=== PATIENT | male | born 1955 | race Caucasian/White ===

== ENCOUNTER → 2016-09-15 | Outpatient (CLI) | payer BC ==
--- NOTE | 2016-09-25 00:58 | ECWPNPC ---
PATIENT NAME: MARKELL BUSTILLOS : 1955 GENDER: MALE VISIT DATE: 09/15/2016 DISCHARGE DATE: 09/15/16 0000 VISIT LOCKED DATE TIME: PHYSICIAN: BRENDEN FLORES RESOURCE: BRENDEN FLORES REASON FOR APPOINTMENT 1. POST CERVICAL THORACIC FACET BLOCK HISTORY OF PRESENT ILLNESS HISTORY OF PRESENT ILLNESS: HERE FOR POST PROC. F/U.HAD BILAT. CERVICAL FACET BLOCK 09-02-16.PAIN IN CERVICAL SPINE IS 0/10 TODAY AND EVER SINCE PROCEDURE.HAS APT FOR RIGHT KNEE INJECTION W US IN A FEW DAYS.HAVING PERIODIC EPISODES OF SEVERE LBP. FALL RISK SCREENING: SCREENING :NO FALLS IN THE PAST YEAR CURRENT MEDICATIONS TAKING OXYCONTIN 20 MG TABLET ER 12 HOUR ABUSE-DETERRENT 1 TABLET ORALLY EVERY 12 HRS, NOTES: 09-01-162329 TAKING BACLOFEN 10 MG TABLET 1 TABLET WITH FOOD OR MILK ORALLY THREE TIMES A DAY NEEDED FOR SPASMS AND PAIN, NOTES: 09-01-162329 TAKING ROPINIROLE HCL 1 MG TABLET ORALLY FOUR TIMES DAILY, NOTES: 09-01-162329 TAKING FUROSEMIDE 40 MG TABLET 1 TABLET ORALLY ONCE A DAY, NOTES: 08-31-16 0900 TAKING DULERA 100-5 MCG/ACT AEROSOL 2 PUFFS INHALATION TWICE A DAY NEEDED, NOTES: 08-22-16 TAKING ALBUTEROL SULFATE (2.5 MG/3ML) 0.083% NEBULIZATION SOLUTION 3 ML INHALATION ONCE DAILY NEEDED, NOTES: 08-22-16 TAKING ALEVE 220 MG CAPSULE 1 DROP ORALLY DAILY NOT-TAKING OXYCODONE HCL ER 20 MG TABLET EXTENDED RELEASE 12 HOUR 1 TABLET ORALLY EVERY 12 HRS FOR PAIN MDD2 MEDICATION LIST REVIEWED AND RECONCILED WITH THE PATIENT PAST MEDICAL HISTORY SINUSITIS ARTHRITIS COPD ALLERGIES N.K.D.A. SOCIAL HISTORY TOBACCO USE ARE YOU A:NONSMOKER LEARNING BARRIERS / SPECIAL NEEDS ORIENTED TO PLAN OF CARE: PATIENT, PAIN MANAGEMENT PATIENT, ORIENTED TO PLAN OF CARE: PATIENT, PAIN MANAGEMENT PATIENT. NEW PATIENT PAIN DIARY TODAY'S VISITNOTES FROM 0-10, WHAT LEVEL IS YOUR PAIN TODAY?0 PAIN CLINIC PFS, CLERGY, PUBLIC HEALTH REFERRALS PFS REFERRAL NEEDED?NO CLERGY REFERRAL NEEDED?NO PUBLIC HEALTH REFERRAL NEEDED?NO WAS THE PROVIDER NOTIFIED OF ANY PERTINENT INFO?NO PFS REFERRAL NEEDED?NO CLERGY REFERRAL NEEDED?NO PUBLIC HEALTH REFERRAL NEEDED?NO WAS THE PROVIDER NOTIFIED OF ANY PERTINENT INFO?NO REVIEW OF SYSTEMS CONSTITUTIONAL: ANY CHANGE IN YOUR MEDICAL CONDITION? NO . RECENT ILLNESS DENIES . CHILLS NO . FEVER NO . WEIGHT LOSS DENIES . INFECTION: DO YOU HAVE NEW INFECTIONS? NO . DO YOU HAVE HISTORY OF MRSA? NO . MUSCULOSKELETAL: ANY NEW PATTERNS OF PAIN OR NUMBNESS? NO . GASTROENTEROLOGY: ANY NEW CHANGE IN BOWEL CONTROL? NO . GENITOURINARY: ANY NEW CHANGE IN BLADDER CONTROL? NO . IS THERE A CHANCE YOU COULD BE ? NO . HEMATOLOGY/LYMPH: DO YOU TAKE ANY BLOOD THINNERS? (FOR EXAMPLE- COUMADIN, PLAVIX, AGGRENOX, PLATEL, PRADAXA, OR XARELTO) NO . WHEN WAS YOUR LAST DOSE? DATE: TIME: . NEUROLOGY: HAVE YOU FALLEN IN THE PAST 6 MONTHS? NO . ANY NEW EXTREMITY NUMBNESS OR WEAKNESS? NO . CARDIOLOGY: DO YOU HAVE A PACEMAKER OR DEFIBRILLATOR? NO . CHEST PAIN DENIES . SHORTNESS OF BREATH DENIES . RESPIRATORY: HAVE YOU BEEN SICK IN THE PAST WEEK? NO . FEVER NO . FLU LIKE SYMPTOMS? NO . COUGH NO, DENIES . SHORTNESS OF BREATH DENIES . INTEGUMENTARY: DO YOU HAVE ANY RASHES OR OPEN SORES? NO . ALLERGIC/IMMUNO: ARE YOU ALLERGIC TO SHELLFISH OR IV DYE? NO . ANY NEW ALLERGIES? NO . PSYCHIATRIC: DO YOU HAVE THOUGHTS OF HURTING YOURSELF OR SOMEONE ELSE? NO . ARE YOU ABUSED, NEGLECTED, OR IN AN UNSAFE ENVIRONMENT? NO . 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 NO . OTHER: DO YOU NEED ANY PRESCRIPTIONS? YES, OXYCONTIN . IF YES, PLEASE LIST: ____ . ANY NEW PROBLEMS WITH YOUR MEDICATIONS? NO . WHEN DID YOU LAST EAT? ____ . WHEN DID YOU LAST DRINK? ____ . WHAT DID YOU LAST DRINK? ____ . NAME OF PERSON DRIVING YOU HOME? ____ . DO YOU HAVE ANY OTHER QUESTIONS OR CONCERNS NO . REVIEWED BY: PROVIDER: BRENDEN ADAMS . VITAL SIGNS WT 225 LBS, HT 68 IN, BMI 34.21 INDEX, BP 137/87 MM HG, HR 97 /MIN, RR 18 /MIN, TEMP 97.6 F, OXYGEN SAT % 97%, NA INITIALS SC 15:17, REVIEWED BY: MLF. EXAMINATION GENERAL EXAMINATION: LUNGS:LUNG SOUNDS ARE CLEAR. HEART:HEART RATE REGULAR. MUSCULOSKELETAL:*, PALPATION: POSITIVE FOR PAIN OVER L/S SPINE. POSITIVE FOR PAIN OVER L/S PARSPINALS, MUSCLE STRENGTH TESTING 5/5 BILATERAL LOWER EXTREMITIES.POSITIVE FOR TENDERNESS OVER C-SPINE.. DIAGNOSTIC:MRI L/S IHDOD-4-31-16-REVIEWED SHOWING MULTI LEVEL DEGENERATIVE CHANGES.. ASSESSMENTS OSTEOARTHRITIS OF CERVICAL SPINE, UNSPECIFIED SPINAL OSTEOARTHRITIS COMPLICATION STATUS - M47.812 (PRIMARY) OSTEOARTHRITIS OF LUMBAR SPINE, UNSPECIFIED SPINAL OSTEOARTHRITIS COMPLICATION STATUS - M47.816 PAIN IN LEFT KNEE - M25.562 CHRONIC PRESCRIPTION OPIATE USE - Z79.891 TREATMENT OSTEOARTHRITIS OF CERVICAL SPINE, UNSPECIFIED SPINAL OSTEOARTHRITIS COMPLICATION STATUS REFILL OXYCONTIN TABLET ER 12 HOUR ABUSE-DETERRENT, 20 MG, 1 TABLET, ORALLY, EVERY 12 HRS, 30 DAY(S), 60 TABLET, REFILLS 0, NOTES: 09-01-162329 REFILL BACLOFEN TABLET, 10 MG, 1 TABLET WITH FOOD OR MILK, ORALLY, THREE TIMES A DAY NEEDED FOR SPASMS AND PAIN, 30 DAY(S), 90, REFILLS 5, NOTES: 09-01-162329 LUMBAR FACET THERAPEUTIC NOTES: ISTOP REGISTRY REVIEWED AND DEMNOSTRATES COMPLLIANCE. BRINGS IN MEDICATIONS WHICH IS APPROPRIATE FOR WHAT WAS DISPENSED. RECENT URINE TOXICOLOGY REVIEWED. NO UNAUTHORIZED MEDICATIONS. NO ILLICIT SUBSTANCES AND PRESCRIBED MEDICATIONS WERE PRESENT. , RISKS AND BENEFITS OF NARCOTIC/OPIOD MEDICATIONS WERE REVIEWED WITH PATIENT - THIS INCLUDES BUT IS NOT LIMITED TO RISK OF DEPENDANCE/DEVELOPMENT OF ADDICTION, MOOD DISTURBANCE AND DEPRESSION, OSTEOPOROSIS, HORMONAL AND LABIDAL CHANGES, RESPIRATORY DEPRESSION AND . PATIENT IS ADVISED NOT TO DRIVE WHILE ON THESE MEDICATIONS,FACET JOINT INJECTION MATERIAL WAS PRINTED,FACET JOINT INJECTION: YOUR EXPERIENCE MATERIAL WAS PRINTED. OSTEOARTHRITIS OF LUMBAR SPINE, UNSPECIFIED SPINAL OSTEOARTHRITIS COMPLICATION STATUS LUMBAR FACET THERAPEUTIC PROCEDURE CODES FA211 ESTABILISHED PATIENT [facility] FACILITY CHARGE FOLLOW UP 2WKS POST (REASON: BILAT. LUMBAR FACET BLOCK) ELECTRONICALLY SIGNED BY ANGIE DUVAL ON 09/24/2016 AT 05:16 PM EST DISCLAIMER : THIS IS A VISIT SUMMARY EXTRACTED FROM THE [employer] CHART. IT IS NOT A COPY OF THE [employer] PROGRESS NOTE. SOFIA
== END ==
LOC: M PAIN 15:20
PROVIDERS: ATTEND Nurse Practitioner Family
DX: Z09 Encounter for follow-up examination after completed treatment for conditions other than malignant neoplasm (principal); M47.812 Spondylosis without myelopathy or radiculopathy, cervical region; M47.816 Spondylosis without myelopathy or radiculopathy, lumbar region; M25.562 Pain in left knee; M19.90 Unspecified osteoarthritis, unspecified site; J44.9 Chronic obstructive pulmonary disease, unspecified; Z79.891 Long term (current) use of opiate analgesic; Z79.899 Other long term (current) drug therapy; Z79.1 Long term (current) use of non-steroidal anti-inflammatories (NSAID)

== ENCOUNTER → 2016-09-18 | Outpatient (CLI) | payer BC ==
[~2016-09-18] MED LIST: BUPIVACAINE HCL 0.25% 30 ML VIAL As Ordered ONE; ISOVUE-M 300 61% 15ML VIAL (Q9967) As Ordered ONE; LIDOCAINE 1% SDV INJ 30 ML VIAL As Ordered ONE; TRIAMCINOLONE ACETONIDE SUSP 40 MG/ML VIAL (J3301) As Ordered ONE; diazePAM 5 MG TAB As Ordered ONE; oxyCODONE 5MG TAB As Ordered ONE
--- NOTE | 2016-09-18 16:06 | REP ---
PARTIAL LEFT KNEE SERIES, THREE VIEWS: HISTORY: Left knee injection for pain. 13 seconds of fluoroscopic time is reported. FINDINGS: A sequence of three fluoroscopically obtained intraprocedural spot radiograph of the left knee document needle position and contrast injection in the suprapatellar bursa associated with injection procedure. Signed by Shane Alcala MD 09/18/2016 07:28 P
--- NOTE | 2016-09-26 02:20 | ECWPNPC ---
PATIENT NAME: MARKELL BUSTILLOS : 1955 GENDER: MALE VISIT DATE: 09/18/2016 DISCHARGE DATE: 09/18/16 1520 VISIT LOCKED DATE TIME: PHYSICIAN: MY TOVAR RESOURCE: MY TOVAR REASON FOR APPOINTMENT 1. LEFT KNEE INJECTION UNDER X RAY HISTORY OF PRESENT ILLNESS HISTORY OF PRESENT ILLNESS: PAIN THE PATIENT DESCRIBES THE PAIN... FALL RISK SCREENING: SCREENING :NO FALLS IN THE PAST YEAR CURRENT MEDICATIONS TAKING OXYCONTIN 20 MG TABLET ER 12 HOUR ABUSE-DETERRENT 1 TABLET ORALLY EVERY 12 HRS, NOTES: 09-17-16 239 TAKING BACLOFEN 10 MG TABLET 1 TABLET WITH FOOD OR MILK ORALLY THREE TIMES A DAY NEEDED FOR SPASMS AND PAIN, NOTES: 09-17-162199 TAKING ROPINIROLE HCL 1 MG TABLET ORALLY FOUR TIMES DAILY, NOTES: 09-18-162199 TAKING FUROSEMIDE 40 MG TABLET 1 TABLET ORALLY ONCE A DAY, NOTES: 09-14-2016 0600 TAKING DULERA 100-5 MCG/ACT AEROSOL 2 PUFFS INHALATION TWICE A DAY NEEDED, NOTES: [id number] TAKING ALBUTEROL SULFATE (2.5 MG/3ML) 0.083% NEBULIZATION SOLUTION 3 ML INHALATION ONCE DAILY NEEDED, NOTES: [id number] NOT-TAKING OXYCODONE HCL ER 20 MG TABLET EXTENDED RELEASE 12 HOUR 1 TABLET ORALLY EVERY 12 HRS FOR PAIN MDD2 MEDICATION LIST REVIEWED AND RECONCILED WITH THE PATIENT PAST MEDICAL HISTORY SINUSITIS ARTHRITIS COPD ALLERGIES N.K.D.A. SURGICAL HISTORY COLONOSCOPY 2014 LEFT SHOULDER - ROTATOR CUFF 2016 SPINAL TAP 2016 LEFT SHOULDER DISLOCATION/FX 1968 SINUSITIS FLUSH AND DRAIN 1971, 1973 RIGHT NIPPLE CYST REMOVED 1972 RIGHT WRIST FX 1974 RIGHT KNEE ACL REPAIRED 1997 RIGHT KNEE TOTAL REPLACEMENT 2006 LEFT SHOULDER ROTATOR CUFF 2008 LEFT FRONTAL MAXILLARY SINUSITIS SINUSOTOMY 2009 RIGHT WRIST CARPAL TUNNEL 2010 REVIEW OF SYSTEMS CONSTITUTIONAL: ANY CHANGE IN YOUR MEDICAL CONDITION? NO . CHILLS NO . FEVER NO . INFECTION: DO YOU HAVE NEW INFECTIONS? NO . DO YOU HAVE HISTORY OF MRSA? NO . MUSCULOSKELETAL: ANY NEW PATTERNS OF PAIN OR NUMBNESS? NO . GASTROENTEROLOGY: ANY NEW CHANGE IN BOWEL CONTROL? NO . GENITOURINARY: ANY NEW CHANGE IN BLADDER CONTROL? NO . IS THERE A CHANCE YOU COULD BE ? NO . HEMATOLOGY/LYMPH: DO YOU TAKE ANY BLOOD THINNERS? (FOR EXAMPLE- COUMADIN, PLAVIX, AGGRENOX, PLATEL, PRADAXA, OR XARELTO) NO . WHEN WAS YOUR LAST DOSE? DATE: TIME: . NEUROLOGY: HAVE YOU FALLEN IN THE PAST 6 MONTHS? NO . ANY NEW EXTREMITY NUMBNESS OR WEAKNESS? NO . CARDIOLOGY: DO YOU HAVE A PACEMAKER OR DEFIBRILLATOR? NO . RESPIRATORY: HAVE YOU BEEN SICK IN THE PAST WEEK? NO . FEVER NO . FLU LIKE SYMPTOMS? NO . COUGH NO . INTEGUMENTARY: DO YOU HAVE ANY RASHES OR OPEN SORES? NO . ALLERGIC/IMMUNO: ARE YOU ALLERGIC TO SHELLFISH OR IV DYE? NO . ANY NEW ALLERGIES? NO . PSYCHIATRIC: DO YOU HAVE THOUGHTS OF HURTING YOURSELF OR SOMEONE ELSE? NO . ARE YOU ABUSED, NEGLECTED, OR IN AN UNSAFE ENVIRONMENT? NO . 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 NO . OTHER: DO YOU NEED ANY PRESCRIPTIONS? NO . IF YES, PLEASE LIST: ____ . ANY NEW PROBLEMS WITH YOUR MEDICATIONS? NO . WHEN DID YOU LAST EAT? 09-17-16 . WHEN DID YOU LAST DRINK? 09-17-16 . WHAT DID YOU LAST DRINK? WATER . NAME OF PERSON DRIVING YOU HOME? ALBINO . DO YOU HAVE ANY OTHER QUESTIONS OR CONCERNS NO . REVIEWED BY: PROVIDER: . VITAL SIGNS WT 225 LBS, HT 68 IN, BMI 34.21 INDEX, BP 128/58 MM HG, HR 88 /MIN, RR 16 /MIN, TEMP 96.2 F, OXYGEN SAT % 97, NA INITIALS TL 1308, REVIEWED BY: BENITO. ASSESSMENTS OSTEOARTHRITIS OF KNEE, UNSPECIFIED - M17.9 (PRIMARY) LEFT KNEE OSTEOARTHRITIS. PROCEDURES PRE-PROCEDURE DIAGNOSIS: LEFT KNEE OSTEOARTHRITISPOST-PROCEDURE DIAGNOSIS: LEFT KNEE OSTEOARTHRITISPROCEDURE: INJECTION OF STEROIDS AT THE LEFT KNEE WITH FLUOROSCOPIC GUIDANCESURGEON: MY TOVAR MDANESTHESIA: LOCALCOMPLICATIONS: NONEPRE-PROCEDURE NOTE: THE PATIENT IS SUFFERING OF SEVERE LEFT KNEE PAIN. THE PATIENT HAS BEEN USING MULTIPLE MEDICATIONS TO CONTROL THIS PAIN. I HAVE DISCUSSED ALTERNATIVES WITH HIM. THE PATIENT INDICATES THAT HE CANNOT FUNCTION WITH THIS PAIN. AFTER DISCUSSING ALTERNATIVES HE WANTS TO MOVE FORWARD WITH A LEFT KNEE INJECTION OF STEROIDS. I WENT THROUGH THE RISKS ALTERNATIVES AND BENEFITS ASSOCIATED WITH THIS PROCEDURE AND THE PATIENT EXPRESSED THAT HE WOULD LIKE TO PROCEED. DUE TO THE PATIENT BODY HABITUS AND FOR CERTAINTY THE PROCEDURE WAS DONE UNDER FLUOROSCOPIC GUIDANCE. PROCEDURE NOTE: THE PATIENT WAS TAKEN TO THE PROCEDURE ROOM AND PLACED IN THE SUPINE POSITION. THE LEFT KNEE WERE CLEAN WITH BETHADINE SOLUTION AND DRAPED ASEPTICALLY. THE PROCEDURE WAS DONE WITH FLUOROSCOPIC GUIDANCE. ENTRY POINT WAS SELECTED AT THE SUPERIOR AND LATERAL MARGIN OF THE LEFT KNEE. UNDER FLUOROSCOPIC GUIDANCE A 22 GAUGE SPINAL NEEDLE WAS ADVANCE SMOOTHLY UNTIL THE LATERAL THIRD OF THE KNEE JOINT WAS REACHED SEEN WITH AN AP VIEW. AFTER PROPER POSITION OF THE NEEDLE WAS REACHED ISOVUE DYE 30% .25CC WAS INJECTED SLOWLY SHOWING ADEQUATE SPREAD OF THE DYE OVER THE RESPECTIVE KNEE JOINT. THEN A SOLUTION OF 4 CC OF BUPIVACAINE 0.125% AND KENALOG 20 MG WAS INJECTED IN THE LEFT KNEE. INJECTION WAS DONE SMOOTHLY AND WITHOUT RESISTANCE. THERE WAS NO EVIDENCE OF PARESTHESIA OR BLOOD. THE PATIENT WAS SEND TO THE RECOVERY ROOM FOR OBSERVATION. FLUOROSCOPY TIME WAS 13 SECONDS.POST-PROCEDURE NOTE: I DISCUSSED ALTERNATIVES WITH THE PATIENT. I WILL SEE HIM IN A F/UP IN THE NEXT FEW WEEKS. THERE WERE NO COMPLICATIONS DURING THE PROCEDURE. INSTRUCTIONS WERE GIVEN, QUESTION WERE ANSWERED AND THE PATIENT REPORTS UNDERSTANDING. DIAGNOSTIC IMAGING [facility] FLUORO GUIDANCE (PAIN)[id number] PROCEDURE CODES 6045F RADXPS IN END [id number] PXD FOLLOW UP 3 WEEKS ELECTRONICALLY SIGNED BY MY TOVAR MD ON 09/25/2016 AT 02:56 PM EST DISCLAIMER : THIS IS A VISIT SUMMARY EXTRACTED FROM THE [employer] CHART. IT IS NOT A COPY OF THE [employer] PROGRESS NOTE. MTDD
== END ==
LOC: M PAIN 13:00
PROVIDERS: ATTEND Anesthesiology
DX: M17.12 Unilateral primary osteoarthritis, left knee (principal); J44.9 Chronic obstructive pulmonary disease, unspecified; Z79.891 Long term (current) use of opiate analgesic; Z79.899 Other long term (current) drug therapy
CPT/HCPCS: 20610; 77002; J3301; Q9967

== ENCOUNTER → 2016-10-08 | Outpatient (CLI) | payer BC ==
[~2016-10-08] MED LIST changes: +ATROPINE SULF 0.4 MG/ML 1ML VIAL (J0461) As Ordered ONE; +ATROPINE SULF 1MG/10ML SYRINGE (J0461) As Ordered ONE
--- NOTE | 2016-10-08 10:41 | REP ---
Partial lumbar spine series: Two views. History: Injection procedure for pain. 45 seconds of fluoroscopy time is reported. Findings: A sequence of two fluoroscopically obtained intraprocedural spot radiographs of the lumbar spine document needle position and contrast injection associated with lumbar facet injection procedure. Signed by Shane Alcala MD 10/08/2016 02:53 P
--- NOTE | 2016-10-18 23:39 | ECWPNPC ---
PATIENT NAME: MARKELL BUSTILLOS : 1955 GENDER: MALE VISIT DATE: 10/08/2016 DISCHARGE DATE: 10/08/16 1018 VISIT LOCKED DATE TIME: PHYSICIAN: MY TOVAR RESOURCE: MY TOVAR REASON FOR APPOINTMENT 1. THERAPEUTIC LUMBAR FACET HISTORY OF PRESENT ILLNESS HISTORY OF PRESENT ILLNESS: PAIN THE PATIENT DESCRIBES THE PAIN... FALL RISK SCREENING: SCREENING :NO FALLS IN THE PAST YEAR CURRENT MEDICATIONS TAKING OXYCONTIN 20 MG TABLET ER 12 HOUR ABUSE-DETERRENT 1 TABLET ORALLY EVERY 12 HRS, NOTES: 10/07/16@2330 TAKING BACLOFEN 10 MG TABLET 1 TABLET WITH FOOD OR MILK ORALLY THREE TIMES A DAY NEEDED FOR SPASMS AND PAIN, NOTES: 10/07/16@2200 TAKING ROPINIROLE HCL 1 MG TABLET ORALLY FOUR TIMES DAILY, NOTES: TAKING FUROSEMIDE 40 MG TABLET 1 TABLET ORALLY ONCE A DAY, NOTES: 10/06/16@1700 TAKING DULERA 100-5 MCG/ACT AEROSOL 2 PUFFS INHALATION TWICE A DAY NEEDED, NOTES: HASNT USED LATELY TAKING ALBUTEROL SULFATE (2.5 MG/3ML) 0.083% NEBULIZATION SOLUTION 3 ML INHALATION ONCE DAILY NEEDED, NOTES: [id number] TAKING LIDODERM 5 % PATCH EXTERNALLY , NOTES: 10/06/16@2200 NOT-TAKING OXYCODONE HCL ER 20 MG TABLET EXTENDED RELEASE 12 HOUR 1 TABLET ORALLY EVERY 12 HRS FOR PAIN MDD2 MEDICATION LIST REVIEWED AND RECONCILED WITH THE PATIENT PAST MEDICAL HISTORY SINUSITIS ARTHRITIS COPD ALLERGIES N.K.D.A. SOCIAL HISTORY GENERAL: TOBACCO USE ARE YOU A:NONSMOKER LEARNING BARRIERS / SPECIAL NEEDS ORIENTED TO PLAN OF CARE: PATIENT, PAIN MANAGEMENT PATIENT, ORIENTED TO PLAN OF CARE: PATIENT, PAIN MANAGEMENT PATIENT. NEW PATIENT PAIN DIARY TODAY'S VISITNOTES FROM 0-10, WHAT LEVEL IS YOUR PAIN TODAY?0 PAIN CLINIC PFS, CLERGY, PUBLIC HEALTH REFERRALS PFS REFERRAL NEEDED?NO CLERGY REFERRAL NEEDED?NO PUBLIC HEALTH REFERRAL NEEDED?NO WAS THE PROVIDER NOTIFIED OF ANY PERTINENT INFO?NO PFS REFERRAL NEEDED?NO CLERGY REFERRAL NEEDED?NO PUBLIC HEALTH REFERRAL NEEDED?NO WAS THE PROVIDER NOTIFIED OF ANY PERTINENT INFO?NO REVIEW OF SYSTEMS CONSTITUTIONAL: ANY CHANGE IN YOUR MEDICAL CONDITION? NO . CHILLS NO . FEVER NO . INFECTION: DO YOU HAVE NEW INFECTIONS? NO . DO YOU HAVE HISTORY OF MRSA? NO . MUSCULOSKELETAL: ANY NEW PATTERNS OF PAIN OR NUMBNESS? NO . GASTROENTEROLOGY: ANY NEW CHANGE IN BOWEL CONTROL? NO . GENITOURINARY: ANY NEW CHANGE IN BLADDER CONTROL? NO . IS THERE A CHANCE YOU COULD BE ? NO . HEMATOLOGY/LYMPH: DO YOU TAKE ANY BLOOD THINNERS? (FOR EXAMPLE- COUMADIN, PLAVIX, AGGRENOX, PLATEL, PRADAXA, OR XARELTO) NO . WHEN WAS YOUR LAST DOSE? DATE: TIME: . NEUROLOGY: HAVE YOU FALLEN IN THE PAST 6 MONTHS? NO . ANY NEW EXTREMITY NUMBNESS OR WEAKNESS? NO . CARDIOLOGY: DO YOU HAVE A PACEMAKER OR DEFIBRILLATOR? NO . RESPIRATORY: HAVE YOU BEEN SICK IN THE PAST WEEK? NO . FEVER NO . FLU LIKE SYMPTOMS? NO . COUGH NO . INTEGUMENTARY: DO YOU HAVE ANY RASHES OR OPEN SORES? NO . ALLERGIC/IMMUNO: ARE YOU ALLERGIC TO SHELLFISH OR IV DYE? NO . ANY NEW ALLERGIES? NO . PSYCHIATRIC: DO YOU HAVE THOUGHTS OF HURTING YOURSELF OR SOMEONE ELSE? NO . ARE YOU ABUSED, NEGLECTED, OR IN AN UNSAFE ENVIRONMENT? NO . 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 NO . OTHER: DO YOU NEED ANY PRESCRIPTIONS? NO . IF YES, PLEASE LIST: ____ . ANY NEW PROBLEMS WITH YOUR MEDICATIONS? NO . WHEN DID YOU LAST EAT? ____10/07/16 . WHEN DID YOU LAST DRINK? ____10/07/16 . WHAT DID YOU LAST DRINK? ____WATER . NAME OF PERSON DRIVING YOU HOME? ____ALBINO . DO YOU HAVE ANY OTHER QUESTIONS OR CONCERNS NO . REVIEWED BY: PROVIDER: . VITAL SIGNS WT 225 LBS, HT 68 IN, BMI 34.21 INDEX, BP 156/75 MM HG, HR 99 /MIN, RR 16 /MIN, TEMP 96.0 F, OXYGEN SAT % 96, NA INITIALS TL 0852, REVIEWED BY: VD. ASSESSMENTS SPONDYLOSIS WITHOUT MYELOPATHY OR RADICULOPATHY, LUMBAR REGION - M47.816 (PRIMARY) SPONDYLOSIS WITHOUT MYELOPATHY OR RADICULOPATHY, LUMBOSACRAL REGION - M47.817 PROCEDURES PN LUMBAR FACET BLOCK THERAPEUTIC PRE PROCEDURE DIAGNOSIS LUMBAR SPONDYLOSIS, LUMBOSACRAL SPONDYLOSIS POST PROCEDURE DIAGNOSIS LUMBAR SPONDYLOSIS, LUMBOSACRAL SPONDYLOSIS PROCEDURE BILATERAL L4-L5 AND BILATERAL L5-S1 FACET THERAPEUTIC BLOCK SURGEON DR. MY TOVAR DIPLOMATIC OFFICER NONE ANESTHESIA LOCAL PRE PROCEDURE NOTE THE PATIENT HAS A HISTORY OF CHRONIC LOW BACK PAIN. I EVALUATE THE PATIENT AND REVIEWED THE CHART. I WENT OVER THE RISKS, ALTERNATIVES, AND BENEFITS ASSOCIATED WITH THIS PROCEDURE. THE PATIENT WOULD LIKE TO PROCEED AND GIVE CONSENT TO PERFORMED THE PROCEDURE. THE PATIENT DENIES UNEXPLAINABLE WEIGHT LOSS, FEVER, CHILLS, OR NEW CHANGES IN URINARY OR BOWEL CONTROL DESCRIPTION OF PROCEDURE THE PATIENT WAS BROUGHT TO THE PROCEDURE ROOM AND PLACED IN THE PRONE POSITION. THE LUMBOSACRAL AREA WAS CLEANED WITH CHLORAPREP SOLUTION AND DRAPED ASEPTICALLY. THE PROCEDURE WAS DONE UNDER STERILE CONDITIONS. I CHECKED LATERALITY AND THE LEVEL WHERE THE PROCEDURE WAS GOING TO BE PERFORMED WITH THE PATIENT AND THE SUPPORTING STAFF AT THE MOMENT OF THE TIME OUT IN THE PROCEDURE ROOM. UNDER FLUOROSCOPIC GUIDANCE, THE TARGET POINT WAS SELECTED AT THE RIGHT AND LEFT L4-L5 AND RIGHT AND LEFT L5-S1 FACET JOINT. TARGET POINT WAS SELECTED AFTER LATERAL ROTATION AND TILT OF THE MAGNIFIER OF THE C-ARM. LIDOCAINE 0.5% WAS USED TO NUMB THE SKIN AND THE SUBCUTANEOUS TISSUE BELOW IT. SPINAL NEEDLES, 22-GAUGE, WERE ADVANCED UNDER FLUOROSCOPIC GUIDANCE AND FOLLOWING PATIENT FEEDBACK UNTIL THE TARGETS WERE TOUCHED. THE POSITION OF THE NEEDLES WAS VERIFIED WITH AP AND LATERAL VIEWS. AFTER PROPER POSITION OF THE NEEDLES WAS ACHIEVED, ISOVUE-M DYE 30% 0.1 ML WAS INJECTED SHOWING ADEQUATE SPREAD OF THE DYE. THEN A SOLUTION OF 1.9 ML OF BUPIVACAINE 0.125% OF KENALOG 10 MG WAS INJECTED AT EACH SITE. THERE WAS NO EVIDENCE OF BLOOD, PARESTHESIA OR CEREBROSPINAL FLUID DURING THE PROCEDURE. THE PATIENT WAS SENT TO THE RECOVERY ROOM. THE PATIENT WAS MOVING THE EXTREMITIES AND DOING WELL. THERE WAS NO COMPLICATION DURING THE PROCEDURE. FLUOROSCOPY TIME WAS 45 SECONDS POST PROCEDURE NOTE THE PATIENT WILL BE SEEN IN A FOLLOW UP IN THE NEXT FEW WEEKS. INSTRUCTIONS WERE GIVEN, QUESTIONS WERE ANSWERED, AND THE PATIENT EXPRESSED UNDERSTANDING AND AGREES WITH THE PLAN. INSTRUCTIONS WERE GIVEN, QUESTIONS WERE ANSWERED, PATIENT REPORTS UNDERSTANDING AND AGREES WITH THE PLAN. I, ANTONIO ESCOBAR, DOCUMENTED THE ABOVE INFORMATION ACTING A SCRIBE FOR DR. TOVAR. I HAVE REVIEWED THE ABOVE DOCUMENT, WRITTEN BY ANTONIO HIGBY SCRIBE AND I VERIFY THAT IT IS ACCURATE. DIAGNOSTIC IMAGING [facility] FACET BLOCK (PAIN)[id number] PROCEDURE CODES 54158 INJ PARAVERT F JNT L/S 1 LEV 81672 INJ PARAVERT F JNT L/S 2 LEV 6045F RADXPS IN END [id number] PXD FOLLOW UP 3 WEEKS ELECTRONICALLY SIGNED BY MY TOVAR MD ON 10/18/2016 AT 07:46 PM EST DISCLAIMER : THIS IS A VISIT SUMMARY EXTRACTED FROM THE [employer] CHART. IT IS NOT A COPY OF THE [employer] PROGRESS NOTE. MTDD
== END ==
LOC: M PAIN 09:10
PROVIDERS: ATTEND Anesthesiology
DX: G89.29 Other chronic pain (principal); M47.816 Spondylosis without myelopathy or radiculopathy, lumbar region; M47.817 Spondylosis without myelopathy or radiculopathy, lumbosacral region; M19.90 Unspecified osteoarthritis, unspecified site; J44.9 Chronic obstructive pulmonary disease, unspecified; Z79.891 Long term (current) use of opiate analgesic; Z79.899 Other long term (current) drug therapy
CPT/HCPCS: 64493; 64494; J3301; Q9967

== ENCOUNTER → 2016-10-29 | Outpatient (CLI) | payer BC ==
--- NOTE | 2016-11-06 00:24 | ECWPNPC ---
PATIENT NAME: MARKELL BUSTILLOS : 1955 GENDER: MALE VISIT DATE: 10/29/2016 DISCHARGE DATE: 10/29/16 1516 VISIT LOCKED DATE TIME: PHYSICIAN: BRENDEN FLORES RESOURCE: BRENDEN FLORES REASON FOR APPOINTMENT 1. POST SIJ HISTORY OF PRESENT ILLNESS HISTORY OF PRESENT ILLNESS: HERE FOR POST PROCEDURE F/U.HAD L4/5-L5/S1 BILAT. LUMBAR FACET BLOCK ON 10-08-16.REPORTING >50% IMPROVEMENT IN PAIN POST PROCEDURE. RECENT DIAGNOSIS OF MS 4 MOS. AGO.CONTINUES TO BENEFIT FROM LUMBAR FACET BLOCKS.CHIEF AREA OF PAIN IS LEFT KNEE.RATING LEFT KNEE PAIN 8/10.LOW BACK PAIN IS 4/10 VAS.DESCRIBES LEFT KNEE PAIN THROBBING.CURRENTLY USING OXYCONTIN 20MG BID.ALSO USING BACLOFEN 10MG QID. FALL RISK SCREENING: SCREENING :NO FALLS IN THE PAST YEAR CURRENT MEDICATIONS TAKING OXYCONTIN 20 MG TABLET ER 12 HOUR ABUSE-DETERRENT 1 TABLET ORALLY EVERY 12 HRS TAKING BACLOFEN 10 MG TABLET 1 TABLET WITH FOOD OR MILK ORALLY FOUR TIMES DAILY TAKING ROPINIROLE HCL 1 MG TABLET ORALLY FOUR TIMES DAILY TAKING FUROSEMIDE 40 MG TABLET 1 TABLET ORALLY ONCE Q 3 DAYS PRN TAKING DULERA 100-5 MCG/ACT AEROSOL 2 PUFFS INHALATION TWICE A DAY NEEDED TAKING ALBUTEROL SULFATE (2.5 MG/3ML) 0.083% NEBULIZATION SOLUTION 3 ML INHALATION ONCE DAILY NEEDED TAKING LIDODERM 5 % PATCH EXTERNALLY PRN TAKING ALEVE 220 MG TABLET 1 TABLET ORALLY DAILY PRN NOT-TAKING OXYCODONE HCL ER 20 MG TABLET EXTENDED RELEASE 12 HOUR 1 TABLET ORALLY EVERY 12 HRS FOR PAIN MDD2 MEDICATION LIST REVIEWED AND RECONCILED WITH THE PATIENT PAST MEDICAL HISTORY SINUSITIS ARTHRITIS COPD DEMYELINATING DISEASE SURGICAL HISTORY COLONOSCOPY 2015 LEFT SHOULDER - ROTATOR CUFF 2016 SPINAL TAP 2016 LEFT SHOULDER DISLOCATION/FX 1968 SINUSITIS FLUSH AND DRAIN 1971, 1973 RIGHT NIPPLE CYST REMOVED 1972 RIGHT WRIST FX 1974 RIGHT KNEE ACL REPAIRED 1997 RIGHT KNEE TOTAL REPLACEMENT 2006 LEFT SHOULDER ROTATOR CUFF 2008 LEFT FRONTAL MAXILLARY SINUSITIS SINUSOTOMY 2009 RIGHT WRIST CARPAL TUNNEL 2010 SOCIAL HISTORY GENERAL: TOBACCO USE ARE YOU A:NONSMOKER LEARNING BARRIERS / SPECIAL NEEDS ORIENTED TO PLAN OF CARE: PATIENT, PAIN MANAGEMENT PATIENT, ORIENTED TO PLAN OF CARE: PATIENT, PAIN MANAGEMENT PATIENT. NEW PATIENT PAIN DIARY TODAY'S VISITNOTES FROM 0-10, WHAT LEVEL IS YOUR PAIN TODAY?0 PAIN CLINIC PFS, CLERGY, PUBLIC HEALTH REFERRALS PFS REFERRAL NEEDED?NO CLERGY REFERRAL NEEDED?NO PUBLIC HEALTH REFERRAL NEEDED?NO WAS THE PROVIDER NOTIFIED OF ANY PERTINENT INFO?NO PFS REFERRAL NEEDED?NO CLERGY REFERRAL NEEDED?NO PUBLIC HEALTH REFERRAL NEEDED?NO WAS THE PROVIDER NOTIFIED OF ANY PERTINENT INFO?NO REVIEW OF SYSTEMS CONSTITUTIONAL: ANY CHANGE IN YOUR MEDICAL CONDITION? YES, DIAGNOSED WITH DEMYELINATING DISEASE BY DR. JARVIS . CHILLS NO . FEVER NO . INFECTION: DO YOU HAVE NEW INFECTIONS? NO . DO YOU HAVE HISTORY OF MRSA? NO . MUSCULOSKELETAL: ANY NEW PATTERNS OF PAIN OR NUMBNESS? NO . GASTROENTEROLOGY: ANY NEW CHANGE IN BOWEL CONTROL? NO . GENITOURINARY: ANY NEW CHANGE IN BLADDER CONTROL? NO . IS THERE A CHANCE YOU COULD BE ? NO . HEMATOLOGY/LYMPH: DO YOU TAKE ANY BLOOD THINNERS? (FOR EXAMPLE- COUMADIN, PLAVIX, AGGRENOX, PLATEL, PRADAXA, OR XARELTO) NO . WHEN WAS YOUR LAST DOSE? DATE: TIME: . NEUROLOGY: HAVE YOU FALLEN IN THE PAST 6 MONTHS? NO . ANY NEW EXTREMITY NUMBNESS OR WEAKNESS? NO . CARDIOLOGY: DO YOU HAVE A PACEMAKER OR DEFIBRILLATOR? NO . RESPIRATORY: HAVE YOU BEEN SICK IN THE PAST WEEK? NO . FEVER NO . FLU LIKE SYMPTOMS? NO . COUGH NO . INTEGUMENTARY: DO YOU HAVE ANY RASHES OR OPEN SORES? NO . ALLERGIC/IMMUNO: ARE YOU ALLERGIC TO SHELLFISH OR IV DYE? NO . ANY NEW ALLERGIES? NO . PSYCHIATRIC: DO YOU HAVE THOUGHTS OF HURTING YOURSELF OR SOMEONE ELSE? NO . ARE YOU ABUSED, NEGLECTED, OR IN AN UNSAFE ENVIRONMENT? NO . 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 NO . OTHER: DO YOU NEED ANY PRESCRIPTIONS? YES, OXYCONTIN . IF YES, PLEASE LIST: ____ . ANY NEW PROBLEMS WITH YOUR MEDICATIONS? NO . WHEN DID YOU LAST EAT? ____ . WHEN DID YOU LAST DRINK? ____ . WHAT DID YOU LAST DRINK? ____ . NAME OF PERSON DRIVING YOU HOME? ____ . DO YOU HAVE ANY OTHER QUESTIONS OR CONCERNS YES, LITTLE RELIEF FOR LEFT KNEE INJECTION DONE 09/18/16 AND SOME RELIEF FROM BILATERAL LUMBAR FACET THERAPEUTIC BLOCK DONE 10/08/16 . REVIEWED BY: PROVIDER: BRENDEN ADAMS . VITAL SIGNS WT 215 LBS, HT 68 IN, BMI 32.69 INDEX, BP 128/72 MM HG, HR 113 /MIN, RR 16 /MIN, TEMP 98.7 F, OXYGEN SAT % 95, REVIEWED BY: DELIA. EXAMINATION GENERAL EXAMINATION: LUNGS:LUNG SOUNDS ARE CLEAR. HEART:HEART RATE REGULAR. MUSCULOSKELETAL:*, PALPATION: POSITIVE FOR PAIN OVER L/S SPINE. POSITIVE FOR PAIN OVER L/S PARSPINALS, MUSCLE STRENGTH TESTING 5/5 BILATERAL LOWER EXTREMITIES.POSITIVE FOR TENDERNESS OVER C-SPINE.. DIAGNOSTIC:MRI L/S [id number]-REVIEWED SHOWING MULTI LEVEL DEGENERATIVE CHANGES.. ASSESSMENTS OSTEOARTHRITIS OF CERVICAL SPINE, UNSPECIFIED SPINAL OSTEOARTHRITIS COMPLICATION STATUS - M47.812 (PRIMARY) OSTEOARTHRITIS OF LUMBAR SPINE, UNSPECIFIED SPINAL OSTEOARTHRITIS COMPLICATION STATUS - M47.816 PAIN IN LEFT KNEE - M25.562 CHRONIC PRESCRIPTION OPIATE USE - Z79.891 TREATMENT OSTEOARTHRITIS OF CERVICAL SPINE, UNSPECIFIED SPINAL OSTEOARTHRITIS COMPLICATION STATUS REFILL OXYCONTIN TABLET ER 12 HOUR ABUSE-DETERRENT, 20 MG, 1 TABLET, ORALLY, EVERY 12 HRS, 30 DAY(S), 60 TABLET, REFILLS 0 START VOLTAREN GEL, 1 %, DIRECTED TO LEFT KNEE, TRANSDERMAL, Q8H PRN, 30 DAY(S), 1, REFILLS 2 ARTHROCENTESIS INJECTION LARGE JOINT ([id number]) NOTES: ISTOP REGISTRY REVIEWED AND DEMNOSTRATES COMPLLIANCE. BRINGS IN MEDICATIONS WHICH IS APPROPRIATE FOR WHAT WAS DISPENSED. RECENT URINE TOXICOLOGY REVIEWED. NO UNAUTHORIZED MEDICATIONS. NO ILLICIT SUBSTANCES AND PRESCRIBED MEDICATIONS WERE PRESENT. , RISKS AND BENEFITS OF NARCOTIC/OPIOD MEDICATIONS WERE REVIEWED WITH PATIENT - THIS INCLUDES BUT IS NOT LIMITED TO RISK OF DEPENDANCE/DEVELOPMENT OF ADDICTION, MOOD DISTURBANCE AND DEPRESSION, OSTEOPOROSIS, HORMONAL AND LABIDAL CHANGES, RESPIRATORY DEPRESSION AND . PATIENT IS ADVISED NOT TO DRIVE WHILE ON THESE MEDICATIONS. PAIN IN LEFT KNEE ARTHROCENTESIS INJECTION LARGE JOINT ([id number]) PROCEDURE CODES FA211 ESTABILISHED PATIENT [facility] FACILITY CHARGE DISPOSITION & COMMUNICATION FOLLOW UP 2WK POST PROC (REASON: LEFT KNEE INJECTION) ELECTRONICALLY SIGNED BY ANGIE DUVAL ON 11/05/2016 AT 05:16 PM EST DISCLAIMER : THIS IS A VISIT SUMMARY EXTRACTED FROM THE [employer] CHART. IT IS NOT A COPY OF THE [employer] PROGRESS NOTE. MTDD
== END ==
LOC: M PAIN 14:00
PROVIDERS: ATTEND Nurse Practitioner Family
DX: Z09 Encounter for follow-up examination after completed treatment for conditions other than malignant neoplasm (principal); G89.29 Other chronic pain; M47.812 Spondylosis without myelopathy or radiculopathy, cervical region; M47.816 Spondylosis without myelopathy or radiculopathy, lumbar region; M47.813 Spondylosis without myelopathy or radiculopathy, cervicothoracic region; M17.12 Unilateral primary osteoarthritis, left knee; G37.9 Demyelinating disease of central nervous system, unspecified; Z79.891 Long term (current) use of opiate analgesic; Z79.899 Other long term (current) drug therapy; Z79.1 Long term (current) use of non-steroidal anti-inflammatories (NSAID)

== ENCOUNTER → 2016-11-10 | Outpatient (CLI) | payer BC ==
[~2016-11-10] MED LIST changes: -ATROPINE SULF 0.4 MG/ML 1ML VIAL (J0461) As Ordered ONE; -ATROPINE SULF 1MG/10ML SYRINGE (J0461) As Ordered ONE
--- NOTE | 2016-11-10 17:04 | REP ---
Left knee: Limited study three views: History: Injection procedure for pain. 13 seconds of fluoroscopy time is reported. Findings: A sequence of three fluoroscopically obtained last image hold spot radiographs of the left knee document needle position and contrast injection associated with knee injection procedure. Signed by Shane Alcala MD 11/11/2016 08:01 A
--- NOTE | 2016-11-24 02:24 | ECWPNPC ---
PATIENT NAME: MARKELL BUSTILLOS : 1955 GENDER: MALE VISIT DATE: 11/10/2016 DISCHARGE DATE: 11/10/16 1554 VISIT LOCKED DATE TIME: PHYSICIAN: MY TOVAR RESOURCE: MY TOVAR REASON FOR APPOINTMENT 1. KNEE INJECTION HISTORY OF PRESENT ILLNESS HISTORY OF PRESENT ILLNESS: PAIN THE PATIENT DESCRIBES THE PAIN... FALL RISK SCREENING: SCREENING :NO FALLS IN THE PAST YEAR CURRENT MEDICATIONS TAKING BACLOFEN 10 MG TABLET 1 TABLET WITH FOOD OR MILK ORALLY FOUR TIMES DAILY, NOTES: 11-09-162099 TAKING ROPINIROLE HCL 1 MG TABLET ORALLY FOUR TIMES DAILY, NOTES: 11-09-162099 TAKING FUROSEMIDE 40 MG TABLET 1 TABLET ORALLY ONCE Q 3 DAYS PRN, NOTES: 11-08-16 TAKING DULERA 100-5 MCG/ACT AEROSOL 2 PUFFS INHALATION TWICE A DAY NEEDED, NOTES: NONE TAKING ALBUTEROL SULFATE (2.5 MG/3ML) 0.083% NEBULIZATION SOLUTION 3 ML INHALATION ONCE DAILY NEEDED, NOTES: 3 DAYS AGO TAKING LIDODERM 5 % PATCH EXTERNALLY PRN, NOTES: 11-08-16 TAKING ALEVE 220 MG TABLET 1 TABLET ORALLY DAILY PRN, NOTES: 11-09-16 TAKING OXYCONTIN 20 MG TABLET ER 12 HOUR ABUSE-DETERRENT 1 TABLET ORALLY EVERY 12 HRS, NOTES: 11-09-162349 TAKING VOLTAREN 1 % GEL DIRECTED TO LEFT KNEE TRANSDERMAL Q8H PRN, NOTES: 2 DAYS AGO NOT-TAKING OXYCODONE HCL ER 20 MG TABLET EXTENDED RELEASE 12 HOUR 1 TABLET ORALLY EVERY 12 HRS FOR PAIN MDD2 MEDICATION LIST REVIEWED AND RECONCILED WITH THE PATIENT PAST MEDICAL HISTORY SINUSITIS ARTHRITIS COPD DEMYELINATING DISEASE ALLERGIES N.K.D.A. SOCIAL HISTORY GENERAL: TOBACCO USE ARE YOU A:NONSMOKER LEARNING BARRIERS / SPECIAL NEEDS ORIENTED TO PLAN OF CARE: PATIENT, PAIN MANAGEMENT PATIENT, ORIENTED TO PLAN OF CARE: PATIENT, PAIN MANAGEMENT PATIENT. NEW PATIENT PAIN DIARY TODAY'S VISITNOTES FROM 0-10, WHAT LEVEL IS YOUR PAIN TODAY?0 PAIN CLINIC PFS, CLERGY, PUBLIC HEALTH REFERRALS PFS REFERRAL NEEDED?NO CLERGY REFERRAL NEEDED?NO PUBLIC HEALTH REFERRAL NEEDED?NO WAS THE PROVIDER NOTIFIED OF ANY PERTINENT INFO?NO PFS REFERRAL NEEDED?NO CLERGY REFERRAL NEEDED?NO PUBLIC HEALTH REFERRAL NEEDED?NO WAS THE PROVIDER NOTIFIED OF ANY PERTINENT INFO?NO REVIEW OF SYSTEMS CONSTITUTIONAL: ANY CHANGE IN YOUR MEDICAL CONDITION? NO . CHILLS NO . FEVER NO . INFECTION: DO YOU HAVE NEW INFECTIONS? NO . DO YOU HAVE HISTORY OF MRSA? NO . MUSCULOSKELETAL: ANY NEW PATTERNS OF PAIN OR NUMBNESS? NO . GASTROENTEROLOGY: ANY NEW CHANGE IN BOWEL CONTROL? NO . GENITOURINARY: ANY NEW CHANGE IN BLADDER CONTROL? NO . IS THERE A CHANCE YOU COULD BE ? NO . HEMATOLOGY/LYMPH: DO YOU TAKE ANY BLOOD THINNERS? (FOR EXAMPLE- COUMADIN, PLAVIX, AGGRENOX, PLATEL, PRADAXA, OR XARELTO) NO . WHEN WAS YOUR LAST DOSE? DATE: TIME: . NEUROLOGY: HAVE YOU FALLEN IN THE PAST 6 MONTHS? NO . ANY NEW EXTREMITY NUMBNESS OR WEAKNESS? NO . CARDIOLOGY: DO YOU HAVE A PACEMAKER OR DEFIBRILLATOR? NO . RESPIRATORY: HAVE YOU BEEN SICK IN THE PAST WEEK? NO . FEVER NO . FLU LIKE SYMPTOMS? NO . COUGH NO . INTEGUMENTARY: DO YOU HAVE ANY RASHES OR OPEN SORES? NO . ALLERGIC/IMMUNO: ARE YOU ALLERGIC TO SHELLFISH OR IV DYE? NO . ANY NEW ALLERGIES? NO . PSYCHIATRIC: DO YOU HAVE THOUGHTS OF HURTING YOURSELF OR SOMEONE ELSE? NO . ARE YOU ABUSED, NEGLECTED, OR IN AN UNSAFE ENVIRONMENT? NO . 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 NO . OTHER: DO YOU NEED ANY PRESCRIPTIONS? YES OXYCONTIN 20MG/BACLOFEN . IF YES, PLEASE LIST: ____ . ANY NEW PROBLEMS WITH YOUR MEDICATIONS? NO . WHEN DID YOU LAST EAT? YES, 11-09-26 PM . WHEN DID YOU LAST DRINK? 11-10-16 0800 . WHAT DID YOU LAST DRINK? WATER . NAME OF PERSON DRIVING YOU HOME? ALBINO . DO YOU HAVE ANY OTHER QUESTIONS OR CONCERNS NO . REVIEWED BY: PROVIDER: . VITAL SIGNS WT 225 LBS, HT 68 IN, BMI 34.21 INDEX, BP 126/64 MM HG, HR 97 /MIN, RR 16 /MIN, TEMP 96.4 F, OXYGEN SAT % 96, NA INITIALS TL 1331, REVIEWED BY: CM. ASSESSMENTS OSTEOARTHRITIS OF KNEE, UNSPECIFIED - M17.9 (PRIMARY) LEFT KNEE OSTEOARTHRITIS. PROCEDURES PRE-PROCEDURE DIAGNOSIS: LEFT KNEE OSTEOARTHRITISPOST-PROCEDURE DIAGNOSIS: LEFT KNEE OSTEOARTHRITISPROCEDURE: INJECTION OF STEROIDS AT THE LEFT KNEE WITH FLUOROSCOPIC GUIDANCESURGEON: MY TOVAR MDANESTHESIA: LOCALCOMPLICATIONS: NONEPRE-PROCEDURE NOTE: THE PATIENT IS SUFFERING OF SEVERE LEFT KNEE PAIN. THE PATIENT HAS BEEN USING MULTIPLE MEDICATIONS TO CONTROL THIS PAIN. I HAVE DISCUSSED ALTERNATIVES WITH HIM. THE PATIENT INDICATES THAT HE CANNOT FUNCTION WITH THIS PAIN. AFTER DISCUSSING ALTERNATIVES HE WANTS TO MOVE FORWARD WITH A LEFT KNEE INJECTION OF STEROIDS. I WENT THROUGH THE RISKS ALTERNATIVES AND BENEFITS ASSOCIATED WITH THIS PROCEDURE AND THE PATIENT EXPRESSED THAT HE WOULD LIKE TO PROCEED. DUE TO THE PATIENT BODY HABITUS AND FOR CERTAINTY THE PROCEDURE WAS DONE UNDER FLUOROSCOPIC GUIDANCE. PROCEDURE NOTE: THE PATIENT WAS TAKEN TO THE PROCEDURE ROOM AND PLACED IN THE SUPINE POSITION. THE LEFT KNEE WERE CLEAN WITH BETHADINE SOLUTION AND DRAPED ASEPTICALLY. THE PROCEDURE WAS DONE WITH FLUOROSCOPIC GUIDANCE. ENTRY POINT WAS SELECTED AT THE SUPERIOR AND LATERAL MARGIN OF THE LEFT KNEE. UNDER FLUOROSCOPIC GUIDANCE A 22 GAUGE SPINAL NEEDLE WAS ADVANCE SMOOTHLY UNTIL THE LATERAL THIRD OF THE KNEE JOINT WAS REACHED SEEN WITH AN AP VIEW. AFTER PROPER POSITION OF THE NEEDLE WAS REACHED ISOVUE DYE 30% .25CC WAS INJECTED SLOWLY SHOWING ADEQUATE SPREAD OF THE DYE OVER THE RESPECTIVE KNEE JOINT. THEN A SOLUTION OF 4 CC OF BUPIVACAINE 0.125% AND KENALOG 20 MG WAS INJECTED IN THE LEFT KNEE. INJECTION WAS DONE SMOOTHLY AND WITHOUT RESISTANCE. THERE WAS NO EVIDENCE OF PARESTHESIA OR BLOOD. THE PATIENT WAS SEND TO THE RECOVERY ROOM FOR OBSERVATION. FLUOROSCOPY TIME WAS 7 SECONDS.POST-PROCEDURE NOTE: I DISCUSSED ALTERNATIVES WITH THE PATIENT. I WILL SEE HIM IN A F/UP IN THE NEXT FEW WEEKS. THERE WERE NO COMPLICATIONS DURING THE PROCEDURE. INSTRUCTIONS WERE GIVEN, QUESTION WERE ANSWERED AND THE PATIENT REPORTS UNDERSTANDING. INSTRUCTIONS WERE GIVEN, QUESTIONS WERE ANSWERED, PATIENT REPORTS UNDERSTANDING AND AGREES WITH THE PLAN. I, ANTONIO ESCOBAR, DOCUMENTED THE ABOVE INFORMATION ACTING A SCRIBE FOR DR. TOVAR. I HAVE REVIEWED THE ABOVE DOCUMENT, WRITTEN BY ANTONIO ESCOBAR SCRIBYolanda AND I VERIFY THAT IT IS ACCURATE. DIAGNOSTIC IMAGING [facility] FLUORO GUIDANCE (PAIN)[id number] PROCEDURE CODES 6045F RADXPS IN END [id number] PXD 90680 DRAIN/INJ JOINT/BURSA W/[place] [address] NEEDLE LOCALIZATION BY XRAY DISPOSITION & COMMUNICATION FOLLOW UP 3 WEEKS ELECTRONICALLY SIGNED BY MY TOVAR MD ON 11/22/2016 AT 10:18 AM EDT DISCLAIMER : THIS IS A VISIT SUMMARY EXTRACTED FROM THE [employer] CHART. IT IS NOT A COPY OF THE [employer] PROGRESS NOTE. SOFIA
== END ==
LOC: M PAIN 13:20
PROVIDERS: ATTEND Anesthesiology
DX: G89.29 Other chronic pain (principal); M17.9 Osteoarthritis of knee, unspecified; J44.9 Chronic obstructive pulmonary disease, unspecified; G37.9 Demyelinating disease of central nervous system, unspecified; Z79.1 Long term (current) use of non-steroidal anti-inflammatories (NSAID); Z79.891 Long term (current) use of opiate analgesic; Z79.899 Other long term (current) drug therapy
CPT/HCPCS: 20610; 77002; J3301; Q9967

== ENCOUNTER → 2016-11-19 | Outpatient (CLI) | payer BC ==
--- NOTE | 2016-11-19 23:56 | ECWPNPC ---
PATIENT NAME: MARKELL BUSTILLOS : 1955 GENDER: MALE VISIT DATE: 11/19/2016 DISCHARGE DATE: 11/19/16 1514 VISIT LOCKED DATE TIME: PHYSICIAN: BRENDEN FLORES RESOURCE: BRENDEN FLORES REASON FOR APPOINTMENT 1. POST PROCEDURE, KNEE INJECTION HISTORY OF PRESENT ILLNESS HISTORY OF PRESENT ILLNESS: HERE FOR POST PROCEDURE F/U.HAD LEFT KNEE INJECTION 11-10-16.THIS WAS HIS SECOND INJECTION.ONLY REDUCED PAIN FOR 3-4 DAYS .CONTINUES TO BENEFIT FROM LUMBAR FACET BLOCKS.CHIEF AREA OF PAIN IS LEFT KNEE.RATING LEFT KNEE PAIN 8/10.LOW BACK PAIN IS 4/10 VAS.DESCRIBES LEFT KNEE PAIN THROBBING.CURRENTLY USING OXYCONTIN 20MG BID.ALSO USING BACLOFEN 10MG QID. PAIN THE PATIENT DESCRIBES THE PAIN... THE PATIENT DESCRIBES THE PAIN... FALL RISK SCREENING: SCREENING :NO FALLS IN THE PAST YEAR CURRENT MEDICATIONS TAKING BACLOFEN 10 MG TABLET 1 TABLET WITH FOOD OR MILK ORALLY FOUR TIMES DAILY, NOTES: 11-09-162099 TAKING ROPINIROLE HCL 1 MG TABLET ORALLY FOUR TIMES DAILY, NOTES: 11-09-162099 TAKING FUROSEMIDE 40 MG TABLET 1 TABLET ORALLY ONCE Q 3 DAYS PRN, NOTES: 11-08-16 TAKING DULERA 100-5 MCG/ACT AEROSOL 2 PUFFS INHALATION TWICE A DAY NEEDED, NOTES: NONE TAKING ALBUTEROL SULFATE (2.5 MG/3ML) 0.083% NEBULIZATION SOLUTION 3 ML INHALATION ONCE DAILY NEEDED, NOTES: 3 DAYS AGO TAKING LIDODERM 5 % PATCH EXTERNALLY PRN, NOTES: 11-08-16 TAKING ALEVE 220 MG TABLET 1 TABLET ORALLY DAILY PRN, NOTES: 11-09-16 TAKING OXYCONTIN 20 MG TABLET ER 12 HOUR ABUSE-DETERRENT 1 TABLET ORALLY EVERY 12 HRS, NOTES: 11-09-162349 TAKING VOLTAREN 1 % GEL DIRECTED TO LEFT KNEE TRANSDERMAL Q8H PRN, NOTES: 2 DAYS AGO NOT-TAKING OXYCODONE HCL ER 20 MG TABLET EXTENDED RELEASE 12 HOUR 1 TABLET ORALLY EVERY 12 HRS FOR PAIN MDD2 PAST MEDICAL HISTORY SINUSITIS ARTHRITIS COPD DEMYELINATING DISEASE ALLERGIES N.K.D.A. SOCIAL HISTORY GENERAL: TOBACCO USE ARE YOU A:NONSMOKER LEARNING BARRIERS / SPECIAL NEEDS ORIENTED TO PLAN OF CARE: PATIENT, PAIN MANAGEMENT PATIENT, ORIENTED TO PLAN OF CARE: PATIENT, PAIN MANAGEMENT PATIENT. NEW PATIENT PAIN DIARY TODAY'S VISITNOTES FROM 0-10, WHAT LEVEL IS YOUR PAIN TODAY?0 PAIN CLINIC PFS, CLERGY, PUBLIC HEALTH REFERRALS PFS REFERRAL NEEDED?NO CLERGY REFERRAL NEEDED?NO PUBLIC HEALTH REFERRAL NEEDED?NO WAS THE PROVIDER NOTIFIED OF ANY PERTINENT INFO?NO PFS REFERRAL NEEDED?NO CLERGY REFERRAL NEEDED?NO PUBLIC HEALTH REFERRAL NEEDED?NO WAS THE PROVIDER NOTIFIED OF ANY PERTINENT INFO?NO REVIEW OF SYSTEMS CONSTITUTIONAL: ANY CHANGE IN YOUR MEDICAL CONDITION? NO . CHILLS NO . FEVER NO . INFECTION: DO YOU HAVE NEW INFECTIONS? NO . DO YOU HAVE HISTORY OF MRSA? NO . MUSCULOSKELETAL: ANY NEW PATTERNS OF PAIN OR NUMBNESS? NO . GASTROENTEROLOGY: ANY NEW CHANGE IN BOWEL CONTROL? NO . GENITOURINARY: ANY NEW CHANGE IN BLADDER CONTROL? NO . IS THERE A CHANCE YOU COULD BE ? NO . HEMATOLOGY/LYMPH: DO YOU TAKE ANY BLOOD THINNERS? (FOR EXAMPLE- COUMADIN, PLAVIX, AGGRENOX, PLATEL, PRADAXA, OR XARELTO) NO . WHEN WAS YOUR LAST DOSE? DATE: TIME: . NEUROLOGY: HAVE YOU FALLEN IN THE PAST 6 MONTHS? NO . ANY NEW EXTREMITY NUMBNESS OR WEAKNESS? NO . CARDIOLOGY: DO YOU HAVE A PACEMAKER OR DEFIBRILLATOR? NO . RESPIRATORY: HAVE YOU BEEN SICK IN THE PAST WEEK? NO . FEVER NO . FLU LIKE SYMPTOMS? NO . COUGH NO . INTEGUMENTARY: DO YOU HAVE ANY RASHES OR OPEN SORES? NO . ALLERGIC/IMMUNO: ARE YOU ALLERGIC TO SHELLFISH OR IV DYE? NO . ANY NEW ALLERGIES? NO . PSYCHIATRIC: DO YOU HAVE THOUGHTS OF HURTING YOURSELF OR SOMEONE ELSE? NO . ARE YOU ABUSED, NEGLECTED, OR IN AN UNSAFE ENVIRONMENT? NO . 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 NO . OTHER: DO YOU NEED ANY PRESCRIPTIONS? YES OXYCONTIN/BACLOFEN . IF YES, PLEASE LIST: ____ . ANY NEW PROBLEMS WITH YOUR MEDICATIONS? NO . WHEN DID YOU LAST EAT? ____ . WHEN DID YOU LAST DRINK? ____ . WHAT DID YOU LAST DRINK? ____ . NAME OF PERSON DRIVING YOU HOME? ____ . DO YOU HAVE ANY OTHER QUESTIONS OR CONCERNS NO . REVIEWED BY: PROVIDER: BRENDEN ADAMS . VITAL SIGNS WT 225 LBS, HT 68 IN, BMI 34.21 INDEX, BP 168/77 MM HG, HR 97 /MIN, RR 16 /MIN, TEMP 96.5 F, OXYGEN SAT % 96, NA INITIALS TL 1404, REVIEWED BY: MLF. EXAMINATION GENERAL EXAMINATION: LUNGS:LUNG SOUNDS ARE CLEAR. HEART:HEART RATE REGULAR. MUSCULOSKELETAL:*, PALPATION: POSITIVE FOR PAIN OVER L/S SPINE. POSITIVE FOR PAIN OVER L/S PARSPINALS, MUSCLE STRENGTH TESTING 5/5 BILATERAL LOWER EXTREMITIES.POSITIVE FOR TENDERNESS OVER C-SPINE.. DIAGNOSTIC:MRI L/S [id number]-REVIEWED SHOWING MULTI LEVEL DEGENERATIVE CHANGES.. 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 TREATMENT OSTEOARTHRITIS OF KNEE, UNSPECIFIED REFILL OXYCONTIN TABLET ER 12 HOUR ABUSE-DETERRENT, 20 MG, 1 TABLET, ORALLY, EVERY 12 HRS, 30 DAY(S), 60 TABLET, REFILLS 0, NOTES: 11-09-16 2350 LUMBAR FACET BRENDEN CADE 11/19/2016 2:34:03 PM > BILAT L3/4-L4/5 THERAPEUTIC FACET OSTEOARTHRITIS OF LUMBAR SPINE, UNSPECIFIED SPINAL OSTEOARTHRITIS COMPLICATION STATUS LUMBAR FACET BRENDEN CADE 11/19/2016 2:34:03 PM > BILAT L3/4-L4/5 THERAPEUTIC FACET CHRONIC PRESCRIPTION OPIATE USE LUMBAR FACET THERAPEUTICBRENDEN FLORES 11/19/2016 2:34:03 PM > BILAT L3/4-L4/5 THERAPEUTIC FACET PROCEDURE CODES FA211 ESTABILISHED PATIENT [facility] FACILITY CHARGE 25455 INJ PARAVERT F JNT L/S 3 LEV 55610 INJ PARAVERT F JNT L/S 2 LEV 07418 INJ PARAVERT F JNT L/S 1 LEV DISPOSITION & COMMUNICATION FOLLOW UP 2WK POST (REASON: BILAT L3/4-L4/5 THERAPEUTIC FACET BLOCK) ELECTRONICALLY SIGNED BY ANGIE DUVAL ON 11/19/2016 AT 02:59 PM EST DISCLAIMER : THIS IS A VISIT SUMMARY EXTRACTED FROM THE [employer] CHART. IT IS NOT A COPY OF THE [employer] PROGRESS NOTE. SOFIA
== END ==
LOC: M PAIN 14:00
PROVIDERS: ATTEND Nurse Practitioner Family
DX: Z09 Encounter for follow-up examination after completed treatment for conditions other than malignant neoplasm (principal); G89.29 Other chronic pain; M17.12 Unilateral primary osteoarthritis, left knee; M47.816 Spondylosis without myelopathy or radiculopathy, lumbar region; J44.9 Chronic obstructive pulmonary disease, unspecified; G37.9 Demyelinating disease of central nervous system, unspecified; Z79.1 Long term (current) use of non-steroidal anti-inflammatories (NSAID); Z79.891 Long term (current) use of opiate analgesic; Z79.899 Other long term (current) drug therapy

== ENCOUNTER → 2016-12-04 | Outpatient (CLI) | payer BC ==
--- NOTE | 2016-12-04 15:06 | REP ---
Partial lumbar spine series: Two views. History: Facet block for pain. 50 seconds of fluoroscopy time is reported. Findings: A sequence of two fluoroscopically obtained intraprocedural spot radiographs of the lumbar spine document needle position and contrast injection associated with facet injection procedure. Signed by Shane Alcala MD 12/04/2016 03:51 P
--- NOTE | 2016-12-08 01:11 | ECWPNPC ---
PATIENT NAME: MARKELL BUSTILLOS : 1955 GENDER: MALE VISIT DATE: 12/04/2016 DISCHARGE DATE: 12/04/16 1255 VISIT LOCKED DATE TIME: PHYSICIAN: MY TOVAR RESOURCE: MY TOVAR REASON FOR APPOINTMENT 1. THERAPEUTIC FACET HISTORY OF PRESENT ILLNESS HISTORY OF PRESENT ILLNESS: PAIN THE PATIENT DESCRIBES THE PAIN... FALL RISK SCREENING: SCREENING :NO FALLS IN THE PAST YEAR :NO FALLS IN THE PAST YEAR SCREENING :NO FALLS IN THE PAST YEAR :NO FALLS IN THE PAST YEAR NEW PATIENT CONSULT: WHEN DID YOUR PAIN FIRST START? . BRIEFLY DESCRIBE HOW YOUR PAIN STARTED? . HOW DOES YOUR PAIN CHANGE WITH TIME? . DOES YOUR PAIN AWAKEN YOU FROM SLEEP? . HOW MANY HOURS OF SLEEP DO YOU NORMALLY GET? . ANY DIAGNOSTIC TESTING? . FACILITY WHERE TESTS WERE DONE? ____. PAIN TREATMENT TREATMENT YES CANCER HAVE YOU EVER HAD ANY TYPE OF CANCER?NO NO. PAIN SCREENING: PATIENT HAS A COMPLAINT OF ACUTE OR CHRONIC PAIN YES BRAMBILA INVENTORY: QUESTIONNAIRE ASSESSEDTBD SCORE VALUE CALCULATED TBD CURRENT MEDICATIONS TAKING BACLOFEN 10 MG TABLET 1 TABLET WITH FOOD OR MILK ORALLY FOUR TIMES DAILY, NOTES: 12-03-162399 TAKING ROPINIROLE HCL 1 MG TABLET ORALLY FOUR TIMES DAILY, NOTES: 12-03-162299 TAKING FUROSEMIDE 40 MG TABLET 1 TABLET ORALLY ONCE Q 3 DAYS PRN, NOTES: 12-02-16 TAKING DULERA 100-5 MCG/ACT AEROSOL 2 PUFFS INHALATION TWICE A DAY NEEDED, NOTES: 12/01/16 TAKING ALBUTEROL SULFATE (2.5 MG/3ML) 0.083% NEBULIZATION SOLUTION 3 ML INHALATION ONCE DAILY NEEDED, NOTES: 12/01/16 TAKING LIDODERM 5 % PATCH EXTERNALLY PRN ON 12 HOURS OFF 12 HOURS, NOTES: 12/02/16 TAKING ALEVE 220 MG TABLET 1 TABLET ORALLY DAILY PRN, NOTES: 12/03/16 170 TAKING VOLTAREN 1 % GEL DIRECTED TO LEFT KNEE TRANSDERMAL Q8H PRN, NOTES: 12/03/16 230 TAKING OXYCONTIN 20 MG TABLET ER 12 HOUR ABUSE-DETERRENT 1 TABLET ORALLY EVERY 12 HRS, NOTES: 12/03/16 2400 NOT-TAKING OXYCODONE HCL ER 20 MG TABLET EXTENDED RELEASE 12 HOUR 1 TABLET ORALLY EVERY 12 HRS FOR PAIN MDD2 MEDICATION LIST REVIEWED AND RECONCILED WITH THE PATIENT PAST MEDICAL HISTORY SINUSITIS ARTHRITIS COPD DEMYELINATING DISEASE ALLERGIES N.K.D.A. SOCIAL HISTORY GENERAL: PAIN CLINIC PFS, CLERGY, PUBLIC HEALTH REFERRALS CLERGY REFERRAL NEEDED?NO WAS THE PROVIDER NOTIFIED OF ANY PERTINENT INFO?NO PFS REFERRAL NEEDED?NO PUBLIC HEALTH REFERRAL NEEDED?NO PATIENT: ____. REVIEW OF SYSTEMS CONSTITUTIONAL: ANY CHANGE IN YOUR MEDICAL CONDITION? NO, NO . CHILLS NO, NO . FEVER NO, NO . INFECTION: DO YOU HAVE NEW INFECTIONS? NO, NO . DO YOU HAVE HISTORY OF MRSA? NO, NO . MUSCULOSKELETAL: ANY NEW PATTERNS OF PAIN OR NUMBNESS? NO, NO . SYTEMIC LUPUS NO . GASTROENTEROLOGY: ANY NEW CHANGE IN BOWEL CONTROL? NO, NO . BARRETTS ESOPHAGUS NO . CIRRHOSIS NO . HEPATITIS NO . LIVER FAILURE NO . ACID REFLUX NO . UNEXPLAINED WEIGHT LOSS NO . GENITOURINARY: ANY NEW CHANGE IN BLADDER CONTROL? NO, NO . IS THERE A CHANCE YOU COULD BE ? NO, NO . HEMATOLOGY/LYMPH: DO YOU TAKE ANY BLOOD THINNERS? (FOR EXAMPLE- COUMADIN, PLAVIX, AGGRENOX, PLATEL, PRADAXA, OR XARELTO) NO, NO . WHEN WAS YOUR LAST DOSE? DATE: TIME: , DATE: TIME: . LOW PLATELET COUNT NO . SICKLE CELL DISEASE NO . VON WILLIEBRANDS NO . FACTOR V LEIDEN NO . THALLASEMIA NO . ANEMIA NO . EASY BRUISING NO . NEUROLOGY: HAVE YOU FALLEN IN THE PAST 6 MONTHS? NO, NO . ANY NEW EXTREMITY NUMBNESS OR WEAKNESS? NO, NO . HEAD INJURY NO . DEMENTIA NO . CEREBRAL PALSY NO . MULTIPLE SCLEROSIS NO . DIZZINESS NO . HEADACHE NO . STROKES NO . VERTIGO NO . CARDIOLOGY: DO YOU HAVE A PACEMAKER OR DEFIBRILLATOR? NO, NO . ANGINA NO . HEART ATTACK NO . HEART SURGERY NO . CONGESTIVE HEART FAILURE/FLUID OVERLOAD NO . CHEST PAIN NO . HIGH BLOOD PRESSURE NO . IRREGULAR HEART BEAT NO . RESPIRATORY: HAVE YOU BEEN SICK IN THE PAST WEEK? NO, NO . FEVER NO, NO . FLU LIKE SYMPTOMS? NO, NO . CPAP NO . BYPAP NO . ASTHMA NO . EMPHYSEMA NO . CHRONIC LUNG DISEASES NO . SHORTNESS OF BREATH ON EXERTION NO . DO YOU USE ANY TYPE OF TOBACCO (SMOKE, SMOKELESS, CHEW)? NO . COUGH NO, NO . SNORING NO . INTEGUMENTARY: DO YOU HAVE ANY RASHES OR OPEN SORES? NO, NO . ALLERGIC/IMMUNO: ARE YOU ALLERGIC TO SHELLFISH OR IV DYE? NO, NO . ANY NEW ALLERGIES? NO, NO . PSYCHIATRIC: DO YOU HAVE THOUGHTS OF HURTING YOURSELF OR SOMEONE ELSE? NO, NO . ARE YOU ABUSED, NEGLECTED, OR IN AN UNSAFE ENVIRONMENT? NO, NO . 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 NO, NO . THYROID DISORDER NO . OTHER: DO YOU NEED ANY PRESCRIPTIONS? NO, NO . IF YES, PLEASE LIST: ____, ____ . ANY NEW PROBLEMS WITH YOUR MEDICATIONS? NO, NO . WHEN DID YOU LAST EAT? 12/03/16, ____ . WHEN DID YOU LAST DRINK? 06, ____ . WHAT DID YOU LAST DRINK? WATER, ____ . NAME OF PERSON DRIVING YOU HOME? ALBINO, ____ . DO YOU HAVE ANY OTHER QUESTIONS OR CONCERNS NO, NO . REVIEWED BY: PROVIDER: , . VITAL SIGNS WT 220 LBS, HT 68 IN, BMI 33.45 INDEX, BP 133/61 MM HG, HR 87 /MIN, RR 16 /MIN, TEMP 97.3 F, OXYGEN SAT % 90%, NA INITIALS SC 10:50, REVIEWED BY: LS. ASSESSMENTS SPONDYLOSIS WITHOUT MYELOPATHY OR RADICULOPATHY, LUMBAR REGION - M47.816 (PRIMARY) SPONDYLOSIS WITHOUT MYELOPATHY OR RADICULOPATHY, LUMBOSACRAL REGION - M47.817 PROCEDURES PN LUMBAR FACET BLOCK THERAPEUTIC PRE PROCEDURE DIAGNOSIS LUMBAR SPONDYLOSIS, LUMBOSACRAL SPONDYLOSIS POST PROCEDURE DIAGNOSIS LUMBAR SPONDYLOSIS, LUMBOSACRAL SPONDYLOSIS PROCEDURE BILATERAL L4 - L5 AND BILATERAL L5-S1 LUMBAR FACET THERAPEUTIC BLOCK SURGEON DR. MY TOVAR MACHINE DEICER ELEMENT WINDER NONE ANESTHESIA LOCAL PRE PROCEDURE NOTE THE PATIENT HAS A HISTORY OF CHRONIC LOW BACK PAIN. I EVALUATE THE PATIENT AND REVIEWED THE CHART. I WENT OVER THE RISKS, ALTERNATIVES, AND BENEFITS ASSOCIATED WITH THIS PROCEDURE. THE PATIENT WOULD LIKE TO PROCEED AND GIVE CONSENT TO PERFORMED THE PROCEDURE. THE PATIENT DENIES UNEXPLAINABLE WEIGHT LOSS, FEVER, CHILLS, OR NEW CHANGES IN URINARY OR BOWEL CONTROL DESCRIPTION OF PROCEDURE THE PATIENT WAS BROUGHT TO THE PROCEDURE ROOM AND PLACED IN THE PRONE POSITION. THE LUMBOSACRAL AREA WAS CLEANED WITH CHLORAPREP SOLUTION AND DRAPED ASEPTICALLY. THE PROCEDURE WAS DONE UNDER STERILE CONDITIONS. I CHECKED LATERALITY AND THE LEVEL WHERE THE PROCEDURE WAS GOING TO BE PERFORMED WITH THE PATIENT AND THE SUPPORTING STAFF AT THE MOMENT OF THE TIME OUT IN THE PROCEDURE ROOM. UNDER FLUOROSCOPIC GUIDANCE, THE TARGET POINT WAS SELECTED AT THE RIGHT AND LEFT L4-L5 AND RIGHT AND LEFT L5-S1 FACET JOINT. TARGET POINT WAS SELECTED AFTER LATERAL ROTATION AND TILT OF THE MAGNIFIER OF THE C-ARM. LIDOCAINE 0.5% WAS USED TO NUMB THE SKIN AND THE SUBCUTANEOUS TISSUE BELOW IT. SPINAL NEEDLES, 22-GAUGE, WERE ADVANCED UNDER FLUOROSCOPIC GUIDANCE AND FOLLOWING PATIENT FEEDBACK UNTIL THE TARGETS WERE TOUCHED. THE POSITION OF THE NEEDLES WAS VERIFIED WITH AP AND LATERAL VIEWS. AFTER PROPER POSITION OF THE NEEDLES WAS ACHIEVED, ISOVUE-M DYE 30% 0.1 ML WAS INJECTED SHOWING ADEQUATE SPREAD OF THE DYE. THEN A SOLUTION OF 1.9 ML OF BUPIVACAINE 0.125% OF KENALOG 10 MG WAS INJECTED AT EACH SITE. THERE WAS NO EVIDENCE OF BLOOD, PARESTHESIA OR CEREBROSPINAL FLUID DURING THE PROCEDURE. THE PATIENT WAS SENT TO THE RECOVERY ROOM. THE PATIENT WAS MOVING THE EXTREMITIES AND DOING WELL. THERE WAS NO COMPLICATION DURING THE PROCEDURE. FLUOROSCOPY TIME WAS 50 SECONDS POST PROCEDURE NOTE THE PATIENT WILL BE SEEN IN A FOLLOW UP IN THE NEXT FEW WEEKS. INSTRUCTIONS WERE GIVEN, QUESTIONS WERE ANSWERED, AND THE PATIENT EXPRESSED UNDERSTANDING AND AGREES WITH THE PLAN. I, GERRI MCFARLAND, DOCUMENTED THE ABOVE INFORMATION ACTING A SCRIBE FOR DR. TOVAR. I HAVE REVIEWED THE ABOVE DOCUMENT, WRITTEN BY GERRI ABREU AND I VERIFY THAT IT IS [facility] FACET BLOCK (PAIN)[id number] PROCEDURE CODES 88749 INJ PARAVERT F JNT L/S 1 LEV 31069 INJ PARAVERT F JNT L/S 2 LEV 6045F RADXPS IN END [id number] PXD DISPOSITION & COMMUNICATION FOLLOW UP 3 WEEKS ELECTRONICALLY SIGNED BY MY TOVAR MD ON 12/07/2016 AT 06:27 PM EDT DISCLAIMER : THIS IS A VISIT SUMMARY EXTRACTED FROM THE [employer] CHART. IT IS NOT A COPY OF THE [employer] PROGRESS NOTE. MTDD
== END ==
LOC: M PAIN 11:00
PROVIDERS: ATTEND Anesthesiology
DX: G89.29 Other chronic pain (principal); M47.816 Spondylosis without myelopathy or radiculopathy, lumbar region; M47.817 Spondylosis without myelopathy or radiculopathy, lumbosacral region; M19.90 Unspecified osteoarthritis, unspecified site; J44.9 Chronic obstructive pulmonary disease, unspecified; G37.9 Demyelinating disease of central nervous system, unspecified; Z79.1 Long term (current) use of non-steroidal anti-inflammatories (NSAID); Z79.891 Long term (current) use of opiate analgesic; Z79.899 Other long term (current) drug therapy
CPT/HCPCS: 64493; 64494; J3301; Q9967

== ENCOUNTER → 2016-12-28 | Outpatient (CLI) | payer BC ==
--- NOTE | 2017-01-09 00:32 | ECWPNPC ---
PATIENT NAME: MARKELL BUSTILLOS : 1955 GENDER: MALE VISIT DATE: 12/28/2016 DISCHARGE DATE: 12/28/16 1448 VISIT LOCKED DATE TIME: PHYSICIAN: BRENDEN FLORES RESOURCE: BRENDEN FLORES REASON FOR APPOINTMENT 1. POST PROCED HISTORY OF PRESENT ILLNESS HISTORY OF PRESENT ILLNESS: HERE FOR POST PROCEDURE F/U.HAD BILAT.L4/5-L5/S1 THERAPEUTIC FACET BLOCK .REPORTS >50% REDUCTION IN PAIN.CONTINUES TO BENEFIT FROM LUMBAR FACET BLOCKS.CHIEF AREA OF PAIN IS LEFT KNEE.RATING LEFT KNEE PAIN 8/10.LOW BACK PAIN IS 4/10 VAS.DESCRIBES LEFT KNEE PAIN THROBBING.CURRENTLY USING OXYCONTIN 20MG BID.ALSO USING BACLOFEN 10MG QID. PAIN THE PATIENT DESCRIBES THE PAIN... THE PATIENT DESCRIBES THE PAIN... THE PATIENT DESCRIBES THE PAIN... FALL RISK SCREENING: SCREENING :NO FALLS IN THE PAST YEAR CURRENT MEDICATIONS TAKING BACLOFEN 10 MG TABLET 1 TABLET WITH FOOD OR MILK ORALLY FOUR TIMES DAILY TAKING ROPINIROLE HCL 1 MG TABLET ORALLY FOUR TIMES DAILY TAKING FUROSEMIDE 40 MG TABLET 1 TABLET ORALLY ONCE Q 3 DAYS PRN TAKING DULERA 100-5 MCG/ACT AEROSOL 2 PUFFS INHALATION TWICE A DAY NEEDED TAKING ALBUTEROL SULFATE (2.5 MG/3ML) 0.083% NEBULIZATION SOLUTION 3 ML INHALATION ONCE DAILY NEEDED TAKING LIDODERM 5 % PATCH EXTERNALLY PRN ON 12 HOURS OFF 12 HOURS TAKING ALEVE 220 MG TABLET 1 TABLET ORALLY DAILY PRN TAKING VOLTAREN 1 % GEL DIRECTED TO LEFT KNEE TRANSDERMAL Q8H PRN TAKING OXYCONTIN 20 MG TABLET ER 12 HOUR ABUSE-DETERRENT 1 TABLET ORALLY EVERY 12 HRS NOT-TAKING OXYCODONE HCL ER 20 MG TABLET EXTENDED RELEASE 12 HOUR 1 TABLET ORALLY EVERY 12 HRS FOR PAIN MDD2 MEDICATION LIST REVIEWED AND RECONCILED WITH THE PATIENT PAST MEDICAL HISTORY SINUSITIS ARTHRITIS COPD DEMYELINATING DISEASE SOCIAL HISTORY GENERAL: PAIN CLINIC PFS, CLERGY, PUBLIC HEALTH REFERRALS CLERGY REFERRAL NEEDED?NO WAS THE PROVIDER NOTIFIED OF ANY PERTINENT INFO?NO PFS REFERRAL NEEDED?NO PUBLIC HEALTH REFERRAL NEEDED?NO PATIENT: ____. REVIEW OF SYSTEMS CONSTITUTIONAL: ANY CHANGE IN YOUR MEDICAL CONDITION? NO . CHILLS NO . FEVER NO . INFECTION: DO YOU HAVE NEW INFECTIONS? NO . DO YOU HAVE HISTORY OF MRSA? NO . MUSCULOSKELETAL: ANY NEW PATTERNS OF PAIN OR NUMBNESS? NO . GASTROENTEROLOGY: ANY NEW CHANGE IN BOWEL CONTROL? NO . GENITOURINARY: ANY NEW CHANGE IN BLADDER CONTROL? NO . IS THERE A CHANCE YOU COULD BE ? NO . HEMATOLOGY/LYMPH: DO YOU TAKE ANY BLOOD THINNERS? (FOR EXAMPLE- COUMADIN, PLAVIX, AGGRENOX, PLATEL, PRADAXA, OR XARELTO) NO . WHEN WAS YOUR LAST DOSE? DATE: TIME: . NEUROLOGY: HAVE YOU FALLEN IN THE PAST 6 MONTHS? NO . ANY NEW EXTREMITY NUMBNESS OR WEAKNESS? NO . CARDIOLOGY: DO YOU HAVE A PACEMAKER OR DEFIBRILLATOR? NO . RESPIRATORY: HAVE YOU BEEN SICK IN THE PAST WEEK? NO . FEVER NO . FLU LIKE SYMPTOMS? NO . COUGH NO . INTEGUMENTARY: DO YOU HAVE ANY RASHES OR OPEN SORES? NO . ALLERGIC/IMMUNO: ARE YOU ALLERGIC TO SHELLFISH OR IV DYE? NO . ANY NEW ALLERGIES? NO . PSYCHIATRIC: DO YOU HAVE THOUGHTS OF HURTING YOURSELF OR SOMEONE ELSE? NO . ARE YOU ABUSED, NEGLECTED, OR IN AN UNSAFE ENVIRONMENT? NO . 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 NO . OTHER: DO YOU NEED ANY PRESCRIPTIONS? NO . IF YES, PLEASE LIST: ____ . ANY NEW PROBLEMS WITH YOUR MEDICATIONS? NO . WHEN DID YOU LAST EAT? ____ . WHEN DID YOU LAST DRINK? ____ . WHAT DID YOU LAST DRINK? ____ . NAME OF PERSON DRIVING YOU HOME? ____ . DO YOU HAVE ANY OTHER QUESTIONS OR CONCERNS NO . REVIEWED BY: PROVIDER: BRENDEN ADAMS . VITAL SIGNS WT 220 LBS, HT 68 IN, BMI 33.45 INDEX, BP 135/82 MM HG, HR 91 /MIN, RR 16 /MIN, TEMP 98.1 F, OXYGEN SAT % 94%, NA INITIALS AW 1344. EXAMINATION GENERAL EXAMINATION: LUNGS:LUNG SOUNDS ARE CLEAR. HEART:HEART RATE REGULAR. MUSCULOSKELETAL:*, PALPATION: POSITIVE FOR PAIN OVER L/S SPINE. POSITIVE FOR PAIN OVER L/S PARSPINALS, MUSCLE STRENGTH TESTING 5/5 BILATERAL LOWER EXTREMITIES.POSITIVE FOR TENDERNESS OVER C-SPINE.. DIAGNOSTIC:MRI L/S [id number]-REVIEWED SHOWING MULTI LEVEL DEGENERATIVE CHANGES.. 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 TREATMENT OSTEOARTHRITIS OF KNEE, UNSPECIFIED REFILL OXYCONTIN TABLET ER 12 HOUR ABUSE-DETERRENT, 20 MG, 1 TABLET, ORALLY, EVERY 12 HRS, 30 DAY(S), 60 TABLET, REFILLS 0 CONTINUE BACLOFEN TABLET, 10 MG, 1 TABLET WITH FOOD OR MILK, ORALLY, FOUR TIMES DAILY NOTES: ISTOP REGISTRY REVIEWED AND DEMNOSTRATES COMPLLIANCE. BRINGS IN MEDICATIONS WHICH IS APPROPRIATE FOR WHAT WAS DISPENSED. RECENT URINE TOXICOLOGY REVIEWED. NO UNAUTHORIZED MEDICATIONS. NO ILLICIT SUBSTANCES AND PRESCRIBED MEDICATIONS WERE PRESENT. , RISKS AND BENEFITS OF NARCOTIC/OPIOD MEDICATIONS WERE REVIEWED WITH PATIENT - THIS INCLUDES BUT IS NOT LIMITED TO RISK OF DEPENDANCE/DEVELOPMENT OF ADDICTION, MOOD DISTURBANCE AND DEPRESSION, OSTEOPOROSIS, HORMONAL AND LABIDAL CHANGES, RESPIRATORY DEPRESSION AND . PATIENT IS ADVISED NOT TO DRIVE WHILE ON THESE MEDICATIONS. PROCEDURE CODES FA211 ESTABILISHED PATIENT [facility] CHARGE DISPOSITION & COMMUNICATION FOLLOW UP 2 MONTHS ELECTRONICALLY SIGNED BY ANGIE DUVAL ON 01/08/2017 AT 01:25 PM EDT DISCLAIMER : THIS IS A VISIT SUMMARY EXTRACTED FROM THE [employer] CHART. IT IS NOT A COPY OF THE [employer] PROGRESS NOTE. SOFIA
== END ==
LOC: M PAIN 14:00
PROVIDERS: ATTEND Nurse Practitioner Family
DX: G89.29 Other chronic pain (principal); M47.816 Spondylosis without myelopathy or radiculopathy, lumbar region; M47.812 Spondylosis without myelopathy or radiculopathy, cervical region; M47.813 Spondylosis without myelopathy or radiculopathy, cervicothoracic region; M47.817 Spondylosis without myelopathy or radiculopathy, lumbosacral region; M17.12 Unilateral primary osteoarthritis, left knee; J44.9 Chronic obstructive pulmonary disease, unspecified; G37.9 Demyelinating disease of central nervous system, unspecified; Z79.1 Long term (current) use of non-steroidal anti-inflammatories (NSAID); Z79.891 Long term (current) use of opiate analgesic; Z79.899 Other long term (current) drug therapy

== ENCOUNTER → 2017-02-26 | Outpatient (CLI) | payer BC ==
--- NOTE | 2017-03-12 02:10 | ECWPNPC ---
PATIENT NAME: MARKELL BUSTILLOS : 1955 GENDER: MALE VISIT DATE: 02/26/2017 DISCHARGE DATE: 02/26/17 1458 VISIT LOCKED DATE TIME: PHYSICIAN: BRENDEN FLORES RESOURCE: BRENDEN FLORES REASON FOR APPOINTMENT 1. LOW BACK HISTORY OF PRESENT ILLNESS HISTORY OF PRESENT ILLNESS: HERE FOR POST PROCEDURE F/U.HAD BILAT.L4/5-L5/S1 THERAPEUTIC FACET BLOCK .REPORTS >50% REDUCTION IN PAIN.CONTINUES TO BENEFIT FROM LUMBAR FACET BLOCKS.CHIEF AREA OF PAIN IS LEFT KNEE.RATING LEFT KNEE PAIN 9/10.LOW BACK PAIN IS 4/10 VAS.DESCRIBES LEFT KNEE PAIN THROBBING.CURRENTLY USING OXYCONTIN 20MG BID.ALSO USING BACLOFEN 10MG QID.STATING THAT OXYCONTIN 20MG BID HAS NOT BEEN HELPFUL LATELY.DISCUSSED MEDICATION OPTIONS. PAIN THE PATIENT DESCRIBES THE PAIN... THE PATIENT DESCRIBES THE PAIN... THE PATIENT DESCRIBES THE PAIN... THE PATIENT DESCRIBES THE PAIN... FALL RISK SCREENING: SCREENING :NO FALLS IN THE PAST YEAR CURRENT MEDICATIONS TAKING ROPINIROLE HCL 1 MG TABLET ORALLY FOUR TIMES DAILY TAKING FUROSEMIDE 40 MG TABLET 1 TABLET ORALLY ONCE Q 3 DAYS PRN TAKING DULERA 100-5 MCG/ACT AEROSOL 2 PUFFS INHALATION TWICE A DAY NEEDED TAKING ALBUTEROL SULFATE (2.5 MG/3ML) 0.083% NEBULIZATION SOLUTION 3 ML INHALATION ONCE DAILY NEEDED TAKING LIDODERM 5 % PATCH EXTERNALLY PRN ON 12 HOURS OFF 12 HOURS TAKING VOLTAREN 1 % GEL DIRECTED TO LEFT KNEE TRANSDERMAL Q8H PRN TAKING BACLOFEN 10 MG TABLET 1 TABLET WITH FOOD OR MILK ORALLY FOUR TIMES DAILY TAKING OXYCODONE HCL ER 20 MG TABLET EXTENDED RELEASE 12 HOUR 1 TABLET ORALLY EVERY 12 HRS FOR PAIN MDD2 TAKING 8 HOUR PAIN RELIEVER 650 MG TABLET EXTENDED RELEASE 2 TABLETS NEEDED ORALLY EVERY 8 HRS NOT-TAKING ALEVE 220 MG TABLET 1 TABLET ORALLY DAILY PRN NOT-TAKING OXYCONTIN 20 MG TABLET ER 12 HOUR ABUSE-DETERRENT 1 TABLET ORALLY EVERY 12 HRS NOT-TAKING OXYCONTIN 20 MG TABLET ER 12 HOUR ABUSE-DETERRENT 1 TABLET ORALLY EVERY 12 HRS MEDICATION LIST REVIEWED AND RECONCILED WITH THE PATIENT PAST MEDICAL HISTORY SINUSITIS ARTHRITIS COPD DEMYELINATING DISEASE ALLERGIES N.K.D.A. SOCIAL HISTORY GENERAL: PAIN CLINIC PFS, CLERGY, PUBLIC HEALTH REFERRALS PFS REFERRAL NEEDED?NO CLERGY REFERRAL NEEDED?NO PUBLIC HEALTH REFERRAL NEEDED?NO WAS THE PROVIDER NOTIFIED OF ANY PERTINENT INFO?NO HAS THE PATIENT BEEN EDUCATED REGARDING HIS/HER PLAN OF CARE?YES HAS THE PATIENT BEEN EDUCATED REGARDING PAIN, THE RISK FOR PAIN, THE IMPORTANCE OF EFFECTIVE PAIN MANAGEMENT, AND THE PAIN ASSESSMENT PROCESS?YES PATIENT: ____. REVIEW OF SYSTEMS REVIEWED BY: PROVIDER: BRENDEN ADAMS . CONSTITUTIONAL: ANY CHANGE IN YOUR MEDICAL CONDITION? NO . CHILLS NO . FEVER NO . INFECTION: DO YOU HAVE NEW INFECTIONS? NO . DO YOU HAVE HISTORY OF MRSA? NO . MUSCULOSKELETAL: ANY NEW PATTERNS OF PAIN OR NUMBNESS? NO . GASTROENTEROLOGY: ANY NEW CHANGE IN BOWEL CONTROL? NO . GENITOURINARY: ANY NEW CHANGE IN BLADDER CONTROL? NO . IS THERE A CHANCE YOU COULD BE ? NO . HEMATOLOGY/LYMPH: DO YOU TAKE ANY BLOOD THINNERS? (FOR EXAMPLE- COUMADIN, PLAVIX, AGGRENOX, PLATEL, PRADAXA, OR XARELTO) NO . WHEN WAS YOUR LAST DOSE? DATE: TIME: . NEUROLOGY: HAVE YOU FALLEN IN THE PAST 6 MONTHS? NO . ANY NEW EXTREMITY NUMBNESS OR WEAKNESS? NO . CARDIOLOGY: DO YOU HAVE A PACEMAKER OR DEFIBRILLATOR? NO . RESPIRATORY: HAVE YOU BEEN SICK IN THE PAST WEEK? NO . FEVER NO . FLU LIKE SYMPTOMS? NO . COUGH NO . INTEGUMENTARY: DO YOU HAVE ANY RASHES OR OPEN SORES? NO . ALLERGIC/IMMUNO: ARE YOU ALLERGIC TO SHELLFISH OR IV DYE? NO . ANY NEW ALLERGIES? NO . PSYCHIATRIC: DO YOU HAVE THOUGHTS OF HURTING YOURSELF OR SOMEONE ELSE? NO . ARE YOU ABUSED, NEGLECTED, OR IN AN UNSAFE ENVIRONMENT? NO . 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 NO . OTHER: DO YOU NEED ANY PRESCRIPTIONS? YES . IF YES, PLEASE LIST: OXYCODONE ER 20 MG . ANY NEW PROBLEMS WITH YOUR MEDICATIONS? NO . WHEN DID YOU LAST EAT? ____ . WHEN DID YOU LAST DRINK? ____ . WHAT DID YOU LAST DRINK? ____ . NAME OF PERSON DRIVING YOU HOME? ____ . DO YOU HAVE ANY OTHER QUESTIONS OR CONCERNS NO . VITAL SIGNS WT 220.0 LBS, HT 68 IN, BMI 33.45 INDEX, BP 147/69 MM HG, HR 96 /MIN, RR 18 /MIN, TEMP 97.6 F, OXYGEN SAT % 94%, NA INITIALS TL 1401, REVIEWED BY: CS. EXAMINATION GENERAL EXAMINATION: GENERAL APPEARANCE:COOPERATIVE . PSYCHAFFECT NORMAL. LUNGS:LUNG LUEVANO ARE CLEAR TO AUSCULTATION BILATERALLY. GOOD MOVEMENT OF AIR. HEART:S1, S2 IN A REGULAR RATE AND RHYTHM. NO SIGNIFICANT MURMURS, RUBS OR GALLOPS NOTED. BACK:NO TENDERNESS, MILD PERILUMBAR TENDERNESS. KNEE / RATLIFF: INSPECTION:NO SWELLING OR REDNESS. PALPATION:NO WARMTH,TENDER WITH PALPATION. 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 TREATMENT OSTEOARTHRITIS OF KNEE, UNSPECIFIED REFILL OXYCODONE HCL ER TABLET EXTENDED RELEASE 12 HOUR, 20 MG, 1 TABLET, ORALLY, EVERY 12 HRS FOR PAIN MDD2, 30 DAY(S), 60, REFILLS 0 CONTINUE BACLOFEN TABLET, 10 MG, 1 TABLET WITH FOOD OR MILK, ORALLY, FOUR TIMES DAILY START NORCO TABLET, 5-325 MG, 1 TABLET NEEDED, ORALLY, EVERY 6 HRS PRN MDD4, 30 DAY(S), 120, REFILLS 0 NOTES: ISTOP REGISTRY REVIEWED AND DEMNOSTRATES COMPLLIANCE. BRINGS IN MEDICATIONS WHICH IS APPROPRIATE FOR WHAT WAS DISPENSED. RECENT URINE TOXICOLOGY REVIEWED. NO UNAUTHORIZED MEDICATIONS. NO ILLICIT SUBSTANCES AND PRESCRIBED MEDICATIONS WERE PRESENT. , RISKS AND BENEFITS OF NARCOTIC/OPIOD MEDICATIONS WERE REVIEWED WITH PATIENT - THIS INCLUDES BUT IS NOT LIMITED TO RISK OF DEPENDANCE/DEVELOPMENT OF ADDICTION, MOOD DISTURBANCE AND DEPRESSION, OSTEOPOROSIS, HORMONAL AND LABIDAL CHANGES, RESPIRATORY DEPRESSION AND . PATIENT IS ADVISED NOT TO DRIVE WHILE ON THESE MEDICATIONS.URINE TOX TODAY. PREVENTIVE MEDICINE PAIN CLINIC TEACHING: MEDICATIONS INFORMATION AND TEACHING SHEETS GIVEN TO PATIENT FOR NORCO.. PROCEDURE CODES FA211 ESTABILISHED PATIENT [facility] CHARGE DISPOSITION & COMMUNICATION FOLLOW UP 4 WEEKS ELECTRONICALLY SIGNED BY ANGIE DUVAL ON 03/11/2017 AT 01:09 PM EDT DISCLAIMER : THIS IS A VISIT SUMMARY EXTRACTED FROM THE [employer] CHART. IT IS NOT A COPY OF THE [employer] PROGRESS NOTE. SOFIA
== END ==
LOC: M PAIN 14:00
PROVIDERS: ATTEND Nurse Practitioner Family
DX: M17.9 Osteoarthritis of knee, unspecified (principal); M47.816 Spondylosis without myelopathy or radiculopathy, lumbar region; M54.5 Low back pain; Z79.891 Long term (current) use of opiate analgesic; Z79.899 Other long term (current) drug therapy

== ENCOUNTER → 2017-03-26 | Outpatient (CLI) | payer BC ==
--- NOTE | 2017-04-15 01:18 | ECWPNPC ---
PATIENT NAME: MARKELL BUSTILLOS : 1955 GENDER: MALE VISIT DATE: 03/26/2017 DISCHARGE DATE: 03/26/17 1512 VISIT LOCKED DATE TIME: PHYSICIAN: BRENDEN FLORES RESOURCE: BRENDEN FLORES REASON FOR APPOINTMENT 1. LOW BACK HISTORY OF PRESENT ILLNESS HISTORY OF PRESENT ILLNESS: HERE FOR F/U OF LOW BACK PAIN AND LEFT KNEE PAIN.STARTED ON HYDROCODONE AT LAST VISIT THAT HAS BEEN EXTREMELY HELPFUL.RATING PAIN VAS 4/10.DENIES SIDE EFFECTS. PAIN THE PATIENT DESCRIBES THE PAIN... FALL RISK SCREENING: SCREENING :NO FALLS IN THE PAST YEAR CURRENT MEDICATIONS TAKING ROPINIROLE HCL 1 MG TABLET ORALLY FOUR TIMES DAILY TAKING FUROSEMIDE 40 MG TABLET 1 TABLET ORALLY ONCE Q 3 DAYS PRN TAKING DULERA 100-5 MCG/ACT AEROSOL 2 PUFFS INHALATION TWICE A DAY NEEDED TAKING ALBUTEROL SULFATE (2.5 MG/3ML) 0.083% NEBULIZATION SOLUTION 3 ML INHALATION ONCE DAILY NEEDED TAKING LIDODERM 5 % PATCH EXTERNALLY PRN ON 12 HOURS OFF 12 HOURS TAKING VOLTAREN 1 % GEL DIRECTED TO LEFT KNEE TRANSDERMAL Q8H PRN TAKING 8 HOUR PAIN RELIEVER 650 MG TABLET EXTENDED RELEASE 2 TABLETS NEEDED ORALLY EVERY 8 HRS TAKING OXYCODONE HCL ER 20 MG TABLET EXTENDED RELEASE 12 HOUR 1 TABLET ORALLY EVERY 12 HRS FOR PAIN MDD2 TAKING BACLOFEN 10 MG TABLET 1 TABLET WITH FOOD OR MILK ORALLY FOUR TIMES DAILY TAKING NORCO 5-325 MG TABLET 1 TABLET NEEDED ORALLY EVERY 6 HRS PRN MDD4 TAKING OXYCONTIN 20 MG TABLET ER 12 HOUR ABUSE-DETERRENT 1 TABLET ORALLY EVERY 12 HRS MDD2 NOT-TAKING ALEVE 220 MG TABLET 1 TABLET ORALLY DAILY PRN NOT-TAKING OXYCONTIN 20 MG TABLET ER 12 HOUR ABUSE-DETERRENT 1 TABLET ORALLY EVERY 12 HRS NOT-TAKING OXYCONTIN 20 MG TABLET ER 12 HOUR ABUSE-DETERRENT 1 TABLET ORALLY EVERY 12 HRS MEDICATION LIST REVIEWED AND RECONCILED WITH THE PATIENT PAST MEDICAL HISTORY SINUSITIS ARTHRITIS COPD DEMYELINATING DISEASE ALLERGIES N.K.D.A. REVIEW OF SYSTEMS REVIEWED BY: PROVIDER: BRENDEN ADAMS . CONSTITUTIONAL: ANY CHANGE IN YOUR MEDICAL CONDITION? NO . CHILLS NO . FEVER NO . INFECTION: DO YOU HAVE NEW INFECTIONS? NO . DO YOU HAVE HISTORY OF MRSA? NO . MUSCULOSKELETAL: ANY NEW PATTERNS OF PAIN OR NUMBNESS? NO . GASTROENTEROLOGY: ANY NEW CHANGE IN BOWEL CONTROL? NO . GENITOURINARY: ANY NEW CHANGE IN BLADDER CONTROL? NO . IS THERE A CHANCE YOU COULD BE ? NO . HEMATOLOGY/LYMPH: DO YOU TAKE ANY BLOOD THINNERS? (FOR EXAMPLE- COUMADIN, PLAVIX, AGGRENOX, PLATEL, PRADAXA, OR XARELTO) NO . WHEN WAS YOUR LAST DOSE? DATE: TIME: . NEUROLOGY: HAVE YOU FALLEN IN THE PAST 6 MONTHS? NO . ANY NEW EXTREMITY NUMBNESS OR WEAKNESS? NO . CARDIOLOGY: DO YOU HAVE A PACEMAKER OR DEFIBRILLATOR? NO . RESPIRATORY: HAVE YOU BEEN SICK IN THE PAST WEEK? NO . FEVER NO . FLU LIKE SYMPTOMS? NO . COUGH NO . INTEGUMENTARY: DO YOU HAVE ANY RASHES OR OPEN SORES? NO . ALLERGIC/IMMUNO: ARE YOU ALLERGIC TO SHELLFISH OR IV DYE? NO . ANY NEW ALLERGIES? NO . PSYCHIATRIC: DO YOU HAVE THOUGHTS OF HURTING YOURSELF OR SOMEONE ELSE? NO . ARE YOU ABUSED, NEGLECTED, OR IN AN UNSAFE ENVIRONMENT? NO . 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 NO . OTHER: DO YOU NEED ANY PRESCRIPTIONS? YES, BACLOFEN, OXY, HYDROCODONE . IF YES, PLEASE LIST: ____ . ANY NEW PROBLEMS WITH YOUR MEDICATIONS? NO . WHEN DID YOU LAST EAT? ____ . WHEN DID YOU LAST DRINK? ____ . WHAT DID YOU LAST DRINK? ____ . NAME OF PERSON DRIVING YOU HOME? ____ . DO YOU HAVE ANY OTHER QUESTIONS OR CONCERNS NO . VITAL SIGNS WT 222.6 LBS, HT 68 IN, BMI 33.84 INDEX, BP 133/76 MM HG, HR 105 /MIN, RR 16 /MIN, TEMP 96.8 F, OXYGEN SAT % 96%, SAFE IN ENV? (Y/N) Y, NA INITIALS TL 1442, REVIEWED BY: EM. EXAMINATION GENERAL EXAMINATION: GENERAL APPEARANCE:COOPERATIVE . PSYCHAFFECT NORMAL. LUNGS:LUNG LUEVANO ARE CLEAR TO AUSCULTATION BILATERALLY. GOOD MOVEMENT OF AIR. HEART:S1, S2 IN A REGULAR RATE AND RHYTHM. NO SIGNIFICANT MURMURS, RUBS OR GALLOPS NOTED. BACK:NO TENDERNESS, MILD PERILUMBAR TENDERNESS. KNEE / RATLIFF: KNEE:LEFT. PALPATION:NO TENDERNESS ON JOINTLINES OR COLLATERAL LIGAMENTS. 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 TREATMENT OSTEOARTHRITIS OF KNEE, UNSPECIFIED REFILL OXYCODONE HCL ER TABLET EXTENDED RELEASE 12 HOUR, 20 MG, 1 TABLET, ORALLY, EVERY 12 HRS FOR PAIN MDD2, 30 DAY(S), 60, REFILLS 0 REFILL BACLOFEN TABLET, 10 MG, 1 TABLET WITH FOOD OR MILK, ORALLY, FOUR TIMES DAILY, 30 DAY(S), 120, REFILLS 2 REFILL NORCO TABLET, 5-325 MG, 1 TABLET NEEDED, ORALLY, EVERY 6 HRS PRN MDD4, 30 DAY(S), 120, REFILLS 0 REFILL OXYCONTIN TABLET ER 12 HOUR ABUSE-DETERRENT, 20 MG, 1 TABLET, ORALLY, EVERY 12 HRS, 30 DAY(S), 60 TABLET, REFILLS 0 PROCEDURE CODES FA211 ESTABILISHED PATIENT [facility] CHARGE DISPOSITION & COMMUNICATION FOLLOW UP 2 MONTHS ELECTRONICALLY SIGNED BY ANGIE DUVAL ON 04/14/2017 AT 01:22 PM EDT DISCLAIMER : THIS IS A VISIT SUMMARY EXTRACTED FROM THE [employer] CHART. IT IS NOT A COPY OF THE [employer] PROGRESS NOTE. SOFIA
== END ==
LOC: M PAIN 14:40
PROVIDERS: ATTEND Nurse Practitioner Family
DX: G89.29 Other chronic pain (principal); M17.12 Unilateral primary osteoarthritis, left knee; M47.816 Spondylosis without myelopathy or radiculopathy, lumbar region; J44.9 Chronic obstructive pulmonary disease, unspecified; G37.9 Demyelinating disease of central nervous system, unspecified; Z79.891 Long term (current) use of opiate analgesic; Z79.899 Other long term (current) drug therapy

== ENCOUNTER → 2017-05-27 | Outpatient (CLI) | payer BC ==
--- NOTE | 2017-06-09 02:18 | ECWPNPC ---
PATIENT NAME: MARKELL BUSTILLOS : 1955 GENDER: MALE VISIT DATE: 05/27/2017 DISCHARGE DATE: 05/27/17 1456 VISIT LOCKED DATE TIME: PHYSICIAN: BRENDEN FLORES RESOURCE: BRENDEN FLORES REASON FOR APPOINTMENT 1. LOW BACK HISTORY OF PRESENT ILLNESS HISTORY OF PRESENT ILLNESS: HERE FOR F/U OF CHRONIC NECK AND LOW BACK PAIN.CHIEF COMPLAINT IS NECK PAIN WITH RADIATION INTO SHOULDERS BILATERALLY.HAS RESPONDED TO CERVICAL THERPEUTIC FACET BLOCKS IN PAST.LAST CERVICAL BLOCK WAS AUGUST 2016.WAS DOING FINE UNTIL A FEW MONTHS AGO AND PAIN HAS RETURNED.DESCRIBES PAIN SHARP.PAIN IS AGGREVATED WITH MOVEMENT OF NECK .RATING 5/10 VAS. PAIN THE PATIENT DESCRIBES THE PAIN... FALL RISK SCREENING: SCREENING :NO FALLS IN THE PAST YEAR CURRENT MEDICATIONS TAKING ROPINIROLE HCL 1 MG TABLET ORALLY FOUR TIMES DAILY TAKING FUROSEMIDE 40 MG TABLET 1 TABLET ORALLY ONCE Q 3 DAYS PRN TAKING DULERA 100-5 MCG/ACT AEROSOL 2 PUFFS INHALATION TWICE A DAY NEEDED TAKING ALBUTEROL SULFATE (2.5 MG/3ML) 0.083% NEBULIZATION SOLUTION 3 ML INHALATION ONCE DAILY NEEDED TAKING LIDODERM 5 % PATCH EXTERNALLY PRN ON 12 HOURS OFF 12 HOURS TAKING VOLTAREN 1 % GEL DIRECTED TO LEFT KNEE TRANSDERMAL Q8H PRN TAKING 8 HOUR PAIN RELIEVER 650 MG TABLET EXTENDED RELEASE 2 TABLETS NEEDED ORALLY EVERY 8 HRS TAKING OXYCONTIN 20 MG TABLET ER 12 HOUR ABUSE-DETERRENT 1 TABLET ORALLY EVERY 12 HRS MDD2 TAKING OXYCODONE HCL ER 20 MG TABLET EXTENDED RELEASE 12 HOUR 1 TABLET ORALLY EVERY 12 HRS FOR PAIN MDD2 TAKING BACLOFEN 10 MG TABLET 1 TABLET WITH FOOD OR MILK ORALLY FOUR TIMES DAILY TAKING OXYCONTIN 20 MG TABLET ER 12 HOUR ABUSE-DETERRENT 1 TABLET ORALLY EVERY 12 HRS TAKING NORCO 5-325 MG TABLET 1 TABLET NEEDED ORALLY EVERY 6 HRS PRN MDD4 TAKING OXYCODONE HCL ER 20 MG TABLET ER 12 HOUR ABUSE-DETERRENT 1 TABLET ORALLY EVERY 12 HRS MDD2 NOT-TAKING ALEVE 220 MG TABLET 1 TABLET ORALLY DAILY PRN NOT-TAKING OXYCONTIN 20 MG TABLET ER 12 HOUR ABUSE-DETERRENT 1 TABLET ORALLY EVERY 12 HRS MEDICATION LIST REVIEWED AND RECONCILED WITH THE PATIENT PAST MEDICAL HISTORY SINUSITIS ARTHRITIS COPD DEMYELINATING DISEASE ALLERGIES NO[ALLERGIES VERIFIED] REVIEW OF SYSTEMS REVIEWED BY: PROVIDER: BRENDEN ADAMS . CONSTITUTIONAL: ANY CHANGE IN YOUR MEDICAL CONDITION? NO . CHILLS NO . FEVER NO . INFECTION: DO YOU HAVE NEW INFECTIONS? NO . DO YOU HAVE HISTORY OF MRSA? NO . MUSCULOSKELETAL: ANY NEW PATTERNS OF PAIN OR NUMBNESS? NO . GASTROENTEROLOGY: ANY NEW CHANGE IN BOWEL CONTROL? NO . GENITOURINARY: ANY NEW CHANGE IN BLADDER CONTROL? NO . IS THERE A CHANCE YOU COULD BE ? NO . HEMATOLOGY/LYMPH: DO YOU TAKE ANY BLOOD THINNERS? (FOR EXAMPLE- COUMADIN, PLAVIX, AGGRENOX, PLATEL, PRADAXA, OR XARELTO) NO . WHEN WAS YOUR LAST DOSE? DATE: TIME: . NEUROLOGY: HAVE YOU FALLEN IN THE PAST 6 MONTHS? NO . ANY NEW EXTREMITY NUMBNESS OR WEAKNESS? NO . CARDIOLOGY: DO YOU HAVE A PACEMAKER OR DEFIBRILLATOR? NO . RESPIRATORY: HAVE YOU BEEN SICK IN THE PAST WEEK? NO . FEVER NO . FLU LIKE SYMPTOMS? NO . COUGH NO . INTEGUMENTARY: DO YOU HAVE ANY RASHES OR OPEN SORES? NO . ALLERGIC/IMMUNO: ARE YOU ALLERGIC TO SHELLFISH OR IV DYE? NO . ANY NEW ALLERGIES? NO . PSYCHIATRIC: DO YOU HAVE THOUGHTS OF HURTING YOURSELF OR SOMEONE ELSE? NO . ARE YOU ABUSED, NEGLECTED, OR IN AN UNSAFE ENVIRONMENT? NO . 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 NO . OTHER: DO YOU NEED ANY PRESCRIPTIONS? YES . IF YES, PLEASE LIST: OXYCODONE, HYDROCODONE . ANY NEW PROBLEMS WITH YOUR MEDICATIONS? NO . WHEN DID YOU LAST EAT? ____ . WHEN DID YOU LAST DRINK? ____ . WHAT DID YOU LAST DRINK? ____ . NAME OF PERSON DRIVING YOU HOME? ____ . DO YOU HAVE ANY OTHER QUESTIONS OR CONCERNS FEELS LIKE NECK IS READY FOR ANOTHER INJECTION . VITAL SIGNS WT 225 LBS, HT 68 IN, BMI 34.21 INDEX, BP 130/74 MM HG, HR 105 /MIN, RR 16 /MIN, TEMP 96.9 F, OXYGEN SAT % 98%, NA INITIALS SC 14:16, REVIEWED BY: NL. EXAMINATION GENERAL EXAMINATION: GENERAL APPEARANCE:COOPERATIVE . PSYCHAFFECT NORMAL. LUNGS:LUNG LUEVANO ARE CLEAR TO AUSCULTATION BILATERALLY. GOOD MOVEMENT OF AIR. HEART:S1, S2 IN A REGULAR RATE AND RHYTHM. NO SIGNIFICANT MURMURS, RUBS OR GALLOPS NOTED. CERVICAL SPINE/NECK: RANGE OF MOTION OF NECK:MILD DISCOMFORT WITH ROJM . MOTOR STRENGTH:NORMAL. VERTEBRAL SPINE TENDERNESS:SPECIFICPOINT TENDERNESS OVER C4/5,5/6,6/7 W FACET LOADING. TRAPEZIUS TENDERNESS:PRESENT BILATERALLY. 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 TREATMENT OTHERS REFILL OXYCODONE HCL ER TABLET EXTENDED RELEASE 12 HOUR, 20 MG, 1 TABLET, ORALLY, EVERY 12 HRS FOR PAIN MDD2, 30 DAY(S), 60, REFILLS 0 REFILL NORCO TABLET, 5-325 MG, 1 TABLET NEEDED, ORALLY, EVERY 6 HRS PRN MDD4, 30 DAY(S), 120, REFILLS 0 NOTES: C4/5,5/6,6/7THERAPEUTIC FACET BLOCK. PREVENTIVE MEDICINE DISCUSSED PRE PROCEDURE C ARE WITH UNDERSTANDING EXPRESSED. PROCEDURE CODES FA211 ESTABILISHED PATIENT [facility] CHARGE DISPOSITION & COMMUNICATION FOLLOW UP 2WK POST (REASON: C4/5,5/6,6/7THERAPEUTIC FACET BLOCK) ELECTRONICALLY SIGNED BY ANGIE DUVAL ON 06/08/2017 AT 09:01 AM EDT DISCLAIMER : THIS IS A VISIT SUMMARY EXTRACTED FROM THE [employer] CHART. IT IS NOT A COPY OF THE [employer] PROGRESS NOTE. SOFIA
== END ==
LOC: M PAIN 14:15
PROVIDERS: ATTEND Nurse Practitioner Family
DX: G89.29 Other chronic pain (principal); M47.816 Spondylosis without myelopathy or radiculopathy, lumbar region; M43.02 Spondylolysis, cervical region; J44.9 Chronic obstructive pulmonary disease, unspecified; G37.9 Demyelinating disease of central nervous system, unspecified; M19.90 Unspecified osteoarthritis, unspecified site; Z79.891 Long term (current) use of opiate analgesic; Z79.899 Other long term (current) drug therapy

== ENCOUNTER → 2017-06-10 | Outpatient (CLI) | payer BC ==
--- NOTE | 2017-06-14 07:41 | REP ---
CERVICAL FACET BLOCK: All imaging was reviewed with Dr. Falk prior to dictation. The portable C-arm is provided in the OR for Dr. Crane for fluoroscopic guidance. Two intraoperative fluoroscopic spot films were obtained using last image hold technology for needle placement verification for bilateral cervical facet injections. The films are on the PACS system and available for review. 13 seconds of fluoroscopy time were used for this procedure. Reviewed by SHIVANI Mendieta 06/14/2017 10:59 AEdited and Signed by Mauricio Falk MD 06/14/2017 04:10 P
--- NOTE | 2017-06-16 00:59 | ECWPNPC ---
PATIENT NAME: MARKELL BUSTILLOS : 1955 GENDER: MALE VISIT DATE: 06/10/2017 DISCHARGE DATE: 06/10/17 1202 VISIT LOCKED DATE TIME: PHYSICIAN: MY TOVAR RESOURCE: MY TOVAR REASON FOR APPOINTMENT 1. C4/5,5/6,6/7 THERA. FACET HISTORY OF PRESENT ILLNESS HISTORY OF PRESENT ILLNESS: PAIN THE PATIENT DESCRIBES THE PAIN... FALL RISK SCREENING: SCREENING :NO FALLS IN THE PAST YEAR CURRENT MEDICATIONS TAKING ROPINIROLE HCL 1 MG TABLET ORALLY FOUR TIMES DAILY, NOTES: 05/2717 TAKING FUROSEMIDE 40 MG TABLET 1 TABLET ORALLY ONCE Q 3 DAYS PRN, NOTES: 06/06/17 TAKING DULERA 100-5 MCG/ACT AEROSOL 2 PUFFS INHALATION TWICE A DAY NEEDED, NOTES: 06/07/17 TAKING ALBUTEROL SULFATE (2.5 MG/3ML) 0.083% NEBULIZATION SOLUTION 3 ML INHALATION ONCE DAILY NEEDED, NOTES: 06/07/17 TAKING LIDODERM 5 % PATCH EXTERNALLY PRN ON 12 HOURS OFF 12 HOURS, NOTES: 06/08/17 TAKING VOLTAREN 1 % GEL DIRECTED TO LEFT KNEE TRANSDERMAL Q8H PRN, NOTES: 06/09/17 1400 TAKING 8 HOUR PAIN RELIEVER 650 MG TABLET EXTENDED RELEASE 2 TABLETS NEEDED ORALLY EVERY 8 HRS TAKING BACLOFEN 10 MG TABLET 1 TABLET WITH FOOD OR MILK ORALLY FOUR TIMES DAILY, NOTES: 06/09/17 230 TAKING OXYCODONE HCL ER 20 MG TABLET ER 12 HOUR ABUSE-DETERRENT 1 TABLET ORALLY EVERY 12 HRS MDD2, NOTES: 06/09/172199 TAKING OXYCODONE HCL ER 20 MG TABLET EXTENDED RELEASE 12 HOUR 1 TABLET ORALLY EVERY 12 HRS FOR PAIN MDD2, NOTES: 06/09/172199 TAKING NORCO 5-325 MG TABLET 1 TABLET NEEDED ORALLY EVERY 6 HRS PRN MDD4, NOTES: 06/09/172399 TAKING OXYCONTIN 20 MG TABLET ER 12 HOUR ABUSE-DETERRENT 1 TABLET ORALLY EVERY 12 HRS BID MDD2, NOTES: 06/09/172399 TAKING MELOXICAM 15 MG TABLET 1 TABLET ORALLY ONCE A DAY, NOTES: 06/09/172199 NOT-TAKING ALEVE 220 MG TABLET 1 TABLET ORALLY DAILY PRN NOT-TAKING OXYCONTIN 20 MG TABLET ER 12 HOUR ABUSE-DETERRENT 1 TABLET ORALLY EVERY 12 HRS DISCONTINUED OXYCONTIN 20 MG TABLET ER 12 HOUR ABUSE-DETERRENT 1 TABLET ORALLY EVERY 12 HRS MDD2 DISCONTINUED OXYCONTIN 20 MG TABLET ER 12 HOUR ABUSE-DETERRENT 1 TABLET ORALLY EVERY 12 HRS MEDICATION LIST REVIEWED AND RECONCILED WITH THE PATIENT PAST MEDICAL HISTORY SINUSITIS ARTHRITIS COPD DEMYELINATING DISEASE ALLERGIES N.K.D.A. SOCIAL HISTORY GENERAL: TOBACCO USE ARE YOU A:FORMER SMOKER HOW LONG HAS IT BEEN SINCE YOU LAST SMOKED?> 10 YEARS PAIN CLINIC PFS, CLERGY, PUBLIC HEALTH REFERRALS PFS REFERRAL NEEDED?NO CLERGY REFERRAL NEEDED?NO PUBLIC HEALTH REFERRAL NEEDED?NO WAS THE PROVIDER NOTIFIED OF ANY PERTINENT INFO?NO HAS THE PATIENT BEEN EDUCATED REGARDING HIS/HER PLAN OF CARE?YES HAS THE PATIENT BEEN EDUCATED REGARDING PAIN, THE RISK FOR PAIN, THE IMPORTANCE OF EFFECTIVE PAIN MANAGEMENT, AND THE PAIN ASSESSMENT PROCESS?YES PATIENT: ____. REVIEW OF SYSTEMS REVIEWED BY: PROVIDER: . CONSTITUTIONAL: ANY CHANGE IN YOUR MEDICAL CONDITION? NO . CHILLS NO . FEVER NO . INFECTION: DO YOU HAVE NEW INFECTIONS? NO . DO YOU HAVE HISTORY OF MRSA? NO . MUSCULOSKELETAL: ANY NEW PATTERNS OF PAIN OR NUMBNESS? NO . GASTROENTEROLOGY: ANY NEW CHANGE IN BOWEL CONTROL? NO . GENITOURINARY: ANY NEW CHANGE IN BLADDER CONTROL? NO . IS THERE A CHANCE YOU COULD BE ? NO . HEMATOLOGY/LYMPH: DO YOU TAKE ANY BLOOD THINNERS? (FOR EXAMPLE- COUMADIN, PLAVIX, AGGRENOX, PLATEL, PRADAXA, OR XARELTO) NO . WHEN WAS YOUR LAST DOSE? DATE: TIME: . NEUROLOGY: HAVE YOU FALLEN IN THE PAST 6 MONTHS? NO . ANY NEW EXTREMITY NUMBNESS OR WEAKNESS? NO . CARDIOLOGY: DO YOU HAVE A PACEMAKER OR DEFIBRILLATOR? NO . RESPIRATORY: HAVE YOU BEEN SICK IN THE PAST WEEK? NO . FEVER NO . FLU LIKE SYMPTOMS? NO . COUGH NO . INTEGUMENTARY: DO YOU HAVE ANY RASHES OR OPEN SORES? NO . ALLERGIC/IMMUNO: ARE YOU ALLERGIC TO SHELLFISH OR IV DYE? NO . ANY NEW ALLERGIES? NO . PSYCHIATRIC: DO YOU HAVE THOUGHTS OF HURTING YOURSELF OR SOMEONE ELSE? NO . ARE YOU ABUSED, NEGLECTED, OR IN AN UNSAFE ENVIRONMENT? NO . 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 NO . OTHER: DO YOU NEED ANY PRESCRIPTIONS? YES . IF YES, PLEASE LIST: ___DICLOFENAC 1% GEL 100 GM_ . ANY NEW PROBLEMS WITH YOUR MEDICATIONS? NO . WHEN DID YOU LAST EAT? ____06/09/172399 . WHEN DID YOU LAST DRINK? ____06/09/172399 . WHAT DID YOU LAST DRINK? ____WATER . NAME OF PERSON DRIVING YOU HOME? ____JOANN . DO YOU HAVE ANY OTHER QUESTIONS OR CONCERNS NO . VITAL SIGNS WT 224.6 LBS, HT 68 IN, BMI 34.15 INDEX, BP 149/70 MM HG, HR 79 /MIN, RR 16 /MIN, TEMP 97.1 F, OXYGEN SAT % 98, SAFE IN ENV? (Y/N) YES, NA INITIALS MP 1003, REVIEWED BY: CECILIO. ASSESSMENTS SPONDYLOSIS OF CERVICAL REGION WITHOUT MYELOPATHY OR RADICULOPATHY - M47.812 (PRIMARY) PROCEDURES PN CERVICAL FACET BLOCK LOW BILATERAL CERVICAL PRE PROCEDURE DIAGNOSIS CERVICAL SPONDYLOSIS POST PROCEDURE DIAGNOSIS CERVICAL SPONDYLOSIS PROCEDURE BILATERAL C4-C5 AND BILATERAL C6-C7 CERVICAL FACET BLOCK SURGEON DR. MY TOVAR PAINT ROLLER ASSEMBLER NONE ANESTHESIA LOCAL PRE PROCEDURE NOTE THE PATIENT HAS HISTORY OF CHRONIC CERVICAL PAIN. I EVALUATE THE PATIENT AND REVIEWED THE CHART. I WENT OVER THE RISKS, ALTERNATIVES, AND BENEFITS ASSOCIATED WITH THIS PROCEDURE. THE PATIENT WOULD LIKE TO PROCEED AND GIVE CONSENT TO PERFORMED THE PROCEDURE. THE PATIENT DENIES UNEXPLAINABLE WEIGHT LOSS, FEVER, CHILLS, OR NEW CHANGES IN URINARY OR BOWEL CONTROL. DESCRIPTION OF PROCEDURE THE PATIENT WAS BROUGHT TO THE PROCEDURE ROOM AND PLACED IN THE PRONE POSITION. THE CERVICOTHORACIC AREA WAS CLEANED WITH CHLORAPREP SOLUTION AND DRAPED ASEPTICALLY. THE PROCEDURE WAS DONE UNDER STERILE CONDITIONS. I CHECKED LATERALITY AND THE LEVEL WHERE THE PROCEDURE WAS GOING TO BE PERFORMED WITH THE PATIENT AND THE SUPPORTING STAFF AT THE MOMENT OF THE TIME OUT IN THE PROCEDURE ROOM. UNDER FLUOROSCOPIC GUIDANCE, TARGET POINT WAS SELECTED AT THE RIGHT AND LEFT C4-C5 AND RIGHT AND LEFT C6-C7, CERVICAL FACET JOINT. TARGET POINTS WERE SELECTED AFTER LATERAL ROTATION AND TILT OF THE MAGNIFIER OF THE C-ARM. LIDOCAINE 0.5% WAS USED TO NUMB THE SKIN AND THE SUBCUTANEOUS TISSUE BELOW IT. SPINAL NEEDLES, 22-GAUGE, WERE ADVANCED UNDER FLUOROSCOPIC GUIDANCE AND FOLLOWING PATIENT FEEDBACK UNTIL THE TARGETS WERE TOUCHED. THE POSITION OF THE NEEDLES WAS VERIFIED WITH AP AND LATERAL VIEWS. AFTER PROPER POSITION OF THE NEEDLES WAS ACHIEVED, ISOVUE M DYE 30, 0.1 ML WAS INJECTED SHOWING SPREAD OF THE DYE. THEN A SOLUTION OF 0.9 ML OF BUPIVACAINE 0.125% AND KENALOG 10 MG WAS INJECTED AT EACH SITE. THERE WAS NO EVIDENCE OF BLOOD, PARESTHESIA OR CEREBROSPINAL FLUID DURING THE PROCEDURE. THE PATIENT WAS SENT TO THE RECOVERY ROOM. THE PATIENT WAS MOVING THE EXTREMITIES AND DOING WELL. THERE WAS NO COMPLICATION DURING THE PROCEDURE. FLUOROSCOPY TIME WAS 17 SECONDS POST PROCEDURE NOTE THE PATIENT WILL BE SEEN IN A FOLLOW UP IN THE NEXT FEW WEEKS. INSTRUCTIONS WERE GIVEN, QUESTIONS WERE ANSWERED, AND THE PATIENT EXPRESSED UNDERSTANDING AND AGREES WITH THE PLAN. I, GERRI MCFARLAND, DOCUMENTED THE ABOVE INFORMATION ACTING A SCRIBE FOR DR. TOVAR. I HAVE REVIEWED THE ABOVE DOCUMENT, WRITTEN BY GERRI ABREU AND I VERIFY THAT IT IS ACCURATE. DIAGNOSTIC IMAGING [facility] FACET BLOCK (PAIN)[id number] PROCEDURE CODES 73964 INJ PARAVERT F JNT C/T 1 LEV, MODIFIERS: 50 [id number] INJ PARAVERT F JNT C/T 2 LEV, MODIFIERS: 50 [id number] RADXPS IN END [id number] PXD DISPOSITION & COMMUNICATION FOLLOW UP 3 WEEKS ELECTRONICALLY SIGNED BY MY TOVAR MD ON 06/14/2017 AT 12:42 PM EDT DISCLAIMER : THIS IS A VISIT SUMMARY EXTRACTED FROM THE [employer] CHART. IT IS NOT A COPY OF THE [employer] PROGRESS NOTE. MTDD
== END ==
LOC: M PAIN 10:00
PROVIDERS: ATTEND Anesthesiology
DX: G89.29 Other chronic pain (principal); M47.812 Spondylosis without myelopathy or radiculopathy, cervical region; M19.90 Unspecified osteoarthritis, unspecified site; J44.9 Chronic obstructive pulmonary disease, unspecified; G37.9 Demyelinating disease of central nervous system, unspecified; Z79.891 Long term (current) use of opiate analgesic; Z79.899 Other long term (current) drug therapy; Z87.891 Personal history of nicotine dependence
CPT/HCPCS: 64490; 64491; J3301; Q9967

== ENCOUNTER → 2017-06-24 | Outpatient (CLI) | payer BC ==
--- NOTE | 2017-06-25 01:28 | ECWPNPC ---
PATIENT NAME: MARKELL BUSTILLOS : 1955 GENDER: MALE VISIT DATE: 06/24/2017 DISCHARGE DATE: 06/24/17 1328 VISIT LOCKED DATE TIME: PHYSICIAN: BRENDEN FLORES RESOURCE: BRENDEN FLORES REASON FOR APPOINTMENT 1. POST PROCEDURE HISTORY OF PRESENT ILLNESS HISTORY OF PRESENT ILLNESS: HERE FOR POST PROCEDURE F/U.HAD BILAT. CERVICAL THERAPEUTIC FACET BLOCK ON 06-10-17.REPORTS 100% IMPROVEMENT IN PAIN POST PROCEDURE.CHIEF AREA OF PAIN IS LOW BACK.RATING NECK PAIN 0/10 VAS.RATING PAIN VAS 4/10 LOW BACK .CURRENT MEDICATION FOR CHRONIC PAIN:BACLOFEN 10MG QID,OXYCONTIN 20MG BID,NORCO 5/325 Q6H PRN AND MELOXICAM 15MG DAILY.DENIES SIDE EFFECTS WITH MEDICATION.REPORTS BETTER ABILITY TO TOLERATE ADL'S WITH CURRENT CHRONIC PAIN MEDICATION REGIMEN. PAIN THE PATIENT DESCRIBES THE PAIN... FALL RISK SCREENING: SCREENING :NO FALLS IN THE PAST YEAR CURRENT MEDICATIONS TAKING ROPINIROLE HCL 1 MG TABLET ORALLY FOUR TIMES DAILY TAKING FUROSEMIDE 40 MG TABLET 1 TABLET ORALLY ONCE Q 3 DAYS PRN TAKING DULERA 100-5 MCG/ACT AEROSOL 2 PUFFS INHALATION TWICE A DAY NEEDED TAKING ALBUTEROL SULFATE (2.5 MG/3ML) 0.083% NEBULIZATION SOLUTION 3 ML INHALATION ONCE DAILY NEEDED TAKING LIDODERM 5 % PATCH EXTERNALLY PRN ON 12 HOURS OFF 12 HOURS TAKING BACLOFEN 10 MG TABLET 1 TABLET WITH FOOD OR MILK ORALLY FOUR TIMES DAILY TAKING OXYCODONE HCL ER 20 MG TABLET ER 12 HOUR ABUSE-DETERRENT 1 TABLET ORALLY EVERY 12 HRS MDD2 TAKING NORCO 5-325 MG TABLET 1 TABLET NEEDED ORALLY EVERY 6 HRS PRN MDD4 TAKING OXYCONTIN 20 MG TABLET ER 12 HOUR ABUSE-DETERRENT 1 TABLET ORALLY EVERY 12 HRS BID MDD2 TAKING MELOXICAM 15 MG TABLET 1 TABLET ORALLY ONCE A DAY TAKING VOLTAREN 1 % GEL DIRECTED TO LEFT KNEE TRANSDERMAL Q8H PRN NOT-TAKING 8 HOUR PAIN RELIEVER 650 MG TABLET EXTENDED RELEASE 2 TABLETS NEEDED ORALLY EVERY 8 HRS NOT-TAKING OXYCODONE HCL ER 20 MG TABLET EXTENDED RELEASE 12 HOUR 1 TABLET ORALLY EVERY 12 HRS FOR PAIN MDD2 UNKNOWN ALEVE 220 MG TABLET 1 TABLET ORALLY DAILY PRN UNKNOWN OXYCONTIN 20 MG TABLET ER 12 HOUR ABUSE-DETERRENT 1 TABLET ORALLY EVERY 12 HRS MEDICATION LIST REVIEWED AND RECONCILED WITH THE PATIENT PAST MEDICAL HISTORY SINUSITIS ARTHRITIS COPD DEMYELINATING DISEASE ALLERGIES N.K.D.A. SURGICAL HISTORY COLONOSCOPY 2015 LEFT SHOULDER - ROTATOR CUFF 2016 SPINAL TAP 2016 LEFT SHOULDER DISLOCATION/FX 1968 SINUSITIS FLUSH AND DRAIN 1971, 1973 RIGHT NIPPLE CYST REMOVED 1972 RIGHT WRIST FX 1974 RIGHT KNEE ACL REPAIRED 1997 RIGHT KNEE TOTAL REPLACEMENT 2007 LEFT SHOULDER ROTATOR CUFF 2008 LEFT FRONTAL MAXILLARY SINUSITIS SINUSOTOMY 2009 RIGHT WRIST CARPAL TUNNEL 2010 SOCIAL HISTORY GENERAL: TOBACCO USE ARE YOU A:FORMER SMOKER HOW LONG HAS IT BEEN SINCE YOU LAST SMOKED?> 10 YEARS PAIN CLINIC PFS, CLERGY, PUBLIC HEALTH REFERRALS PFS REFERRAL NEEDED?NO CLERGY REFERRAL NEEDED?NO PUBLIC HEALTH REFERRAL NEEDED?NO WAS THE PROVIDER NOTIFIED OF ANY PERTINENT INFO?NO HAS THE PATIENT BEEN EDUCATED REGARDING HIS/HER PLAN OF CARE?YES HAS THE PATIENT BEEN EDUCATED REGARDING PAIN, THE RISK FOR PAIN, THE IMPORTANCE OF EFFECTIVE PAIN MANAGEMENT, AND THE PAIN ASSESSMENT PROCESS?YES PATIENT: ____. HOSPITALIZATION/MAJOR DIAGNOSTIC PROCEDURE SURGERY RELATED REVIEW OF SYSTEMS REVIEWED BY: PROVIDER: BRENDEN ADAMS . CONSTITUTIONAL: ANY CHANGE IN YOUR MEDICAL CONDITION? NO . CHILLS NO . FEVER NO . INFECTION: DO YOU HAVE NEW INFECTIONS? NO . DO YOU HAVE HISTORY OF MRSA? NO . MUSCULOSKELETAL: ANY NEW PATTERNS OF PAIN OR NUMBNESS? NO . GASTROENTEROLOGY: ANY NEW CHANGE IN BOWEL CONTROL? NO . GENITOURINARY: ANY NEW CHANGE IN BLADDER CONTROL? NO . IS THERE A CHANCE YOU COULD BE ? NO . HEMATOLOGY/LYMPH: DO YOU TAKE ANY BLOOD THINNERS? (FOR EXAMPLE- COUMADIN, PLAVIX, AGGRENOX, PLATEL, PRADAXA, OR XARELTO) NO . WHEN WAS YOUR LAST DOSE? DATE: TIME: . NEUROLOGY: HAVE YOU FALLEN IN THE PAST 6 MONTHS? NO . ANY NEW EXTREMITY NUMBNESS OR WEAKNESS? NO . CARDIOLOGY: DO YOU HAVE A PACEMAKER OR DEFIBRILLATOR? NO . RESPIRATORY: HAVE YOU BEEN SICK IN THE PAST WEEK? NO . FEVER NO . FLU LIKE SYMPTOMS? NO . COUGH NO . INTEGUMENTARY: DO YOU HAVE ANY RASHES OR OPEN SORES? NO . ALLERGIC/IMMUNO: ARE YOU ALLERGIC TO SHELLFISH OR IV DYE? NO . ANY NEW ALLERGIES? NO . PSYCHIATRIC: DO YOU HAVE THOUGHTS OF HURTING YOURSELF OR SOMEONE ELSE? NO . ARE YOU ABUSED, NEGLECTED, OR IN AN UNSAFE ENVIRONMENT? NO . 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 NO . OTHER: DO YOU NEED ANY PRESCRIPTIONS? YES, OXYCODONE 20, HYDROCODONE/APAP 5/325, [id number] . IF YES, PLEASE LIST: ____ . ANY NEW PROBLEMS WITH YOUR MEDICATIONS? NO . WHEN DID YOU LAST EAT? ____ . WHEN DID YOU LAST DRINK? ____ . WHAT DID YOU LAST DRINK? ____ . NAME OF PERSON DRIVING YOU HOME? ____ . DO YOU HAVE ANY OTHER QUESTIONS OR CONCERNS NO, PT DENIES GETTING FLU VACCINE THIS YEAR. PT STATES HE USUALLY JUST GETS THE PNEUMONIA VACCINE, NOT THE FLU VACCINE . VITAL SIGNS WT 222 LBS, HT 68 IN, BMI 33.75 INDEX, BP 152/71 MM HG, HR 100 /MIN, RR 16 /MIN, TEMP 97.2 F, OXYGEN SAT % 96%, NA INITIALS AW 1307, REVIEWED BY: MARY. EXAMINATION GENERAL EXAMINATION: GENERAL APPEARANCE:COOPERATIVE . PSYCHAFFECT NORMAL. LUNGS:LUNG LUEVANO ARE CLEAR TO AUSCULTATION BILATERALLY. GOOD MOVEMENT OF AIR. HEART:S1, S2 IN A REGULAR RATE AND RHYTHM. NO SIGNIFICANT MURMURS, RUBS OR GALLOPS NOTED. CERVICAL SPINE/NECK: RANGE OF MOTION OF NECK:MILD DISCOMFORT WITH ROJM . MOTOR STRENGTH:NORMAL. VERTEBRAL SPINE TENDERNESS:NONTENDER WITH PALPATION C-SPINE. TRAPEZIUS TENDERNESS:PRESENT BILATERALLY. 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 TREATMENT OSTEOARTHRITIS OF LUMBAR SPINE, UNSPECIFIED SPINAL OSTEOARTHRITIS COMPLICATION STATUS REFILL OXYCODONE HCL ER TABLET ER 12 HOUR ABUSE-DETERRENT, 20 MG, 1 TABLET, ORALLY, EVERY 12 HRS MDD2, 30 DAY(S), 60, REFILLS 0 REFILL BACLOFEN TABLET, 10 MG, 1 TABLET WITH FOOD OR MILK, ORALLY, FOUR TIMES DAILY, 30 DAY(S), 120, REFILLS 2 REFILL NORCO TABLET, 5-325 MG, 1 TABLET NEEDED, ORALLY, EVERY 6 HRS PRN MDD4, 30 DAY(S), 120, REFILLS 0 NOTES: ISTOP REGISTRY REVIEWED [id number] RISKS AND BENEFITS OF NARCOTIC/OPIOD MEDICATIONS WERE REVIEWED WITH PATIENT - THIS INCLUDES BUT IS NOT LIMITED TO RISK OF DEPENDANCE/DEVELOPMENT OF ADDICTION, MOOD DISTURBANCE AND DEPRESSION, OSTEOPOROSIS, HORMONAL AND LABIDAL CHANGES, RESPIRATORY DEPRESSION AND . PATIENT IS ADVISED NOT TO DRIVE WHILE ON THESE MEDICATIONS, AND DEMNOSTRATES COMPLLIANCE. BRINGS IN MEDICATIONS WHICH IS APPROPRIATE FOR WHAT WAS DISPENSED. RECENT URINE TOXICOLOGY REVIEWED. NO UNAUTHORIZED MEDICATIONS. NO ILLICIT SUBSTANCES AND PRESCRIBED MEDICATIONS WERE PRESENT. PROCEDURE CODES FA211 ESTABILISHED PATIENT [facility] CHARGE DISPOSITION & COMMUNICATION FOLLOW UP 2 MONTHS ELECTRONICALLY SIGNED BY ANGIE DUVAL ON 06/24/2017 AT 01:40 PM EDT DISCLAIMER : THIS IS A VISIT SUMMARY EXTRACTED FROM THE [employer] CHART. IT IS NOT A COPY OF THE [employer] PROGRESS NOTE. SOFIA
== END ==
LOC: M PAIN 13:00
PROVIDERS: ATTEND Nurse Practitioner Family
DX: G89.29 Other chronic pain (principal); M47.816 Spondylosis without myelopathy or radiculopathy, lumbar region; M43.02 Spondylolysis, cervical region; J44.9 Chronic obstructive pulmonary disease, unspecified; Z79.891 Long term (current) use of opiate analgesic; Z79.899 Other long term (current) drug therapy

== ENCOUNTER → 2017-08-24 | Outpatient (CLI) | payer BC | LOC: M PAIN 13:00 | DX: G89.29 Other chronic pain (principal); M47.816 Spondylosis without myelopathy or radiculopathy, lumbar region; M54.2 Cervicalgia; M19.90 Unspecified osteoarthritis, unspecified site; J44.9 Chronic obstructive pulmonary disease, unspecified; G37.9 Demyelinating disease of central nervous system, unspecified; Z79.891 Long term (current) use of opiate analgesic; Z79.899 Other long term (current) drug therapy; Z87.891 Personal history of nicotine dependence | CPT/HCPCS: G0463 ==

== ENCOUNTER → 2017-10-22 | Outpatient (CLI) | payer BC | LOC: M PAIN 13:15 | DX: M47.812 Spondylosis without myelopathy or radiculopathy, cervical region (principal); M47.816 Spondylosis without myelopathy or radiculopathy, lumbar region; G89.29 Other chronic pain; J44.9 Chronic obstructive pulmonary disease, unspecified; G37.9 Demyelinating disease of central nervous system, unspecified; Z79.891 Long term (current) use of opiate analgesic; Z79.899 Other long term (current) drug therapy; Z87.891 Personal history of nicotine dependence; Z96.651 Presence of right artificial knee joint | CPT/HCPCS: G0463 ==

== ENCOUNTER → 2017-12-06 | Outpatient (CLI) | payer BC | LOC: M PAIN 13:15 | DX: M47.812 Spondylosis without myelopathy or radiculopathy, cervical region (principal); M47.816 Spondylosis without myelopathy or radiculopathy, lumbar region; G89.29 Other chronic pain; M19.90 Unspecified osteoarthritis, unspecified site; J44.9 Chronic obstructive pulmonary disease, unspecified; G37.9 Demyelinating disease of central nervous system, unspecified; Z79.899 Other long term (current) drug therapy; Z96.651 Presence of right artificial knee joint; Z87.891 Personal history of nicotine dependence | CPT/HCPCS: G0463 ==

== ENCOUNTER → 2018-01-07 | Outpatient (CLI) | payer BC | LOC: M PAIN 13:15 | DX: M47.812 Spondylosis without myelopathy or radiculopathy, cervical region (principal); M47.816 Spondylosis without myelopathy or radiculopathy, lumbar region; G89.29 Other chronic pain; E11.9 Type 2 diabetes mellitus without complications; M19.90 Unspecified osteoarthritis, unspecified site; J44.9 Chronic obstructive pulmonary disease, unspecified; G37.9 Demyelinating disease of central nervous system, unspecified; Z79.899 Other long term (current) drug therapy; Z96.651 Presence of right artificial knee joint; Z87.891 Personal history of nicotine dependence | CPT/HCPCS: G0463 ==

== ENCOUNTER → 2018-01-26 | Outpatient (CLI) | payer BC | LOC: M PAIN 13:45 | DX: M46.1 Sacroiliitis, not elsewhere classified (principal); M47.817 Spondylosis without myelopathy or radiculopathy, lumbosacral region; M19.90 Unspecified osteoarthritis, unspecified site; E11.9 Type 2 diabetes mellitus without complications; J44.9 Chronic obstructive pulmonary disease, unspecified; G37.9 Demyelinating disease of central nervous system, unspecified; Z79.1 Long term (current) use of non-steroidal anti-inflammatories (NSAID); Z79.899 Other long term (current) drug therapy; Z88.5 Allergy status to narcotic agent; Z96.651 Presence of right artificial knee joint; Z87.891 Personal history of nicotine dependence | CPT/HCPCS: G0463 ==

== ENCOUNTER → 2018-02-10 | Outpatient (CLI) | payer BC ==
[~2018-02-10] MED LIST changes: +BUPIVACAINE HCL 0.25% 30 ML VIAL As Ordered; -BUPIVACAINE HCL 0.25% 30 ML VIAL As Ordered ONE; +ISOVUE-M 300 61% 15ML VIAL (Q9967) As Ordered; -ISOVUE-M 300 61% 15ML VIAL (Q9967) As Ordered ONE; +LIDOCAINE 1% SDV INJ 30 ML VIAL As Ordered; -LIDOCAINE 1% SDV INJ 30 ML VIAL As Ordered ONE; +TRIAMCINOLONE ACETONIDE SUSP 40 MG/ML VIAL (J3301) As Ordered; -TRIAMCINOLONE ACETONIDE SUSP 40 MG/ML VIAL (J3301) As Ordered ONE; +diazePAM 5 MG TAB As Ordered; -diazePAM 5 MG TAB As Ordered ONE; +oxyCODONE 5MG TAB As Ordered; -oxyCODONE 5MG TAB As Ordered ONE
== END ==
LOC: M PAIN 10:15
DX: G89.29 Other chronic pain (principal); M46.1 Sacroiliitis, not elsewhere classified; J44.9 Chronic obstructive pulmonary disease, unspecified; G37.9 Demyelinating disease of central nervous system, unspecified; M19.90 Unspecified osteoarthritis, unspecified site; Z87.891 Personal history of nicotine dependence; Z79.899 Other long term (current) drug therapy; Z88.5 Allergy status to narcotic agent
CPT/HCPCS: J3301

== ENCOUNTER → 2018-02-28 | Outpatient (CLI) | payer BC | LOC: M PAIN 13:00 | DX: M46.1 Sacroiliitis, not elsewhere classified (principal); J44.9 Chronic obstructive pulmonary disease, unspecified; G37.9 Demyelinating disease of central nervous system, unspecified; M19.90 Unspecified osteoarthritis, unspecified site; Z88.5 Allergy status to narcotic agent; Z79.899 Other long term (current) drug therapy; Z96.651 Presence of right artificial knee joint; Z87.891 Personal history of nicotine dependence | CPT/HCPCS: G0463 ==

== ENCOUNTER → 2018-05-18 | Outpatient (CLI) | payer BC | LOC: M PAIN 13:15 | DX: M46.1 Sacroiliitis, not elsewhere classified (principal); G89.29 Other chronic pain; M19.90 Unspecified osteoarthritis, unspecified site; J44.9 Chronic obstructive pulmonary disease, unspecified; G37.9 Demyelinating disease of central nervous system, unspecified; Z79.899 Other long term (current) drug therapy; Z88.5 Allergy status to narcotic agent; Z96.651 Presence of right artificial knee joint; Z87.891 Personal history of nicotine dependence | CPT/HCPCS: G0463 ==

== ENCOUNTER → 2018-08-02 | Outpatient (CLI) | payer BC ==
[2018-08-02 15:07] LABS: HEMATOCRIT 43.7 % (42.0-52.0); HEMOGLOBIN 14.2 g/dl (13.5-17.5); MEAN CORPUSCULAR HEMOGLOBIN 28.7 pg (27.0-33.0); MEAN CORPUSCULAR HGB CONC 32.5 g/dl (32.0-36.5); MEAN CORPUSCULAR VOLUME 88.5 fl (80.0-96.0); PLATELET COUNT, AUTOMATED 287 10^3/uL (150-450); RED BLOOD COUNT 4.94 10^6/uL (4.30-6.10); RED CELL DISTRIBUTION WIDTH 12.4 % (11.5-14.5); WHITE BLOOD COUNT 8.6 10^3/uL (4.0-10.0)
[2018-08-02 15:20] LABS: INR 0.97; PROTHROMBIN TIME 12.9 SECONDS (12.1-14.4)
[2018-08-02 15:30] LABS: ALBUMIN 3.5 GM/DL (3.2-5.2); ALBUMIN/GLOBULIN RATIO 1.25 (1.00-1.93); ALKALINE PHOSPHATASE 88 U/L (45-117); ALT/SGPT 26 U/L (12-78); ANION GAP 4 MEQ/L (8-16); AST/SGOT 18 U/L (7-37); BILIRUBIN,TOTAL 0.4 MG/DL (0.2-1.0); BLOOD UREA NITROGEN 14 MG/DL (7-18); CALCIUM LEVEL 8.6 MG/DL (8.8-10.2); CARBON DIOXIDE LEVEL 30 MEQ/L (21-32); CHLORIDE LEVEL 107 MEQ/L (98-107); CREATININE FOR GFR 0.86 MG/DL (0.70-1.30); GLOMERULAR FILTRATION RATE > 60.0 (>49); GLUCOSE, FASTING 84 MG/DL (70-100); POTASSIUM SERUM 4.4 MEQ/L (3.5-5.1); SODIUM LEVEL 141 MEQ/L (136-145); TOTAL PROTEIN 6.3 GM/DL (6.4-8.2)
[2018-08-02 15:58] LABS: ERYTHROCYTE SEDIMENTATION RATE 6 mm/hr (0-20)
== END ==
LOC: M LAB 14:06
DX: M17.12 Unilateral primary osteoarthritis, left knee (principal)
CPT/HCPCS: 71046

== ENCOUNTER → 2018-08-19 | Outpatient (CLI) | payer BC | LOC: M PAIN 11:15 | DX: M47.816 Spondylosis without myelopathy or radiculopathy, lumbar region (principal); G89.29 Other chronic pain; M79.2 Neuralgia and neuritis, unspecified; M19.90 Unspecified osteoarthritis, unspecified site; J44.9 Chronic obstructive pulmonary disease, unspecified; G37.9 Demyelinating disease of central nervous system, unspecified; Z79.891 Long term (current) use of opiate analgesic; Z79.899 Other long term (current) drug therapy; Z88.5 Allergy status to narcotic agent; Z96.651 Presence of right artificial knee joint; Z87.891 Personal history of nicotine dependence | CPT/HCPCS: G0463 ==

== ENCOUNTER 2018-08-22 10:31 | Inpatient (IN) | payer MEDICARE, BC ==
[2018-08-22] MEDS ORDERED: ceFAZolin 2 GM/D5W 50 ML IV BAG (J0690 PER 500MG) As Ordered (10:50)
[2018-08-22 11:30] LABS: GLUCOSE, FASTING 114 MG/DL (70-100)
[2018-08-22] MEDS: LR 1,000 ML IV ×3 (11:34→21:01)
[2018-08-22] MEDS: MORPHINE 4 MG/ML 1ML VIAL/SYRINGE (J2270) IV (12:29)
[2018-08-22] MEDS ORDERED: fentaNYL 100 MCG/2 ML INJECTION (J3010) As Ordered ×2 (13:21→15:32)
[2018-08-22] MEDS ORDERED: MIDAZOLAM INJ 2 MG/2 ML VIAL (J2250) As Ordered ×2 (13:21→15:32)
[2018-08-22] MEDS: fentaNYL 100 MCG/2 ML INJECTION (J3010) IV (13:23)
[2018-08-22] MEDS: MIDAZOLAM INJ 2 MG/2 ML VIAL (J2250) IV (13:23)
[2018-08-22] MEDS ORDERED: ROPIvacaine 0.5% 30 ML INJECTION (J2795 PER 1MG) (14:23)
[2018-08-22] MEDS ORDERED: LIDOCAINE 1% MDV 20ML VIAL (14:23)
[2018-08-22] MEDS ORDERED: dexameTHASONE 10 MG/1 ML VIAL PRES.FREE (J1100) (14:23)
[2018-08-22] MEDS: EPINEPHrine INJ 1 MG/ML 1ML AMP As Ordered (15:17)
[2018-08-22] MEDS: BUPIVACAINE LIPOSOME/PF 1.3% 20ML VIAL (13.3MG/ML)(EXPAREL)(C9290 PER1MG) As Ordered (15:18)
[2018-08-22] MEDS: ceFAZolin 1GM INJ (J0690 PER 500MG) As Ordered (15:18)
[2018-08-22] MEDS: TRANEXAMIC ACID 100 MG/ML 10ML VIAL As Ordered (15:18)
[2018-08-22] MEDS ORDERED: dexameTHASONE 4 MG/ML 1ML VIAL (J1100) As Ordered (15:32)
[2018-08-22] MEDS ORDERED: PROPOFOL 500 MG/50 ML VIAL As Ordered (15:32)
[2018-08-22] MEDS ORDERED: LIDOCAINE 2% INJ 100 MG/5 ML SDV (FOR ANES.) As Ordered (15:32)
[2018-08-22] MEDS ORDERED: ONDANSETRON 4MG/2ML VIAL (J2405) As Ordered (15:32)
[2018-08-22] MEDS ORDERED: ROCURONIUM BROMIDE 50 MG/5 ML VIAL As Ordered (15:32)
[2018-08-22] MEDS ORDERED: HYDROmorphone HCL 2 MG/ML 1ML VIAL (J1170) As Ordered (15:32)
[2018-08-22] MEDS ORDERED: MORPHINE 1MG/ML IN 0.9% NACL 100ML IV BAG As Ordered (16:16)
[2018-08-22] MEDS ORDERED: PERCOCET 5MG/325MG TAB PO (17:00)
[2018-08-22] MEDS ORDERED: MORPHINE 1MG/ML IN 0.9% NACL 100ML IV BAG IV (17:00)
[2018-08-22] MEDS ORDERED: fentaNYL 100 MCG/2 ML INJECTION (J3010) IV (17:00)
[2018-08-22] MEDS ORDERED: ACETAMINOPHEN TAB 650MG DOSE (2X325MG) PO (17:00)
[2018-08-22] MEDS ORDERED: EPIDURAL/PCA KEYS XX (17:00)
[2018-08-22] MEDS ORDERED: HYDROMORPHONE HCL 0.5 MG/ 0.5 ML SYRINGE (J1170 PER 1) IV (17:00)
[2018-08-22] MEDS ORDERED: ONDANSETRON 4MG/2ML VIAL (J2405) IV ×3 (17:00)
[2018-08-22] MEDS ORDERED: diphenhydrAMINE INJ 50MG/ML VIAL (J1200) IV (17:00)
[2018-08-22] MEDS ORDERED: NALBUPHINE HCL 10 MG/ML AMP (J2300) IV (17:00)
[2018-08-22] MEDS ORDERED: FLEET ENEMA PR (17:00)
[2018-08-22] MEDS ORDERED: NALOXONE INJ 0.4 MG/1 ML VIAL (J2310) IV (17:00)
[2018-08-22] MEDS ORDERED: SUGAMMADEX SODIUM 500 MG/5 ML VIAL (BRIDION) As Ordered (17:09)
[2018-08-22] MEDS ORDERED: ALBUTEROL 90 MCG/ACT 8GM HFA INHALER INH (20:00)
[2018-08-22] MEDS ORDERED: hydrOXYzine 25 MG TAB PO (20:00)
[2018-08-22] MEDS: GABAPENTIN 400 MG CAP PO (20:52)
[2018-08-22] MEDS: rOPINIRole 2MG TAB PO (20:52)
[2018-08-22] MEDS: BACLOFEN 10 MG TAB PO (20:52)
[2018-08-23] MEDS: LR 1,000 ML IV (05:59)
[2018-08-23] MEDS ORDERED: PERCOCET 5MG/325MG TAB PO (06:15)
[2018-08-23] MEDS ORDERED: ONDANSETRON 4 MG TAB (S0181) PO (06:15)
[2018-08-23 06:32] LABS: HEMATOCRIT 40.7 % (42.0-52.0); HEMOGLOBIN 13.2 g/dl (13.5-17.5); MEAN CORPUSCULAR HEMOGLOBIN 28.9 pg (27.0-33.0); MEAN CORPUSCULAR HGB CONC 32.4 g/dl (32.0-36.5); MEAN CORPUSCULAR VOLUME 89.1 fl (80.0-96.0); PLATELET COUNT, AUTOMATED 270 10^3/uL (150-450); RED BLOOD COUNT 4.57 10^6/uL (4.30-6.10); RED CELL DISTRIBUTION WIDTH 12.4 % (11.5-14.5); WHITE BLOOD COUNT 12.4 10^3/uL (4.0-10.0)
[2018-08-23] MEDS: PERCOCET 5MG/325MG TAB PO ×2 (06:46→11:56)
[2018-08-23] MEDS: rOPINIRole 2MG TAB PO ×2 (08:15→12:31)
[2018-08-23] MEDS: BACLOFEN 10 MG TAB PO ×2 (08:16→12:31)
[2018-08-23] MEDS: GABAPENTIN 400 MG CAP PO (08:16)
[2018-08-23] MEDS: MIRALAX *UNIT DOSE* 17GM PACKET PO (09:00)
[2018-08-23] MEDS: MOM 30ML SUSPENSION UDC PO (09:00)
[2018-08-23] MEDS: SENOKOT S TAB PO (09:00)
[2018-08-23] MEDS ORDERED: RIVAROXABAN 10 MG TAB (XARELTO) PO (18:00)
[2018-08-24] MEDS ORDERED: RIVAROXABAN 10 MG TAB (XARELTO) PO (18:00)
== END 2018-08-23 12:40 | disposition home or self-care (01) | DRG 470 ==
LOC: M OR 10:31 → M MS5PR 17:25
PROVIDERS: Orthopaedic Surgery
PROC: 0SRD0J9 Replacement of Left Knee Joint with Synthetic Substitute, Cemented, Open Approach (ICD-10-PCS; principal; 2018-08-22 13:00)
DX: M17.12 Unilateral primary osteoarthritis, left knee (principal); G37.9 Demyelinating disease of central nervous system, unspecified; Z79.899 Other long term (current) drug therapy; J44.9 Chronic obstructive pulmonary disease, unspecified; J32.9 Chronic sinusitis, unspecified; Z96.651 Presence of right artificial knee joint; Z87.891 Personal history of nicotine dependence; G35 Multiple sclerosis

== ENCOUNTER → 2018-11-17 | Outpatient (CLI) | payer BC ==
[~2018-11-17] MED LIST changes: +ALBU17IN2 INH; +ALBU83IN INH; +BACL10TA2 PO; -BUPIVACAINE HCL 0.25% 30 ML VIAL As Ordered; +DULE100A IN; +FURO40TA2 PO; +GABA800T4 PO; +HYDR-3363 PO; -ISOVUE-M 300 61% 15ML VIAL (Q9967) As Ordered; +LIDO5DIS41 TD; -LIDOCAINE 1% SDV INJ 30 ML VIAL As Ordered; +MELO15TA28 PO; +NUCY50TA19 PO; +PERC5TAB12 PO; +ROPI2TAB24 PO; -TRIAMCINOLONE ACETONIDE SUSP 40 MG/ML VIAL (J3301) As Ordered; +VOLT1GEL15 TD; +XARE10TA PO; -diazePAM 5 MG TAB As Ordered; -oxyCODONE 5MG TAB As Ordered
--- NOTE | 2018-12-05 00:18 | ECWPNPC ---
PATIENT NAME: MARKELL BUSTILLOS : 1955 GENDER: MALE VISIT DATE: 11/17/2018 DISCHARGE DATE: 11/17/18 1450 VISIT LOCKED DATE TIME: PHYSICIAN: BRENDEN FLORES RESOURCE: BRENDEN FLORES REASON FOR APPOINTMENT 1. BACK HISTORY OF PRESENT ILLNESS HISTORY OF PRESENT ILLNESS: HERE FOR F/U OF CHRONIC LOW BACK PAIN AND LEFT KNEE PAIN.HAD TLKR IN AUGUST WITH COMPLICATIONS.CONTINUES TO HAVE SIGNIFICANT LEFT KNEE PAIN.FEELS NUCYNTA IS INEFFECTIVE.DISCUSSED MEDICATION OPTIONS.RATING PAIN VAS 7/10. PAIN THE PATIENT DESCRIBES THE PAIN... FALL RISK SCREENING: SCREENING : NO FALLS IN THE PAST YEAR. CURRENT MEDICATIONS TAKING ROPINIROLE HCL 2 MG TABLET ORALLY FOUR TIMES DAILY TAKING FUROSEMIDE 40 MG TABLET 1 TABLET ORALLY ONCE Q 3 DAYS PRN TAKING DULERA 100-5 MCG/ACT AEROSOL 2 PUFFS INHALATION TWICE A DAY NEEDED TAKING ALBUTEROL SULFATE (2.5 MG/3ML) 0.083% NEBULIZATION SOLUTION 3 ML INHALATION ONCE DAILY NEEDED TAKING LIDODERM 5 % PATCH EXTERNALLY PRN ON 12 HOURS OFF 12 HOURS TAKING VOLTAREN 1 % GEL DIRECTED TO LEFT KNEE TRANSDERMAL Q8H PRN TAKING MELOXICAM 15 MG TABLET 1 TABLET ORALLY ONCE A DAY NEEDED TAKING BACLOFEN 10 MG TABLET 1 TABLET WITH FOOD OR MILK ORALLY FOUR TIMES DAILY TAKING HYDROXYZINE HCL 25 MG TABLET 1 TABLET NEEDED ORALLY EVERY 8 HRS, NOTES: BEDTIME TAKING NUCYNTA 50 MG TABLET 1 TABLET ORALLY EVERY 6 HRS PRN MDD4 TAKING LYRICA 100 MG CAPSULE 1 CAPSULE ORALLY THREE TIMES A DAY TAKING ASPIRIN 81 81 MG TABLET CHEWABLE 1 TABLET ORALLY ONCE A DAY NOT-TAKING GABAPENTIN 800 MG TABLET 1 ORALLY THREE TIMES A DAY MEDICATION LIST REVIEWED AND RECONCILED WITH THE PATIENT PAST MEDICAL HISTORY SINUSITIS ARTHRITIS COPD DEMYELINATING DISEASE ALLERGIES TRAMADOL HCL: DIARRHEA - SIDE EFFECTS SURGICAL HISTORY COLONOSCOPY 2015 LEFT SHOULDER - ROTATOR CUFF 2016 SPINAL TAP 2016 LEFT SHOULDER DISLOCATION/FX 1968 SINUSITIS FLUSH AND DRAIN 1971, 1973 RIGHT NIPPLE CYST REMOVED 1972 RIGHT WRIST FX 1974 RIGHT KNEE ACL REPAIRED 1997 RIGHT KNEE TOTAL REPLACEMENT 2006 LEFT SHOULDER ROTATOR CUFF 2008 LEFT FRONTAL MAXILLARY SINUSITIS SINUSOTOMY 2008 RIGHT WRIST CARPAL TUNNEL 2009 LEFT TOTAL KNEE REPLACEMENT FAMILY HISTORY FATHER: , DIAGNOSED WITH HEART DISEASE MOTHER: , HEART DISEASE 2 SON(S) , 1 DAUGHTER(S) - HEALTHY. SIBLINGS - ; UNSURE OF CAUSE. SOCIAL HISTORY GENERAL: TOBACCO USE ARE YOU A:FORMER SMOKER HOW LONG HAS IT BEEN SINCE YOU LAST SMOKED?> 10 YEARS ALCOHOL SCREENING DID YOU HAVE A DRINK CONTAINING ALCOHOL IN THE PAST YEAR?NO POINTS0 INTERPRETATIONNEGATIVE RECREATIONAL DRUG USE DRUG USE?NO CAFFEINE CAFFEINE USE?YES HOW OFTEN AND HOW MUCH? DAILY COFFEE YAZIDI [id number] NONE LANGUAGE LANGUAGES SPOKEN:SAMMARINESE LEARNING BARRIERS / SPECIAL NEEDS VISION IMPAIRED?YES :CORRECTIVE LENSES COGNITIVELY IMPAIRED?NO READINESS TO LEARN?YES LEARNING PREFERENCES?YES :BOOKLETS, HANDOUTS PAIN CLINIC PFS, CLERGY, PUBLIC HEALTH REFERRALS PFS REFERRAL NEEDED?NO CLERGY REFERRAL NEEDED?NO PUBLIC HEALTH REFERRAL NEEDED?NO WAS THE PROVIDER NOTIFIED OF ANY PERTINENT INFO?NO HAS THE PATIENT BEEN EDUCATED REGARDING HIS/HER PLAN OF CARE?YES HAS THE PATIENT BEEN EDUCATED REGARDING PAIN, THE RISK FOR PAIN, THE IMPORTANCE OF EFFECTIVE PAIN MANAGEMENT, AND THE PAIN ASSESSMENT PROCESS?YES ADVANCE DIRECTIVE ADVANCE DIRECTIVE DISCUSSED WITH PATIENT:YES HCP - ALBINO BUSTILLOS () REVIEWED WITH PT 05/18/18 BVREVIEWED WITH PATIENT 08/19/18 1113 JS. HOSPITALIZATION/MAJOR DIAGNOSTIC PROCEDURE SURGERY RELATED REVIEW OF SYSTEMS REVIEWED BY: PROVIDER: BRENDEN ADAMS . CONSTITUTIONAL: ANY CHANGE IN YOUR MEDICAL CONDITION? NO . CHILLS NO . FEVER NO . INFECTION: DO YOU HAVE NEW INFECTIONS? NO . DO YOU HAVE HISTORY OF MRSA? NO . MUSCULOSKELETAL: ANY NEW PATTERNS OF PAIN OR NUMBNESS? LEFT KNEE REPLACEMENT AND LEFT WRIST . GASTROENTEROLOGY: ANY NEW CHANGE IN BOWEL CONTROL? NO . GENITOURINARY: ANY NEW CHANGE IN BLADDER CONTROL? NO . IS THERE A CHANCE YOU COULD BE ? NO . HEMATOLOGY/LYMPH: DO YOU TAKE ANY BLOOD THINNERS? (FOR EXAMPLE- COUMADIN, PLAVIX, AGGRENOX, PLATEL, PRADAXA, OR XARELTO) NO . WHEN WAS YOUR LAST DOSE? DATE: TIME: . NEUROLOGY: HAVE YOU FALLEN IN THE PAST 12 MONTHS? NO . ANY NEW EXTREMITY NUMBNESS OR WEAKNESS? NO . CARDIOLOGY: DO YOU HAVE A PACEMAKER OR DEFIBRILLATOR? NO . RESPIRATORY: HAVE YOU BEEN SICK IN THE PAST WEEK? NO . FEVER NO . FLU LIKE SYMPTOMS? NO . COUGH NO . INTEGUMENTARY: DO YOU HAVE ANY RASHES OR OPEN SORES? NO . ALLERGIC/IMMUNO: ARE YOU ALLERGIC TO IV DYE? NO . ANY NEW ALLERGIES? NO . PSYCHIATRIC: DO YOU HAVE THOUGHTS OF HURTING YOURSELF OR SOMEONE ELSE? NO . ARE YOU ABUSED, NEGLECTED, OR IN AN UNSAFE ENVIRONMENT? NO . 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 YES . OTHER: DO YOU NEED ANY PRESCRIPTIONS? OXYCONTIN . IF YES, PLEASE LIST: ____ . ANY NEW PROBLEMS WITH YOUR MEDICATIONS? NO . WHEN DID YOU LAST EAT? ____ . WHEN DID YOU LAST DRINK? ____ . WHAT DID YOU LAST DRINK? ____ . NAME OF PERSON DRIVING YOU HOME? ____ . DO YOU HAVE ANY OTHER QUESTIONS OR CONCERNS YES MANY QUESTIONS IN REGARDS TO MEDICATIONS . VITAL SIGNS WT 253.8 LBS, HT 68 IN, BMI 38.59 INDEX, BP 160/72 MM HG, HR 104 /MIN, RR 18 /MIN, TEMP 97.8 F, OXYGEN SAT % 95%, NA INITIALS SC 13:46, REVIEWED BY: KG. EXAMINATION GENERAL EXAMINATION: GENERAL APPEARANCE:COOPERATIVE . PSYCHAFFECT NORMAL . LUNGS:LUNG LUEVANO ARE CLEAR TO AUSCULTATION BILATERALLY. GOOD MOVEMENT OF AIR . HEART:S1, S2 IN A REGULAR RATE AND RHYTHM. NO SIGNIFICANT MURMURS, RUBS OR GALLOPS NOTED . LUMBAR SACRAL SPINEMUSCLE STRENGTH TESTING 5/5 BILATERAL LOWER EXTREMITIES.. ASSESSMENTS SPONDYLOSIS WITHOUT MYELOPATHY OR RADICULOPATHY, LUMBAR REGION - M47.816 (PRIMARY) OSTEOARTHRITIS OF KNEE, UNSPECIFIED - M17.9 TREATMENT SPONDYLOSIS WITHOUT MYELOPATHY OR RADICULOPATHY, LUMBAR REGION CONTINUE NUCYNTA TABLET, 50 MG, 1 TABLET, ORALLY, EVERY 6 HRS PRN MDD4, 30 DAY(S), 120, REFILLS 0 START OXYCONTIN TABLET ER 12 HOUR ABUSE-DETERRENT, 10 MG, 1 TABLET, ORALLY, EVERY 12 HRS MDD2, 30 DAY(S), 60, REFILLS 0 NOTES: ISTOP REGISTRY REVIEWED AND DEMONSTRATES COMPLLIANCE. BRINGS IN MEDICATIONS WHICH IS APPROPRIATE FOR WHAT WAS DISPENSED. RECENT URINE TOXICOLOGY REVIEWED. NO UNAUTHORIZED MEDICATIONS. NO ILLICIT SUBSTANCES AND PRESCRIBED MEDICATIONS WERE PRESENT. URINE TOX TODAY, RISKS AND BENEFITS OF NARCOTIC/OPIOD MEDICATIONS WERE REVIEWED WITH PATIENT - THIS INCLUDES BUT IS NOT LIMITED TO RISK OF DEPENDANCE/DEVELOPMENT OF ADDICTION, MOOD DISTURBANCE AND DEPRESSION, OSTEOPOROSIS, HORMONAL AND LABIDAL CHANGES, RESPIRATORY DEPRESSION AND . PATIENT IS ADVISED NOT TO DRIVE OR DRINK ALCOHOL WHILE ON THESE MEDICATIONS. PROCEDURE CODES FA211 ESTABILISHED PATIENT [facility] CHARGE DISPOSITION & COMMUNICATION FOLLOW UP 6 WEEKS ELECTRONICALLY SIGNED BY ANGIE VALLE ON 12/04/2018 AT 04:04 PM EDT DISCLAIMER : THIS IS A VISIT SUMMARY EXTRACTED FROM THE [employer] CHART. IT IS NOT A COPY OF THE [employer] PROGRESS NOTE. SOFIA
== END ==
LOC: M PAIN 13:30
PROVIDERS: ATTEND Nurse Practitioner Family
DX: M47.816 Spondylosis without myelopathy or radiculopathy, lumbar region (principal); M17.9 Osteoarthritis of knee, unspecified; G89.29 Other chronic pain; J44.9 Chronic obstructive pulmonary disease, unspecified; Z79.82 Long term (current) use of aspirin; Z79.899 Other long term (current) drug therapy; Z88.5 Allergy status to narcotic agent; Z96.653 Presence of artificial knee joint, bilateral; Z87.891 Personal history of nicotine dependence

== ENCOUNTER → 2018-12-19 | Outpatient (REF) | payer BC ==
[2018-12-19 16:47] LABS: BASO % 0.7 % (0.0-1.0); EOS # 0.1 10^3/uL (0.0-0.50); EOS % 1.8 % (0.0-3.0); HEMATOCRIT 43.7 % (42.0-52.0); HEMOGLOBIN 13.7 g/dl (13.5-17.5); LYMPH # 1.6 10^3/uL (1.5-4.5); LYMPH % 26.1 % (24.0-44.0); MEAN CORPUSCULAR HEMOGLOBIN 27.7 pg (27.0-33.0); MEAN CORPUSCULAR HGB CONC 31.4 g/dl (32.0-36.5); MEAN CORPUSCULAR VOLUME 88.3 fl (80.0-96.0); MONO # 0.6 10^3/uL (0.0-0.8); MONO % 9.8 % (0.0-5.0); NEUTROPHILS # 3.7 10^3/uL (1.8-7.7); NEUTROPHILS % 61.4 % (36.0-66.0); PLATELET COUNT, AUTOMATED 289 10^3/uL (150-450); RED BLOOD COUNT 4.95 10^6/uL (4.30-6.10); WHITE BLOOD COUNT 6.1 10^3/uL (4.0-10.0)
[2018-12-19 16:52] LABS: C REACTIVE PROTEIN QUANTITATIV 1.62 MG/DL (0.00-0.30); RHEUMATOID FACTOR QUANT < 10.0 IU/ML (<15.0)
[2018-12-19 18:47] LABS: ERYTHROCYTE SEDIMENTATION RATE 10 mm/hr (0-20)
[2018-12-22 00:07] LABS: ANTINUCLEAR ANTIBODIES DIRECT Negative (Negative); Lyme Disease IgG/IgM Antibodie <0.91 ISR (0.00-0.90); Lyme Disease IgM Ab Quantitati <0.80 index (0.00-0.79)
== END ==
LOC: M LABDRAW1 15:40
PROVIDERS: ATTEND Orthopaedic Surgery
DX: M65.242 Calcific tendinitis, left hand (principal)

== ENCOUNTER → 2019-01-04 | Outpatient (CLI) | payer BC ==
--- NOTE | 2019-01-20 00:58 | ECWPNPC ---
PATIENT NAME: MARKELL BUSTILLOS : 1955 GENDER: MALE VISIT DATE: 01/04/2019 DISCHARGE DATE: 01/04/19 1446 VISIT LOCKED DATE TIME: PHYSICIAN: BRENDEN FLORES RESOURCE: BRENDEN FLORES REASON FOR APPOINTMENT 1. BACK HISTORY OF PRESENT ILLNESS HISTORY OF PRESENT ILLNESS: HERE FOR F/U OF CHRONIC LBP.DOING WELL WITH OXYCONTIN AND NUCYNTA.STATES HE ABLE TO TOLERATE WORK AROUND HOUSE MUCH BETTER SINCE ADDITION OF OXYCONTIN AT LAST VISIT.RATING PAIN VAS 2/10. PAIN THE PATIENT DESCRIBES THE PAIN... FALL RISK SCREENING: SCREENING :NO FALLS REPORTED IN THE LAST YEAR CURRENT MEDICATIONS TAKING ROPINIROLE HCL 2 MG TABLET ORALLY FOUR TIMES DAILY TAKING FUROSEMIDE 40 MG TABLET 1 TABLET ORALLY ONCE Q 3 DAYS PRN TAKING DULERA 100-5 MCG/ACT AEROSOL 2 PUFFS INHALATION TWICE A DAY NEEDED TAKING ALBUTEROL SULFATE (2.5 MG/3ML) 0.083% NEBULIZATION SOLUTION 3 ML INHALATION ONCE DAILY NEEDED TAKING LIDODERM 5 % PATCH EXTERNALLY PRN ON 12 HOURS OFF 12 HOURS TAKING VOLTAREN 1 % GEL DIRECTED TO LEFT KNEE TRANSDERMAL Q8H PRN TAKING MELOXICAM 15 MG TABLET 1 TABLET ORALLY ONCE A DAY NEEDED TAKING BACLOFEN 10 MG TABLET 1 TABLET WITH FOOD OR MILK ORALLY FOUR TIMES DAILY TAKING HYDROXYZINE HCL 25 MG TABLET 1 TABLET NEEDED ORALLY EVERY 8 HRS, NOTES: BEDTIME TAKING LYRICA 100 MG CAPSULE 1 CAPSULE ORALLY THREE TIMES A DAY TAKING ASPIRIN 81 81 MG TABLET CHEWABLE 1 TABLET ORALLY ONCE A DAY TAKING NUCYNTA 50 MG TABLET 1 TABLET ORALLY EVERY 6 HRS PRN MDD4 TAKING OXYCONTIN 10 MG TABLET ER 12 HOUR ABUSE-DETERRENT 1 TABLET ORALLY EVERY 12 HRS MDD2 NOT-TAKING GABAPENTIN 800 MG TABLET 1 ORALLY THREE TIMES A DAY MEDICATION LIST REVIEWED AND RECONCILED WITH THE PATIENT PAST MEDICAL HISTORY SINUSITIS ARTHRITIS COPD DEMYELINATING DISEASE ALLERGIES TRAMADOL HCL: DIARRHEA - SIDE EFFECTS SURGICAL HISTORY COLONOSCOPY 2015 LEFT SHOULDER - ROTATOR CUFF 2016 SPINAL TAP 2016 LEFT SHOULDER DISLOCATION/FX 1968 SINUSITIS FLUSH AND DRAIN 1971, 1973 RIGHT NIPPLE CYST REMOVED 1972 RIGHT WRIST FX 1974 RIGHT KNEE ACL REPAIRED 1997 RIGHT KNEE TOTAL REPLACEMENT 2006 LEFT SHOULDER ROTATOR CUFF 2008 LEFT FRONTAL MAXILLARY SINUSITIS SINUSOTOMY 2008 RIGHT WRIST CARPAL TUNNEL 2010 LEFT TOTAL KNEE REPLACEMENT FAMILY HISTORY FATHER: , DIAGNOSED WITH HEART DISEASE MOTHER: , HEART DISEASE 2 SON(S) , 1 DAUGHTER(S) - HEALTHY. SIBLINGS - ; UNSURE OF CAUSE. SOCIAL HISTORY GENERAL: TOBACCO USE ARE YOU A:FORMER SMOKER HOW LONG HAS IT BEEN SINCE YOU LAST SMOKED?> 10 YEARS LATEX QUESTIONNAIRE LATEX ALLERGY : HAVE YOU EVER DEVELOPED ANY TYPE OF REACTION AFTER HANDLING LATEX PRODUCTS SUCH RUBBER GLOVES, CONDOMS, DIAPHRAGMS, BALLOONS, SOCKS, OR UNDERWEAR?NO LATEX ALLERGY : HAVE YOU EVER DEVELOPED ANY TYPE OF REACTION DURING OR AFTER DENTAL APPOINTMENT, VAGINAL/RECTAL EXAMINATION, SURGICAL PROCEDURE, OR ANY OTHER EXPOSURE?NO LATEX RISK : HAVE YOU EVER HAD ANY DIFFICULTY BREATHING OR HIVES AFTER EATING OR HANDLING ANY FRUITS, OR VEGETABLES; SUCH KIWI, BANANAS, STONE FRUITS, OR CHESTNUTSNO LATEX RISK : DO YOU HAVE A PREVIOUS PERSONAL HISTORY OF MORE THAN NINE SURGERIES, SPINA BIFIDA, OR REPEATED CATHERTIZATIONS? NO LATEX RISK : ARE YOU FREQUENTLY EXPOSED TO LATEX PRODUCTS IN YOUR OCCUPATION?NO DATE ASKED : 01/04/2019 ALCOHOL SCREENING DID YOU HAVE A DRINK CONTAINING ALCOHOL IN THE PAST YEAR?NO POINTS0 INTERPRETATIONNEGATIVE RECREATIONAL DRUG USE DRUG USE?NO CAFFEINE CAFFEINE USE?YES HOW OFTEN AND HOW MUCH? DAILY COFFEE SAMARITAN [id number] NONE LANGUAGE LANGUAGES SPOKEN:[place]ER LEARNING BARRIERS / SPECIAL NEEDS VISION IMPAIRED?YES :CORRECTIVE LENSES COGNITIVELY IMPAIRED?NO READINESS TO LEARN?YES LEARNING PREFERENCES?YES :BOOKLETS, HANDOUTS PAIN CLINIC PFS, CLERGY, PUBLIC HEALTH REFERRALS PFS REFERRAL NEEDED?NO CLERGY REFERRAL NEEDED?NO PUBLIC HEALTH REFERRAL NEEDED?NO WAS THE PROVIDER NOTIFIED OF ANY PERTINENT INFO?YES HAS THE PATIENT BEEN EDUCATED REGARDING HIS/HER PLAN OF CARE?YES HAS THE PATIENT BEEN EDUCATED REGARDING PAIN, THE RISK FOR PAIN, THE IMPORTANCE OF EFFECTIVE PAIN MANAGEMENT, AND THE PAIN ASSESSMENT PROCESS?YES ADVANCE DIRECTIVE ADVANCE DIRECTIVE DISCUSSED WITH PATIENT:YES HCP - ALBINO BUSTILLOS () REVIEWED WITH PT 05/18/18 BVREVIEWED WITH PATIENT 08/19/18 1113 JS. HOSPITALIZATION/MAJOR DIAGNOSTIC PROCEDURE SURGERY RELATED REVIEW OF SYSTEMS REVIEWED BY: PROVIDER: BRENDEN ADAMS . CONSTITUTIONAL: ANY CHANGE IN YOUR MEDICAL CONDITION? NO . CHILLS NO . FEVER NO . INFECTION: DO YOU HAVE NEW INFECTIONS? NO . DO YOU HAVE HISTORY OF MRSA? NO . MUSCULOSKELETAL: ANY NEW PATTERNS OF PAIN OR NUMBNESS? NO . GASTROENTEROLOGY: ANY NEW CHANGE IN BOWEL CONTROL? NO . GENITOURINARY: ANY NEW CHANGE IN BLADDER CONTROL? NO . IS THERE A CHANCE YOU COULD BE ? NO . HEMATOLOGY/LYMPH: DO YOU TAKE ANY BLOOD THINNERS? (FOR EXAMPLE- COUMADIN, PLAVIX, AGGRENOX, PLATEL, PRADAXA, OR XARELTO) NO . WHEN WAS YOUR LAST DOSE? DATE: TIME: . NEUROLOGY: HAVE YOU FALLEN IN THE PAST 12 MONTHS? NO . ANY NEW EXTREMITY NUMBNESS OR WEAKNESS? NO . CARDIOLOGY: DO YOU HAVE A PACEMAKER OR DEFIBRILLATOR? NO . RESPIRATORY: HAVE YOU BEEN SICK IN THE PAST WEEK? NO . FEVER NO . FLU LIKE SYMPTOMS? NO . COUGH NO . INTEGUMENTARY: DO YOU HAVE ANY RASHES OR OPEN SORES? NO . ALLERGIC/IMMUNO: ARE YOU ALLERGIC TO IV DYE? NO . ANY NEW ALLERGIES? NO . PSYCHIATRIC: DO YOU HAVE THOUGHTS OF HURTING YOURSELF OR SOMEONE ELSE? NO . ARE YOU ABUSED, NEGLECTED, OR IN AN UNSAFE ENVIRONMENT? NO . 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 YES . OTHER: DO YOU NEED ANY PRESCRIPTIONS? NO . IF YES, PLEASE LIST: ____ . ANY NEW PROBLEMS WITH YOUR MEDICATIONS? NO . WHEN DID YOU LAST EAT? ____ . WHEN DID YOU LAST DRINK? ____ . WHAT DID YOU LAST DRINK? ____ . NAME OF PERSON DRIVING YOU HOME? ____ . DO YOU HAVE ANY OTHER QUESTIONS OR CONCERNS NO . EXAMINATION GENERAL EXAMINATION: GENERAL APPEARANCE:COOPERATIVE . PSYCHAFFECT NORMAL . LUNGS:LUNG LUEVANO ARE CLEAR TO AUSCULTATION BILATERALLY. GOOD MOVEMENT OF AIR . HEART:S1, S2 IN A REGULAR RATE AND RHYTHM. NO SIGNIFICANT MURMURS, RUBS OR GALLOPS NOTED . LUMBAR SACRAL SPINEMUSCLE STRENGTH TESTING 5/5 BILATERAL LOWER EXTREMITIES.. ASSESSMENTS SPONDYLOSIS WITHOUT MYELOPATHY OR RADICULOPATHY, LUMBAR REGION - M47.816 (PRIMARY) TREATMENT SPONDYLOSIS WITHOUT MYELOPATHY OR RADICULOPATHY, LUMBAR REGION INCREASE OXYCONTIN TABLET ER 12 HOUR ABUSE-DETERRENT, 15 MG, 1 TABLET, ORALLY, EVERY 12 HRS MDD2, 30 DAY(S), 60, REFILLS 0 DECREASE NUCYNTA TABLET, 50 MG, 1 TABLET, ORALLY, Q6-8HR PRN PAIN NDD2, 30 DAY(S), 60, REFILLS 0 NOTES: ISTOP REGISTRY REVIEWED AND DEMONSTRATES COMPLLIANCE. BRINGS IN MEDICATIONS WHICH IS APPROPRIATE FOR WHAT WAS DISPENSED. RECENT URINE TOXICOLOGY REVIEWED. NO UNAUTHORIZED MEDICATIONS. NO ILLICIT SUBSTANCES AND PRESCRIBED MEDICATIONS WERE PRESENT. , RISKS AND BENEFITS OF NARCOTIC/OPIOD MEDICATIONS WERE REVIEWED WITH PATIENT - THIS INCLUDES BUT IS NOT LIMITED TO RISK OF DEPENDANCE/DEVELOPMENT OF ADDICTION, MOOD DISTURBANCE AND DEPRESSION, OSTEOPOROSIS, HORMONAL AND LABIDAL CHANGES, RESPIRATORY DEPRESSION AND . PATIENT IS ADVISED NOT TO DRIVE OR DRINK ALCOHOL WHILE ON THESE MEDICATIONS. PROCEDURE CODES FA211 ESTABILISHED PATIENT [facility] CHARGE DISPOSITION & COMMUNICATION FOLLOW UP 2 MONTHS ELECTRONICALLY SIGNED BY ANGIE VALLE ON 01/18/2019 AT 04:37 PM EDT DISCLAIMER : THIS IS A VISIT SUMMARY EXTRACTED FROM THE [employer] CHART. IT IS NOT A COPY OF THE [employer] PROGRESS NOTE. SOFIA
== END ==
LOC: M PAIN 14:15
PROVIDERS: ATTEND Nurse Practitioner Family
DX: M47.816 Spondylosis without myelopathy or radiculopathy, lumbar region (principal); G89.29 Other chronic pain; M19.90 Unspecified osteoarthritis, unspecified site; J44.9 Chronic obstructive pulmonary disease, unspecified; Z87.891 Personal history of nicotine dependence; Z88.5 Allergy status to narcotic agent; Z79.82 Long term (current) use of aspirin; Z79.891 Long term (current) use of opiate analgesic; Z79.899 Other long term (current) drug therapy

== ENCOUNTER → 2019-03-06 | Outpatient (CLI) | payer BC ==
--- NOTE | 2019-03-07 01:28 | ECWPNPC ---
PATIENT NAME: MARKELL BUSTILLOS : 1955 GENDER: MALE VISIT DATE: 03/06/2019 DISCHARGE DATE: 03/06/19 1417 VISIT LOCKED DATE TIME: PHYSICIAN: YOSSI JAMES RESOURCE: YOSSI JAMES REASON FOR APPOINTMENT 1. LOWER BACK HISTORY OF PRESENT ILLNESS HISTORY OF PRESENT ILLNESS: 64 YEAR OLD MALE IN FOR FOLLOW UP CHRONIC NECK PAIN. HE ADMITS TO A CERVICAL FACET BLOCK THAT HE RECEIVED IN 2017 THAT HE EXPERIENCED RELIEF WITH AND HE WOULD LIKE TO HAVE IT DONE AGAIN. CURRENT PAIN IS RATED AT 4-5/10 AND HE DOES ENDORSE RADICULAR SYMPTOMS BILATERALLY. MEDS WERE ADJUSTED AT LAST VISIT AND HE FEELS THIS WAS EFFECTIVE. PAIN THE PATIENT DESCRIBES THE PAIN... FALL RISK SCREENING: SCREENING :NO FALLS REPORTED IN THE LAST YEAR CURRENT MEDICATIONS TAKING ROPINIROLE HCL 2 MG TABLET ORALLY FOUR TIMES DAILY TAKING FUROSEMIDE 40 MG TABLET 1 TABLET ORALLY ONCE Q 3 DAYS PRN TAKING DULERA 100-5 MCG/ACT AEROSOL 2 PUFFS INHALATION TWICE A DAY NEEDED TAKING ALBUTEROL SULFATE (2.5 MG/3ML) 0.083% NEBULIZATION SOLUTION 3 ML INHALATION ONCE DAILY NEEDED TAKING LIDODERM 5 % PATCH EXTERNALLY PRN ON 12 HOURS OFF 12 HOURS TAKING VOLTAREN 1 % GEL DIRECTED TO LEFT KNEE TRANSDERMAL Q8H PRN TAKING MELOXICAM 15 MG TABLET 1 TABLET ORALLY ONCE A DAY NEEDED TAKING BACLOFEN 10 MG TABLET 1 TABLET WITH FOOD OR MILK ORALLY FOUR TIMES DAILY TAKING HYDROXYZINE HCL 25 MG TABLET 1 TABLET NEEDED ORALLY EVERY 8 HRS, NOTES: BEDTIME TAKING LYRICA 100 MG CAPSULE 1 CAPSULE ORALLY THREE TIMES A DAY TAKING NUCYNTA 50 MG TABLET 1 TABLET ORALLY Q6-8HR PRN PAIN NDD2 TAKING OXYCONTIN 15 MG TABLET ER 12 HOUR ABUSE-DETERRENT 1 TABLET ORALLY EVERY 12 HRS MDD2 NOT-TAKING ASPIRIN 81 81 MG TABLET CHEWABLE 1 TABLET ORALLY ONCE A DAY NOT-TAKING GABAPENTIN 800 MG TABLET 1 ORALLY THREE TIMES A DAY MEDICATION LIST REVIEWED AND RECONCILED WITH THE PATIENT PAST MEDICAL HISTORY SINUSITIS ARTHRITIS COPD DEMYELINATING DISEASE NECK PAIN ALLERGIES TRAMADOL HCL: DIARRHEA - SIDE EFFECTS SURGICAL HISTORY COLONOSCOPY 2014 LEFT SHOULDER - ROTATOR CUFF 2016 SPINAL TAP 2016 LEFT SHOULDER DISLOCATION/FX 1968 SINUSITIS FLUSH AND DRAIN 1971, 1973 RIGHT NIPPLE CYST REMOVED 1972 RIGHT WRIST FX 1974 RIGHT KNEE ACL REPAIRED 1997 RIGHT KNEE TOTAL REPLACEMENT 2007 LEFT SHOULDER ROTATOR CUFF 2008 LEFT FRONTAL MAXILLARY SINUSITIS SINUSOTOMY 2009 RIGHT WRIST CARPAL TUNNEL 2010 LEFT TOTAL KNEE REPLACEMENT FAMILY HISTORY FATHER: , DIAGNOSED WITH HEART DISEASE MOTHER: , HEART DISEASE 2 SON(S) , 1 DAUGHTER(S) - HEALTHY. SIBLINGS - ; UNSURE OF CAUSE. SOCIAL HISTORY GENERAL: TOBACCO USE ARE YOU A:FORMER SMOKER HOW LONG HAS IT BEEN SINCE YOU LAST SMOKED?> 10 YEARS PAIN CLINIC PFS, CLERGY, PUBLIC HEALTH REFERRALS PFS REFERRAL NEEDED?NO CLERGY REFERRAL NEEDED?NO PUBLIC HEALTH REFERRAL NEEDED?NO WAS THE PROVIDER NOTIFIED OF ANY PERTINENT INFO?YES HAS THE PATIENT BEEN EDUCATED REGARDING HIS/HER PLAN OF CARE?YES HAS THE PATIENT BEEN EDUCATED REGARDING PAIN, THE RISK FOR PAIN, THE IMPORTANCE OF EFFECTIVE PAIN MANAGEMENT, AND THE PAIN ASSESSMENT PROCESS?YES LATEX QUESTIONNAIRE LATEX ALLERGY : HAVE YOU EVER DEVELOPED ANY TYPE OF REACTION AFTER HANDLING LATEX PRODUCTS SUCH RUBBER GLOVES, CONDOMS, DIAPHRAGMS, BALLOONS, SOCKS, OR UNDERWEAR?NO LATEX ALLERGY : HAVE YOU EVER DEVELOPED ANY TYPE OF REACTION DURING OR AFTER DENTAL APPOINTMENT, VAGINAL/RECTAL EXAMINATION, SURGICAL PROCEDURE, OR ANY OTHER EXPOSURE?NO LATEX RISK : HAVE YOU EVER HAD ANY DIFFICULTY BREATHING OR HIVES AFTER EATING OR HANDLING ANY FRUITS, OR VEGETABLES; SUCH KIWI, BANANAS, STONE FRUITS, OR CHESTNUTSNO LATEX RISK : DO YOU HAVE A PREVIOUS PERSONAL HISTORY OF MORE THAN NINE SURGERIES, SPINA BIFIDA, OR REPEATED CATHERTIZATIONS? NO LATEX RISK : ARE YOU FREQUENTLY EXPOSED TO LATEX PRODUCTS IN YOUR OCCUPATION?NO DATE ASKED : 01/04/2019 CAFFEINE CAFFEINE USE?YES HOW OFTEN AND HOW MUCH? DAILY COFFEE ADVANCE DIRECTIVE ADVANCE DIRECTIVE DISCUSSED WITH PATIENT:YES HCP - ALBINO UBSTILLOS () [employer]RI[employer] [id number] NONE LANGUAGE LANGUAGES SPOKEN:AMHARIC ALCOHOL SCREENING DID YOU HAVE A DRINK CONTAINING ALCOHOL IN THE PAST YEAR?NO POINTS0 INTERPRETATIONNEGATIVE RECREATIONAL DRUG USE DRUG USE?NO LEARNING BARRIERS / SPECIAL NEEDS VISION IMPAIRED?YES :CORRECTIVE LENSES COGNITIVELY IMPAIRED?NO READINESS TO LEARN?YES LEARNING PREFERENCES?YES :BOOKLETS, HANDOUTS REVIEWED WITH PT 05/18/18 BVREVIEWED WITH PATIENT 08/19/18 1113 JSREVIEWED WITH PATIENT 03/06/19 1346 JS. HOSPITALIZATION/MAJOR DIAGNOSTIC PROCEDURE SURGERY RELATED REVIEW OF SYSTEMS REVIEWED BY: PROVIDER: KEO ANDRE . CONSTITUTIONAL: ANY CHANGE IN YOUR MEDICAL CONDITION? NO . CHILLS NO . FEVER NO . INFECTION: DO YOU HAVE NEW INFECTIONS? NO . DO YOU HAVE HISTORY OF MRSA? NO . MUSCULOSKELETAL: ANY NEW PATTERNS OF PAIN OR NUMBNESS? NO . GASTROENTEROLOGY: ANY NEW CHANGE IN BOWEL CONTROL? NO . GENITOURINARY: ANY NEW CHANGE IN BLADDER CONTROL? NO . IS THERE A CHANCE YOU COULD BE ? NO . HEMATOLOGY/LYMPH: DO YOU TAKE ANY BLOOD THINNERS? (FOR EXAMPLE- COUMADIN, PLAVIX, AGGRENOX, PLATEL, PRADAXA, OR XARELTO) NO . WHEN WAS YOUR LAST DOSE? DATE: TIME: . NEUROLOGY: HAVE YOU FALLEN IN THE PAST 12 MONTHS? NO . ANY NEW EXTREMITY NUMBNESS OR WEAKNESS? NO . CARDIOLOGY: DO YOU HAVE A PACEMAKER OR DEFIBRILLATOR? NO . RESPIRATORY: HAVE YOU BEEN SICK IN THE PAST WEEK? NO . FEVER NO . FLU LIKE SYMPTOMS? NO . COUGH NO . INTEGUMENTARY: DO YOU HAVE ANY RASHES OR OPEN SORES? NO . ALLERGIC/IMMUNO: ARE YOU ALLERGIC TO IV DYE? NO . ANY NEW ALLERGIES? NO . PSYCHIATRIC: DO YOU HAVE THOUGHTS OF HURTING YOURSELF OR SOMEONE ELSE? NO . ARE YOU ABUSED, NEGLECTED, OR IN AN UNSAFE ENVIRONMENT? NO . 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 NO . OTHER: DO YOU NEED ANY PRESCRIPTIONS? YES . IF YES, PLEASE LIST: ____NUCYNTA, OXYCONTIN . ANY NEW PROBLEMS WITH YOUR MEDICATIONS? NO . WHEN DID YOU LAST EAT? ____ . WHEN DID YOU LAST DRINK? ____ . WHAT DID YOU LAST DRINK? ____ . NAME OF PERSON DRIVING YOU HOME? ____ . DO YOU HAVE ANY OTHER QUESTIONS OR CONCERNS NO . VITAL SIGNS WT 242.6 LBS, HT 68 IN, BMI 36.88 INDEX, BP 157/78 MM HG, HR 102 /MIN, RR 18 /MIN, TEMP 97.0 F, OXYGEN SAT % 95%, SAFE IN ENV? (Y/N) YES, NA INITIALS TN 13:26, REVIEWED BY: MAZIN. EXAMINATION GENERAL EXAMINATION: LUNGS: LUNG SOUNDS ARE CLEAR . HEART: HEART RATE REGULAR . CERVICAL+ FOR PAIN WITH PALPATION OF CERVICAL SPINE. + FOR PAIN WITH PALPATION OF CERVICAL PARASPINALS.SPECIFIC POINT TENDERNESS NOTED OVER C4/5-/C5/6 CERVICAL FACETS.. DIAGNOSTIC TESTS REVIEWED CERVICAL MRI . ASSESSMENTS CERVICAL SPONDYLOLYSIS - M43.02 (PRIMARY) TREATMENT CERVICAL SPONDYLOLYSIS NOTES: CERVICAL FACET BLOCK C-4-C6 BILATERALLY . CLINICAL NOTES: 64 YEAR OLD MALE IN FOR CHRONIC PAIN FOLLOW UP. HE ADMITS TO INCREASED NECK PAIN WITH RADICULAR SYMPTOMS. GIVEN PRESENTING SYMPTOMS AND RESULTS OF PHYSICAL EXAMINATION RECOMMENDED BILATERAL CERVICAL FACET BLOCK AT C4-C5-C6. WILL CONTINUE WITH CURRENT MEDICATIONS AND FOLLOW UP POST PROCEDURE. PATIENT HAS EXPRESSED UNDERSTANDING OF AND WAS IN AGREEMENT WITH TREATMENT PLAN. ISTOP REGISTRY REVIEWED AND DEMONSTRATES COMPLIANCE. (REF #[id number] ) BRINGS IN MEDICATIONS WHICH IS APPROPRIATE FOR WHAT WAS DISPENSED. RECENT URINE TOXICOLOGY REVIEWED. NO UNAUTHORIZED MEDICATIONS. NO ILLICIT SUBSTANCES AND PRESCRIBED MEDICATIONS WERE PRESENT. , RISKS AND BENEFITS OF NARCOTIC/OPIOID MEDICATIONS WERE REVIEWED WITH PATIENT - THIS INCLUDES BUT IS NOT LIMITED TO RISK OF DEPENDANCE/DEVELOPMENT OF ADDICTION, MOOD DISTURBANCE AND DEPRESSION, OSTEOPOROSIS, HORMONAL AND LABIDAL CHANGES, RESPIRATORY DEPRESSION AND . PATIENT IS ADVISED NOT TO DRIVE OR DRINK ALCOHOL WHILE ON THESE MEDICATIONS, [facility] NARCOTIC AGREEMENT WAS REVIEWED, UPDATED AND SIGNED TODAY BY THE PATIENT. SEE ATTACHED DOCUMENT FOR FULL DETAILS; SPECIFIC ISSUES WERE REVIEWED: 1) KEEP PAIN MEDS IN THEIR ORIGINAL BOTTLES AND ANY WEEKLY PLANNERS ARE TO BE BROUGHT TO THE PAIN CENTER AT EVERY VISIT. 2) THE PATIENT IS NOT TO INCREASE DOSING OR TIMING OF THEIR PAIN MEDICATION WITHOUT SPECIFIC DIRECTION OF THEIR PAIN CENTERPROVIDER (NOT ER OR OTHER PROVIDERS). 3) ALL PAIN MEDS ARE TO BE KEPT SECURED, IN A LOCKED BOX. 4) NO PAIN MEDS ARE TO BE SHARED WITH ANY OTHER PERSON FOR ANY REASON. 5) NO PAIN MEDS MAY BE TAKEN FROM ANY FRIENDS OR RELATIVES FOR ANY REASON 6) NO MEDS OR SUBSTANCES WHICH ARE NOT LEGAL ARE TO BE USED- NO MARIJUANA, NO COCAINE, AMPHETAMINES, HEROIN, OR OTHERS ARE EVER TO BE USED. 7)URINE TESTING IS DONE TO ACCOUNT FOR MEDS AND SUBSTANCES BEING TAKEN AND WILL BE DONE RANDOMLY.. OTHERS CONTINUE NUCYNTA TABLET, 50 MG, 1 TABLET, ORALLY, Q6-8HR PRN PAIN NDD2 CONTINUE OXYCONTIN TABLET ER 12 HOUR ABUSE-DETERRENT, 15 MG, 1 TABLET, ORALLY, EVERY 12 HRS MDD2 PREVENTIVE MEDICINE PAIN CLINIC TEACHING: PROCEDURE TEACHING REVIEWED INFORMATION ON CERVICAL FACET BLOCK PROCEDURE WITH PATIENT. ALSO REVIEWED PRE-PROCEDURE INSTRUCTIONS. PATIENT VERBALIZED AN UNDERSTANDING. CECILIA BENTLEY 03/06/2019 2:49:23 PM > . PROCEDURE CODES FA211 ESTABILISHED PATIENT [facility] CHARGE DISPOSITION & COMMUNICATION FOLLOW UP POST PROCEDURE (REASON: BILATERAL CERVICAL FACET BLOCK ) ELECTRONICALLY SIGNED BY ANGIE YANG ON 03/06/2019 AT 04:38 PM EDT DISCLAIMER : THIS IS A VISIT SUMMARY EXTRACTED FROM THE [employer] CHART. IT IS NOT A COPY OF THE [employer] PROGRESS NOTE. SOFIA
== END ==
LOC: M PAIN 13:30
PROVIDERS: ATTEND Family Medicine
DX: M43.02 Spondylolysis, cervical region (principal); J44.9 Chronic obstructive pulmonary disease, unspecified; G37.9 Demyelinating disease of central nervous system, unspecified; Z96.652 Presence of left artificial knee joint; Z87.891 Personal history of nicotine dependence; Z79.1 Long term (current) use of non-steroidal anti-inflammatories (NSAID); Z79.899 Other long term (current) drug therapy; Z88.5 Allergy status to narcotic agent

== ENCOUNTER → 2019-04-26 | Outpatient (CLI) | payer BC ==
[~2019-04-26] MED LIST changes: +BUPIVACAINE HCL 0.25% 30 ML VIAL As Ordered ONE; +ISOVUE-M 200 41% 20ML VIAL (Q9966) As Ordered ONE; +LIDOCAINE 1% SDV INJ 30 ML VIAL As Ordered ONE; +TRIAMCINOLONE ACETONIDE SUSP 40 MG/ML VIAL (J3301) As Ordered ONE; +diazePAM 5 MG TAB As Ordered ONE; +oxyCODONE 5MG TAB As Ordered ONE
--- NOTE | 2019-04-26 15:08 | REP ---
CERVICAL SPINE: LIMITED STUDY THREE VIEWS. HISTORY: Pain. Cervical facet block bilateral. 14.5 seconds of fluoroscopy time is reported. FINDINGS: A sequence of three last image hold fluoroscopically obtained spot radiographs of the cervical spine document various needle positions and contrast injections associated with cervical facet block procedure. Electronically Signed by Shane Alcala MD 04/26/2019 09:03 P
--- NOTE | 2019-05-03 01:06 | ECWPNPC ---
PATIENT NAME: MARKELL BUSTILLOS : 1955 GENDER: MALE VISIT DATE: 04/26/2019 DISCHARGE DATE: 04/26/19 1123 VISIT LOCKED DATE TIME: PHYSICIAN: MY TOVAR MD RESOURCE: MY TOVAR MD REASON FOR APPOINTMENT 1. BILATERAL CERVICAL FACET BLOCK HISTORY OF PRESENT ILLNESS HISTORY OF PRESENT ILLNESS: PAIN THE PATIENT DESCRIBES THE PAIN... FALL RISK SCREENING: SCREENING :NO FALLS REPORTED IN THE LAST YEAR CURRENT MEDICATIONS TAKING ROPINIROLE HCL 2 MG TABLET ORALLY FOUR TIMES DAILY, NOTES: 04/25/19@2330 TAKING FUROSEMIDE 40 MG TABLET 1 TABLET ORALLY ONCE Q 3 DAYS PRN, NOTES: 3 DAYS AGO TAKING DULERA 100-5 MCG/ACT AEROSOL 2 PUFFS INHALATION TWICE A DAY NEEDED, NOTES: NONE RECENTLY TAKING ALBUTEROL SULFATE (2.5 MG/3ML) 0.083% NEBULIZATION SOLUTION 3 ML INHALATION ONCE DAILY NEEDED, NOTES: NONE RECENTLY TAKING LIDODERM 5 % PATCH EXTERNALLY PRN ON 12 HOURS OFF 12 HOURS, NOTES: 2 DAYS AGO TAKING MELOXICAM 15 MG TABLET 1 TABLET ORALLY ONCE A DAY NEEDED, NOTES: NONE RECENTLY TAKING BACLOFEN 10 MG TABLET 1 TABLET WITH FOOD OR MILK ORALLY FOUR TIMES DAILY, NOTES: 04/25/19@233 TAKING HYDROXYZINE HCL 25 MG TABLET 1 TABLET NEEDED ORALLY EVERY 8 HRS, NOTES: 0000 TAKING LYRICA 100 MG CAPSULE 1 CAPSULE ORALLY THREE TIMES A DAY, NOTES: 04/25/19@233 TAKING VOLTAREN 1 % GEL DIRECTED TO LEFT KNEE TRANSDERMAL Q8H PRN, NOTES: NONE RECENTLY TAKING NUCYNTA 50 MG TABLET 1 TABLET ORALLY Q6-8HR PRN PAIN NDD2, NOTES: 04/25/19@2330 TAKING OXYCONTIN 15 MG TABLET ER 12 HOUR ABUSE-DETERRENT 1 TABLET ORALLY EVERY 12 HRS MDD2, NOTES: 0000 DISCONTINUED ASPIRIN 81 81 MG TABLET CHEWABLE 1 TABLET ORALLY ONCE A DAY DISCONTINUED GABAPENTIN 800 MG TABLET 1 ORALLY THREE TIMES A DAY MEDICATION LIST REVIEWED AND RECONCILED WITH THE PATIENT PAST MEDICAL HISTORY SINUSITIS ARTHRITIS COPD DEMYELINATING DISEASE NECK PAIN ALLERGIES TRAMADOL HCL: DIARRHEA - SIDE EFFECTS SURGICAL HISTORY COLONOSCOPY 2014 LEFT SHOULDER - ROTATOR CUFF 2016 SPINAL TAP 2015 LEFT SHOULDER DISLOCATION/FX 1968 SINUSITIS FLUSH AND DRAIN 1971, 1973 RIGHT NIPPLE CYST REMOVED 1972 RIGHT WRIST FX 1974 RIGHT KNEE ACL REPAIRED 1997 RIGHT KNEE TOTAL REPLACEMENT 2007 LEFT SHOULDER ROTATOR CUFF 2008 LEFT FRONTAL MAXILLARY SINUSITIS SINUSOTOMY 2009 RIGHT WRIST CARPAL TUNNEL 2010 LEFT TOTAL KNEE REPLACEMENT FAMILY HISTORY FATHER: , DIAGNOSED WITH HEART DISEASE MOTHER: , HEART DISEASE 2 SON(S) , 1 DAUGHTER(S) - HEALTHY. SIBLINGS - ; UNSURE OF CAUSE. SOCIAL HISTORY GENERAL: TOBACCO USE ARE YOU A:FORMER SMOKER HOW LONG HAS IT BEEN SINCE YOU LAST SMOKED?> 10 YEARS OTHERS AT HOME: SPOUSE. DIET: REGULAR. LANGUAGE LANGUAGES SPOKEN:TELUGU RECREATIONAL DRUG USE DRUG USE?NO EXERCISE: WALKS. LEARNING BARRIERS / SPECIAL NEEDS VISION IMPAIRED?YES COGNITIVELY IMPAIRED?NO :CORRECTIVE LENSES READINESS TO LEARN?YES LEARNING PREFERENCES?YES :BOOKLETS, HANDOUTS PAIN CLINIC PFS, CLERGY, PUBLIC HEALTH REFERRALS PFS REFERRAL NEEDED?NO CLERGY REFERRAL NEEDED?NO PUBLIC HEALTH REFERRAL NEEDED?NO WAS THE PROVIDER NOTIFIED OF ANY PERTINENT INFO?YES HAS THE PATIENT BEEN EDUCATED REGARDING HIS/HER PLAN OF CARE?YES HAS THE PATIENT BEEN EDUCATED REGARDING PAIN, THE RISK FOR PAIN, THE IMPORTANCE OF EFFECTIVE PAIN MANAGEMENT, AND THE PAIN ASSESSMENT PROCESS?YES LATEX QUESTIONNAIRE LATEX ALLERGY : HAVE YOU EVER DEVELOPED ANY TYPE OF REACTION AFTER HANDLING LATEX PRODUCTS SUCH RUBBER GLOVES, CONDOMS, DIAPHRAGMS, BALLOONS, SOCKS, OR UNDERWEAR?NO LATEX ALLERGY : HAVE YOU EVER DEVELOPED ANY TYPE OF REACTION DURING OR AFTER DENTAL APPOINTMENT, VAGINAL/RECTAL EXAMINATION, SURGICAL PROCEDURE, OR ANY OTHER EXPOSURE?NO LATEX RISK : HAVE YOU EVER HAD ANY DIFFICULTY BREATHING OR HIVES AFTER EATING OR HANDLING ANY FRUITS, OR VEGETABLES; SUCH KIWI, BANANAS, STONE FRUITS, OR CHESTNUTSNO LATEX RISK : DO YOU HAVE A PREVIOUS PERSONAL HISTORY OF MORE THAN NINE SURGERIES, SPINA BIFIDA, OR REPEATED CATHERIZATIONS? NO LATEX RISK : ARE YOU FREQUENTLY EXPOSED TO LATEX PRODUCTS IN YOUR OCCUPATION?NO DATE ASKED : 01/04/2019 CAFFEINE CAFFEINE USE?YES HOW OFTEN AND HOW MUCH? DAILY COFFEE ADVANCE DIRECTIVE ADVANCE DIRECTIVE DISCUSSED WITH PATIENT:YES HCP - ALBINOIGLESIA BUSTILLOS () SCIENTOLOGIST [id number] NONE MARITAL STATUS: . ALCOHOL SCREENING DID YOU HAVE A DRINK CONTAINING ALCOHOL IN THE PAST YEAR?NO POINTS0 INTERPRETATIONNEGATIVE OCCUPATION: RETIRED. REVIEWED WITH PT 05/18/18 BVREVIEWED WITH PATIENT 08/19/18 1113 JSREVIEWED WITH PATIENT 03/06/19 1346 JS. HOSPITALIZATION/MAJOR DIAGNOSTIC PROCEDURE SURGERY RELATED REVIEW OF SYSTEMS REVIEWED BY: PROVIDER: . CONSTITUTIONAL: ANY CHANGE IN YOUR MEDICAL CONDITION? NO . CHILLS NO . FEVER NO . INFECTION: DO YOU HAVE NEW INFECTIONS? NO . DO YOU HAVE HISTORY OF MRSA? NO . MUSCULOSKELETAL: ANY NEW PATTERNS OF PAIN OR NUMBNESS? NO . GASTROENTEROLOGY: ANY NEW CHANGE IN BOWEL CONTROL? NO . GENITOURINARY: ANY NEW CHANGE IN BLADDER CONTROL? NO . IS THERE A CHANCE YOU COULD BE ? NO . HEMATOLOGY/LYMPH: DO YOU TAKE ANY BLOOD THINNERS? (FOR EXAMPLE- COUMADIN, PLAVIX, AGGRENOX, PLATEL, PRADAXA, OR XARELTO) NO . WHEN WAS YOUR LAST DOSE? DATE: TIME: . NEUROLOGY: HAVE YOU FALLEN IN THE PAST 12 MONTHS? NO . ANY NEW EXTREMITY NUMBNESS OR WEAKNESS? NO . CARDIOLOGY: DO YOU HAVE A PACEMAKER OR DEFIBRILLATOR? NO . RESPIRATORY: HAVE YOU BEEN SICK IN THE PAST WEEK? NO . FEVER NO . FLU LIKE SYMPTOMS? NO . COUGH NO . INTEGUMENTARY: DO YOU HAVE ANY RASHES OR OPEN SORES? NO . ALLERGIC/IMMUNO: ARE YOU ALLERGIC TO IV DYE? NO . ANY NEW ALLERGIES? NO . PSYCHIATRIC: DO YOU HAVE THOUGHTS OF HURTING YOURSELF OR SOMEONE ELSE? NO . ARE YOU ABUSED, NEGLECTED, OR IN AN UNSAFE ENVIRONMENT? NO . 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 YES . OTHER: DO YOU NEED ANY PRESCRIPTIONS? NO . IF YES, PLEASE LIST: ____ . ANY NEW PROBLEMS WITH YOUR MEDICATIONS? NO . WHEN DID YOU LAST EAT? ____04/25/18 . WHEN DID YOU LAST DRINK? ____04/25/19 . WHAT DID YOU LAST DRINK? ____WATER . NAME OF PERSON DRIVING YOU HOME? ____JOANNE, . DO YOU HAVE ANY OTHER QUESTIONS OR CONCERNS NO . VITAL SIGNS WT 238.8 LBS, HT 68 IN, BMI 36.31 INDEX, BP 126/95 MM HG, HR 81 /MIN, RR 18 /MIN, TEMP 97.2 F, OXYGEN SAT % 96%, SAFE IN ENV? (Y/N) YES, NA INITIALS WI 08:41, REVIEWED BY: VD. ASSESSMENTS SPONDYLOSIS OF CERVICAL REGION WITHOUT MYELOPATHY OR RADICULOPATHY - M47.812 (PRIMARY) PROCEDURES PN CERVICAL FACET BLOCK LOW BILATERAL CERVICAL PRE PROCEDURE DIAGNOSIS CERVICAL SPONDYLOSIS POST PROCEDURE DIAGNOSIS CERVICAL SPONDYLOSIS PROCEDURE RIGHT AND LEFT C3-C4, RIGHT AND LEFT C5-C6 CERVICAL FACET BLOCK SURGEON DR. MY TOVAR DIRECTOR OF ENGINEERING NONE ANESTHESIA LOCAL PRE PROCEDURE NOTE THE PATIENT HAS HISTORY OF CHRONIC CERVICAL PAIN. I EVALUATED THE PATIENT AND REVIEWED THE CHART. I WENT OVER THE RISKS, ALTERNATIVES, AND BENEFITS ASSOCIATED WITH THIS PROCEDURE. THE PATIENT WOULD LIKE TO PROCEED AND GIVE CONSENT TO PERFORMED THE PROCEDURE. THE PATIENT DENIES UNEXPLAINABLE WEIGHT LOSS, FEVER, CHILLS, OR NEW CHANGES IN URINARY OR BOWEL CONTROL. DESCRIPTION OF PROCEDURE THE PATIENT WAS BROUGHT TO THE PROCEDURE ROOM AND PLACED IN THE PRONE POSITION. THE CERVICOTHORACIC AREA WAS CLEANED WITH CHLORAPREP SOLUTION AND DRAPED ASEPTICALLY. THE PROCEDURE WAS DONE UNDER STERILE CONDITIONS. I CHECKED LATERALITY AND THE LEVEL WHERE THE PROCEDURE WAS GOING TO BE PERFORMED WITH THE PATIENT AND THE SUPPORTING STAFF AT THE MOMENT OF THE TIME OUT IN THE PROCEDURE ROOM. UNDER FLUOROSCOPIC GUIDANCE, TARGET POINT WAS SELECTED AT THE RIGHT AND LEFT C3-C4, RIGHT AND LEFT C5-C6 CERVICAL FACET JOINTS. TARGET POINTS WERE SELECTED AFTER LATERAL ROTATION AND TILT OF THE MAGNIFIER OF THE C-ARM. LIDOCAINE 0.5% WAS USED TO NUMB THE SKIN AND THE SUBCUTANEOUS TISSUE BELOW IT. SPINAL NEEDLES, 22-GAUGE, WERE ADVANCED UNDER FLUOROSCOPIC GUIDANCE AND FOLLOWING PATIENT FEEDBACK UNTIL THE TARGETS WERE TOUCHED. THE POSITION OF THE NEEDLES WAS VERIFIED WITH AP AND LATERAL VIEWS. AFTER PROPER POSITION OF THE NEEDLES WAS ACHIEVED, ISOVUE M-200 CONTRAST WAS INJECTED SHOWING SPREAD OF THE DYE. THEN A SOLUTION OF 0.9 ML OF BUPIVACAINE 0.125% AND KENALOG 10 MG WAS INJECTED AT EACH SITE. THERE WAS NO EVIDENCE OF BLOOD, PARESTHESIA OR CEREBROSPINAL FLUID DURING THE PROCEDURE. THE PATIENT WAS SENT TO THE RECOVERY ROOM. THE PATIENT WAS MOVING THE EXTREMITIES AND DOING WELL. THERE WAS NO COMPLICATION DURING THE PROCEDURE. FLUOROSCOPY TIME WAS 13 SECONDS POST PROCEDURE NOTE THE PATIENT WILL BE SEEN IN A FOLLOW UP IN THE NEXT FEW WEEKS. INSTRUCTIONS WERE GIVEN, QUESTIONS WERE ANSWERED, AND THE PATIENT EXPRESSED UNDERSTANDING AND AGREES WITH THE PLAN. I, TYE HIRSCH, DOCUMENTED THE ABOVE INFORMATION ACTING A SCRIBE FOR DR. TOVAR. I HAVE REVIEWED THE ABOVE DOCUMENT, WRITTEN BY TYE ABREU AND I VERIFY THAT IT IS ACCURATE. DIAGNOSTIC IMAGING [facility] FACET BLOCK (PAIN)[id number] PROCEDURE CODES 94560 INJ PARAVERT F JNT C/T 1 LEV, MODIFIERS: 50 [id number] INJ PARAVERT F JNT C/T 2 LEV, MODIFIERS: 50 6045F RADXPS IN END [id number] PXD DISPOSITION & COMMUNICATION FOLLOW UP 3 WEEKS ELECTRONICALLY SIGNED BY MY TOVAR MD, MD ON 05/02/2019 AT 01:56 PM EDT DISCLAIMER : THIS IS A VISIT SUMMARY EXTRACTED FROM THE [employer] CHART. IT IS NOT A COPY OF THE [employer] PROGRESS NOTE. MTDD
== END ==
LOC: M PAIN 09:00
PROVIDERS: ATTEND Anesthesiology
DX: G89.29 Other chronic pain (principal); M47.812 Spondylosis without myelopathy or radiculopathy, cervical region; M54.2 Cervicalgia; Z79.891 Long term (current) use of opiate analgesic; Z79.899 Other long term (current) drug therapy; Z87.891 Personal history of nicotine dependence; Z88.5 Allergy status to narcotic agent
CPT/HCPCS: 64490; 64491; J3301; Q9966

== ENCOUNTER → 2019-05-17 | Outpatient (CLI) | payer BC ==
[~2019-05-17] MED LIST changes: -ALBU17IN2 INH; -BUPIVACAINE HCL 0.25% 30 ML VIAL As Ordered ONE; -ISOVUE-M 200 41% 20ML VIAL (Q9966) As Ordered ONE; -LIDOCAINE 1% SDV INJ 30 ML VIAL As Ordered ONE; +PROV108A INH; -TRIAMCINOLONE ACETONIDE SUSP 40 MG/ML VIAL (J3301) As Ordered ONE; -diazePAM 5 MG TAB As Ordered ONE; -oxyCODONE 5MG TAB As Ordered ONE
--- NOTE | 2019-05-19 02:38 | ECWPNPC ---
PATIENT NAME: MARKELL BUSTILLOS : 1955 GENDER: MALE VISIT DATE: 05/17/2019 DISCHARGE DATE: 05/17/19 1336 VISIT LOCKED DATE TIME: PHYSICIAN: YOSSI JAMES RESOURCE: YOSSI JAMES REASON FOR APPOINTMENT 1. POST PROC HISTORY OF PRESENT ILLNESS HISTORY OF PRESENT ILLNESS: PAIN THE PATIENT DESCRIBES THE PAIN... 64 YEAR OLD MALE IN FOR POST FACET BLOCK FOLLOW UP. HE FEELS THE PROCEDURE WORKED WELL FOR HIS LEFT SIDE BUT IS STILL EXPERIENCING PAIN IN HIS RIGHT SIDE. HE RATES HIS PAIN AT A 5/10 CURRENTLY AND DESCRIBES IT ACHING. PRE PROCEDURE HE WOULD RATE HIS PAIN AT A 7/10 AND A 0/10 POST PROCEDURE. FALL RISK SCREENING: SCREENING :NO FALLS REPORTED IN THE LAST YEAR CURRENT MEDICATIONS TAKING ROPINIROLE HCL 2 MG TABLET ORALLY FOUR TIMES DAILY TAKING FUROSEMIDE 40 MG TABLET 1 TABLET ORALLY ONCE Q 3 DAYS PRN TAKING DULERA 100-5 MCG/ACT AEROSOL 2 PUFFS INHALATION TWICE A DAY NEEDED TAKING ALBUTEROL SULFATE (2.5 MG/3ML) 0.083% NEBULIZATION SOLUTION 3 ML INHALATION ONCE DAILY NEEDED TAKING LIDODERM 5 % PATCH EXTERNALLY PRN ON 12 HOURS OFF 12 HOURS TAKING MELOXICAM 15 MG TABLET 1 TABLET ORALLY ONCE A DAY NEEDED TAKING BACLOFEN 10 MG TABLET 1 TABLET WITH FOOD OR MILK ORALLY FOUR TIMES DAILY TAKING HYDROXYZINE HCL 25 MG TABLET 1 TABLET NEEDED ORALLY EVERY 8 HRS TAKING LYRICA 100 MG CAPSULE 1 CAPSULE ORALLY THREE TIMES A DAY TAKING VOLTAREN 1 % GEL DIRECTED TO LEFT KNEE TRANSDERMAL Q8H PRN TAKING OXYCONTIN 15 MG TABLET ER 12 HOUR ABUSE-DETERRENT 1 TABLET ORALLY EVERY 12 HRS MDD2 TAKING NUCYNTA 50 MG TABLET 1 TABLET ORALLY Q6-8HR PRN PAIN NDD2 MEDICATION LIST REVIEWED AND RECONCILED WITH THE PATIENT PAST MEDICAL HISTORY SINUSITIS ARTHRITIS COPD DEMYELINATING DISEASE NECK PAIN ALLERGIES TRAMADOL HCL: DIARRHEA - SIDE EFFECTS SURGICAL HISTORY COLONOSCOPY 2015 LEFT SHOULDER - ROTATOR CUFF 2016 SPINAL TAP 2016 LEFT SHOULDER DISLOCATION/FX 1968 SINUSITIS FLUSH AND DRAIN 1971, 1973 RIGHT NIPPLE CYST REMOVED 1972 RIGHT WRIST FX 1974 RIGHT KNEE ACL REPAIRED 1997 RIGHT KNEE TOTAL REPLACEMENT 2006 LEFT SHOULDER ROTATOR CUFF 2008 LEFT FRONTAL MAXILLARY SINUSITIS SINUSOTOMY 2008 RIGHT WRIST CARPAL TUNNEL 2009 LEFT TOTAL KNEE REPLACEMENT FAMILY HISTORY FATHER: , DIAGNOSED WITH HEART DISEASE MOTHER: , HEART DISEASE 2 SON(S) , 1 DAUGHTER(S) - HEALTHY. SIBLINGS - ; UNSURE OF CAUSE. SOCIAL HISTORY GENERAL: TOBACCO USE ARE YOU A:FORMER SMOKER HOW LONG HAS IT BEEN SINCE YOU LAST SMOKED?> 10 YEARS OTHERS AT HOME: SPOUSE. DIET: REGULAR. LANGUAGE LANGUAGES SPOKEN:KINYARWANDA RECREATIONAL DRUG USE DRUG USE?NO EXERCISE: WALKS. LEARNING BARRIERS / SPECIAL NEEDS VISION IMPAIRED?YES :CORRECTIVE LENSES COGNITIVELY IMPAIRED?NO READINESS TO LEARN?YES LEARNING PREFERENCES?YES :BOOKLETS, HANDOUTS PAIN CLINIC PFS, CLERGY, PUBLIC HEALTH REFERRALS PFS REFERRAL NEEDED?NO CLERGY REFERRAL NEEDED?NO PUBLIC HEALTH REFERRAL NEEDED?NO WAS THE PROVIDER NOTIFIED OF ANY PERTINENT INFO?YES HAS THE PATIENT BEEN EDUCATED REGARDING HIS/HER PLAN OF CARE?YES HAS THE PATIENT BEEN EDUCATED REGARDING PAIN, THE RISK FOR PAIN, THE IMPORTANCE OF EFFECTIVE PAIN MANAGEMENT, AND THE PAIN ASSESSMENT PROCESS?YES LATEX QUESTIONNAIRE LATEX ALLERGY : HAVE YOU EVER DEVELOPED ANY TYPE OF REACTION AFTER HANDLING LATEX PRODUCTS SUCH RUBBER GLOVES, CONDOMS, DIAPHRAGMS, BALLOONS, SOCKS, OR UNDERWEAR?NO LATEX ALLERGY : HAVE YOU EVER DEVELOPED ANY TYPE OF REACTION DURING OR AFTER DENTAL APPOINTMENT, VAGINAL/RECTAL EXAMINATION, SURGICAL PROCEDURE, OR ANY OTHER EXPOSURE?NO LATEX RISK : HAVE YOU EVER HAD ANY DIFFICULTY BREATHING OR HIVES AFTER EATING OR HANDLING ANY FRUITS, OR VEGETABLES; SUCH KIWI, BANANAS, STONE FRUITS, OR CHESTNUTSNO LATEX RISK : DO YOU HAVE A PREVIOUS PERSONAL HISTORY OF MORE THAN NINE SURGERIES, SPINA BIFIDA, OR REPEATED CATHERIZATIONS? NO LATEX RISK : ARE YOU FREQUENTLY EXPOSED TO LATEX PRODUCTS IN YOUR OCCUPATION?NO DATE ASKED : 01/04/2019 CAFFEINE CAFFEINE USE?YES HOW OFTEN AND HOW MUCH? DAILY COFFEE ADVANCE DIRECTIVE ADVANCE DIRECTIVE DISCUSSED WITH PATIENT:YES HCP - ALBINO BUSTILLOS () CONGREGATION [id number] NONE MARITAL STATUS: . ALCOHOL SCREENING DID YOU HAVE A DRINK CONTAINING ALCOHOL IN THE PAST YEAR?NO POINTS0 INTERPRETATIONNEGATIVE OCCUPATION: RETIRED. REVIEWED WITH PT 05/18/18 BVREVIEWED WITH PATIENT 08/19/18 1113 JSREVIEWED WITH PATIENT 03/06/19 1346 JSREVIEWED WITH PATIENT 05/17/19 1300 BV. HOSPITALIZATION/MAJOR DIAGNOSTIC PROCEDURE SURGERY RELATED REVIEW OF SYSTEMS REVIEWED BY: PROVIDER: KEO ANDRE . CONSTITUTIONAL: ANY CHANGE IN YOUR MEDICAL CONDITION? NO . CHILLS NO . FEVER NO . INFECTION: DO YOU HAVE NEW INFECTIONS? NO . DO YOU HAVE HISTORY OF MRSA? NO . MUSCULOSKELETAL: ANY NEW PATTERNS OF PAIN OR NUMBNESS? YES, PT STATES PAIN IN LEFT SIDE OF NECK HAS BEEN IMPROVED SINCE INJECTION ON 04/26/19. STATES PAIN IN RIGHT SIDE OF NECK HAS BEEN INCREASING IN INTENSITY. . GASTROENTEROLOGY: ANY NEW CHANGE IN BOWEL CONTROL? NO . GENITOURINARY: ANY NEW CHANGE IN BLADDER CONTROL? NO . IS THERE A CHANCE YOU COULD BE ? NO . HEMATOLOGY/LYMPH: DO YOU TAKE ANY BLOOD THINNERS? (FOR EXAMPLE- COUMADIN, PLAVIX, AGGRENOX, PLATEL, PRADAXA, OR XARELTO) NO . WHEN WAS YOUR LAST DOSE? DATE: TIME: . NEUROLOGY: HAVE YOU FALLEN IN THE PAST 12 MONTHS? NO . ANY NEW EXTREMITY NUMBNESS OR WEAKNESS? NO . CARDIOLOGY: DO YOU HAVE A PACEMAKER OR DEFIBRILLATOR? NO . RESPIRATORY: HAVE YOU BEEN SICK IN THE PAST WEEK? NO . FEVER NO . FLU LIKE SYMPTOMS? NO . COUGH NO . INTEGUMENTARY: DO YOU HAVE ANY RASHES OR OPEN SORES? NO . ALLERGIC/IMMUNO: ARE YOU ALLERGIC TO IV DYE? NO . ANY NEW ALLERGIES? NO . PSYCHIATRIC: DO YOU HAVE THOUGHTS OF HURTING YOURSELF OR SOMEONE ELSE? NO . ARE YOU ABUSED, NEGLECTED, OR IN AN UNSAFE ENVIRONMENT? NO . 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 YES, DIET CONTROLLED . OTHER: DO YOU NEED ANY PRESCRIPTIONS? NO . IF YES, PLEASE LIST: ____ . ANY NEW PROBLEMS WITH YOUR MEDICATIONS? NO . WHEN DID YOU LAST EAT? ____ . WHEN DID YOU LAST DRINK? ____ . WHAT DID YOU LAST DRINK? ____ . NAME OF PERSON DRIVING YOU HOME? ____ . DO YOU HAVE ANY OTHER QUESTIONS OR CONCERNS NO . VITAL SIGNS WT 233.8 LBS, HT 68 IN, BMI 35.55 INDEX, BP 150/73 MM HG, HR 86 /MIN, RR 18 /MIN, TEMP 96.8 F, OXYGEN SAT % 97%, SAFE IN ENV? (Y/N) YES, REVIEWED BY: BV. EXAMINATION GENERAL EXAMINATION: GENERALNO ACUTE DISTRESS, WELL NOURISHED AND HYDRATED. PSYCHAPPROPRIATE MOOD AND AFFECT . NECK:POINT TENDER ALONG CERVICAL SPINE, SURROUNDING SKIN SHOWS NO ERYTHEMA, ECCHYMOSIS, INCREASED WARMTH, AND/OR SKIN ERUPTIONS. HE DOES ENDORSE INCREASED PAIN WITH FACET LOADING. . LUNGS:CLEAR TO AUSCULTATION BILATERALLY, NO WHEEZES, RHONCHI, RALES. HEART:NO MURMURS, REGULAR RATE AND RHYTHM. ASSESSMENTS SPONDYLOSIS OF CERVICAL REGION WITHOUT MYELOPATHY OR RADICULOPATHY - M47.812 (PRIMARY) TREATMENT SPONDYLOSIS OF CERVICAL REGION WITHOUT MYELOPATHY OR RADICULOPATHY NOTES: CERVICAL THERAPEUTIC FACETS RIGHT SIDE C3-C4, C5-C6 . CLINICAL NOTES: 64 YEAR OLD IN FOR POST FACET BLOCK FOLLOW UP. GIVEN PRESENTING SYMPTOMS AND RESULTS OF PHYSICAL EXAMINATION RECOMMENDED RIGHT THERAPEUTIC FACET BLOCK WITH FOLLOW UP. PATIENT HAS EXPRESSED UNDERSTANDING OF AND WAS IN AGREEMENT WITH TREATMENT PLAN. GIVEN TIME TO ASK QUESTIONS AND EXPRESS CONCERNS. , ISTOP REGISTRY REVIEWED AND DEMONSTRATES COMPLLIANCE. (REF # [id number] ) BRINGS IN MEDICATIONS WHICH IS APPROPRIATE FOR WHAT WAS DISPENSED. RECENT URINE TOXICOLOGY REVIEWED. NO UNAUTHORIZED MEDICATIONS. NO ILLICIT SUBSTANCES AND PRESCRIBED MEDICATIONS WERE PRESENT. PREVENTIVE MEDICINE PAIN CLINIC TEACHING: PROCEDURE TEACHING PT GIVEN WRITTEN AND VERBAL PRE PROCEDURE INSTRUCTIONS. PT VERBALIZES UNDERSTANDING OF ALL INSTRUCTIONS, STATING HE HAS HAD THIS PROCEDURE BEFORE. BONNIE MUNSON 05/17/2019 1:40:25 PM > . PROCEDURE CODES FA211 ESTABILISHED PATIENT [facility] FACILITY CHARGE DISPOSITION & COMMUNICATION FOLLOW UP POST PROCEDURE (REASON: CERVICAL THERAPEUTIC FACET BLOCK RIGHT SIDE C3-C4, C5-C6) ELECTRONICALLY SIGNED BY ANGIE YANG ON 05/18/2019 AT 10:17 AM EDT DISCLAIMER : THIS IS A VISIT SUMMARY EXTRACTED FROM THE [employer] CHART. IT IS NOT A COPY OF THE [employer] PROGRESS NOTE. SOFIA
== END ==
LOC: M PAIN 13:00
PROVIDERS: ATTEND Family Medicine
DX: M47.812 Spondylosis without myelopathy or radiculopathy, cervical region (principal); M19.90 Unspecified osteoarthritis, unspecified site; J44.9 Chronic obstructive pulmonary disease, unspecified; E11.9 Type 2 diabetes mellitus without complications; Z96.653 Presence of artificial knee joint, bilateral; Z87.891 Personal history of nicotine dependence; Z88.5 Allergy status to narcotic agent; Z79.891 Long term (current) use of opiate analgesic; Z79.899 Other long term (current) drug therapy

== ENCOUNTER → 2019-06-20 | Outpatient (CLI) | payer BC ==
[~2019-06-20] MED LIST changes: +BUPIVACAINE HCL 0.25% 30 ML VIAL As Ordered ONE; +ISOVUE-M 300 61% 15ML VIAL (Q9967) As Ordered ONE; +LIDOCAINE 1% SDV INJ 30 ML VIAL As Ordered ONE; +ONDANSETRON 4 MG ORAL DISINTEGRATING TAB (Q0162 PER 1MG) As Ordered ONE; +TRIAMCINOLONE ACETONIDE SUSP 40 MG/ML VIAL (J3301) As Ordered ONE; +diazePAM 5 MG TAB As Ordered ONE; +oxyCODONE 5MG TAB As Ordered ONE
--- NOTE | 2019-06-20 17:06 | REP ---
Cervical spine: Limited study three views. History: Right-sided cervical facet block for pain. 11 seconds of fluoroscopy time is reported. Findings: A sequence of three last image hold fluoroscopically obtained spot radiographs of the cervical spine document various needle positions and contrast injections associated with cervical facet injection procedure. Electronically Signed by Shane Alcala MD 06/20/2019 04:58 P
== END ==
LOC: M PAIN 14:00
PROVIDERS: ATTEND Anesthesiology
DX: M47.812 Spondylosis without myelopathy or radiculopathy, cervical region (principal); J32.9 Chronic sinusitis, unspecified; J44.9 Chronic obstructive pulmonary disease, unspecified; M54.2 Cervicalgia; G37.9 Demyelinating disease of central nervous system, unspecified; M19.90 Unspecified osteoarthritis, unspecified site; Z96.653 Presence of artificial knee joint, bilateral; Z87.81 Personal history of (healed) traumatic fracture; Z79.891 Long term (current) use of opiate analgesic; Z79.899 Other long term (current) drug therapy; Z87.891 Personal history of nicotine dependence; Z88.5 Allergy status to narcotic agent
CPT/HCPCS: 64490; 64491; J3301; Q0162; Q9967

== ENCOUNTER → 2019-07-04 | Outpatient (CLI) | payer BC ==
[~2019-07-04] MED LIST changes: -BUPIVACAINE HCL 0.25% 30 ML VIAL As Ordered ONE; -ISOVUE-M 300 61% 15ML VIAL (Q9967) As Ordered ONE; -LIDOCAINE 1% SDV INJ 30 ML VIAL As Ordered ONE; -ONDANSETRON 4 MG ORAL DISINTEGRATING TAB (Q0162 PER 1MG) As Ordered ONE; -TRIAMCINOLONE ACETONIDE SUSP 40 MG/ML VIAL (J3301) As Ordered ONE; -diazePAM 5 MG TAB As Ordered ONE; -oxyCODONE 5MG TAB As Ordered ONE
--- NOTE | 2019-07-06 01:25 | ECWPNPC ---
PATIENT NAME: MARKELL BUSTILLOS : 1955 GENDER: MALE VISIT DATE: 07/04/2019 DISCHARGE DATE: 07/04/19 1326 VISIT LOCKED DATE TIME: PHYSICIAN: YOSSI JAMES RESOURCE: YOSSI JAMES REASON FOR APPOINTMENT 1. POST CERVICAL THERAPEUTIC FACET BLOCK RIGHT SIDE C3-C4, C5-C6 HISTORY OF PRESENT ILLNESS HISTORY OF PRESENT ILLNESS: PAIN THE PATIENT DESCRIBES THE PAIN... 64-YEAR-OLD MALE IN FOR POST CERVICAL FACET BLOCK FOLLOW-UP. HE FEELS THE PROCEDURE WORKED WELL OVERALL HE RATES HIS PAIN PREPROCEDURE AT A 7 OUT OF 10 AND POSTPROCEDURE 0-2 OUT OF 10. HE FURTHER STATES THE RELIEF OF PAIN CONTINUES TODAY HE RATES HIS PAIN CURRENTLY AT A 2 OUT OF 10 AND DESCRIBES IT SHARP, AND BURNING. FALL RISK SCREENING: SCREENING :NO FALLS REPORTED IN THE LAST YEAR CURRENT MEDICATIONS TAKING ROPINIROLE HCL 2 MG TABLET ORALLY FOUR TIMES DAILY TAKING FUROSEMIDE 40 MG TABLET 1 TABLET ORALLY ONCE Q 3 DAYS PRN TAKING DULERA 100-5 MCG/ACT AEROSOL 2 PUFFS INHALATION TWICE A DAY NEEDED TAKING ALBUTEROL SULFATE (2.5 MG/3ML) 0.083% NEBULIZATION SOLUTION 3 ML INHALATION ONCE DAILY NEEDED TAKING LIDODERM 5 % PATCH EXTERNALLY PRN ON 12 HOURS OFF 12 HOURS TAKING MELOXICAM 15 MG TABLET 1 TABLET ORALLY ONCE A DAY NEEDED TAKING BACLOFEN 10 MG TABLET 1 TABLET WITH FOOD OR MILK ORALLY FOUR TIMES DAILY TAKING HYDROXYZINE HCL 25 MG TABLET 1 TABLET NEEDED ORALLY EVERY 8 HRS TAKING LYRICA 100 MG CAPSULE 1 CAPSULE ORALLY THREE TIMES A DAY TAKING VOLTAREN 1 % GEL DIRECTED TO LEFT KNEE TRANSDERMAL Q8H PRN TAKING NUCYNTA 50 MG TABLET 1 TABLET ORALLY BID NEEDED TAKING OXYCONTIN 15 MG TABLET ER 12 HOUR ABUSE-DETERRENT 1 TABLET ORALLY EVERY 12 HRS MDD2 MEDICATION LIST REVIEWED AND RECONCILED WITH THE PATIENT PAST MEDICAL HISTORY SINUSITIS ARTHRITIS COPD DEMYELINATING DISEASE NECK PAIN ALLERGIES TRAMADOL HCL: DIARRHEA - SIDE EFFECTS SURGICAL HISTORY COLONOSCOPY 2015 LEFT SHOULDER - ROTATOR CUFF 2016 SPINAL TAP 2016 LEFT SHOULDER DISLOCATION/FX 1968 SINUSITIS FLUSH AND DRAIN 1971, 1973 RIGHT NIPPLE CYST REMOVED 1972 RIGHT WRIST FX 1974 RIGHT KNEE ACL REPAIRED 1997 RIGHT KNEE TOTAL REPLACEMENT 2006 LEFT SHOULDER ROTATOR CUFF 2008 LEFT FRONTAL MAXILLARY SINUSITIS SINUSOTOMY 2008 RIGHT WRIST CARPAL TUNNEL 2010 LEFT TOTAL KNEE REPLACEMENT FAMILY HISTORY FATHER: , DIAGNOSED WITH UNSPECIFIED HEART DISEASE MOTHER: , UNSPECIFIED HEART DISEASE 2 SON(S) , 1 DAUGHTER(S) - HEALTHY. SIBLINGS - ; UNSURE OF CAUSE. SOCIAL HISTORY GENERAL: TOBACCO USE ARE YOU A:FORMER SMOKER HOW LONG HAS IT BEEN SINCE YOU LAST SMOKED?> 10 YEARS OTHERS AT HOME: SPOUSE. DIET: REGULAR. LANGUAGE LANGUAGES SPOKEN:WELSH RECREATIONAL DRUG USE DRUG USE?NO EXERCISE: WALKS. LEARNING BARRIERS / SPECIAL NEEDS VISION IMPAIRED?YES COGNITIVELY IMPAIRED?NO :CORRECTIVE LENSES READINESS TO LEARN?YES LEARNING PREFERENCES?YES :BOOKLETS, HANDOUTS PAIN CLINIC PFS, CLERGY, PUBLIC HEALTH REFERRALS PFS REFERRAL NEEDED?NO CLERGY REFERRAL NEEDED?NO PUBLIC HEALTH REFERRAL NEEDED?NO WAS THE PROVIDER NOTIFIED OF ANY PERTINENT INFO?YES HAS THE PATIENT BEEN EDUCATED REGARDING HIS/HER PLAN OF CARE?YES HAS THE PATIENT BEEN EDUCATED REGARDING PAIN, THE RISK FOR PAIN, THE IMPORTANCE OF EFFECTIVE PAIN MANAGEMENT, AND THE PAIN ASSESSMENT PROCESS?YES LATEX QUESTIONNAIRE LATEX ALLERGY : HAVE YOU EVER DEVELOPED ANY TYPE OF REACTION AFTER HANDLING LATEX PRODUCTS SUCH RUBBER GLOVES, CONDOMS, DIAPHRAGMS, BALLOONS, SOCKS, OR UNDERWEAR?NO LATEX ALLERGY : HAVE YOU EVER DEVELOPED ANY TYPE OF REACTION DURING OR AFTER DENTAL APPOINTMENT, VAGINAL/RECTAL EXAMINATION, SURGICAL PROCEDURE, OR ANY OTHER EXPOSURE?NO DATE ASKED : 01/04/2019 LATEX RISK : HAVE YOU EVER HAD ANY DIFFICULTY BREATHING OR HIVES AFTER EATING OR HANDLING ANY FRUITS, OR VEGETABLES; SUCH KIWI, BANANAS, STONE FRUITS, OR CHESTNUTSNO LATEX RISK : DO YOU HAVE A PREVIOUS PERSONAL HISTORY OF MORE THAN NINE SURGERIES, SPINA BIFIDA, OR REPEATED CATHERIZATIONS? NO LATEX RISK : ARE YOU FREQUENTLY EXPOSED TO LATEX PRODUCTS IN YOUR OCCUPATION?NO CAFFEINE CAFFEINE USE?YES HOW OFTEN AND HOW MUCH? DAILY COFFEE ADVANCE DIRECTIVE ADVANCE DIRECTIVE DISCUSSED WITH PATIENT:YES HCP - ALBINO BUSTILLOS () CONGREGATIONAL [id number] NONE MARITAL STATUS: . ALCOHOL SCREENING DID YOU HAVE A DRINK CONTAINING ALCOHOL IN THE PAST YEAR?NO POINTS0 INTERPRETATIONNEGATIVE OCCUPATION: RETIRED. REVIEWED WITH PT 05/18/18 BVREVIEWED WITH PATIENT 08/19/18 1113 JSREVIEWED WITH PATIENT 03/06/19 1346 JSREVIEWED WITH PATIENT 05/17/19 1300 BVREVIEWED WITH PATIENT 07/04/19 1252 NLJ. HOSPITALIZATION/MAJOR DIAGNOSTIC PROCEDURE SURGERY RELATED REVIEW OF SYSTEMS REVIEWED BY: PROVIDER: KEO ADAMS-C . CONSTITUTIONAL: ANY CHANGE IN YOUR MEDICAL CONDITION? NO . CHILLS NO . FEVER NO . INFECTION: DO YOU HAVE NEW INFECTIONS? NO . DO YOU HAVE HISTORY OF MRSA? NO . MUSCULOSKELETAL: ANY NEW PATTERNS OF PAIN OR NUMBNESS? NO- STATES CERVICAL FACET BLOCK WORKED VERY WELL AND STATES HE STILL CONTINUES TO FEEL RELIEF . GASTROENTEROLOGY: ANY NEW CHANGE IN BOWEL CONTROL? NO . GENITOURINARY: ANY NEW CHANGE IN BLADDER CONTROL? NO . IS THERE A CHANCE YOU COULD BE ? NO . HEMATOLOGY/LYMPH: DO YOU TAKE ANY BLOOD THINNERS? (FOR EXAMPLE- COUMADIN, PLAVIX, AGGRENOX, PLATEL, PRADAXA, OR XARELTO) NO . WHEN WAS YOUR LAST DOSE? DATE: TIME: . NEUROLOGY: HAVE YOU FALLEN IN THE PAST 12 MONTHS? NO . ANY NEW EXTREMITY NUMBNESS OR WEAKNESS? NO . CARDIOLOGY: DO YOU HAVE A PACEMAKER OR DEFIBRILLATOR? NO . RESPIRATORY: HAVE YOU BEEN SICK IN THE PAST WEEK? NO . FEVER NO . FLU LIKE SYMPTOMS? NO . COUGH NO . INTEGUMENTARY: DO YOU HAVE ANY RASHES OR OPEN SORES? NO . ALLERGIC/IMMUNO: ARE YOU ALLERGIC TO IV DYE? NO . ANY NEW ALLERGIES? NO . PSYCHIATRIC: DO YOU HAVE THOUGHTS OF HURTING YOURSELF OR SOMEONE ELSE? NO . ARE YOU ABUSED, NEGLECTED, OR IN AN UNSAFE ENVIRONMENT? NO . 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 YES- DIET CONTROLLED . OTHER: DO YOU NEED ANY PRESCRIPTIONS? NO . IF YES, PLEASE LIST: ____ . ANY NEW PROBLEMS WITH YOUR MEDICATIONS? NO . WHEN DID YOU LAST EAT? ____ . WHEN DID YOU LAST DRINK? ____ . WHAT DID YOU LAST DRINK? ____ . NAME OF PERSON DRIVING YOU HOME? ____ . DO YOU HAVE ANY OTHER QUESTIONS OR CONCERNS NO . VITAL SIGNS WT 238.2 LBS, HT 68 IN, BMI 36.21 INDEX, BP 144/27 MM HG, HR 94 /MIN, RR 18 /MIN, TEMP 97.3 F, OXYGEN SAT % 95%, SAFE IN ENV? (Y/N) YES, REVIEWED BY: MIYA. EXAMINATION GENERAL EXAMINATION: GENERALNO ACUTE DISTRESS, WELL NOURISHED AND HYDRATED. PSYCHAPPROPRIATE MOOD AND AFFECT . LUNGS:CLEAR TO AUSCULTATION BILATERALLY, NO WHEEZES, RHONCHI, RALES. HEART:NO MURMURS, REGULAR RATE AND RHYTHM. ASSESSMENTS SPONDYLOSIS WITHOUT MYELOPATHY OR RADICULOPATHY, CERVICOTHORACIC REGION - M47.813 (PRIMARY) TREATMENT SPONDYLOSIS WITHOUT MYELOPATHY OR RADICULOPATHY, CERVICOTHORACIC REGION CONTINUE ROPINIROLE HCL TABLET, 2 MG, ORALLY, FOUR TIMES DAILY CONTINUE MELOXICAM TABLET, 15 MG, 1 TABLET, ORALLY, ONCE A DAY NEEDED CONTINUE BACLOFEN TABLET, 10 MG, 1 TABLET WITH FOOD OR MILK, ORALLY, FOUR TIMES DAILY CONTINUE LYRICA CAPSULE, 100 MG, 1 CAPSULE, ORALLY, THREE TIMES A DAY CONTINUE NUCYNTA TABLET, 50 MG, 1 TABLET, ORALLY, BID NEEDED CONTINUE OXYCONTIN TABLET ER 12 HOUR ABUSE-DETERRENT, 15 MG, 1 TABLET, ORALLY, EVERY 12 HRS MDD2 CLINICAL NOTES: 64-YEAR-OLD MALE IN FOR POST CERVICAL FACET BLOCK FOLLOW-UP. GIVEN PRESENTING SYMPTOMS AND RESULTS PHYSICAL EXAMINATION RECOMMENDED FOLLOW-UP IN 3 MONTHS AND CONTINUATION OF CURRENT MEDICATION REGIMEN. PATIENT HAS EXPRESSED UNDERSTANDING OF AND WAS IN AGREEMENT WITH TREATMENT PLAN. GIVEN TIME TO ASK QUESTIONS AND EXPRESS CONCERNS., ISTOP REGISTRY REVIEWED AND DEMONSTRATES COMPLLIANCE. (REF # [id number] ) BRINGS IN MEDICATIONS WHICH IS APPROPRIATE FOR WHAT WAS DISPENSED. RECENT URINE TOXICOLOGY REVIEWED. NO UNAUTHORIZED MEDICATIONS. NO ILLICIT SUBSTANCES AND PRESCRIBED MEDICATIONS WERE PRESENT. PROCEDURE CODES FA211 ESTABILISHED PATIENT [facility] FACILITY CHARGE DISPOSITION & COMMUNICATION FOLLOW UP 3 MONTHS (REASON: CHRONIC PAIN ) ELECTRONICALLY SIGNED BY ANGIE YANG ON 07/05/2019 AT 04:23 PM EDT DISCLAIMER : THIS IS A VISIT SUMMARY EXTRACTED FROM THE [employer] CHART. IT IS NOT A COPY OF THE [employer] PROGRESS NOTE. JAGRUTID
== END ==
LOC: M PAIN 13:00
PROVIDERS: ATTEND Family Medicine
DX: M47.813 Spondylosis without myelopathy or radiculopathy, cervicothoracic region (principal); J44.9 Chronic obstructive pulmonary disease, unspecified; E11.9 Type 2 diabetes mellitus without complications; Z96.653 Presence of artificial knee joint, bilateral; Z87.891 Personal history of nicotine dependence; Z88.5 Allergy status to narcotic agent; Z79.891 Long term (current) use of opiate analgesic; Z79.899 Other long term (current) drug therapy

== ENCOUNTER → 2019-10-04 | Outpatient (CLI) | payer BC ==
--- NOTE | 2019-10-06 04:50 | ECWPNPC ---
PATIENT NAME: MARKELL BUSTILLOS : 1955 GENDER: MALE VISIT DATE: 10/04/2019 DISCHARGE DATE: 10/04/19 1330 VISIT LOCKED DATE TIME: PHYSICIAN: YOSSI JAMES RESOURCE: YOSSI JAMES REASON FOR APPOINTMENT 1. NECK HISTORY OF PRESENT ILLNESS HISTORY OF PRESENT ILLNESS: PAIN THE PATIENT DESCRIBES THE PAIN... 64-YEAR-OLD MALE IN FOR CHRONIC PAIN FOLLOW-UP. HE RATES HIS PAIN CURRENTLY AT A 5 OUT OF 10 AND DESCRIBES IT SHARP, AND SHOOTING. HE DOES ADMIT TO INCREASED PAIN IN HIS LOW BACK. FALL RISK SCREENING: SCREENING :NO FALLS REPORTED IN THE LAST YEAR CURRENT MEDICATIONS TAKING FUROSEMIDE 40 MG TABLET 1 TABLET ORALLY ONCE Q 3 DAYS PRN TAKING DULERA 100-5 MCG/ACT AEROSOL 2 PUFFS INHALATION TWICE A DAY NEEDED TAKING ALBUTEROL SULFATE (2.5 MG/3ML) 0.083% NEBULIZATION SOLUTION 3 ML INHALATION ONCE DAILY NEEDED TAKING LIDODERM 5 % PATCH EXTERNALLY PRN ON 12 HOURS OFF 12 HOURS TAKING HYDROXYZINE HCL 25 MG TABLET 1 TABLET NEEDED ORALLY EVERY 8 HRS TAKING VOLTAREN 1 % GEL DIRECTED TO LEFT KNEE TRANSDERMAL Q8H PRN TAKING ROPINIROLE HCL 2 MG TABLET ORALLY FOUR TIMES DAILY TAKING MELOXICAM 15 MG TABLET 1 TABLET ORALLY ONCE A DAY NEEDED TAKING BACLOFEN 10 MG TABLET 1 TABLET WITH FOOD OR MILK ORALLY FOUR TIMES DAILY TAKING LYRICA 100 MG CAPSULE 1 CAPSULE ORALLY THREE TIMES A DAY TAKING OXYCONTIN 15 MG TABLET ER 12 HOUR ABUSE-DETERRENT 1 TABLET ORALLY EVERY 12 HRS MDD2 TAKING NUCYNTA 50 MG TABLET 1 TABLET ORALLY BID NEEDED MEDICATION LIST REVIEWED AND RECONCILED WITH THE PATIENT PAST MEDICAL HISTORY SINUSITIS ARTHRITIS COPD DEMYELINATING DISEASE NECK PAIN ALLERGIES TRAMADOL HCL: DIARRHEA - SIDE EFFECTS SURGICAL HISTORY COLONOSCOPY 2015 LEFT SHOULDER - ROTATOR CUFF 2016 SPINAL TAP 2016 LEFT SHOULDER DISLOCATION/FX 1968 SINUSITIS FLUSH AND DRAIN 1971, 1973 RIGHT NIPPLE CYST REMOVED 1972 RIGHT WRIST FX 1974 RIGHT KNEE ACL REPAIRED 1997 RIGHT KNEE TOTAL REPLACEMENT 2006 LEFT SHOULDER ROTATOR CUFF 2008 LEFT FRONTAL MAXILLARY SINUSITIS SINUSOTOMY 2009 RIGHT WRIST CARPAL TUNNEL 2010 LEFT TOTAL KNEE REPLACEMENT FAMILY HISTORY FATHER: , DIAGNOSED WITH UNSPECIFIED HEART DISEASE MOTHER: , UNSPECIFIED HEART DISEASE 2 SON(S) , 1 DAUGHTER(S) - HEALTHY. SIBLINGS - ; UNSURE OF CAUSE. SOCIAL HISTORY GENERAL: TOBACCO USE ARE YOU A:FORMER SMOKER HOW LONG HAS IT BEEN SINCE YOU LAST SMOKED?> 10 YEARS OTHERS AT HOME: SPOUSE. DIET: REGULAR. LANGUAGE LANGUAGES SPOKEN:NIGERIAN RECREATIONAL DRUG USE DRUG USE?NO EXERCISE: WALKS. LEARNING BARRIERS / SPECIAL NEEDS VISION IMPAIRED?YES COGNITIVELY IMPAIRED?NO :CORRECTIVE LENSES READINESS TO LEARN?YES LEARNING PREFERENCES?YES :BOOKLETS, HANDOUTS PAIN CLINIC PFS, CLERGY, PUBLIC HEALTH REFERRALS PFS REFERRAL NEEDED?NO CLERGY REFERRAL NEEDED?NO PUBLIC HEALTH REFERRAL NEEDED?NO WAS THE PROVIDER NOTIFIED OF ANY PERTINENT INFO?YES HAS THE PATIENT BEEN EDUCATED REGARDING HIS/HER PLAN OF CARE?YES HAS THE PATIENT BEEN EDUCATED REGARDING PAIN, THE RISK FOR PAIN, THE IMPORTANCE OF EFFECTIVE PAIN MANAGEMENT, AND THE PAIN ASSESSMENT PROCESS?YES LATEX QUESTIONNAIRE LATEX ALLERGY : HAVE YOU EVER DEVELOPED ANY TYPE OF REACTION AFTER HANDLING LATEX PRODUCTS SUCH RUBBER GLOVES, CONDOMS, DIAPHRAGMS, BALLOONS, SOCKS, OR UNDERWEAR?NO LATEX ALLERGY : HAVE YOU EVER DEVELOPED ANY TYPE OF REACTION DURING OR AFTER DENTAL APPOINTMENT, VAGINAL/RECTAL EXAMINATION, SURGICAL PROCEDURE, OR ANY OTHER EXPOSURE?NO DATE ASKED : 01/04/2019 LATEX RISK : HAVE YOU EVER HAD ANY DIFFICULTY BREATHING OR HIVES AFTER EATING OR HANDLING ANY FRUITS, OR VEGETABLES; SUCH KIWI, BANANAS, STONE FRUITS, OR CHESTNUTSNO LATEX RISK : DO YOU HAVE A PREVIOUS PERSONAL HISTORY OF MORE THAN NINE SURGERIES, SPINA BIFIDA, OR REPEATED CATHERIZATIONS? NO LATEX RISK : ARE YOU FREQUENTLY EXPOSED TO LATEX PRODUCTS IN YOUR OCCUPATION?NO CAFFEINE CAFFEINE USE?YES HOW OFTEN AND HOW MUCH? DAILY COFFEE ADVANCE DIRECTIVE ADVANCE DIRECTIVE DISCUSSED WITH PATIENT:YES HCP - ALBINO BUSTILLOS () JEWISH [id number] NONE MARITAL STATUS: . ALCOHOL SCREENING DID YOU HAVE A DRINK CONTAINING ALCOHOL IN THE PAST YEAR?NO POINTS0 INTERPRETATIONNEGATIVE OCCUPATION: RETIRED. REVIEWED WITH PT 05/18/18 BVREVIEWED WITH PATIENT 08/19/18 1113 JSREVIEWED WITH PATIENT 03/06/19 1346 JSREVIEWED WITH PATIENT 05/17/19 1300 BVREVIEWED WITH PATIENT 07/04/19 1252 NLJ. HOSPITALIZATION/MAJOR DIAGNOSTIC PROCEDURE SURGERY RELATED REVIEW OF SYSTEMS REVIEWED BY: PROVIDER: KEO ANDRE . CONSTITUTIONAL: ANY CHANGE IN YOUR MEDICAL CONDITION? NO . CHILLS NO . FEVER NO . INFECTION: DO YOU HAVE NEW INFECTIONS? NO . DO YOU HAVE HISTORY OF MRSA? NO . MUSCULOSKELETAL: ANY NEW PATTERNS OF PAIN OR NUMBNESS? NO . GASTROENTEROLOGY: ANY NEW CHANGE IN BOWEL CONTROL? NO . GENITOURINARY: ANY NEW CHANGE IN BLADDER CONTROL? NO . IS THERE A CHANCE YOU COULD BE ? NO . HEMATOLOGY/LYMPH: DO YOU TAKE ANY BLOOD THINNERS? (FOR EXAMPLE- COUMADIN, PLAVIX, AGGRENOX, PLATEL, PRADAXA, OR XARELTO) NO . WHEN WAS YOUR LAST DOSE? DATE: TIME: . NEUROLOGY: HAVE YOU FALLEN IN THE PAST 12 MONTHS? NO . ANY NEW EXTREMITY NUMBNESS OR WEAKNESS? NO . CARDIOLOGY: DO YOU HAVE A PACEMAKER OR DEFIBRILLATOR? NO . RESPIRATORY: HAVE YOU BEEN SICK IN THE PAST WEEK? NO . FEVER NO . FLU LIKE SYMPTOMS? NO . COUGH NO . INTEGUMENTARY: DO YOU HAVE ANY RASHES OR OPEN SORES? NO . ALLERGIC/IMMUNO: ARE YOU ALLERGIC TO IV DYE? NO . ANY NEW ALLERGIES? NO . PSYCHIATRIC: DO YOU HAVE THOUGHTS OF HURTING YOURSELF OR SOMEONE ELSE? NO . ARE YOU ABUSED, NEGLECTED, OR IN AN UNSAFE ENVIRONMENT? NO . 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 YES . OTHER: DO YOU NEED ANY PRESCRIPTIONS? NO . IF YES, PLEASE LIST: ____ . ANY NEW PROBLEMS WITH YOUR MEDICATIONS? NO . WHEN DID YOU LAST EAT? ____ . WHEN DID YOU LAST DRINK? ____ . WHAT DID YOU LAST DRINK? ____ . NAME OF PERSON DRIVING YOU HOME? ____ . DO YOU HAVE ANY OTHER QUESTIONS OR CONCERNS LBP AND LEFT HIP PAIN . VITAL SIGNS WT 203.8 LBS, HT 68 IN, BMI 30.98 INDEX, BP 154/74 MM HG, HR 102 /MIN, RR 18 /MIN, TEMP 97.7 F, OXYGEN SAT % 96% RA, BLOOD GLUCOSE LEVEL N/A, SAFE IN ENV? (Y/N) YES, REVIEWED BY: EMA. OLU CMA. EXAMINATION GENERAL EXAMINATION: GENERALNO ACUTE DISTRESS, WELL NOURISHED AND HYDRATED. PSYCHAPPROPRIATE MOOD AND AFFECT . LUNGS:CLEAR TO AUSCULTATION BILATERALLY, NO WHEEZES, RHONCHI, RALES. HEART:NO MURMURS, REGULAR RATE AND RHYTHM. BACK:POINT TENDER BILATERAL LOW BACK, SURROUNDING SKIN SHOWS NO ERYTHEMA, ECCHYMOSIS, INCREASED WARMTH, AND/OR SKIN ERUPTIONS NOTED. POSITIVE MODIFIED SLR ON THE RIGHT SIDE . MUSCULOSKELETAL:EQUAL STRENGTH OF THE LOWER EXTREMITIES BILATERALLY . ASSESSMENTS SPONDYLOSIS WITHOUT MYELOPATHY OR RADICULOPATHY, LUMBAR REGION - M47.816 (PRIMARY) TREATMENT SPONDYLOSIS WITHOUT MYELOPATHY OR RADICULOPATHY, LUMBAR REGION NOTES: BILATERAL THERAPEUTIC FACET BLOCK L4-L5 L5-S1. CLINICAL NOTES: 64-YEAR-OLD MALE IN FOR CHRONIC PAIN FOLLOW-UP. GIVEN PRESENTING SYMPTOMS AND RESULTS OF PHYSICAL EXAMINATION RECOMMENDED BILATERAL THERAPEUTIC FACET BLOCK L4-L5 L5-S1 WITH POSTPROCEDURAL FOLLOW-UP. PATIENT HAS EXPRESSED UNDERSTANDING OF AND WAS IN AGREEMENT WITH TREATMENT PLAN. GIVEN TIME TO ASK QUESTIONS AND EXPRESS CONCERNS. PREVENTIVE MEDICINE PAIN CLINIC TEACHING: PROCEDURE TEACHING REVIEWED INFORMATION ON THERAPEUTIC LUMBAR FACET BLOCK PROCEDURE WITH PATIENT. ALSO REVIEWED PRE-PROCEDURE INSTRUCTIONS. PATIENT VERBALIZED AN UNDERSTANDING. CECILIA BENTLEY 10/04/2019 4:48:52 PM > . PROCEDURE CODES FA211 ESTABILISHED PATIENT [facility] CHARGE DISPOSITION & COMMUNICATION FOLLOW UP POSTPROCEDURE (REASON: BILATERAL THERAPEUTIC FACET BLOCK L4-L5 L5-S1) ELECTRONICALLY SIGNED BY ANGIE YANG ON 10/05/2019 AT 08:37 AM EST DISCLAIMER : THIS IS A VISIT SUMMARY EXTRACTED FROM THE [employer] - is now [employer] CHART. IT IS NOT A COPY OF THE [employer] - is now [employer] PROGRESS NOTE. SOFIA
== END ==
LOC: M PAIN 13:15
PROVIDERS: ATTEND Family Medicine
DX: M47.816 Spondylosis without myelopathy or radiculopathy, lumbar region (principal); Z79.891 Long term (current) use of opiate analgesic; Z79.899 Other long term (current) drug therapy; Z87.891 Personal history of nicotine dependence; Z88.5 Allergy status to narcotic agent

== ENCOUNTER → 2019-11-22 | Outpatient (CLI) | payer BC ==
[~2019-11-22] MED LIST changes: +BUPIVACAINE HCL 0.25% 30 ML VIAL As Ordered ONE; +ISOVUE-M 300 61% 15ML VIAL (Q9967) As Ordered ONE; +LIDOCAINE 1% SDV INJ 30 ML VIAL As Ordered ONE; +TRIAMCINOLONE ACETONIDE SUSP 40 MG/ML VIAL (J3301) As Ordered ONE; +diazePAM 5 MG TAB As Ordered ONE; +oxyCODONE 5MG TAB As Ordered ONE
--- NOTE | 2019-11-22 16:41 | REP ---
Partial lumbar spine series: Two views . History: Injection procedure for pain. 18 seconds of fluoroscopy time is reported. Findings: A sequence of two fluoroscopically obtained last image hold procedural spot radiographs of the lumbar spine document needle position and contrast injection associated with injection procedure. Electronically Signed by Shane Alcala MD 11/22/2019 04:33 P
--- NOTE | 2019-11-25 05:42 | ECWPNPC ---
PATIENT NAME: MARKELL BUSTILLOS : 1955 GENDER: MALE VISIT DATE: 11/22/2019 DISCHARGE DATE: 11/22/19 1449 VISIT LOCKED DATE TIME: PHYSICIAN: MY TOVAR MD RESOURCE: MY TOVAR MD REASON FOR APPOINTMENT 1. GRISELDA LTFB HISTORY OF PRESENT ILLNESS HISTORY OF PRESENT ILLNESS: PAIN THE PATIENT DESCRIBES THE PAIN... FALL RISK SCREENING: SCREENING :NO FALLS REPORTED IN THE LAST YEAR CURRENT MEDICATIONS TAKING BACLOFEN 10 MG TABLET 1 TABLET WITH FOOD OR MILK ORALLY FOUR TIMES DAILY, NOTES: 11/21 529 TAKING HYDROXYZINE HCL 25 MG TABLET 1 TAB ORALLY EVERY 8 HRS NEEDED, NOTES: 11/20 2329 TAKING LIDODERM 5 % PATCH 1 PATCH REMOVE AFTER 12 HOURS EXTERNALLY PRN ON 12 HOURS OFF 12 HOURS, NOTES: 11/20 2329 TAKING VOLTAREN 1 % GEL APPLY 4 GMS TO LEFT KNEE TOPICALLY Q8H PRN PAIN, NOTES: 11/20 1399 TAKING ALBUTEROL SULFATE (2.5 MG/3ML) 0.083% NEBULIZATION SOLUTION 3 ML INHALATION ONCE DAILY NEEDED, NOTES: LAST WEEK TAKING DULERA 100-5 MCG/ACT AEROSOL 2 PUFFS INHALATION TWICE A DAY NEEDED, NOTES: NONE RECENT TAKING FUROSEMIDE 40 MG TABLET 1 TABLET ORALLY ONCE Q 3 DAYS PRN, NOTES: 11/19 TAKING ROPINIROLE HCL 2 MG TABLET ORALLY FOUR TIMES DAILY, NOTES: 11/20 2299 TAKING LYRICA 100 MG CAPSULE 1 CAPSULE ORALLY FOUR TIMES DAILY, NOTES: 11/21 529 TAKING NUCYNTA 50 MG TABLET 1 TABLET ORALLY BID NEEDED, NOTES: 11/21 529 TAKING OXYCONTIN 15 MG TABLET ER 12 HOUR ABUSE-DETERRENT 1 TABLET ORALLY EVERY 12 HRS MDD2, NOTES: 11/20 2329 MEDICATION LIST REVIEWED AND RECONCILED WITH THE PATIENT PAST MEDICAL HISTORY 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 COPD RESTLESS LEGS SINUSITIS ARTHRITIS NECK PAIN REMOTE SMOKER SMOKED 30 YRS QUIT 2005 PNEUMOVAX 23- [employer] PREVNAR 13-[employer] LOW BACK PAIN BILATERAL HIP PAIN CHRONIC PRESCRIPTION OPIATE USE ALLERGIES TRAMADOL HCL: DIARRHEA - SIDE EFFECTS SURGICAL HISTORY LEFT SHOULDER DISLOCATION/FX 1967 SINUSITIS FLUSH AND DRAIN 1971, 1973 RIGHT NIPPLE CYST REMOVED 1972 RIGHT WRIST FX 1974 RIGHT KNEE ACL REPAIRED [address] CRAWFORD 07/02/05 RIGHT KNEE TOTAL REPLACEMENT 2007 LEFT SHOULDER ROTATOR CUFF 2008 LEFT FRONTAL MAXILLARY SINUSITIS SINUSOTOMY 2009 RIGHT WRIST CARPAL TUNNEL 2010 LEFT SHOULDER - ROTATOR CUFF 2016 SPINAL TAP 2016 COLONOSCOPY-ADENOMATOUS POLYP 5-10 YR FU 07/11/15 LEFT TOTAL KNEE REPLACEMENT FAMILY HISTORY FATHER: , DIAGNOSED WITH UNSPECIFIED HEART DISEASE MOTHER: , UNSPECIFIED HEART DISEASE 2 SON(S) , 1 DAUGHTER(S) - HEALTHY. SIBLINGS - ; UNSURE OF CAUSE. SOCIAL HISTORY GENERAL: TOBACCO USE ARE YOU A:FORMER SMOKER HOW LONG HAS IT BEEN SINCE YOU LAST SMOKED?> 10 YEARS HIV / HEP-C SCREENING HIV TEST OFFERED TO PATIENT:YES DATE OFFERED:11/17/2019 TEST ACCEPTED:NO HEP-C TEST OFFERED TO PATIENT:YES DATE OFFERED:11/17/2019 REASON:PATIENT DECLINED TEST ACCEPTED:NO REASON:PATIENT DECLINED BROCHURE PROVIDED TO PATIENTNO OTHERS AT HOME: SPOUSE. HOUSING: OWNS HOME. EDUCATION LEVEL OF EDUCATION:HIGH SCHOOL DIET: REGULAR. LANGUAGE LANGUAGES SPOKEN:ROMANIAN DOMESTIC VIOLENCE DO YOU FEEL SAFE IN YOUR ENVIRONMENT?YES RECREATIONAL DRUG USE DRUG USE?NO EXERCISE: WALKS. 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 NEEDED?NO PAIN CLINIC PFS, CLERGY, PUBLIC HEALTH REFERRALS PFS REFERRAL NEEDED?NO CLERGY REFERRAL NEEDED?NO PUBLIC HEALTH REFERRAL NEEDED?NO HAS THE PATIENT BEEN EDUCATED REGARDING HIS/HER PLAN OF CARE?YES HAS THE PATIENT BEEN EDUCATED REGARDING PAIN, THE RISK FOR PAIN, THE IMPORTANCE OF EFFECTIVE PAIN MANAGEMENT, AND THE PAIN ASSESSMENT PROCESS?YES LATEX QUESTIONNAIRE LATEX ALLERGY : HAVE YOU EVER DEVELOPED ANY TYPE OF REACTION AFTER HANDLING LATEX PRODUCTS SUCH RUBBER GLOVES, CONDOMS, DIAPHRAGMS, BALLOONS, SOCKS, OR UNDERWEAR?NO LATEX ALLERGY : HAVE YOU EVER DEVELOPED ANY TYPE OF REACTION DURING OR AFTER DENTAL APPOINTMENT, VAGINAL/RECTAL EXAMINATION, SURGICAL PROCEDURE, OR ANY OTHER EXPOSURE?NO LATEX RISK : HAVE YOU EVER HAD ANY DIFFICULTY BREATHING OR HIVES AFTER EATING OR HANDLING ANY FRUITS, OR VEGETABLES; SUCH KIWI, BANANAS, STONE FRUITS, OR CHESTNUTSNO LATEX RISK : DO YOU HAVE A PREVIOUS PERSONAL HISTORY OF MORE THAN NINE SURGERIES, SPINA BIFIDA, OR REPEATED CATHERIZATIONS? YES - PLEASE INDICATE : > 9 SURGERIES LATEX RISK : ARE YOU FREQUENTLY EXPOSED TO LATEX PRODUCTS IN YOUR OCCUPATION?NO DATE ASKED : 11/22/2019 CAFFEINE CAFFEINE USE?YES HOW OFTEN AND HOW MUCH? DAILY COFFEE ADVANCE DIRECTIVE ADVANCE DIRECTIVE DISCUSSED WITH PATIENT:YES HCP - ALBINO BUSTILLOS () [phone] QUAKER [id number] NONE MARITAL STATUS: . ALCOHOL SCREENING DID YOU HAVE A DRINK CONTAINING ALCOHOL IN THE PAST YEAR?NO POINTS0 INTERPRETATIONNEGATIVE OCCUPATION: RETIRED//[employer]. REVIEWED WITH PT 05/18/18 BVREVIEWED WITH PATIENT 08/19/18 1113 JSREVIEWED WITH PATIENT 03/06/19 1346 JSREVIEWED WITH PATIENT 05/17/19 1300 BVREVIEWED WITH PATIENT 07/04/19 1252 NLJ. HOSPITALIZATION/MAJOR DIAGNOSTIC PROCEDURE PER ABOVE REVIEW OF SYSTEMS REVIEWED BY: PROVIDER: . CONSTITUTIONAL: ANY CHANGE IN YOUR MEDICAL CONDITION? NO . CHILLS NO . FEVER NO . INFECTION: DO YOU HAVE NEW INFECTIONS? NO . DO YOU HAVE HISTORY OF MRSA? NO . MUSCULOSKELETAL: ANY NEW PATTERNS OF PAIN OR NUMBNESS? NO . GASTROENTEROLOGY: ANY NEW CHANGE IN BOWEL CONTROL? NO . GENITOURINARY: ANY NEW CHANGE IN BLADDER CONTROL? NO . IS THERE A CHANCE YOU COULD BE ? NO . HEMATOLOGY/LYMPH: DO YOU TAKE ANY BLOOD THINNERS? (FOR EXAMPLE- COUMADIN, PLAVIX, AGGRENOX, PLATEL, PRADAXA, OR XARELTO) NO . WHEN WAS YOUR LAST DOSE? DATE: TIME: . NEUROLOGY: HAVE YOU FALLEN IN THE PAST 12 MONTHS? NO . ANY NEW EXTREMITY NUMBNESS OR WEAKNESS? NO . CARDIOLOGY: DO YOU HAVE A PACEMAKER OR DEFIBRILLATOR? NO . RESPIRATORY: HAVE YOU BEEN SICK IN THE PAST WEEK? NO . FEVER NO . FLU LIKE SYMPTOMS? NO . COUGH NO . INTEGUMENTARY: DO YOU HAVE ANY RASHES OR OPEN SORES? NO . ALLERGIC/IMMUNO: ARE YOU ALLERGIC TO IV DYE? NO . ANY NEW ALLERGIES? NO . PSYCHIATRIC: DO YOU HAVE THOUGHTS OF HURTING YOURSELF OR SOMEONE ELSE? NO . ARE YOU ABUSED, NEGLECTED, OR IN AN UNSAFE ENVIRONMENT? NO . 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 YES, DIET CONTROLLED, DOES NOT CHECK FINGER STICKS AT HOME . OTHER: DO YOU NEED ANY PRESCRIPTIONS? NO . IF YES, PLEASE LIST: ____ . ANY NEW PROBLEMS WITH YOUR MEDICATIONS? NO . WHEN DID YOU LAST EAT? 11/20 . WHEN DID YOU LAST DRINK? 11/21 0530 . WHAT DID YOU LAST DRINK? WATER . NAME OF PERSON DRIVING YOU HOME? ALBINO- . DO YOU HAVE ANY OTHER QUESTIONS OR CONCERNS NO PT HAS NOT HAD ANY VACCINES IN THE PAST 30 DAYS . VITAL SIGNS WT 249 LBS, HT 68 IN, BMI 37.86 INDEX, BP 159/70 MM HG, HR 98 /MIN, RR 18 /MIN, TEMP 96.0 F, OXYGEN SAT % 98%, SAFE IN ENV? (Y/N) Y, NA INITIALS AW 1253, REVIEWED BY: AD. ASSESSMENTS SPONDYLOSIS WITHOUT MYELOPATHY OR RADICULOPATHY, LUMBAR REGION - M47.816 (PRIMARY) SPONDYLOSIS WITHOUT MYELOPATHY OR RADICULOPATHY, LUMBOSACRAL REGION - M47.817 TREATMENT SPONDYLOSIS WITHOUT MYELOPATHY OR RADICULOPATHY, LUMBAR REGION SMC FACET BLOCK (PAIN)[id number] PROCEDURES PN LUMBAR FACET BLOCK THERAPEUTIC PRE PROCEDURE DIAGNOSIS LUMBAR SPONDYLOSIS, LUMBOSACRAL SPONDYLOSIS POST PROCEDURE DIAGNOSIS LUMBAR SPONDYLOSIS, LUMBOSACRAL SPONDYLOSIS PROCEDURE BILATERAL L4-L5 AND L5-S1 LUMBAR FACET THERAPEUTIC BLOCK SURGEON DR. 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 I EVALUATED THE PATIENT AND REVIEWED THE CHART. I WENT OVER THE RISKS, ALTERNATIVES, AND BENEFITS ASSOCIATED WITH THIS PROCEDURE. THE PATIENT WOULD LIKE TO PROCEED AND GIVES CONSENT TO PERFORM THE PROCEDURE. THE PATIENT DENIES UNEXPLAINABLE WEIGHT LOSS, FEVER, CHILLS, OR NEW CHANGES IN URINARY OR BOWEL CONTROL DESCRIPTION OF PROCEDURE THE PATIENT WAS BROUGHT TO THE PROCEDURE ROOM AND PLACED IN THE PRONE POSITION. THE LUMBOSACRAL AREA WAS CLEANED WITH CHLORAPREP SOLUTION AND DRAPED ASEPTICALLY. THE PROCEDURE WAS DONE UNDER STERILE CONDITIONS. I CHECKED LATERALITY AND THE LEVEL WHERE THE PROCEDURE WAS GOING TO BE PERFORMED WITH THE PATIENT AND THE SUPPORTING STAFF AT THE MOMENT OF THE TIME OUT IN THE PROCEDURE ROOM. UNDER FLUOROSCOPIC GUIDANCE, THE TARGET POINT WAS SELECTED AT THE RIGHT AND LEFT L4-L5 AND RIGHT AND LEFT L5-S1 FACET JOINTS. TARGET POINT WAS SELECTED AFTER LATERAL ROTATION AND TILT OF THE MAGNIFIER OF THE C-ARM. LIDOCAINE 0.5% WAS USED TO NUMB THE SKIN AND THE SUBCUTANEOUS TISSUE BELOW IT. SPINAL NEEDLES, 22-GAUGE, WERE ADVANCED UNDER FLUOROSCOPIC GUIDANCE AND FOLLOWING PATIENT FEEDBACK UNTIL THE TARGETS WERE TOUCHED. THE POSITION OF THE NEEDLES WAS VERIFIED WITH AP AND LATERAL VIEWS. AFTER PROPER POSITION OF THE NEEDLES WAS ACHIEVED, ISOVUE-M DYE 30% 0.1 ML WAS INJECTED SHOWING ADEQUATE SPREAD OF THE DYE. THEN A SOLUTION OF 1.9 ML OF BUPIVACAINE 0.125% OF KENALOG 10 MG WAS INJECTED AT EACH SITE. THERE WAS NO EVIDENCE OF BLOOD, PARESTHESIA OR CEREBROSPINAL FLUID DURING THE PROCEDURE. THE PATIENT WAS SENT TO THE RECOVERY ROOM. THE PATIENT WAS MOVING THE EXTREMITIES AND DOING WELL. THERE WAS NO COMPLICATION DURING THE PROCEDURE. FLUOROSCOPY TIME WAS 18 SECONDS POST PROCEDURE NOTE THE PATIENT WILL BE SEEN IN A FOLLOW UP IN THE NEXT FEW WEEKS. I AM LOOKING FOR LONG LASTING PAIN RELIEF FOR THE PATIENT WITH THIS INTERVENTION. INSTRUCTIONS WERE GIVEN, QUESTIONS WERE ANSWERED, AND THE PATIENT EXPRESSED UNDERSTANDING AND AGREES WITH THE PLAN. I, TYE HIRSCH, DOCUMENTED THE ABOVE INFORMATION ACTING A SCRIBE FOR DR. TOVAR. I HAVE REVIEWED THE ABOVE DOCUMENT, WRITTEN BY TYE HIRSCH SCRIBYolanda AND I VERIFY THAT IT IS ACCURATE. PROCEDURE CODES 98347 INJ PARAVERT F JNT L/S 1 LEV, MODIFIERS: 50 [id number] INJ PARAVERT F JNT L/S 2 LEV, MODIFIERS: 50 [id number] RADXPS IN END [id number] PXD DISPOSITION & COMMUNICATION FOLLOW UP 3 WEEKS ELECTRONICALLY SIGNED BY MY TOVAR MD, MD ON 11/24/2019 AT 09:36 AM EDT DISCLAIMER : THIS IS A VISIT SUMMARY EXTRACTED FROM THE [employer] CHART. IT IS NOT A COPY OF THE [employer] PROGRESS NOTE. MTDD
== END ==
LOC: M PAIN 13:00
PROVIDERS: ATTEND Anesthesiology
DX: M47.816 Spondylosis without myelopathy or radiculopathy, lumbar region (principal); M47.817 Spondylosis without myelopathy or radiculopathy, lumbosacral region; G25.81 Restless legs syndrome; Z79.891 Long term (current) use of opiate analgesic; Z79.899 Other long term (current) drug therapy; Z87.891 Personal history of nicotine dependence; Z88.5 Allergy status to narcotic agent
CPT/HCPCS: 64493; 64494; J3301; Q9967

== ENCOUNTER → 2019-12-06 | Outpatient (CLI) | payer BC ==
[~2019-12-06] MED LIST changes: -BUPIVACAINE HCL 0.25% 30 ML VIAL As Ordered ONE; -ISOVUE-M 300 61% 15ML VIAL (Q9967) As Ordered ONE; -LIDOCAINE 1% SDV INJ 30 ML VIAL As Ordered ONE; -TRIAMCINOLONE ACETONIDE SUSP 40 MG/ML VIAL (J3301) As Ordered ONE; -diazePAM 5 MG TAB As Ordered ONE; -oxyCODONE 5MG TAB As Ordered ONE
--- NOTE | 2019-12-08 04:29 | ECWPNPC ---
PATIENT NAME: MARKELL BUSTILLOS : 1955 GENDER: MALE VISIT DATE: 12/06/2019 DISCHARGE DATE: 12/06/19 1402 VISIT LOCKED DATE TIME: PHYSICIAN: YOSSI JAMES RESOURCE: YOSSI JAMES REASON FOR APPOINTMENT 1. 2 WEEK FOLLOW UP HISTORY OF PRESENT ILLNESS HISTORY OF PRESENT ILLNESS: PAIN THE PATIENT DESCRIBES THE PAINAFTER THE PROCEDURE SEVERITY - PAIN SCORE OF2/10 LOCATIONSLOWER BACK 64-YEAR-OLD MALE IN FOR POST THERAPEUTIC FACET BLOCK FOLLOW-UP. HE FEELS THE PROCEDURE WAS SUCCESSFUL OVERALL RATING HIS PAIN PREPROCEDURE AT A 7 OUT OF 10 AND POSTPROCEDURE 0-2 OUT OF 10. HE FEELS THE PROCEDURE CONTINUES TO HELP HIM TODAY. HE RATES HIS PAIN CURRENTLY AT A 2 OUT OF 10. PATIENT DOES ADMIT TO SOME LEFT HIP PAIN. FALL RISK SCREENING: SCREENING :NO FALLS REPORTED IN THE LAST YEAR CURRENT MEDICATIONS TAKING BACLOFEN 10 MG TABLET 1 TABLET WITH FOOD OR MILK ORALLY FOUR TIMES DAILY, NOTES: 11/21 529 TAKING HYDROXYZINE HCL 25 MG TABLET 1 TAB ORALLY EVERY 8 HRS NEEDED, NOTES: 11/20 2329 TAKING LIDODERM 5 % PATCH 1 PATCH REMOVE AFTER 12 HOURS EXTERNALLY PRN ON 12 HOURS OFF 12 HOURS, NOTES: 11/20 2329 TAKING VOLTAREN 1 % GEL APPLY 4 GMS TO LEFT KNEE TOPICALLY Q8H PRN PAIN, NOTES: 11/20 1400 TAKING ALBUTEROL SULFATE (2.5 MG/3ML) 0.083% NEBULIZATION SOLUTION 3 ML INHALATION ONCE DAILY NEEDED, NOTES: LAST WEEK TAKING DULERA 100-5 MCG/ACT AEROSOL 2 PUFFS INHALATION TWICE A DAY NEEDED, NOTES: NONE RECENT TAKING FUROSEMIDE 40 MG TABLET 1 TABLET ORALLY ONCE Q 3 DAYS PRN, NOTES: 11/19 TAKING ROPINIROLE HCL 2 MG TABLET ORALLY FOUR TIMES DAILY, NOTES: 11/20 2299 TAKING LYRICA 100 MG CAPSULE 1 CAPSULE ORALLY FOUR TIMES DAILY, NOTES: 11/21 529 TAKING OXYCONTIN 15 MG TABLET ER 12 HOUR ABUSE-DETERRENT 1 TABLET ORALLY EVERY 12 HRS MDD2, NOTES: 11/20 2329 TAKING NUCYNTA 50 MG TABLET 1 TABLET ORALLY BID NEEDED, NOTES: 11/21 529 MEDICATION LIST REVIEWED AND RECONCILED WITH THE PATIENT PAST MEDICAL HISTORY 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 CRAWFORD 07/02/05 RIGHT KNEE TOTAL REPLACEMENT 2006 LEFT SHOULDER ROTATOR CUFF 2008 LEFT FRONTAL MAXILLARY SINUSITIS SINUSOTOMY 2009 RIGHT WRIST CARPAL TUNNEL 2010 LEFT SHOULDER - ROTATOR CUFF 2016 SPINAL TAP 2015 COLONOSCOPY-ADENOMATOUS POLYP 5-10 YR FU 07/11/15 LEFT TOTAL KNEE REPLACEMENT FAMILY HISTORY FATHER: , DIAGNOSED WITH UNSPECIFIED HEART DISEASE MOTHER: , UNSPECIFIED HEART DISEASE 2 SON(S) , 1 DAUGHTER(S) - HEALTHY. SIBLINGS - ; UNSURE OF CAUSE. SOCIAL HISTORY GENERAL: TOBACCO USE ARE YOU A:FORMER SMOKER HOW LONG HAS IT BEEN SINCE YOU LAST SMOKED?> 10 YEARS HIV / HEP-C SCREENING HIV TEST OFFERED TO PATIENT:YES DATE OFFERED:11/17/2019 TEST ACCEPTED:NO HEP-C TEST OFFERED TO PATIENT:YES DATE OFFERED:11/17/2019 REASON:PATIENT DECLINED TEST ACCEPTED:NO REASON:PATIENT DECLINED BROCHURE PROVIDED TO PATIENTNO OTHERS AT HOME: SPOUSE. HOUSING: OWNS HOME. EDUCATION LEVEL OF EDUCATION:HIGH SCHOOL DIET: REGULAR. LANGUAGE LANGUAGES SPOKEN:[place] DOMESTIC VIOLENCE DO YOU FEEL SAFE IN YOUR ENVIRONMENT?YES RECREATIONAL DRUG USE DRUG USE?NO EXERCISE: WALKS. LEARNING BARRIERS / SPECIAL NEEDS BARRIERS TO LEARNING?NO HEARING IMPAIRED?NO VISION IMPAIRED?YES COGNITIVELY IMPAIRED?NO :CORRECTIVE LENSES READINESS TO LEARN?YES LEARNING PREFERENCES?YES :BOOKLETS, HANDOUTS LEARNING CAPABILITIES PRESENT?YES EMOTIONAL BARRIERS?NO SPECIAL DEVICES?YES :CANE OCCASSIONAL FABRICATION AND LAYOUT CRAFTSMAN NEEDED?NO PAIN CLINIC PFS, CLERGY, PUBLIC HEALTH REFERRALS PFS REFERRAL NEEDED?NO CLERGY REFERRAL NEEDED?NO PUBLIC HEALTH REFERRAL NEEDED?NO HAS THE PATIENT BEEN EDUCATED REGARDING HIS/HER PLAN OF CARE?YES HAS THE PATIENT BEEN EDUCATED REGARDING PAIN, THE RISK FOR PAIN, THE IMPORTANCE OF EFFECTIVE PAIN MANAGEMENT, AND THE PAIN ASSESSMENT PROCESS?YES LATEX QUESTIONNAIRE LATEX ALLERGY : HAVE YOU EVER DEVELOPED ANY TYPE OF REACTION AFTER HANDLING LATEX PRODUCTS SUCH RUBBER GLOVES, CONDOMS, DIAPHRAGMS, BALLOONS, SOCKS, OR UNDERWEAR?NO LATEX ALLERGY : HAVE YOU EVER DEVELOPED ANY TYPE OF REACTION DURING OR AFTER DENTAL APPOINTMENT, VAGINAL/RECTAL EXAMINATION, SURGICAL PROCEDURE, OR ANY OTHER EXPOSURE?NO DATE ASKED : 11/22/2019 LATEX RISK : HAVE YOU EVER HAD ANY DIFFICULTY BREATHING OR HIVES AFTER EATING OR HANDLING ANY FRUITS, OR VEGETABLES; SUCH KIWI, BANANAS, STONE FRUITS, OR CHESTNUTSNO LATEX RISK : DO YOU HAVE A PREVIOUS PERSONAL HISTORY OF MORE THAN NINE SURGERIES, SPINA BIFIDA, OR REPEATED CATHERIZATIONS? YES - PLEASE INDICATE : > 9 SURGERIES LATEX RISK : ARE YOU FREQUENTLY EXPOSED TO LATEX PRODUCTS IN YOUR OCCUPATION?NO CAFFEINE CAFFEINE USE?YES HOW OFTEN AND HOW MUCH? DAILY COFFEE ADVANCE DIRECTIVE ADVANCE DIRECTIVE DISCUSSED WITH PATIENT:YES HCP - ALBINO BUSTILLOS () [phone] VOODOO [id number] NONE MARITAL STATUS: . ALCOHOL SCREENING DID YOU HAVE A DRINK CONTAINING ALCOHOL IN THE PAST YEAR?NO POINTS0 INTERPRETATIONNEGATIVE OCCUPATION: RETIRED//[employer]. HOSPITALIZATION/MAJOR DIAGNOSTIC PROCEDURE PER ABOVE REVIEW OF SYSTEMS REVIEWED BY: PROVIDER: KEO ADAMS-C . CONSTITUTIONAL: ANY CHANGE IN YOUR MEDICAL CONDITION? NO . CHILLS NO . FEVER NO . INFECTION: DO YOU HAVE NEW INFECTIONS? NO . DO YOU HAVE HISTORY OF MRSA? NO . MUSCULOSKELETAL: ANY NEW PATTERNS OF PAIN OR NUMBNESS? NO . GASTROENTEROLOGY: ANY NEW CHANGE IN BOWEL CONTROL? NO . GENITOURINARY: ANY NEW CHANGE IN BLADDER CONTROL? NO . IS THERE A CHANCE YOU COULD BE ? NO . HEMATOLOGY/LYMPH: DO YOU TAKE ANY BLOOD THINNERS? (FOR EXAMPLE- COUMADIN, PLAVIX, AGGRENOX, PLATEL, PRADAXA, OR XARELTO) NO . WHEN WAS YOUR LAST DOSE? DATE: TIME: . NEUROLOGY: HAVE YOU FALLEN IN THE PAST 12 MONTHS? NO . ANY NEW EXTREMITY NUMBNESS OR WEAKNESS? NO . CARDIOLOGY: DO YOU HAVE A PACEMAKER OR DEFIBRILLATOR? NO . RESPIRATORY: HAVE YOU BEEN SICK IN THE PAST WEEK? NO . FEVER NO . FLU LIKE SYMPTOMS? NO . COUGH NO . INTEGUMENTARY: DO YOU HAVE ANY RASHES OR OPEN SORES? NO . ALLERGIC/IMMUNO: ARE YOU ALLERGIC TO IV DYE? NO . ANY NEW ALLERGIES? NO . PSYCHIATRIC: DO YOU HAVE THOUGHTS OF HURTING YOURSELF OR SOMEONE ELSE? NO . ARE YOU ABUSED, NEGLECTED, OR IN AN UNSAFE ENVIRONMENT? NO . 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 YES,BORDERLINE DIABETIC . OTHER: DO YOU NEED ANY PRESCRIPTIONS? NO . IF YES, PLEASE LIST: ____ . ANY NEW PROBLEMS WITH YOUR MEDICATIONS? NO . WHEN DID YOU LAST EAT? ____ . WHEN DID YOU LAST DRINK? ____ . WHAT DID YOU LAST DRINK? ____ . NAME OF PERSON DRIVING YOU HOME? ____ . DO YOU HAVE ANY OTHER QUESTIONS OR CONCERNS NO . VITAL SIGNS WT 242.0 LBS, HT 68 IN, BMI 36.79 INDEX, BP 150/74 MM HG, HR 80 /MIN, RR 18 /MIN, TEMP 98.3 F, OXYGEN SAT % 99%, SAFE IN ENV? (Y/N) YES, NA INITIALS AW 1303, REVIEWED BY: ANNMARIE CARROLL LPN. EXAMINATION GENERAL EXAMINATION: GENERALNO ACUTE DISTRESS, WELL NOURISHED AND HYDRATED. PSYCHAPPROPRIATE MOOD AND AFFECT . LUNGS:CLEAR TO AUSCULTATION BILATERALLY, NO WHEEZES, RHONCHI, RALES. HEART:NO MURMURS, REGULAR RATE AND RHYTHM. BACK:POSITIVE PASTOR'S TEST LEFT SIDE . ASSESSMENTS SACROILIITIS, NOT ELSEWHERE CLASSIFIED - M46.1 (PRIMARY) SPONDYLOSIS WITHOUT MYELOPATHY OR RADICULOPATHY, LUMBAR REGION - M47.816 TREATMENT SACROILIITIS, NOT ELSEWHERE CLASSIFIED NOTES: LEFT SIJ. CLINICAL NOTES: 64-YEAR-OLD MALE IN FOR POST FACET BLOCK FOLLOW-UP. GIVEN PRESENTING SYMPTOMS, CONSULT WITH DR. TOVAR, AND RESULTS OF PHYSICAL EXAMINATION RECOMMENDED LEFT SIJ WITH POSTPROCEDURAL FOLLOW-UP. PATIENT EXPRESSED UNDERSTANDING OF AND WAS IN AGREEMENT WITH TREATMENT PLAN. GIVEN TIME TO ASK QUESTIONS AND EXPRESS CONCERNS., ISTOP REGISTRY REVIEWED AND DEMONSTRATES COMPLLIANCE. (REF # [id number] ) BRINGS IN MEDICATIONS WHICH IS APPROPRIATE FOR WHAT WAS DISPENSED. RECENT URINE TOXICOLOGY REVIEWED. NO UNAUTHORIZED MEDICATIONS. NO ILLICIT SUBSTANCES AND PRESCRIBED MEDICATIONS WERE PRESENT. PROCEDURE CODES [id number] ESTABILISHED PATIENT [facility] CHARGE DISPOSITION & COMMUNICATION FOLLOW UP POSTPROCEDURE (REASON: LEFT SIJ) ELECTRONICALLY SIGNED BY ANGIE YANG ON 12/07/2019 AT 12:05 PM EDT DISCLAIMER : THIS IS A VISIT SUMMARY EXTRACTED FROM THE [employer] CHART. IT IS NOT A COPY OF THE [employer] PROGRESS NOTE. MTDD
== END ==
LOC: M PAIN 13:00
PROVIDERS: ATTEND Family Medicine
DX: M46.1 Sacroiliitis, not elsewhere classified (principal); M47.816 Spondylosis without myelopathy or radiculopathy, lumbar region

== ENCOUNTER → 2020-01-11 | Outpatient (CLI) | payer BC ==
[~2020-01-11] MED LIST changes: +BUPIVACAINE HCL 0.25% 10ML VIAL As Ordered ONE; +BUPIVACAINE HCL 0.25% 30ML VIAL As Ordered ONE; +diazePAM 5 MG TAB As Ordered ONE; +oxyCODONE 5MG TAB As Ordered ONE
--- NOTE | 2020-01-17 00:56 | ECWPNPC ---
PATIENT NAME: MARKELL BUSTILLOS : 1955 GENDER: MALE VISIT DATE: 01/11/2020 DISCHARGE DATE: 01/11/20 1439 VISIT LOCKED DATE TIME: PHYSICIAN: MY TOVAR MD RESOURCE: MY TOVAR MD REASON FOR APPOINTMENT 1. TRIGGER POINT INJECTION LEFT HIP - NO STEROIDS HISTORY OF PRESENT ILLNESS HISTORY OF PRESENT ILLNESS: PAIN THE PATIENT DESCRIBES THE PAIN... 64-YEAR-OLD MALE PATIENT WITH A HISTORY OF CHRONIC LOW BACK PAIN. THE PATIENT DESCRIBES THE PAIN ACHING AND SEVERE WITH A PAIN SCORE RANGING FROM 6-9/10 DEPENDING ON PHYSICAL ACTIVITY. THE PATIENT STATES THAT HIS PAIN IS MOSTLY LOCATED IN THE LEFT LOWER BACK. THE PATIENT STATES THAT THE PAIN IS AFFECTING HIS ACTIVITIES OF DAILY LIVING AND ABILITY TO MOVE. PATIENT DENIES UNEXPLAINABLE WEIGHT LOSS, FEVER, CHILLS, NEW CHANGES ON HIS URINARY OR BOWEL CONTROL. FALL RISK SCREENING: SCREENING :NO FALLS REPORTED IN THE LAST YEAR CURRENT MEDICATIONS TAKING BACLOFEN 10 MG TABLET 1 TABLET WITH FOOD OR MILK ORALLY FOUR TIMES DAILY, NOTES: 01/10/20 TAKING HYDROXYZINE HCL 25 MG TABLET 1 TAB ORALLY EVERY 8 HRS NEEDED, NOTES: 01/10/20 TAKING LIDODERM 5 % PATCH 1 PATCH REMOVE AFTER 12 HOURS EXTERNALLY PRN ON 12 HOURS OFF 12 HOURS, NOTES: 01/10/20 TAKING VOLTAREN 1 % GEL APPLY 4 GMS TO LEFT KNEE TOPICALLY Q8H PRN PAIN, NOTES: 01/09/20 TAKING ALBUTEROL SULFATE (2.5 MG/3ML) 0.083% NEBULIZATION SOLUTION 3 ML INHALATION ONCE DAILY NEEDED, NOTES: 01/09/20 TAKING DULERA 100-5 MCG/ACT AEROSOL 2 PUFFS INHALATION TWICE A DAY NEEDED, NOTES: 01/08/20 TAKING FUROSEMIDE 40 MG TABLET 1 TABLET ORALLY ONCE Q 3 DAYS PRN, NOTES: 01/09/20 TAKING ROPINIROLE HCL 2 MG TABLET ORALLY FOUR TIMES DAILY, NOTES: 01/10/20 TAKING LYRICA 100 MG CAPSULE 1 CAPSULE ORALLY FOUR TIMES DAILY, NOTES: 01/11/20 TAKING OXYCONTIN 15 MG TABLET ER 12 HOUR ABUSE-DETERRENT 1 TABLET ORALLY EVERY 12 HRS MDD2, NOTES: 01/11/20 TAKING NUCYNTA 50 MG TABLET 1 TABLET ORALLY BID NEEDED, NOTES: 4/29/20 MEDICATION LIST REVIEWED AND RECONCILED WITH THE PATIENT PAST MEDICAL HISTORY 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 COPD RESTLESS LEGS SINUSITIS ARTHRITIS NECK PAIN REMOTE SMOKER SMOKED 30 YRS QUIT 2004 PNEUMOVAX 23- MCGREGOR INDUSTRIAL MILLWRIGHT PREVNAR 13-MCGREGOR INDUSTRIAL MILLWRIGHT LOW BACK PAIN BILATERAL HIP PAIN CHRONIC PRESCRIPTION OPIATE USE ALLERGIES TRAMADOL HCL: DIARRHEA - SIDE EFFECTS SURGICAL HISTORY LEFT SHOULDER DISLOCATION/FX 1968 SINUSITIS FLUSH AND DRAIN 1971, 1973 RIGHT NIPPLE CYST REMOVED 1972 RIGHT WRIST FX 1974 RIGHT KNEE ACL REPAIRED [address] CRAWFORD 07/02/05 RIGHT KNEE TOTAL REPLACEMENT 2007 LEFT SHOULDER ROTATOR CUFF 2008 LEFT FRONTAL MAXILLARY SINUSITIS SINUSOTOMY 2009 RIGHT WRIST CARPAL TUNNEL 2010 LEFT SHOULDER - ROTATOR CUFF 2016 SPINAL TAP 2015 COLONOSCOPY-ADENOMATOUS POLYP 5-10 YR FU 07/11/15 LEFT TOTAL KNEE REPLACEMENT FAMILY HISTORY FATHER: , DIAGNOSED WITH UNSPECIFIED HEART DISEASE MOTHER: , UNSPECIFIED HEART DISEASE 2 SON(S) , 1 DAUGHTER(S) - HEALTHY. SIBLINGS - ; UNSURE OF CAUSE. SOCIAL HISTORY GENERAL: TOBACCO USE ARE YOU A:FORMER SMOKER HOW LONG HAS IT BEEN SINCE YOU LAST SMOKED?> 10 YEARS LATEX QUESTIONNAIRE LATEX ALLERGY : HAVE YOU EVER DEVELOPED ANY TYPE OF REACTION AFTER HANDLING LATEX PRODUCTS SUCH RUBBER GLOVES, CONDOMS, DIAPHRAGMS, BALLOONS, SOCKS, OR UNDERWEAR?NO LATEX ALLERGY : HAVE YOU EVER DEVELOPED ANY TYPE OF REACTION DURING OR AFTER DENTAL APPOINTMENT, VAGINAL/RECTAL EXAMINATION, SURGICAL PROCEDURE, OR ANY OTHER EXPOSURE?NO LATEX RISK : HAVE YOU EVER HAD ANY DIFFICULTY BREATHING OR HIVES AFTER EATING OR HANDLING ANY FRUITS, OR VEGETABLES; SUCH KIWI, BANANAS, STONE FRUITS, OR CHESTNUTSNO LATEX RISK : DO YOU HAVE A PREVIOUS PERSONAL HISTORY OF MORE THAN NINE SURGERIES, SPINA BIFIDA, OR REPEATED CATHERIZATIONS? YES - PLEASE INDICATE : > 9 SURGERIES LATEX RISK : ARE YOU FREQUENTLY EXPOSED TO LATEX PRODUCTS IN YOUR OCCUPATION?NO DATE ASKED : 01/10/2020 ALCOHOL SCREENING DID YOU HAVE A DRINK CONTAINING ALCOHOL IN THE PAST YEAR?NO POINTS0 INTERPRETATIONNEGATIVE RECREATIONAL DRUG USE DRUG USE?NO CAFFEINE CAFFEINE USE?YES HOW OFTEN AND HOW MUCH? DAILY COFFEE HIV / HEP-C SCREENING HIV TEST OFFERED TO PATIENT:YES DATE OFFERED:11/17/2019 TEST ACCEPTED:NO HEP-C TEST OFFERED TO PATIENT:YES DATE OFFERED:11/17/2019 REASON:PATIENT DECLINED TEST ACCEPTED:NO REASON:PATIENT DECLINED BROCHURE PROVIDED TO PATIENTNO NONDENOMINATIONAL [id number] NONE LANGUAGE LANGUAGES SPOKEN:ST [place] EDUCATION LEVEL OF EDUCATION:HIGH SCHOOL LEARNING BARRIERS / SPECIAL NEEDS BARRIERS TO LEARNING?NO HEARING IMPAIRED?NO VISION IMPAIRED?YES COGNITIVELY IMPAIRED?NO :CORRECTIVE LENSES READINESS TO LEARN?YES LEARNING PREFERENCES?YES :BOOKLETS, HANDOUTS LEARNING CAPABILITIES PRESENT?YES EMOTIONAL BARRIERS?NO SPECIAL DEVICES?YES :CANE OCCASSIONAL CHILD CARE GROUP LEADER NEEDED?NO 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 DIET: REGULAR. EXERCISE: WALKS. MARITAL STATUS: . OTHERS AT HOME: SPOUSE. NEW PATIENT PAIN DIARY TODAY'S VISIT 01/10/2020 PATIENT DESCRIBES PAIN :ACHING, SHARP, THROBBING, SORE FROM 0-10, WHAT LEVEL IS YOUR PAIN TODAY?6 PAIN CLINIC PFS, CLERGY, PUBLIC HEALTH REFERRALS PFS REFERRAL NEEDED?NO CLERGY REFERRAL NEEDED?NO PUBLIC HEALTH REFERRAL NEEDED?NO WAS THE PROVIDER NOTIFIED OF ANY PERTINENT INFO?YES HAS THE PATIENT BEEN EDUCATED REGARDING HIS/HER PLAN OF CARE?YES HAS THE PATIENT BEEN EDUCATED REGARDING PAIN, THE RISK FOR PAIN, THE IMPORTANCE OF EFFECTIVE PAIN MANAGEMENT, AND THE PAIN ASSESSMENT PROCESS?YES HOUSING: OWNS HOME. ADVANCE DIRECTIVE ADVANCE DIRECTIVE DISCUSSED WITH PATIENT:YES HCP - ALBINO BUSTILLOS () [phone] HOSPITALIZATION/MAJOR DIAGNOSTIC PROCEDURE PER ABOVE REVIEW OF SYSTEMS REVIEWED BY: PROVIDER: MY TOVAR MD . CONSTITUTIONAL: ANY CHANGE IN YOUR MEDICAL CONDITION? NO . CHILLS NO . FEVER NO . INFECTION: DO YOU HAVE NEW INFECTIONS? NO . DO YOU HAVE HISTORY OF MRSA? NO . MUSCULOSKELETAL: ANY NEW PATTERNS OF PAIN OR NUMBNESS? PAIN RADIATING INTO FRONT GROIN AREA . GASTROENTEROLOGY: ANY NEW CHANGE IN BOWEL CONTROL? NO . GENITOURINARY: ANY NEW CHANGE IN BLADDER CONTROL? NO . IS THERE A CHANCE YOU COULD BE ? NO . HEMATOLOGY/LYMPH: DO YOU TAKE ANY BLOOD THINNERS? (FOR EXAMPLE- COUMADIN, PLAVIX, AGGRENOX, PLATEL, PRADAXA, OR XARELTO) NO . WHEN WAS YOUR LAST DOSE? DATE: TIME: . NEUROLOGY: HAVE YOU FALLEN IN THE PAST 12 MONTHS? NO . ANY NEW EXTREMITY NUMBNESS OR WEAKNESS? NO . CARDIOLOGY: DO YOU HAVE A PACEMAKER OR DEFIBRILLATOR? NO . RESPIRATORY: HAVE YOU BEEN SICK IN THE PAST WEEK? NO . FEVER NO . FLU LIKE SYMPTOMS? NO . COUGH NO . INTEGUMENTARY: DO YOU HAVE ANY RASHES OR OPEN SORES? NO . ALLERGIC/IMMUNO: ARE YOU ALLERGIC TO IV DYE? NO . ANY NEW ALLERGIES? NO . PSYCHIATRIC: DO YOU HAVE THOUGHTS OF HURTING YOURSELF OR SOMEONE ELSE? NO . ARE YOU ABUSED, NEGLECTED, OR IN AN UNSAFE ENVIRONMENT? NO . 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 YES, PT MANAGES WITH DIET . OTHER: DO YOU NEED ANY PRESCRIPTIONS? NO . IF YES, PLEASE LIST: ____ . ANY NEW PROBLEMS WITH YOUR MEDICATIONS? NO . WHEN DID YOU LAST EAT? 01/10/20 . WHEN DID YOU LAST DRINK? 01/11/20 . WHAT DID YOU LAST DRINK? WATER . NAME OF PERSON DRIVING YOU HOME? MARIIA . DO YOU HAVE ANY OTHER QUESTIONS OR CONCERNS NO . VITAL SIGNS WT 249.4 LBS, HT 68 IN, BMI 37.92 INDEX, BP 154/78 MM HG, HR 97 /MIN, RR 18 /MIN, TEMP 96.8 F, OXYGEN SAT % 98%, SAFE IN ENV? (Y/N) Y, NA INITIALS SC 12:41, REVIEWED BY: EM. EXAMINATION GENERAL EXAMINATION: THE PATIENT IS ALERT, ORIENTED TIMES THREE AND COOPERATIVE. THERE WERE BANDS OF TISSUE WITH RESTRICTION OF MOVEMENT PRESENT IN THE TRIGGER POINTS IN THE LEFT LOWER BACK. ASSESSMENTS MYALGIA, OTHER SITE - M79.18 (PRIMARY) LOW BACK PAIN - M54.5 OTHER CHRONIC PAIN - G89.29 TREATMENT MYALGIA, OTHER SITE CLINICAL NOTES: WE DISCUSSED SEVERAL ALTERNATIVES WITH MR. BUSTILLOS REGARDING HIS TREATMENT OPTIONS AND CARE. WE HAVE DECIDED TO DO TRIGGER POINT INJECTIONS TODAY WITHOUT STEROIDS, DUE TO COVID-19. I, SAAD WOMACK, DOCUMENTED THE ABOVE INFORMATION ACTING A SCRIBE FOR DR. TOVAR. I HAVE REVIEWED THE ABOVE DOCUMENT, WRITTEN BY SAAD WOMACK, TITLE I INSTRUCTIONAL ASSISTANT, AND I VERIFY THAT IT IS ACCURATE. PROCEDURES PN TRIGGER POINT INJECTION NO STEROIDS DATE OF PROCEDURE : PRE PROCEDURE DIAGNOSIS 1. MYALGIA 2. PAIN AT LEFT LOWER BACK AREA POST PROCEDURE DIAGNOSIS 1. MYALGIA 2. PAIN AT LEFT LOWER BACK AREA PROCEDURE TRIGGER POINT INJECTION AT LEFT LOWER BACK AREA SURGEON DR. MY TOVAR PAPER TUBE MACHINE OPERATOR NONE ANESTHESIA LOCAL PRE PROCEDURE NOTE 64-YEAR-OLD PATIENT WITH HISTORY OF CHRONIC PAIN AT LEFT LOWER BACK AREA. I EVALUATED THE PATIENT AND REVIEWED THE CHART. THERE IS EVIDENCE OF BANDS OF TISSUE WITH RESTRICTION OF MOVEMENT AND PRESENCE OF TRIGGER POINT AT THE LEFT LOWER BACK AREA. I WENT OVER THE RISKS, ALTERNATIVES, AND BENEFITS ASSOCIATED WITH THIS PROCEDURE. THE PATIENT WOULD LIKE TO PROCEED AND GAVE CONSENT TO PERFORM THE PROCEDURE. THE PATIENT DENIES UNEXPLAINABLE WEIGHT LOSS, FEVER, CHILLS, OR NEW CHANGES IN URINARY OR BOWEL CONTROL DESCRIPTION OF PROCEDURE THE PATIENT WAS BROUGHT TO THE PROCEDURE ROOM AND PLACED IN THE PRONE POSITION. THE AREA WAS CLEANED WITH ALCOHOL. THE PROCEDURE WAS DONE USING ASEPTIC STERILE TECHNIQUES. I CHECKED LATERALITY AND THE LEVEL WHERE THE PROCEDURE WAS GOING TO BE PERFORMED WITH THE PATIENT AND THE SUPPORTING STAFF AT THE MOMENT OF THE TIME OUT IN THE PROCEDURE ROOM. USING A 25-GAUGE NEEDLE, TRIGGER POINTS WERE INJECTED INTO THE LEFT LOWER BACK AREA WITH A TOTAL OF 40 ML OF BUPIVACAINE 0.25%. AGREED WITH THE PATIENT THE PROCEDURE WAS DONE WITHOUT STEROIDS. THERE WAS NO EVIDENCE OF BLOOD, PARESTHESIA OR CEREBROSPINAL FLUID DURING THE PROCEDURE. THE PATIENT WAS SENT TO THE RECOVERY ROOM. THE PATIENT WAS MOVING THE EXTREMITIES AND DOING WELL. THERE WAS NO COMPLICATION DURING THE PROCEDURE POST PROCEDURE NOTE THE PATIENT WILL BE SEEN IN A FOLLOW UP IN THE NEXT FEW WEEKS. INSTRUCTIONS WERE GIVEN, QUESTIONS WERE ANSWERED, AND THE PATIENT EXPRESSED UNDERSTANDING AND AGREED WITH THE PLAN. I, SAAD WOMACK, DOCUMENTED THE ABOVE INFORMATION ACTING A SCRIBE FOR DR. TOVAR. I HAVE REVIEWED THE ABOVE DOCUMENT, WRITTEN BY LOIS POLANCO, AND I VERIFY THAT IT IS ACCURATE PROCEDURE CODES 37912 INJ TRIGGER POINT 09/14 [facility] DISPOSITION & COMMUNICATION FOLLOW UP F/UP RETURN CLERK (REASON: POST-PROCEDURE F/UP) ELECTRONICALLY SIGNED BY MY TOVAR MD, MD ON 01/16/2020 AT 02:24 PM EDT DISCLAIMER : THIS IS A VISIT SUMMARY EXTRACTED FROM THE [employer] CHART. IT IS NOT A COPY OF THE [employer] PROGRESS NOTE. SOFIA
== END ==
LOC: M PAIN 12:45
PROVIDERS: ATTEND Anesthesiology
DX: M79.18 Myalgia, other site (principal); M54.5 Low back pain; G89.29 Other chronic pain; E11.9 Type 2 diabetes mellitus without complications; J44.9 Chronic obstructive pulmonary disease, unspecified; G25.81 Restless legs syndrome; Z96.653 Presence of artificial knee joint, bilateral; Z87.891 Personal history of nicotine dependence; Z88.5 Allergy status to narcotic agent; Z79.891 Long term (current) use of opiate analgesic; Z79.899 Other long term (current) drug therapy

== ENCOUNTER → 2020-01-26 | Outpatient (CLI) | payer BC ==
[~2020-01-26] MED LIST changes: -BUPIVACAINE HCL 0.25% 10ML VIAL As Ordered ONE; -BUPIVACAINE HCL 0.25% 30ML VIAL As Ordered ONE; -diazePAM 5 MG TAB As Ordered ONE; -oxyCODONE 5MG TAB As Ordered ONE
--- NOTE | 2020-01-30 02:15 | ECWPNPC ---
PATIENT NAME: MARKELL BUSTILLOS : 1955 GENDER: MALE VISIT DATE: 01/26/2020 DISCHARGE DATE: 01/26/20 1215 VISIT LOCKED DATE TIME: PHYSICIAN: YOSSI JAMES RESOURCE: YOSSI JAMES REASON FOR APPOINTMENT 1. POST TPI PAT PHONE CALL COMPLETED HISTORY OF PRESENT ILLNESS HISTORY OF PRESENT ILLNESS: PAIN THE PATIENT DESCRIBES THE PAIN... PERMISSION REQUESTED AND RECEIVED FROM PATIENT TO PERFORM TELEPHONE VISIT. 64-YEAR-OLD MALE IN FOR POST TPI FOLLOW-UP HE RATES HIS PAIN PREPROCEDURE AT A 6 OUT OF 10 AND POSTPROCEDURE AT A 2-5 OUT OF 10. HE DOES FEEL THE PROCEDURE HELPED HIM LESS THIS TIME THERE WAS NO STEROIDS. HE FEELS MEDICATIONS ARE HELPFUL AND DENIES MED SIDE EFFECTS AT THIS TIME. HE RATES HIS PAIN CURRENTLY AT A 5 OUT OF 10 AND DESCRIBES IT THROBBING. FALL RISK SCREENING: SCREENING :NO FALLS REPORTED IN THE LAST YEAR CURRENT MEDICATIONS TAKING BACLOFEN 10 MG TABLET 1 TABLET WITH FOOD OR MILK ORALLY FOUR TIMES DAILY, NOTES: 01/10/20 TAKING HYDROXYZINE HCL 25 MG TABLET 1 TAB ORALLY EVERY 8 HRS NEEDED, NOTES: 01/10/20 TAKING LIDODERM 5 % PATCH 1 PATCH REMOVE AFTER 12 HOURS EXTERNALLY PRN ON 12 HOURS OFF 12 HOURS, NOTES: 01/10/20 TAKING VOLTAREN 1 % GEL APPLY 4 GMS TO LEFT KNEE TOPICALLY Q8H PRN PAIN, NOTES: 01/09/20 TAKING ALBUTEROL SULFATE (2.5 MG/3ML) 0.083% NEBULIZATION SOLUTION 3 ML INHALATION ONCE DAILY NEEDED, NOTES: 01/09/20 TAKING DULERA 100-5 MCG/ACT AEROSOL 2 PUFFS INHALATION TWICE A DAY NEEDED, NOTES: 01/08/20 TAKING FUROSEMIDE 40 MG TABLET 1 TABLET ORALLY ONCE Q 3 DAYS PRN, NOTES: 01/09/20 TAKING ROPINIROLE HCL 2 MG TABLET ORALLY FOUR TIMES DAILY, NOTES: 01/10/20 TAKING LYRICA 100 MG CAPSULE 1 CAPSULE ORALLY FOUR TIMES DAILY, NOTES: 01/11/20 TAKING OXYCONTIN 15 MG TABLET ER 12 HOUR ABUSE-DETERRENT 1 TABLET ORALLY EVERY 12 HRS MDD2, NOTES: 01/11/20 TAKING NUCYNTA 50 MG TABLET 1 TABLET ORALLY BID NEEDED, NOTES: 01/10/20 MEDICATION LIST REVIEWED AND RECONCILED WITH THE PATIENT PAST MEDICAL HISTORY 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 COPD RESTLESS LEGS SINUSITIS ARTHRITIS NECK PAIN REMOTE SMOKER SMOKED 30 YRS QUIT 2004 PNEUMOVAX 23- OLYMPIA ROOF TILER PREVNAR 13-OLYMPIA ROOF TILER LOW BACK PAIN BILATERAL HIP PAIN CHRONIC PRESCRIPTION OPIATE USE ALLERGIES TRAMADOL HCL: DIARRHEA - SIDE EFFECTS SURGICAL HISTORY LEFT SHOULDER DISLOCATION/FX 1968 SINUSITIS FLUSH AND DRAIN 1971, 1973 RIGHT NIPPLE CYST REMOVED 1972 RIGHT WRIST FX 1974 RIGHT KNEE ACL REPAIRED [address] CRAWFORD 07/02/05 RIGHT KNEE TOTAL REPLACEMENT 2007 LEFT SHOULDER ROTATOR CUFF 2008 LEFT FRONTAL MAXILLARY SINUSITIS SINUSOTOMY 2009 RIGHT WRIST CARPAL TUNNEL 2010 LEFT SHOULDER - ROTATOR CUFF 2016 SPINAL TAP 2016 COLONOSCOPY-ADENOMATOUS POLYP 5-10 YR FU 07/11/15 LEFT TOTAL KNEE REPLACEMENT FAMILY HISTORY FATHER: , DIAGNOSED WITH UNSPECIFIED HEART DISEASE MOTHER: , UNSPECIFIED HEART DISEASE 2 SON(S) , 1 DAUGHTER(S) - HEALTHY. SIBLINGS - ; UNSURE OF CAUSE. SOCIAL HISTORY GENERAL: TOBACCO USE ARE YOU A:FORMER SMOKER HOW LONG HAS IT BEEN SINCE YOU LAST SMOKED?> 10 YEARS LATEX QUESTIONNAIRE LATEX ALLERGY : HAVE YOU EVER DEVELOPED ANY TYPE OF REACTION AFTER HANDLING LATEX PRODUCTS SUCH RUBBER GLOVES, CONDOMS, DIAPHRAGMS, BALLOONS, SOCKS, OR UNDERWEAR?NO LATEX ALLERGY : HAVE YOU EVER DEVELOPED ANY TYPE OF REACTION DURING OR AFTER DENTAL APPOINTMENT, VAGINAL/RECTAL EXAMINATION, SURGICAL PROCEDURE, OR ANY OTHER EXPOSURE?NO DATE ASKED : 01/10/2020 LATEX RISK : HAVE YOU EVER HAD ANY DIFFICULTY BREATHING OR HIVES AFTER EATING OR HANDLING ANY FRUITS, OR VEGETABLES; SUCH KIWI, BANANAS, STONE FRUITS, OR CHESTNUTSNO LATEX RISK : DO YOU HAVE A PREVIOUS PERSONAL HISTORY OF MORE THAN NINE SURGERIES, SPINA BIFIDA, OR REPEATED CATHERIZATIONS? YES - PLEASE INDICATE : > 9 SURGERIES LATEX RISK : ARE YOU FREQUENTLY EXPOSED TO LATEX PRODUCTS IN YOUR OCCUPATION?NO ALCOHOL SCREENING DID YOU HAVE A DRINK CONTAINING ALCOHOL IN THE PAST YEAR?NO POINTS0 INTERPRETATIONNEGATIVE RECREATIONAL DRUG USE DRUG USE?NO CAFFEINE CAFFEINE USE?YES HOW OFTEN AND HOW MUCH? DAILY COFFEE HIV / HEP-C SCREENING HIV TEST OFFERED TO PATIENT:YES DATE OFFERED:11/17/2019 TEST ACCEPTED:NO HEP-C TEST OFFERED TO PATIENT:YES DATE OFFERED:11/17/2019 REASON:PATIENT DECLINED TEST ACCEPTED:NO REASON:PATIENT DECLINED BROCHURE PROVIDED TO PATIENTNO SCIENTOLOGIST [id number] NONE LANGUAGE LANGUAGES SPOKEN:ROMANIAN EDUCATION LEVEL OF EDUCATION:HIGH SCHOOL LEARNING BARRIERS / SPECIAL NEEDS BARRIERS TO LEARNING?NO HEARING IMPAIRED?NO VISION IMPAIRED?YES COGNITIVELY IMPAIRED?NO :CORRECTIVE LENSES READINESS TO LEARN?YES LEARNING PREFERENCES?YES :BOOKLETS, HANDOUTS LEARNING CAPABILITIES PRESENT?YES EMOTIONAL BARRIERS?NO SPECIAL DEVICES?YES :CANE OCCASSIONAL VALET MANAGER NEEDED?NO 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 DIET: REGULAR. EXERCISE: WALKS. MARITAL STATUS: . OTHERS AT HOME: SPOUSE. NEW PATIENT PAIN DIARY TODAY'S VISIT 01/25/2020 PATIENT DESCRIBES PAIN :ACHING, SHARP, THROBBING, SORE FROM 0-10, WHAT LEVEL IS YOUR PAIN TODAY?6 PRECIPITATING FACTORS WALKING, INCREASED ACTIVITY ALLEVIATING FACTORS REST PAIN CLINIC PFS, CLERGY, PUBLIC HEALTH REFERRALS PFS REFERRAL NEEDED?NO CLERGY REFERRAL NEEDED?NO PUBLIC HEALTH REFERRAL NEEDED?NO WAS THE PROVIDER NOTIFIED OF ANY PERTINENT INFO?YES HAS THE PATIENT BEEN EDUCATED REGARDING HIS/HER PLAN OF CARE?YES HAS THE PATIENT BEEN EDUCATED REGARDING PAIN, THE RISK FOR PAIN, THE IMPORTANCE OF EFFECTIVE PAIN MANAGEMENT, AND THE PAIN ASSESSMENT PROCESS?YES HOUSING: OWNS HOME. ADVANCE DIRECTIVE ADVANCE DIRECTIVE DISCUSSED WITH PATIENT:YES HCP - ALBINO BUSTILLOS () [phone] HOSPITALIZATION/MAJOR DIAGNOSTIC PROCEDURE PER ABOVE REVIEW OF SYSTEMS REVIEWED BY: PROVIDER: KEO JAMES PHYSICAL THERAPY DIRECTOR-C . CONSTITUTIONAL: ANY CHANGE IN YOUR MEDICAL CONDITION? NO . CHILLS NO . FEVER NO . INFECTION: DO YOU HAVE NEW INFECTIONS? NO . DO YOU HAVE HISTORY OF MRSA? NO . MUSCULOSKELETAL: ANY NEW PATTERNS OF PAIN OR NUMBNESS? NO . GASTROENTEROLOGY: ANY NEW CHANGE IN BOWEL CONTROL? NO . GENITOURINARY: ANY NEW CHANGE IN BLADDER CONTROL? NO . IS THERE A CHANCE YOU COULD BE ? NO . HEMATOLOGY/LYMPH: DO YOU TAKE ANY BLOOD THINNERS? (FOR EXAMPLE- COUMADIN, PLAVIX, AGGRENOX, PLATEL, PRADAXA, OR XARELTO) NO . WHEN WAS YOUR LAST DOSE? DATE: TIME: . NEUROLOGY: HAVE YOU FALLEN IN THE PAST 12 MONTHS? NO . ANY NEW EXTREMITY NUMBNESS OR WEAKNESS? NO . CARDIOLOGY: DO YOU HAVE A PACEMAKER OR DEFIBRILLATOR? NO . RESPIRATORY: HAVE YOU BEEN SICK IN THE PAST WEEK? NO . FEVER NO . FLU LIKE SYMPTOMS? NO . COUGH NO . INTEGUMENTARY: DO YOU HAVE ANY RASHES OR OPEN SORES? NO . ALLERGIC/IMMUNO: ARE YOU ALLERGIC TO IV DYE? NO . ANY NEW ALLERGIES? NO . PSYCHIATRIC: DO YOU HAVE THOUGHTS OF HURTING YOURSELF OR SOMEONE ELSE? NO . ARE YOU ABUSED, NEGLECTED, OR IN AN UNSAFE ENVIRONMENT? NO . 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 NO . OTHER: DO YOU NEED ANY PRESCRIPTIONS? NO . IF YES, PLEASE LIST: ____ . ANY NEW PROBLEMS WITH YOUR MEDICATIONS? NO . WHEN DID YOU LAST EAT? ____ . WHEN DID YOU LAST DRINK? ____ . WHAT DID YOU LAST DRINK? ____ . NAME OF PERSON DRIVING YOU HOME? ____ . DO YOU HAVE ANY OTHER QUESTIONS OR CONCERNS NO . EXAMINATION GENERAL EXAMINATION: PSYCHAPPROPRIATE MOOD AND AFFECT , ORIENTED X 3. ASSESSMENTS SACROILIITIS, NOT ELSEWHERE CLASSIFIED - M46.1 (PRIMARY) TREATMENT SACROILIITIS, NOT ELSEWHERE CLASSIFIED CLINICAL NOTES: 64-YEAR-OLD MALE IN FOR POST TPI FOLLOW-UP. GIVEN PRESENTING SYMPTOMS RECOMMEND CLINIC VISIT IN 6 WEEKS. PATIENT HAS EXPRESSED UNDERSTANDING OF AND WAS IN AGREEMENT WITH TREATMENT PLAN. GIVEN TIME TO ASK QUESTIONS AND EXPRESS CONCERNS. , ISTOP REGISTRY REVIEWED AND DEMONSTRATES COMPLLIANCE. (REF # [id number] ) BRINGS IN MEDICATIONS WHICH IS APPROPRIATE FOR WHAT WAS DISPENSED. RECENT URINE TOXICOLOGY REVIEWED. NO UNAUTHORIZED MEDICATIONS. NO ILLICIT SUBSTANCES AND PRESCRIBED MEDICATIONS WERE PRESENT. VISIT TO BE BILLED BASED ON TIME SPENT WITH PATIENT. TIME SPENT WITH PATIENT 11 MINUTES. OTHERS NOTES: NO VITAL SIGNS TAKEN, THIS IS A PHONE VISIT. DISPOSITION & COMMUNICATION FOLLOW UP 6 WEEKS (REASON: SACROILIITIS) ELECTRONICALLY SIGNED BY ANGIE YANG ON 01/29/2020 AT 08:45 AM EDT DISCLAIMER : THIS IS A VISIT SUMMARY EXTRACTED FROM THE [email or web address] CHART. IT IS NOT A COPY OF THE [email or web address] PROGRESS NOTE. SOFIA
== END ==
LOC: M PAIN 11:30
PROVIDERS: ATTEND Family Medicine
DX: M46.1 Sacroiliitis, not elsewhere classified (principal); Z79.891 Long term (current) use of opiate analgesic; Z79.899 Other long term (current) drug therapy; Z88.5 Allergy status to narcotic agent; Z87.891 Personal history of nicotine dependence

== ENCOUNTER → 2020-05-21 | Outpatient (REF) | payer BC ==
[2020-05-21 20:18] LABS: HEMATOCRIT 44.5 % (42.0-52.0); HEMOGLOBIN 14.1 g/dl (13.5-17.5); MEAN CORPUSCULAR HEMOGLOBIN 29.1 pg (27.0-33.0); MEAN CORPUSCULAR HGB CONC 31.7 g/dl (32.0-36.5); MEAN CORPUSCULAR VOLUME 91.8 fl (80.0-96.0); PLATELET COUNT, AUTOMATED 268 10^3/uL (150-450); RED BLOOD COUNT 4.85 10^6/uL (4.30-6.10); WHITE BLOOD COUNT 8.6 10^3/uL (4.0-10.0)
[2020-05-21 20:33] LABS: HEMOGLOBIN A1c 6.7 %
[2020-05-21 20:53] LABS: ALBUMIN 3.5 GM/DL (3.2-5.2); ALT/SGPT 25 U/L (12-78); BILIRUBIN,TOTAL 0.4 MG/DL (0.2-1.0); BLOOD UREA NITROGEN 15 MG/DL (7-18); CALCIUM LEVEL 8.9 MG/DL (8.8-10.2); CARBON DIOXIDE LEVEL 30 MEQ/L (21-32); CHLORIDE LEVEL 107 MEQ/L (98-107); CPK CREATINE PHOSPHOKINASE 177 U/L (39-308); CREATININE FOR GFR 0.86 MG/DL (0.70-1.30); GLOMERULAR FILTRATION RATE > 60.0 (>49); GLUCOSE, FASTING 92 MG/DL (70-100); POTASSIUM SERUM 4.4 MEQ/L (3.5-5.1); SODIUM LEVEL 141 MEQ/L (136-145); TOTAL PROTEIN 6.4 GM/DL (6.4-8.2)
== END ==
LOC: M LAB REF 19:49
PROVIDERS: ATTEND Nurse Practitioner Adult Health
DX: M79.10 Myalgia, unspecified site (principal); R60.9 Edema, unspecified; G25.81 Restless legs syndrome; G37.9 Demyelinating disease of central nervous system, unspecified; J44.9 Chronic obstructive pulmonary disease, unspecified; R73.02 Impaired glucose tolerance (oral)

== ENCOUNTER → 2020-08-13 | Outpatient (CLI) | payer BC ==
--- NOTE | 2020-08-15 00:16 | ECWPNPC ---
PATIENT NAME: MARKELL BUSTILLOS : 1955 GENDER: MALE VISIT DATE: 08/13/2020 DISCHARGE DATE: 08/13/20 1204 VISIT LOCKED DATE TIME: PHYSICIAN: YOSSI JAMES PHYSICIAN PAGER NO: ACTIVE RESOURCE: YOSSI JAMES REASON FOR APPOINTMENT 1. BACK PAIN HISTORY OF PRESENT ILLNESS GENERAL: 65-YEAR-OLD MALE IN FOR CHRONIC PAIN FOLLOW-UP. HE RATES HIS PAIN CURRENTLY AT A 6 OUT OF 10 AND DESCRIBES IT THROBBING. PATIENT STATES THAT HIS INSURANCE IS NO LONGER WILLING TO PAY FOR OXYCONTIN SUCH HE WILL NEED TO SWITCH MEDICATIONS. FALL RISK SCREENING: SCREENING :NO FALLS REPORTED IN THE LAST YEAR PAIN SCREENING: PATIENT HAS A COMPLAINT OF ACUTE OR CHRONIC PAIN :YES PAIN IS DECREASED BY:SITTING,OTHERS LAYING DOWN PAIN IS INCREASED BY:PROLONGED STANDING,ACTIVITIES DURATION:CONTINOUS,CONSTANT WHAT DOES YOUR PAIN FEEL LIKE:THROBBING INTENSITY OF PAIN (SCALE OF 1 TO 10):6 LOCATION OF PAIN:LOW BACK NURSING NOTE: -. PAIN CENTER INTAKE QUESTIONS: DO YOU HAVE A HISTORY OF MRSA? :NO DO YOU TAKE A BLOOD THINNERS? :NO DO YOU HAVE ANY BLEEDING DISORDERS? :NO ANY NEW NUMBNESS OR WEAKNESS IN YOUR LEGS OR ARMS? :NO ANY PACEMAKER,DEFIBRILLATOR, OR DORSAL COLUMN STIMULATOR? :NO DO YOU HAVE ANY RASHES OR OPEN SORES? :NO ARE YOU ALLERGIC TO IV DYE? :NO ARE YOU DIABETIC? :NO ANY NEW PROBLEMS WITH YOUR MEDICATIONS? :NO HAVE YOU RECEIVED A VACCINE IN THE PAST 30 DAYS? :NO DO YOU PLAN TO RECEIVE A VACCINE IN THE NEXT 21 DAYS? :NO DO YOU NEED ANY PRESCRIPTION? :NO DO YOU TAKE ANY IMMUNOSUPPRESSIVE MEDICATIONS? :NO IS THERE A CHANCE YOU COULD BE ? :NO ARE YOU BREAST FEEDING? :NO CURRENT MEDICATIONS TAKING BACLOFEN 10 MG TABLET 1 TABLET WITH FOOD OR MILK ORALLY FOUR TIMES DAILY TAKING HYDROXYZINE HCL 25 MG TABLET 1 TAB ORALLY EVERY 8 HRS NEEDED TAKING LIDODERM 5 % PATCH 1 PATCH REMOVE AFTER 12 HOURS EXTERNALLY PRN ON 12 HOURS OFF 12 HOURS TAKING VOLTAREN 1 % GEL APPLY 4 GMS TO LEFT KNEE TOPICALLY Q8H PRN PAIN TAKING ALBUTEROL SULFATE (2.5 MG/3ML) 0.083% NEBULIZATION SOLUTION 3 ML INHALATION ONCE DAILY NEEDED TAKING DULERA 100-5 MCG/ACT AEROSOL 2 PUFFS INHALATION TWICE A DAY NEEDED TAKING FUROSEMIDE 40 MG TABLET 1 TABLET ORALLY ONCE Q 3 DAYS PRN TAKING ROPINIROLE HCL 2 MG TABLET ORALLY FOUR TIMES DAILY TAKING OXYCONTIN 15 MG TABLET ER 12 HOUR ABUSE-DETERRENT 1 TABLET ORALLY EVERY 12 HRS MDD2 TAKING NUCYNTA 50 MG TABLET 1 TABLET ORALLY BID NEEDED TAKING CARBAMAZEPINE 200 MG TABLET 1 TABLET ORALLY TWICE A DAY NOT-TAKING LYRICA 100 MG CAPSULE 1 CAPSULE ORALLY FOUR TIMES DAILY PAST MEDICAL HISTORY 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 COPD RESTLESS LEGS SINUSITIS ARTHRITIS NECK PAIN REMOTE SMOKER SMOKED 30 YRS QUIT 2004 PNEUMOVAX 23- PORTAGE DIRECTOR ENTERPRISE SYSTEMS PREVNAR 13-PORTAGE DIRECTOR ENTERPRISE SYSTEMS LOW BACK PAIN BILATERAL HIP PAIN CHRONIC PRESCRIPTION OPIATE USE ALLERGIES TRAMADOL HCL: DIARRHEA - SIDE EFFECTS SURGICAL HISTORY LEFT SHOULDER DISLOCATION/FX 1967 SINUSITIS FLUSH AND DRAIN 1971, 1973 RIGHT NIPPLE CYST REMOVED 1972 RIGHT WRIST FX 1974 RIGHT KNEE ACL REPAIRED [address] CRAWFORD 07/02/05 RIGHT KNEE TOTAL REPLACEMENT 2006 LEFT SHOULDER ROTATOR CUFF 2007 LEFT FRONTAL MAXILLARY SINUSITIS SINUSOTOMY 2008 RIGHT WRIST CARPAL TUNNEL 2010 LEFT SHOULDER - ROTATOR CUFF 2016 SPINAL TAP 2016 COLONOSCOPY-ADENOMATOUS POLYP 5-10 YR FU 07/11/15 LEFT TOTAL KNEE REPLACEMENT FAMILY HISTORY FATHER: , DIAGNOSED WITH UNSPECIFIED HEART DISEASE MOTHER: , UNSPECIFIED HEART DISEASE 2 SON(S) , 1 DAUGHTER(S) - HEALTHY. SIBLINGS - ; UNSURE OF CAUSE. SOCIAL HISTORY GENERAL: TOBACCO USE ARE YOU A:FORMER SMOKER HOW LONG HAS IT BEEN SINCE YOU LAST SMOKED?> 10 YEARS LATEX QUESTIONNAIRE LATEX ALLERGY : HAVE YOU EVER DEVELOPED ANY TYPE OF REACTION AFTER HANDLING LATEX PRODUCTS SUCH RUBBER GLOVES, CONDOMS, DIAPHRAGMS, BALLOONS, SOCKS, OR UNDERWEAR?NO LATEX ALLERGY : HAVE YOU EVER DEVELOPED ANY TYPE OF REACTION DURING OR AFTER DENTAL APPOINTMENT, VAGINAL/RECTAL EXAMINATION, SURGICAL PROCEDURE, OR ANY OTHER EXPOSURE?NO LATEX RISK : HAVE YOU EVER HAD ANY DIFFICULTY BREATHING OR HIVES AFTER EATING OR HANDLING ANY FRUITS, OR VEGETABLES; SUCH KIWI, BANANAS, STONE FRUITS, OR CHESTNUTSNO LATEX RISK : DO YOU HAVE A PREVIOUS PERSONAL HISTORY OF MORE THAN NINE SURGERIES, SPINA BIFIDA, OR REPEATED CATHERIZATIONS? YES - PLEASE INDICATE : > 9 SURGERIES LATEX RISK : ARE YOU FREQUENTLY EXPOSED TO LATEX PRODUCTS IN YOUR OCCUPATION?NO DATE ASKED : 08/13/2020 ALCOHOL SCREENING DID YOU HAVE A DRINK CONTAINING ALCOHOL IN THE PAST YEAR?NO POINTS0 INTERPRETATIONNEGATIVE RECREATIONAL DRUG USE DRUG USE?NO CAFFEINE CAFFEINE USE?YES HOW OFTEN AND HOW MUCH? DAILY COFFEE HIV / HEP-C SCREENING HIV TEST OFFERED TO PATIENT:YES DATE OFFERED:11/17/2019 TEST ACCEPTED:NO HEP-C TEST OFFERED TO PATIENT:YES DATE OFFERED:11/17/2019 REASON:PATIENT DECLINED TEST ACCEPTED:NO REASON:PATIENT DECLINED BROCHURE PROVIDED TO PATIENTNO YAZIDI [id number] NONE LANGUAGE LANGUAGES SPOKEN:BULGARIAN EDUCATION LEVEL OF EDUCATION:HIGH SCHOOL LEARNING BARRIERS / SPECIAL NEEDS BARRIERS TO LEARNING?NO HEARING IMPAIRED?NO VISION IMPAIRED?YES COGNITIVELY IMPAIRED?NO :CORRECTIVE LENSES READINESS TO LEARN?YES LEARNING PREFERENCES?YES :BOOKLETS, HANDOUTS LEARNING CAPABILITIES PRESENT?YES EMOTIONAL BARRIERS?NO SPECIAL DEVICES?YES :CANE OCCASSIONAL WEB CONTENT MANAGER NEEDED?NO 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 DIET: REGULAR. EXERCISE: WALKS. MARITAL STATUS: . OTHERS AT HOME: SPOUSE. PAIN CLINIC PFS, CLERGY, PUBLIC HEALTH REFERRALS PFS REFERRAL NEEDED?NO CLERGY REFERRAL NEEDED?NO PUBLIC HEALTH REFERRAL NEEDED?NO WAS THE PROVIDER NOTIFIED OF ANY PERTINENT INFO?YES HAS THE PATIENT BEEN EDUCATED REGARDING HIS/HER PLAN OF CARE?YES HAS THE PATIENT BEEN EDUCATED REGARDING PAIN, THE RISK FOR PAIN, THE IMPORTANCE OF EFFECTIVE PAIN MANAGEMENT, AND THE PAIN ASSESSMENT PROCESS?YES HOUSING: OWNS HOME. ADVANCE DIRECTIVE ADVANCE DIRECTIVE DISCUSSED WITH PATIENT:YES HCP - ALBINO BUSTILLOS () [phone] HOSPITALIZATION/MAJOR DIAGNOSTIC PROCEDURE PER ABOVE REVIEW OF SYSTEMS CONSTITUTIONAL: ANY RECENT FEVER NO . CHILLS NO . WEIGHT CHANGE OF UNKNOWN REASONS NO . GASTROENTEROLOGY: NEW UNEXPLAINABLE CHANGES IN BOWEL CONTROL NO . CONSTIPATION NO . GENITOURINARY: ANY NEW CHANGE IN BLADDER CONTROL? NO . NEUROLOGY: NEW ONSET DIZZINESS OR NEUROLOGICAL CHANGES NOT MENTIONED NO . NEW NUMBNESS OR PAIN PATTERNS NOT MENTIONED AND PERTINENT TO TODAY'S VISIT NO . CARDIOLOGY: NEW CHEST PRESSURE NO . NEW CHEST PAIN NO . RESPIRATORY: UNEXPLAINABLE COUGH NO . NEW SHORTNESS OF BREATH NO . VITAL SIGNS WT 273 LBS, HT 68 IN, BMI 41.50 INDEX, BP 158/81 MM HG, HR 111 /MIN, RR 18 /MIN, TEMP 97.6 F, OXYGEN SAT % 97%, NA INITIALS SC 11:32. EXAMINATION GENERAL EXAMINATION: GENERALNO ACUTE DISTRESS, WELL NOURISHED AND HYDRATED. PSYCHAPPROPRIATE MOOD AND AFFECT . LUNGS:CLEAR TO AUSCULTATION BILATERALLY, NO WHEEZES, RHONCHI, RALES. HEART:NO MURMURS, REGULAR RATE AND RHYTHM. ASSESSMENTS SPONDYLOSIS WITHOUT MYELOPATHY OR RADICULOPATHY, LUMBAR REGION - M47.816 (PRIMARY) TREATMENT SPONDYLOSIS WITHOUT MYELOPATHY OR RADICULOPATHY, LUMBAR REGION REFILL OXYCONTIN TABLET ER 12 HOUR ABUSE-DETERRENT, 15 MG, 1 TABLET, ORALLY, DAILY IN AM, 5 DAYS, 5 START MS CONTIN TABLET EXTENDED RELEASE, 15 MG, 1 TABLET, ORALLY, AT NIGHT X 5 DAYS THEN GO TO EVERY 12 HRS PRN, 30 DAYS, 60 NOTES: 65-YEAR-OLD MALE IN FOR CHRONIC PAIN FOLLOW-UP. GIVEN PRESENTING SYMPTOMS RECOMMENDED TAPERING OFF HIS OXYCONTIN AND STARTING MORPHINE WITH FOLLOW-UP IN ONE MONTH TO DETERMINE EFFICACY TREATMENT. TAPERING DOSE WAS DISCUSSED WITH PATIENT. PATIENT HAS EXPRESSED UNDERSTANDING OF AND WAS IN AGREEMENT WITH TREATMENT PLAN. GIVEN TIME TO ASK QUESTIONS AND EXPRESS CONCERNS. , ISTOP REGISTRY REVIEWED AND DEMONSTRATES COMPLLIANCE. (REF # [id number] ) BRINGS IN MEDICATIONS WHICH IS APPROPRIATE FOR WHAT WAS DISPENSED. RECENT URINE TOXICOLOGY REVIEWED. NO UNAUTHORIZED MEDICATIONS. NO ILLICIT SUBSTANCES AND PRESCRIBED MEDICATIONS WERE PRESENT. EDUCATION GIVEN ON MORPHINE PRESCRIPTION TO PATIENT. Skinny WOOD. PROCEDURE CODES [id number] ESTABILISHED PATIENT [facility] FACILITY CHARGE DISPOSITION & COMMUNICATION FOLLOW UP 4 WEEKS (REASON: BACK PAIN, NEW MED ) ELECTRONICALLY SIGNED BY ANGIE YANG ON 08/14/2020 AT 08:58 AM EST DISCLAIMER : THIS IS A VISIT SUMMARY EXTRACTED FROM THE [employer] CHART. IT IS NOT A COPY OF THE [employer] PROGRESS NOTE. JAGRUTID
== END ==
LOC: M PAIN 11:30
PROVIDERS: ATTEND Family Medicine
DX: M47.816 Spondylosis without myelopathy or radiculopathy, lumbar region (principal); G89.29 Other chronic pain; J44.9 Chronic obstructive pulmonary disease, unspecified; G25.81 Restless legs syndrome; Z96.653 Presence of artificial knee joint, bilateral; Z87.891 Personal history of nicotine dependence; Z88.5 Allergy status to narcotic agent; E66.01 Morbid (severe) obesity due to excess calories; Z68.41 Body mass index [BMI] 40.0-44.9, adult; Z79.891 Long term (current) use of opiate analgesic; Z79.899 Other long term (current) drug therapy

== ENCOUNTER → 2020-09-10 | Outpatient (CLI) | payer BC ==
--- NOTE | 2020-09-12 02:47 | ECWPNPC ---
PATIENT NAME: MARKELL BUSTILLOS : 1955 GENDER: MALE VISIT DATE: 09/10/2020 DISCHARGE DATE: 09/10/20 1507 VISIT LOCKED DATE TIME: PHYSICIAN: YOSSI JAMES PHYSICIAN PAGER NO: ACTIVE RESOURCE: YOSSI JAMES REASON FOR APPOINTMENT 1. 4 WEEK FOLLOW UP BACK PAIN, NEW MED HISTORY OF PRESENT ILLNESS DEPRESSION SCREENING: PHQ-2 (2015 EDITION) LITTLE INTEREST OR PLEASURE IN DOING THINGS?NOT AT ALL FEELING DOWN, DEPRESSED, OR HOPELESS?NOT AT ALL TOTAL SCORE0 65-YEAR-OLD MALE IN FOR CHRONIC PAIN FOLLOW-UP. AT LAST CLINIC VISIT PATIENT WAS TRANSITIONED FROM OXYCONTIN TO MORPHINE ER 15 MG TWICE A DAY. HE ADMITS TODAY THAT THE MORPHINE HAS BEEN HELPFUL HOWEVER HE DOES HAVE PERIODS OF BREAKTHROUGH PAIN AND. PAIN CENTER INTAKE QUESTIONS: DO YOU HAVE A HISTORY OF MRSA? :NO DO YOU TAKE A BLOOD THINNERS? :NO DO YOU HAVE ANY BLEEDING DISORDERS? :NO ANY NEW NUMBNESS OR WEAKNESS IN YOUR LEGS OR ARMS? :NO ANY PACEMAKER,DEFIBRILLATOR, OR DORSAL COLUMN STIMULATOR? :NO DO YOU HAVE ANY RASHES OR OPEN SORES? :NO ARE YOU ALLERGIC TO IV DYE? :NO ARE YOU DIABETIC? :NO ANY NEW PROBLEMS WITH YOUR MEDICATIONS? :NO HAVE YOU RECEIVED A VACCINE IN THE PAST 30 DAYS? :NO DO YOU PLAN TO RECEIVE A VACCINE IN THE NEXT 21 DAYS? :NO DO YOU NEED ANY PRESCRIPTION? :NO DO YOU TAKE ANY IMMUNOSUPPRESSIVE MEDICATIONS? :NO IS THERE A CHANCE YOU COULD BE ? :NO ARE YOU BREAST FEEDING? :NO GENERAL: -. FALL RISK SCREENING: SCREENING :NO FALLS REPORTED IN THE LAST YEAR PAIN SCREENING: PATIENT HAS A COMPLAINT OF ACUTE OR CHRONIC PAIN :YES LOCATION OF PAIN:LOW BACK INTENSITY OF PAIN (SCALE OF 1 TO 10):4 WHAT DOES YOUR PAIN FEEL LIKE:STABBING, INTERMITTENT, SHOOTING DURATION:CONSTANT, CONTINOUS NURSING NOTE: -. CURRENT MEDICATIONS TAKING BACLOFEN 10 MG TABLET 1 TABLET WITH FOOD OR MILK ORALLY FOUR TIMES DAILY TAKING HYDROXYZINE HCL 25 MG TABLET 1 TAB ORALLY EVERY 8 HRS NEEDED TAKING LIDODERM 5 % PATCH 1 PATCH REMOVE AFTER 12 HOURS EXTERNALLY PRN ON 12 HOURS OFF 12 HOURS TAKING VOLTAREN 1 % GEL APPLY 4 GMS TO LEFT KNEE TOPICALLY Q8H PRN PAIN TAKING ALBUTEROL SULFATE (2.5 MG/3ML) 0.083% NEBULIZATION SOLUTION 3 ML INHALATION ONCE DAILY NEEDED TAKING DULERA 100-5 MCG/ACT AEROSOL 2 PUFFS INHALATION TWICE A DAY NEEDED TAKING FUROSEMIDE 40 MG TABLET 1 TABLET ORALLY ONCE Q 3 DAYS PRN TAKING ROPINIROLE HCL 2 MG TABLET ORALLY FOUR TIMES DAILY TAKING CARBAMAZEPINE 200 MG TABLET 1 TABLET ORALLY TWICE A DAY TAKING MS CONTIN 15 MG TABLET EXTENDED RELEASE 1 TABLET ORALLY AT NIGHT X 5 DAYS THEN GO TO EVERY 12 HRS PRN NOT-TAKING NUCYNTA 50 MG TABLET 1 TABLET ORALLY BID NEEDED NOT-TAKING OXYCONTIN 15 MG TABLET ER 12 HOUR ABUSE-DETERRENT 1 TABLET ORALLY DAILY IN AM NOT-TAKING LYRICA 100 MG CAPSULE 1 CAPSULE ORALLY FOUR TIMES DAILY MEDICATION LIST REVIEWED AND RECONCILED WITH THE PATIENT PAST MEDICAL HISTORY 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 CRAWFORD 07/02/05 RIGHT KNEE TOTAL REPLACEMENT 2006 LEFT SHOULDER ROTATOR CUFF 2007 LEFT FRONTAL MAXILLARY SINUSITIS SINUSOTOMY 2009 RIGHT WRIST CARPAL TUNNEL 2010 LEFT SHOULDER - ROTATOR CUFF 2016 SPINAL TAP 2016 COLONOSCOPY-ADENOMATOUS POLYP 5-10 YR FU 07/11/15 LEFT TOTAL KNEE REPLACEMENT FAMILY HISTORY FATHER: , DIAGNOSED WITH UNSPECIFIED HEART DISEASE MOTHER: , UNSPECIFIED HEART DISEASE 2 SON(S) , 1 DAUGHTER(S) - HEALTHY. SIBLINGS - ; UNSURE OF CAUSE. SOCIAL HISTORY GENERAL: TOBACCO USE ARE YOU A:FORMER SMOKER HOW LONG HAS IT BEEN SINCE YOU LAST SMOKED?> 10 YEARS LATEX QUESTIONNAIRE LATEX ALLERGY : HAVE YOU EVER DEVELOPED ANY TYPE OF REACTION AFTER HANDLING LATEX PRODUCTS SUCH RUBBER GLOVES, CONDOMS, DIAPHRAGMS, BALLOONS, SOCKS, OR UNDERWEAR?NO LATEX ALLERGY : HAVE YOU EVER DEVELOPED ANY TYPE OF REACTION DURING OR AFTER DENTAL APPOINTMENT, VAGINAL/RECTAL EXAMINATION, SURGICAL PROCEDURE, OR ANY OTHER EXPOSURE?NO DATE ASKED : 08/13/2020 LATEX RISK : HAVE YOU EVER HAD ANY DIFFICULTY BREATHING OR HIVES AFTER EATING OR HANDLING ANY FRUITS, OR VEGETABLES; SUCH KIWI, BANANAS, STONE FRUITS, OR CHESTNUTSNO LATEX RISK : DO YOU HAVE A PREVIOUS PERSONAL HISTORY OF MORE THAN NINE SURGERIES, SPINA BIFIDA, OR REPEATED CATHERIZATIONS? YES - PLEASE INDICATE : > 9 SURGERIES LATEX RISK : ARE YOU FREQUENTLY EXPOSED TO LATEX PRODUCTS IN YOUR OCCUPATION?NO ALCOHOL SCREENING DID YOU HAVE A DRINK CONTAINING ALCOHOL IN THE PAST YEAR?NO POINTS0 INTERPRETATIONNEGATIVE RECREATIONAL DRUG USE DRUG USE?NO CAFFEINE CAFFEINE USE?YES HOW OFTEN AND HOW MUCH? DAILY COFFEE HIV / HEP-C SCREENING HIV TEST OFFERED TO PATIENT:YES DATE OFFERED:11/17/2019 TEST ACCEPTED:NO HEP-C TEST OFFERED TO PATIENT:YES DATE OFFERED:11/17/2019 REASON:PATIENT DECLINED TEST ACCEPTED:NO REASON:PATIENT DECLINED BROCHURE PROVIDED TO PATIENTNO TENRIISM [id number] NONE LANGUAGE LANGUAGES SPOKEN:HUNGARIAN EDUCATION LEVEL OF EDUCATION:HIGH SCHOOL LEARNING BARRIERS / SPECIAL NEEDS BARRIERS TO LEARNING?NO HEARING IMPAIRED?NO VISION IMPAIRED?YES COGNITIVELY IMPAIRED?NO :CORRECTIVE LENSES READINESS TO LEARN?YES LEARNING PREFERENCES?YES :BOOKLETS, HANDOUTS LEARNING CAPABILITIES PRESENT?YES EMOTIONAL BARRIERS?NO SPECIAL DEVICES?YES :CANE OCCASSIONAL TONE REGULATOR NEEDED?NO DOMESTIC VIOLENCE DO YOU FEEL SAFE IN YOUR ENVIRONMENT?YES OCCUPATION: RETIRED//[employer]. DIET: REGULAR. EXERCISE: WALKS. MARITAL STATUS: . OTHERS AT HOME: SPOUSE. PAIN CLINIC PFS, CLERGY, PUBLIC HEALTH REFERRALS PFS REFERRAL NEEDED?NO CLERGY REFERRAL NEEDED?NO PUBLIC HEALTH REFERRAL NEEDED?NO WAS THE PROVIDER NOTIFIED OF ANY PERTINENT INFO?YES HAS THE PATIENT BEEN EDUCATED REGARDING HIS/HER PLAN OF CARE?YES HAS THE PATIENT BEEN EDUCATED REGARDING PAIN, THE RISK FOR PAIN, THE IMPORTANCE OF EFFECTIVE PAIN MANAGEMENT, AND THE PAIN ASSESSMENT PROCESS?YES HOUSING: OWNS HOME. ADVANCE DIRECTIVE ADVANCE DIRECTIVE DISCUSSED WITH PATIENT:YES HCP - ALBINO BUSTILLOS () [phone] HOSPITALIZATION/MAJOR DIAGNOSTIC PROCEDURE PER ABOVE REVIEW OF SYSTEMS CONSTITUTIONAL: ANY RECENT FEVER NO . CHILLS NO . WEIGHT CHANGE OF UNKNOWN REASONS NO . GASTROENTEROLOGY: NEW UNEXPLAINABLE CHANGES IN BOWEL CONTROL NO . CONSTIPATION NO . GENITOURINARY: ANY NEW CHANGE IN BLADDER CONTROL? NO . NEUROLOGY: NEW ONSET DIZZINESS OR NEUROLOGICAL CHANGES NOT MENTIONED NO . NEW NUMBNESS OR PAIN PATTERNS NOT MENTIONED AND PERTINENT TO TODAY'S VISIT NO . CARDIOLOGY: NEW CHEST PRESSURE NO . NEW CHEST PAIN NO . RESPIRATORY: UNEXPLAINABLE COUGH NO . NEW SHORTNESS OF BREATH NO . VITAL SIGNS WT 269 LBS, HT 68 IN, BMI 40.90 INDEX, BP 122/68 MM HG, HR 106 /MIN, RR 18 /MIN, TEMP 97.1 F, OXYGEN SAT % 95%, SAFE IN ENV? (Y/N) YES, NA INITIALS SC 14:05, REVIEWED BY: KG. EXAMINATION GENERAL EXAMINATION: GENERALNO ACUTE DISTRESS, WELL NOURISHED AND HYDRATED. PSYCHAPPROPRIATE MOOD AND AFFECT . LUNGS:CLEAR TO AUSCULTATION BILATERALLY, NO WHEEZES, RHONCHI, RALES. HEART:NO MURMURS, REGULAR RATE AND RHYTHM. ASSESSMENTS SPONDYLOSIS OF CERVICAL REGION WITHOUT MYELOPATHY OR RADICULOPATHY - M47.812 (PRIMARY) TREATMENT SPONDYLOSIS OF CERVICAL REGION WITHOUT MYELOPATHY OR RADICULOPATHY START PERCOCET TABLET, 5-325 MG, 1 TABLET NEEDED, ORALLY, DAILY PRN BREAKTHROUGH PAIN 15 TABS TO LAST 30 DAYS, 30 DAYS, 15 NOTES: 65-YEAR-OLD MALE IN FOR CHRONIC PAIN FOLLOW-UP. GIVEN PRESENTING SYMPTOMS RECOMMEND ADDING PERCOCET 5/325 MG DOSE NEEDED FOR BREAKTHROUGH PAIN 15 TABS TO LAST ONE MONTH. PATIENT HAS EXPRESSED UNDERSTANDING OF AND WAS IN AGREEMENT WITH TREATMENT PLAN. GIVEN TIME TO ASK QUESTIONS AND EXPRESS CONCERNS. , ISTOP REGISTRY REVIEWED AND DEMONSTRATES COMPLLIANCE. (REF # [id number] ) BRINGS IN MEDICATIONS WHICH IS APPROPRIATE FOR WHAT WAS DISPENSED. RECENT URINE TOXICOLOGY REVIEWED. NO UNAUTHORIZED MEDICATIONS. NO ILLICIT SUBSTANCES AND PRESCRIBED MEDICATIONS WERE PRESENT. PREVENTIVE MEDICINE PAIN CLINIC TEACHING: SLEEP HABITS WE DISCUSSED THE IMPORTANCE OF SLEEP. MEDICATIONS PERCOCET PRESCRIBED FOR BREAK THROUGH PAIN AND WE DISCUSSED HOW 15 TABS NEED TO LAST FOR 30 DAYS OFFERED PRINTED EDUCATION AND PT DECLINED . DISPOSITION & COMMUNICATION FOLLOW UP 3 MONTHS (REASON: NECK PAIN) ELECTRONICALLY SIGNED BY ANGIE YANG ON 09/11/2020 AT 09:31 AM EST DISCLAIMER : THIS IS A VISIT SUMMARY EXTRACTED FROM THE [employer] CHART. IT IS NOT A COPY OF THE [employer] PROGRESS NOTE. SOFIA
== END ==
LOC: M PAIN 14:00
PROVIDERS: ATTEND Family Medicine
DX: M47.812 Spondylosis without myelopathy or radiculopathy, cervical region (principal); G89.29 Other chronic pain; J44.9 Chronic obstructive pulmonary disease, unspecified; G25.81 Restless legs syndrome; Z96.653 Presence of artificial knee joint, bilateral; Z87.891 Personal history of nicotine dependence; Z88.5 Allergy status to narcotic agent; E66.01 Morbid (severe) obesity due to excess calories; Z68.41 Body mass index [BMI] 40.0-44.9, adult; Z79.891 Long term (current) use of opiate analgesic; Z79.899 Other long term (current) drug therapy

== ENCOUNTER → 2020-12-09 | Outpatient (CLI) | payer BC ==
--- NOTE | 2020-12-11 06:11 | ECWPNPC ---
PATIENT NAME: MARKELL BUSTILLOS : 1955 GENDER: MALE VISIT DATE: 12/09/2020 DISCHARGE DATE: 12/09/20 1445 VISIT LOCKED DATE TIME: PHYSICIAN: YOSSI JAMES PHYSICIAN PAGER NO: ACTIVE RESOURCE: YOSSI JAMES REASON FOR APPOINTMENT 1. NECK PAIN HISTORY OF PRESENT ILLNESS GENERAL: - 65-YEAR-OLD MALE IN FOR CHRONIC PAIN FOLLOW-UP. HE RATES HIS PAIN CURRENTLY AT A 6 OUT OF 10 AND DESCRIBES IT INTERMITTENT AND SHOOTING. PATIENT WAS STARTED ON PERCOCET AT LAST CLINIC VISIT AND ADMITS TODAY THAT THIS IS BENEFICIAL HOWEVER ON THE DAYS THAT HE DOES NOT HAVE THE PERCOCET AVAILABLE HE IS STILL EXPERIENCING BREAKTHROUGH PAIN. FALL RISK SCREENING: SCREENING : NO FALLS REPORTED IN THE LAST YEAR. PAIN SCREENING: PATIENT HAS A COMPLAINT OF ACUTE OR CHRONIC PAIN :YES LOCATION OF PAIN:NECK, LOW BACK INTENSITY OF PAIN (SCALE OF 1 TO 10):6 WHAT DOES YOUR PAIN FEEL LIKE:INTERMITTENT, SHOOTING DURATION:INTERMITTENT, AWAKENS FROM SLEEP PAIN IS INCREASED BY:OTHERS PATIENT STATES HE DOES NOT THINK ANYTHING SPECIFIC TRIGGERS THE PAIN, AND THAT IT HAPPENS WHEN IT HAPPENS. PAIN IS DECREASED BY:USE OF PAIN MEDICATIONS, SITTING, OTHERS PATCHES NURSING NOTE: -. PAIN CENTER INTAKE QUESTIONS: DO YOU HAVE A HISTORY OF MRSA? :NO DO YOU TAKE A BLOOD THINNERS? :NO DO YOU HAVE ANY BLEEDING DISORDERS? :NO ANY NEW NUMBNESS OR WEAKNESS IN YOUR LEGS OR ARMS? :NO ANY PACEMAKER,DEFIBRILLATOR, OR DORSAL COLUMN STIMULATOR? :NO DO YOU HAVE ANY RASHES OR OPEN SORES? :NO ARE YOU ALLERGIC TO IV DYE? :NO ARE YOU DIABETIC? :YES BORDERLINE DIABETIC ANY NEW PROBLEMS WITH YOUR MEDICATIONS? :YES WOULD LIKE TO DISCUSS THE [place] HAVE YOU RECEIVED A VACCINE IN THE PAST 30 DAYS? :NO DO YOU PLAN TO RECEIVE A VACCINE IN THE NEXT 21 DAYS? :NO DO YOU NEED ANY PRESCRIPTION? :NO DO YOU TAKE ANY IMMUNOSUPPRESSIVE MEDICATIONS? :NO DO YOU HAVE ANY KIDNEY OR LIVER DISEASE? :NO IS THERE A CHANCE YOU COULD BE ? :NO ARE YOU BREAST FEEDING? :NO CURRENT MEDICATIONS TAKING BACLOFEN 10 MG TABLET 1 TABLET WITH FOOD OR MILK ORALLY FOUR TIMES DAILY TAKING HYDROXYZINE HCL 25 MG TABLET 1 TAB ORALLY EVERY 8 HRS NEEDED TAKING LIDODERM 5 % PATCH 1 PATCH REMOVE AFTER 12 HOURS EXTERNALLY PRN ON 12 HOURS OFF 12 HOURS TAKING VOLTAREN 1 % GEL APPLY 4 GMS TO LEFT KNEE TOPICALLY Q8H PRN PAIN TAKING ALBUTEROL SULFATE (2.5 MG/3ML) 0.083% NEBULIZATION SOLUTION 3 ML INHALATION ONCE DAILY NEEDED TAKING DULERA 100-5 MCG/ACT AEROSOL 2 PUFFS INHALATION TWICE A DAY NEEDED TAKING FUROSEMIDE 40 MG TABLET 1 TABLET ORALLY ONCE Q 3 DAYS PRN TAKING ROPINIROLE HCL 2 MG TABLET ORALLY FOUR TIMES DAILY TAKING CARBAMAZEPINE 200 MG TABLET 1 TABLET ORALLY TWICE A DAY TAKING PERCOCET 5-325 MG TABLET 1 TABLET NEEDED ORALLY DAILY PRN BREAKTHROUGH PAIN 15 TABS TO LAST 30 DAYS TAKING MS CONTIN 15 MG TABLET EXTENDED RELEASE 1 TABLET ORALLY EVERY 12 HOURS NEEDED UNKNOWN NUCYNTA 50 MG TABLET 1 TABLET ORALLY BID NEEDED UNKNOWN OXYCONTIN 15 MG TABLET ER 12 HOUR ABUSE-DETERRENT 1 TABLET ORALLY DAILY IN AM UNKNOWN LYRICA 100 MG CAPSULE 1 CAPSULE ORALLY FOUR TIMES DAILY MEDICATION LIST REVIEWED AND RECONCILED WITH THE PATIENT PAST MEDICAL HISTORY 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 LOW BACK PAIN BILATERAL HIP PAIN CHRONIC PRESCRIPTION OPIATE USE ALLERGIES TRAMADOL HCL: DIARRHEA - SIDE EFFECTS SOCIAL HISTORY GENERAL: TOBACCO USE ARE YOU A:FORMER SMOKER HOW LONG HAS IT BEEN SINCE YOU LAST SMOKED?> 10 YEARS LATEX QUESTIONNAIRE LATEX ALLERGY : HAVE YOU EVER DEVELOPED ANY TYPE OF REACTION AFTER HANDLING LATEX PRODUCTS SUCH RUBBER GLOVES, CONDOMS, DIAPHRAGMS, BALLOONS, SOCKS, OR UNDERWEAR?NO LATEX ALLERGY : HAVE YOU EVER DEVELOPED ANY TYPE OF REACTION DURING OR AFTER DENTAL APPOINTMENT, VAGINAL/RECTAL EXAMINATION, SURGICAL PROCEDURE, OR ANY OTHER EXPOSURE?NO LATEX RISK : HAVE YOU EVER HAD ANY DIFFICULTY BREATHING OR HIVES AFTER EATING OR HANDLING ANY FRUITS, OR VEGETABLES; SUCH KIWI, BANANAS, STONE FRUITS, OR CHESTNUTSNO LATEX RISK : DO YOU HAVE A PREVIOUS PERSONAL HISTORY OF MORE THAN NINE SURGERIES, SPINA BIFIDA, OR REPEATED CATHERIZATIONS? YES - PLEASE INDICATE : > 9 SURGERIES LATEX RISK : ARE YOU FREQUENTLY EXPOSED TO LATEX PRODUCTS IN YOUR OCCUPATION?NO DATE ASKED : 12/09/2020 ALCOHOL USE: NO. ALCOHOL SCREENING DID YOU HAVE A DRINK CONTAINING ALCOHOL IN THE PAST YEAR?NO POINTS0 INTERPRETATIONNEGATIVE RECREATIONAL DRUG USE DRUG USE?NO CAFFEINE CAFFEINE USE?YES HOW OFTEN AND HOW MUCH? DAILY COFFEE HIV / HEP-C SCREENING HIV TEST OFFERED TO PATIENT:YES DATE OFFERED:11/17/2019 TEST ACCEPTED:NO HEP-C TEST OFFERED TO PATIENT:YES DATE OFFERED:11/17/2019 REASON:PATIENT DECLINED TEST ACCEPTED:NO REASON:PATIENT DECLINED BROCHURE PROVIDED TO PATIENTNO PRESYBETERIAN [id number] NONE LANGUAGE LANGUAGES SPOKEN:PORTUGUESE EDUCATION LEVEL OF EDUCATION:HIGH SCHOOL LEARNING BARRIERS / SPECIAL NEEDS CHANGE FROM LAST VISIT?NO BARRIERS TO LEARNING?NO HEARING IMPAIRED?NO VISION IMPAIRED?YES :CORRECTIVE LENSES COGNITIVELY IMPAIRED?NO READINESS TO LEARN?YES LEARNING PREFERENCES?YES :BOOKLETS, HANDOUTS LEARNING CAPABILITIES PRESENT?YES EMOTIONAL BARRIERS?NO SPECIAL DEVICES?YES :CANE OCCASSIONAL HOSPICE VOLUNTEER COORDINATOR NEEDED?NO 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 DIET: REGULAR. EXERCISE: WALKS. MARITAL STATUS: . OTHERS AT HOME: SPOUSE. - PFS REFERRAL NEEDED?NO CLERGY REFERRAL NEEDED?NO PUBLIC HEALTH REFERRAL NEEDED?NO WAS THE PROVIDER NOTIFIED OF ANY PERTINENT INFO?YES HAS THE PATIENT BEEN EDUCATED REGARDING HIS/HER PLAN OF CARE?YES HAS THE PATIENT BEEN EDUCATED REGARDING PAIN, THE RISK FOR PAIN, THE IMPORTANCE OF EFFECTIVE PAIN MANAGEMENT, AND THE PAIN ASSESSMENT PROCESS?YES HOUSING: OWNS HOME. ADVANCE DIRECTIVE ADVANCE DIRECTIVE DISCUSSED WITH PATIENT:YES HCP - ALBINO BUSTILLOS () [phone] REVIEW OF SYSTEMS CONSTITUTIONAL: ANY RECENT FEVER NO . CHILLS NO . WEIGHT CHANGE OF UNKNOWN REASONS NO . GASTROENTEROLOGY: NEW UNEXPLAINABLE CHANGES IN BOWEL CONTROL NO . CONSTIPATION NO . GENITOURINARY: ANY NEW CHANGE IN BLADDER CONTROL? NO . NEUROLOGY: NEW ONSET DIZZINESS OR NEUROLOGICAL CHANGES NOT MENTIONED NO . NEW NUMBNESS OR PAIN PATTERNS NOT MENTIONED AND PERTINENT TO TODAY'S VISIT NO . CARDIOLOGY: NEW CHEST PRESSURE NO . PATIENT DENIES NO . RESPIRATORY: UNEXPLAINABLE COUGH NO . NEW SHORTNESS OF BREATH NO . VITAL SIGNS WT 266.0 LBS, HT 68 IN, BMI 40.44 INDEX, BP 172/74 MM HG, HR 103 /MIN, RR 18 /MIN, TEMP 97.9 F, OXYGEN SAT % 95%, SAFE IN ENV? (Y/N) YES, NA INITIALS AW 1406, REVIEWED BY: JODY BORGES MA. EXAMINATION GENERAL EXAMINATION: GENERALNO ACUTE DISTRESS, WELL NOURISHED AND HYDRATED. PSYCHAPPROPRIATE MOOD AND AFFECT . LUNGS:CLEAR TO AUSCULTATION BILATERALLY, NO WHEEZES, RHONCHI, RALES. HEART:NO MURMURS, REGULAR RATE AND RHYTHM. ASSESSMENTS SPONDYLOSIS WITHOUT MYELOPATHY OR RADICULOPATHY, LUMBAR REGION - M47.816 (PRIMARY), RISK: (NULL) TREATMENT SPONDYLOSIS WITHOUT MYELOPATHY OR RADICULOPATHY, LUMBAR REGION NOTES: CHRONIC PAIN FOLLOW-UP. GIVEN PRESENTING SYMPTOMS RECOMMEND INCREASING PERCOCET TABS TO 30 A MONTH. WE'LL FOLLOW-UP IN 3 MONTHS. PATIENT HAS EXPRESSED UNDERSTANDING OF AND WAS IN AGREEMENT WITH TREATMENT PLAN. GIVEN TIME TO ASK QUESTIONS AND EXPRESS CONCERNS. , ISTOP REGISTRY REVIEWED AND DEMONSTRATES COMPLLIANCE. (REF # [id number] ) BRINGS IN MEDICATIONS WHICH IS APPROPRIATE FOR WHAT WAS DISPENSED. RECENT URINE TOXICOLOGY REVIEWED. NO UNAUTHORIZED MEDICATIONS. NO ILLICIT SUBSTANCES AND PRESCRIBED MEDICATIONS WERE PRESENT. PROCEDURE CODES [id number] ESTABILISHED PATIENT [facility] CHARGE DISPOSITION & COMMUNICATION FOLLOW UP 3 MONTHS (REASON: LOW BACK PAIN ) ELECTRONICALLY SIGNED BY ANGIE YANG ON 12/10/2020 AT 10:10 AM EDT DISCLAIMER : THIS IS A VISIT SUMMARY EXTRACTED FROM THE [employer] CHART. IT IS NOT A COPY OF THE [employer] PROGRESS NOTE. SOFIA
== END ==
LOC: M PAIN 14:15
PROVIDERS: ATTEND Family Medicine
DX: M47.816 Spondylosis without myelopathy or radiculopathy, lumbar region (principal); G89.29 Other chronic pain; J44.9 Chronic obstructive pulmonary disease, unspecified; G25.81 Restless legs syndrome; Z87.891 Personal history of nicotine dependence; Z88.5 Allergy status to narcotic agent; E66.01 Morbid (severe) obesity due to excess calories; Z68.41 Body mass index [BMI] 40.0-44.9, adult; Z79.899 Other long term (current) drug therapy

== ENCOUNTER → 2021-03-20 | Outpatient (CLI) | payer BC ==
--- NOTE | 2021-03-22 04:54 | ECWPNPC ---
PATIENT NAME: MARKELL BUSTILLOS : 1955 GENDER: MALE VISIT DATE: 03/20/2021 DISCHARGE DATE: 03/20/21 1407 VISIT LOCKED DATE TIME: PHYSICIAN: YOSSI JAMES PHYSICIAN PAGER NO: ACTIVE RESOURCE: YOSSI JAMES REASON FOR APPOINTMENT 1. LOW BACK PAIN HISTORY OF PRESENT ILLNESS DEPRESSION SCREENING: PHQ-2 (2015 EDITION) LITTLE INTEREST OR PLEASURE IN DOING THINGS?NOT AT ALL FEELING DOWN, DEPRESSED, OR HOPELESS?NOT AT ALL TOTAL SCORE0 GENERAL: HPI 66-YEAR-OLD MALE IN FOR CHRONIC PAIN FOLLOW-UP. AT LAST CLINIC VISIT PATIENT'S NUMBER OF PERCOCET TABS WAS INCREASED TO 30 AND HE ADMITS TODAY THAT THIS HAS BEEN BENEFICIAL. PATIENT HAS HAD INJECTIONS IN THE PAST AND WOULD LIKE TO DISCUSS REPEAT PROCEDURES TODAY. HE RATES HIS PAIN CURRENTLY AT A 4 OUT OF 10 AND DESCRIBES IT ACHING.. -. FALL RISK SCREENING: SCREENING : NO FALLS REPORTED IN THE LAST YEAR. PAIN SCREENING: PATIENT HAS A COMPLAINT OF ACUTE OR CHRONIC PAIN :YES LOCATION OF PAIN:LOW BACK INTENSITY OF PAIN (SCALE OF 1 TO 10):4 WHAT DOES YOUR PAIN FEEL LIKE:ACHING, OTHER DURATION:CONTINOUS, CONSTANT, ONLY WITH SPECIFIC ACTIVITIES, INTERMITTENT PAIN IS INCREASED BY:ACTIVITIES PAIN IS DECREASED BY:USE OF PAIN MEDICATIONS NURSING NOTE: -. PAIN CENTER INTAKE QUESTIONS: DO YOU HAVE A HISTORY OF MRSA? :NO DO YOU TAKE A BLOOD THINNERS? :NO DO YOU HAVE ANY BLEEDING DISORDERS? :NO ANY NEW NUMBNESS OR WEAKNESS IN YOUR LEGS OR ARMS? :NO ANY PACEMAKER,DEFIBRILLATOR, OR DORSAL COLUMN STIMULATOR? :NO DO YOU HAVE ANY RASHES OR OPEN SORES? :NO ARE YOU ALLERGIC TO IV DYE? :NO ARE YOU DIABETIC? :YES BORDERLINE DIABETIC ANY NEW PROBLEMS WITH YOUR MEDICATIONS? :YES WOULD LIKE TO DISCUSS THE [place] HAVE YOU RECEIVED A VACCINE IN THE PAST 30 DAYS? :NO DO YOU PLAN TO RECEIVE A VACCINE IN THE NEXT 21 DAYS? :NO DO YOU NEED ANY PRESCRIPTION? :NO NOT SURE DO YOU TAKE ANY IMMUNOSUPPRESSIVE MEDICATIONS? :NO DO YOU HAVE ANY KIDNEY OR LIVER DISEASE? :NO IS THERE A CHANCE YOU COULD BE ? :NO ARE YOU BREAST FEEDING? :NO CURRENT MEDICATIONS TAKING BACLOFEN 10 MG TABLET 1 TABLET WITH FOOD OR MILK ORALLY FOUR TIMES DAILY TAKING HYDROXYZINE HCL 25 MG TABLET 1 TAB ORALLY EVERY 8 HRS NEEDED TAKING LIDODERM 5 % PATCH 1 PATCH REMOVE AFTER 12 HOURS EXTERNALLY PRN ON 12 HOURS OFF 12 HOURS TAKING ALBUTEROL SULFATE (2.5 MG/3ML) 0.083% NEBULIZATION SOLUTION 3 ML INHALATION ONCE DAILY NEEDED TAKING DULERA 100-5 MCG/ACT AEROSOL 2 PUFFS INHALATION TWICE A DAY NEEDED TAKING ROPINIROLE HCL 2 MG TABLET ORALLY FOUR TIMES DAILY TAKING CARBAMAZEPINE 200 MG TABLET 1 TABLET ORALLY TWICE A DAY TAKING FUROSEMIDE 40 MG TABLET 1 TABLET ORALLY ONCE Q 3 DAYS PRN TAKING VOLTAREN 1 % GEL APPLY 4 GMS TO LEFT KNEE TOPICALLY Q8H PRN PAIN TAKING PERCOCET 5-325 MG TABLET 1 TABLET NEEDED ORALLY DAILY PRN BREAKTHROUGH PAIN 15 TABS TO LAST 30 DAYS ONCE A DAY TAKING MS CONTIN 15 MG TABLET EXTENDED RELEASE 1 TABLET ORALLY EVERY 12 HOURS NEEDED NOT-TAKING NUCYNTA 50 MG TABLET 1 TABLET ORALLY BID NEEDED NOT-TAKING OXYCONTIN 15 MG TABLET ER 12 HOUR ABUSE-DETERRENT 1 TABLET ORALLY DAILY IN AM NOT-TAKING LYRICA 100 MG CAPSULE 1 CAPSULE ORALLY FOUR TIMES DAILY MEDICATION LIST REVIEWED AND RECONCILED WITH THE PATIENT PAST MEDICAL HISTORY 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 LOW BACK PAIN BILATERAL HIP PAIN CHRONIC PRESCRIPTION OPIATE USE ALLERGIES TRAMADOL HCL: DIARRHEA - SIDE EFFECTS SOCIAL HISTORY GENERAL: TOBACCO USE ARE YOU A:FORMER SMOKER HOW LONG HAS IT BEEN SINCE YOU LAST SMOKED?> 10 YEARS LATEX QUESTIONNAIRE LATEX ALLERGY : HAVE YOU EVER DEVELOPED ANY TYPE OF REACTION AFTER HANDLING LATEX PRODUCTS SUCH RUBBER GLOVES, CONDOMS, DIAPHRAGMS, BALLOONS, SOCKS, OR UNDERWEAR?NO LATEX ALLERGY : HAVE YOU EVER DEVELOPED ANY TYPE OF REACTION DURING OR AFTER DENTAL APPOINTMENT, VAGINAL/RECTAL EXAMINATION, SURGICAL PROCEDURE, OR ANY OTHER EXPOSURE?NO LATEX RISK : HAVE YOU EVER HAD ANY DIFFICULTY BREATHING OR HIVES AFTER EATING OR HANDLING ANY FRUITS, OR VEGETABLES; SUCH KIWI, BANANAS, STONE FRUITS, OR CHESTNUTSNO LATEX RISK : DO YOU HAVE A PREVIOUS PERSONAL HISTORY OF MORE THAN NINE SURGERIES, SPINA BIFIDA, OR REPEATED CATHERIZATIONS? YES - PLEASE INDICATE : > 9 SURGERIES LATEX RISK : ARE YOU FREQUENTLY EXPOSED TO LATEX PRODUCTS IN YOUR OCCUPATION?NO DATE ASKED : 03/20/2021 ALCOHOL USE: NO. ALCOHOL SCREENING DID YOU HAVE A DRINK CONTAINING ALCOHOL IN THE PAST YEAR?NO POINTS0 INTERPRETATIONNEGATIVE RECREATIONAL DRUG USE DRUG USE?NO CAFFEINE CAFFEINE USE?YES HOW OFTEN AND HOW MUCH? DAILY COFFEE HIV / HEP-C SCREENING HIV TEST OFFERED TO PATIENT:YES DATE OFFERED:11/17/2019 TEST ACCEPTED:NO HEP-C TEST OFFERED TO PATIENT:YES DATE OFFERED:11/17/2019 REASON:PATIENT DECLINED TEST ACCEPTED:NO REASON:PATIENT DECLINED BROCHURE PROVIDED TO PATIENTNO YAZIDI [id number] NONE LANGUAGE LANGUAGES SPOKEN:UPPER SORBIAN EDUCATION LEVEL OF EDUCATION:HIGH SCHOOL LEARNING BARRIERS / SPECIAL NEEDS CHANGE FROM LAST VISIT?NO BARRIERS TO LEARNING?NO HEARING IMPAIRED?NO VISION IMPAIRED?YES :CORRECTIVE LENSES COGNITIVELY IMPAIRED?NO READINESS TO LEARN?YES LEARNING PREFERENCES?YES :BOOKLETS, HANDOUTS LEARNING CAPABILITIES PRESENT?YES EMOTIONAL BARRIERS?NO SPECIAL DEVICES?YES :CANE OCCASSIONAL MEDICAL TECHNICIANS NEEDED?NO 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 DIET: REGULAR. EXERCISE: WALKS. MARITAL STATUS: . OTHERS AT HOME: SPOUSE. - PFS REFERRAL NEEDED?NO CLERGY REFERRAL NEEDED?NO PUBLIC HEALTH REFERRAL NEEDED?NO WAS THE PROVIDER NOTIFIED OF ANY PERTINENT INFO?YES HAS THE PATIENT BEEN EDUCATED REGARDING HIS/HER PLAN OF CARE?YES HAS THE PATIENT BEEN EDUCATED REGARDING PAIN, THE RISK FOR PAIN, THE IMPORTANCE OF EFFECTIVE PAIN MANAGEMENT, AND THE PAIN ASSESSMENT PROCESS?YES HOUSING: OWNS HOME. ADVANCE DIRECTIVE ADVANCE DIRECTIVE DISCUSSED WITH PATIENT:YES HCP - ALBINO BUSTILLOS () [phone] REVIEW OF SYSTEMS CONSTITUTIONAL: ANY RECENT FEVER NO . CHILLS NO . WEIGHT CHANGE OF UNKNOWN REASONS NO . GASTROENTEROLOGY: NEW UNEXPLAINABLE CHANGES IN BOWEL CONTROL NO . CONSTIPATION NO . GENITOURINARY: ANY NEW CHANGE IN BLADDER CONTROL? NO . NEUROLOGY: NEW ONSET DIZZINESS OR NEUROLOGICAL CHANGES NOT MENTIONED NO . NEW NUMBNESS OR PAIN PATTERNS NOT MENTIONED AND PERTINENT TO TODAY'S VISIT NO . CARDIOLOGY: NEW CHEST PRESSURE NO . PATIENT DENIES NO . RESPIRATORY: UNEXPLAINABLE COUGH NO . NEW SHORTNESS OF BREATH NO . VITAL SIGNS WT 281.2 LBS, HT 68 IN, BMI 42.75 INDEX, BP 155/81 MM HG, HR 98 /MIN, RR 18 /MIN, TEMP 96.6 F, OXYGEN SAT % 97%, SAFE IN ENV? (Y/N) YES, NA INITIALS AW 1339T.LISSETTE GREER. EXAMINATION GENERAL EXAMINATION: GENERALNO ACUTE DISTRESS, WELL NOURISHED AND HYDRATED. PSYCHAPPROPRIATE MOOD AND AFFECT . LUNGS:CLEAR TO AUSCULTATION BILATERALLY, NO WHEEZES, RHONCHI, RALES. HEART:NO MURMURS, REGULAR RATE AND RHYTHM. ASSESSMENTS SPONDYLOSIS WITHOUT MYELOPATHY OR RADICULOPATHY, LUMBAR REGION - M47.816 (PRIMARY) CHRONIC PRESCRIPTION OPIATE USE - Z79.891 TREATMENT SPONDYLOSIS WITHOUT MYELOPATHY OR RADICULOPATHY, LUMBAR REGION [facility] MRI SPINE, L.S. WITHOUT [id number] NOTES: 66-YEAR-OLD MALE IN FOR CHRONIC PAIN FOLLOW-UP. GIVEN PRESENTING SYMPTOMS RECOMMEND GETTING AN UPDATED MRI FOR FURTHER EVALUATION IT WILL BE NEEDED FOR FUTURE PROCEDURES. FURTHER RECOMMEND CONTINUATION OF MEDICATION REGIMEN WITH FOLLOW-UP IN 3 MONTHS. PATIENT HAS EXPRESSED UNDERSTANDING OF AND WAS IN AGREEMENT WITH TREATMENT PLAN. GIVEN TIME TO ASK QUESTIONS AND EXPRESS CONCERNS. ISTOP REGISTRY REVIEWED AND DEMONSTRATES COMPLLIANCE. (REF #[id number] ) BRINGS IN MEDICATIONS WHICH IS APPROPRIATE FOR WHAT WAS DISPENSED. RECENT URINE TOXICOLOGY REVIEWED. NO UNAUTHORIZED MEDICATIONS. NO ILLICIT SUBSTANCES AND PRESCRIBED MEDICATIONS WERE PRESENT. CHRONIC PRESCRIPTION OPIATE USE LAB: URINE TEST GROUP [facility] 03/20/2021 2:03:26 PM > LAST DOSE; PERCOCET 03/20/2021, OXYCODONE 03/20/2021 PROCEDURE CODES FA211 ESTABILISHED PATIENT [facility] FACILITY CHARGE DISPOSITION & COMMUNICATION FOLLOW UP POST IMAGING (REASON: MRI OF THE LUMBAR SPINE WITHOUT CONTRAST) ELECTRONICALLY SIGNED BY ANGIE YANG ON 03/21/2021 AT 12:44 PM EDT DISCLAIMER : THIS IS A VISIT SUMMARY EXTRACTED FROM THE [employer] CHART. IT IS NOT A COPY OF THE [employer] PROGRESS NOTE. SOFIA
== END ==
LOC: M PAIN 13:45
PROVIDERS: ATTEND Family Medicine
DX: M47.816 Spondylosis without myelopathy or radiculopathy, lumbar region (principal); G89.29 Other chronic pain; J44.9 Chronic obstructive pulmonary disease, unspecified; G25.81 Restless legs syndrome; Z87.891 Personal history of nicotine dependence; Z88.5 Allergy status to narcotic agent; E66.01 Morbid (severe) obesity due to excess calories; Z68.41 Body mass index [BMI] 40.0-44.9, adult; Z79.899 Other long term (current) drug therapy

== ENCOUNTER → 2021-04-01 | Outpatient (CLI) | payer BC ==
--- NOTE | 2021-04-02 18:42 | REPVR ---
PROCEDURE INFORMATION: Exam: MR Lumbar Spine Without Contrast Exam date and time: 04/01/2021 1:54 PM Age: 66 years old Clinical indication: Low back pain; Additional info: Spondylolosis lumbar TECHNIQUE: Imaging protocol: Multiplanar magnetic resonance images of the lumbar spine without intravenous contrast. COMPARISON: MRI-LS SPINE W/O FOLL WITH CON 04/07/2016 12:51 AM FINDINGS: Vertebral body heights are maintained. Modic type 2 degenerative endplate change at L3-L4. 0.3 cm grade 1 anterolisthesis of L4 on L5. No cord compression. No abnormal cord signal. Conus medullaris terminates at the L1 level. Paravertebral soft tissues are unremarkable. L1-L2: Broad-based disc bulge and facet hypertrophy cause mild canal narrowing with mild left and moderate right foraminal narrowing. L2-L3: Broad-based disc bulge and facet hypertrophy cause mild canal narrowing with mild left and aiwr-[id number]-rtyhylgb right foraminal narrowing. L3-L4: Broad-based disc bulge and facet hypertrophy cause mild canal narrowing. Effacement of the left lateral recess. Mild right and moderate left foraminal narrowing. L4-L5: Combination of anterolisthesis, broad-based disc bulge, and facet hypertrophy cause mild canal narrowing. Mild right and moderate left foraminal narrowing. L5-S1: Broad-based disc bulge and facet hypertrophy cause mild canal narrowing. Mild left and moderate right foraminal narrowing. IMPRESSION: Multilevel spondylotic changes of the lumbar spine, as detailed above. Electronically signed by: Grant Solomon On 04/02/2021 18:42:00 PM
== END ==
LOC: M PLAIMG 12:34
PROVIDERS: ATTEND Family Medicine
DX: M47.816 Spondylosis without myelopathy or radiculopathy, lumbar region (principal)

== ENCOUNTER → 2021-04-11 | Outpatient (CLI) | payer BC ==
--- NOTE | 2021-04-15 00:55 | ECWPNPC ---
PATIENT NAME: MARKELL BUSTILLOS : 1955 GENDER: MALE VISIT DATE: 04/11/2021 DISCHARGE DATE: 04/11/21 1425 VISIT LOCKED DATE TIME: PHYSICIAN: YOSSI JAMES PHYSICIAN PAGER NO: ACTIVE RESOURCE: YOSSI JAMES REASON FOR APPOINTMENT 1. LOW BACK/REVIEW MRI HISTORY OF PRESENT ILLNESS GENERAL: HPI 66-YEAR-OLD MALE IN FOR CHRONIC PAIN FOLLOW-UP. PATIENT HAD AN MRI RECENTLY WHICH WILL BE REVIEWED WITH PATIENT TODAY. HE FEELS HIS MEDICATIONS ARE HELPFUL AND DENIES MED SIDE EFFECTS AT THIS TIME.. -. FALL RISK SCREENING: SCREENING : NO FALLS REPORTED IN THE LAST YEAR. PAIN SCREENING: PATIENT HAS A COMPLAINT OF ACUTE OR CHRONIC PAIN :YES LOCATION OF PAIN:LOW BACK INTENSITY OF PAIN (SCALE OF 1 TO 10):3 WHAT DOES YOUR PAIN FEEL LIKE:SHARP, STABBING DURATION:CONTINOUS PAIN IS INCREASED BY:ACTIVITIES PAIN IS DECREASED BY:USE OF PAIN MEDICATIONS NURSING NOTE: -. PAIN CENTER INTAKE QUESTIONS: DO YOU HAVE A HISTORY OF MRSA? :NO DO YOU TAKE A BLOOD THINNERS? :NO DO YOU HAVE ANY BLEEDING DISORDERS? :NO ANY NEW NUMBNESS OR WEAKNESS IN YOUR LEGS OR ARMS? :NO ANY PACEMAKER,DEFIBRILLATOR, OR DORSAL COLUMN STIMULATOR? :NO DO YOU HAVE ANY RASHES OR OPEN SORES? :NO ARE YOU ALLERGIC TO IV DYE? :NO ARE YOU DIABETIC? :YES ANY NEW PROBLEMS WITH YOUR MEDICATIONS? :NO HAVE YOU RECEIVED A VACCINE IN THE PAST 30 DAYS? :NO DO YOU PLAN TO RECEIVE A VACCINE IN THE NEXT 21 DAYS? :NO DO YOU NEED ANY PRESCRIPTION? :NO DO YOU TAKE ANY IMMUNOSUPPRESSIVE MEDICATIONS? :NO DO YOU HAVE ANY KIDNEY OR LIVER DISEASE? :NO IS THERE A CHANCE YOU COULD BE ? :NO ARE YOU BREAST FEEDING? :NO CURRENT MEDICATIONS TAKING BACLOFEN 10 MG TABLET 1 TABLET WITH FOOD OR MILK ORALLY FOUR TIMES DAILY TAKING HYDROXYZINE HCL 25 MG TABLET 1 TAB ORALLY EVERY 8 HRS NEEDED TAKING LIDODERM 5 % PATCH 1 PATCH REMOVE AFTER 12 HOURS EXTERNALLY PRN ON 12 HOURS OFF 12 HOURS TAKING ALBUTEROL SULFATE (2.5 MG/3ML) 0.083% NEBULIZATION SOLUTION 3 ML INHALATION ONCE DAILY NEEDED TAKING DULERA 100-5 MCG/ACT AEROSOL 2 PUFFS INHALATION TWICE A DAY NEEDED TAKING ROPINIROLE HCL 2 MG TABLET ORALLY FOUR TIMES DAILY TAKING CARBAMAZEPINE 200 MG TABLET 1 TABLET ORALLY TWICE A DAY TAKING FUROSEMIDE 40 MG TABLET 1 TABLET ORALLY ONCE Q 3 DAYS PRN TAKING VOLTAREN 1 % GEL APPLY 4 GMS TO LEFT KNEE TOPICALLY Q8H PRN PAIN TAKING PERCOCET 5-325 MG TABLET 1 TABLET NEEDED ORALLY DAILY PRN BREAKTHROUGH PAIN 15 TABS TO LAST 30 DAYS ONCE A DAY TAKING MS CONTIN 15 MG TABLET EXTENDED RELEASE 1 TABLET ORALLY EVERY 12 HOURS NEEDED NOT-TAKING NUCYNTA 50 MG TABLET 1 TABLET ORALLY BID NEEDED NOT-TAKING OXYCONTIN 15 MG TABLET ER 12 HOUR ABUSE-DETERRENT 1 TABLET ORALLY DAILY IN AM NOT-TAKING LYRICA 100 MG CAPSULE 1 CAPSULE ORALLY FOUR TIMES DAILY MEDICATION LIST REVIEWED AND RECONCILED WITH THE PATIENT PAST MEDICAL HISTORY 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 LOW BACK PAIN BILATERAL HIP PAIN CHRONIC PRESCRIPTION OPIATE USE ALLERGIES TRAMADOL HCL: DIARRHEA - SIDE EFFECTS SOCIAL HISTORY GENERAL: TOBACCO USE HOW LONG HAS IT BEEN SINCE YOU LAST SMOKED?> 10 YEARS ARE YOU A:FORMER SMOKER LATEX QUESTIONNAIRE LATEX ALLERGY : HAVE YOU EVER DEVELOPED ANY TYPE OF REACTION AFTER HANDLING LATEX PRODUCTS SUCH RUBBER GLOVES, CONDOMS, DIAPHRAGMS, BALLOONS, SOCKS, OR UNDERWEAR?NO LATEX ALLERGY : HAVE YOU EVER DEVELOPED ANY TYPE OF REACTION DURING OR AFTER DENTAL APPOINTMENT, VAGINAL/RECTAL EXAMINATION, SURGICAL PROCEDURE, OR ANY OTHER EXPOSURE?NO DATE ASKED : 03/20/2021 LATEX RISK : HAVE YOU EVER HAD ANY DIFFICULTY BREATHING OR HIVES AFTER EATING OR HANDLING ANY FRUITS, OR VEGETABLES; SUCH KIWI, BANANAS, STONE FRUITS, OR CHESTNUTSNO LATEX RISK : DO YOU HAVE A PREVIOUS PERSONAL HISTORY OF MORE THAN NINE SURGERIES, SPINA BIFIDA, OR REPEATED CATHERIZATIONS? YES - PLEASE INDICATE : > 9 SURGERIES LATEX RISK : ARE YOU FREQUENTLY EXPOSED TO LATEX PRODUCTS IN YOUR OCCUPATION?NO ALCOHOL USE: NO. ALCOHOL SCREENING DID YOU HAVE A DRINK CONTAINING ALCOHOL IN THE PAST YEAR?NO POINTS0 INTERPRETATIONNEGATIVE RECREATIONAL DRUG USE DRUG USE?NO CAFFEINE CAFFEINE USE?YES HOW OFTEN AND HOW MUCH? DAILY COFFEE HIV / HEP-C SCREENING HIV TEST OFFERED TO PATIENT:YES DATE OFFERED:11/17/2019 TEST ACCEPTED:NO HEP-C TEST OFFERED TO PATIENT:YES DATE OFFERED:11/17/2019 REASON:PATIENT DECLINED TEST ACCEPTED:NO REASON:PATIENT DECLINED BROCHURE PROVIDED TO PATIENTNO JEW [id number] NONE LANGUAGE LANGUAGES SPOKEN:GEORGIAN EDUCATION LEVEL OF EDUCATION:HIGH SCHOOL LEARNING BARRIERS / SPECIAL NEEDS HEARING IMPAIRED?NO CHANGE FROM LAST VISIT?NO BARRIERS TO LEARNING?NO VISION IMPAIRED?YES COGNITIVELY IMPAIRED?NO :CORRECTIVE LENSES READINESS TO LEARN?YES LEARNING PREFERENCES?YES :BOOKLETS, HANDOUTS LEARNING CAPABILITIES PRESENT?YES EMOTIONAL BARRIERS?NO SPECIAL DEVICES?YES :CANE 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 DIET: REGULAR. EXERCISE: WALKS. MARITAL STATUS: . OTHERS AT HOME: SPOUSE. - PFS REFERRAL NEEDED?NO CLERGY REFERRAL NEEDED?NO PUBLIC HEALTH REFERRAL NEEDED?NO WAS THE PROVIDER NOTIFIED OF ANY PERTINENT INFO?YES HAS THE PATIENT BEEN EDUCATED REGARDING HIS/HER PLAN OF CARE?YES HAS THE PATIENT BEEN EDUCATED REGARDING PAIN, THE RISK FOR PAIN, THE IMPORTANCE OF EFFECTIVE PAIN MANAGEMENT, AND THE PAIN ASSESSMENT PROCESS?YES HOUSING: OWNS HOME. ADVANCE DIRECTIVE ADVANCE DIRECTIVE DISCUSSED WITH PATIENT:YES HCP - ALBINO BUSTILLOS () [phone] REVIEW OF SYSTEMS CONSTITUTIONAL: ANY RECENT FEVER NO . CHILLS NO . WEIGHT CHANGE OF UNKNOWN REASONS NO . GASTROENTEROLOGY: NEW UNEXPLAINABLE CHANGES IN BOWEL CONTROL NO . CONSTIPATION NO . GENITOURINARY: ANY NEW CHANGE IN BLADDER CONTROL? NO . NEUROLOGY: NEW ONSET DIZZINESS OR NEUROLOGICAL CHANGES NOT MENTIONED NO . NEW NUMBNESS OR PAIN PATTERNS NOT MENTIONED AND PERTINENT TO TODAY'S VISIT NO . CARDIOLOGY: NEW CHEST PRESSURE NO . PATIENT DENIES NO . RESPIRATORY: UNEXPLAINABLE COUGH NO . NEW SHORTNESS OF BREATH NO . VITAL SIGNS WT 278 LBS, HT 68 IN, BMI 42.27 INDEX, BP 160/75 MM HG, HR 92 /MIN, RR 16 /MIN, TEMP 97.5 F, OXYGEN SAT % 96, SAFE IN ENV? (Y/N) Y, REVIEWED BY: EM. EXAMINATION GENERAL EXAMINATION: GENERALNO ACUTE DISTRESS, WELL NOURISHED AND HYDRATED. PSYCHAPPROPRIATE MOOD AND AFFECT . LUNGS:CLEAR TO AUSCULTATION BILATERALLY, NO WHEEZES, RHONCHI, RALES. HEART:NO MURMURS, REGULAR RATE AND RHYTHM. BACK:POINT TENDER BILATERAL LOW BACK, SURROUNDING SKIN SHOWS NO ERYTHEMA, ECCHYMOSIS, INCREASED WARMTH, AND/OR SKIN ERUPTIONS NOTED. BANDS OF RESTRICTIVE TISSUE NOTED OVER TRIGGER POINTS. ASSESSMENTS MYALGIA, OTHER SITE - M79.18 (PRIMARY) TREATMENT MYALGIA, OTHER SITE MEDICATION: PAIN OXYCODONE HCL TAB 10MG ORALLY (ORDERED FOR 04/21/2021)[id number] MEDICATION: PAIN VALIUM TAB 10MG ORALLY (DIAZEPAM) (ORDERED FOR 04/21/2021)[id number] NOTES: 66-YEAR-OLD MALE IN FOR CHRONIC PAIN FOLLOW-UP. GIVEN PRESENTING SYMPTOMS AND RESULTS OF PHYSICAL EXAMINATION RECOMMEND BILATERAL LOW BACK TRIGGER POINT INJECTIONS WITH POSTPROCEDURAL FOLLOW-UP. PATIENT HAS EXPRESSED UNDERSTANDING OF AND WAS IN AGREEMENT WITH TREATMENT PLAN. GIVEN TIME TO ASK QUESTIONS AND EXPRESS CONCERNS. ISTOP REGISTRY REVIEWED AND DEMONSTRATES COMPLLIANCE. (REF # [id number] ) BRINGS IN MEDICATIONS WHICH IS APPROPRIATE FOR WHAT WAS DISPENSED. RECENT URINE TOXICOLOGY REVIEWED. NO UNAUTHORIZED MEDICATIONS. NO ILLICIT SUBSTANCES AND PRESCRIBED MEDICATIONS WERE PRESENT. PROCEDURE CODES FA211 ESTABILISHED PATIENT [facility] CHARGE DISPOSITION & COMMUNICATION FOLLOW UP POST PROCEDURE (REASON: BILATERAL LOW BACK TRIGGER POINT INJECTIONS ) ELECTRONICALLY SIGNED BY ANGIE YANG ON 04/14/2021 AT 08:42 AM EDT DISCLAIMER : THIS IS A VISIT SUMMARY EXTRACTED FROM THE [employer] CHART. IT IS NOT A COPY OF THE [employer] PROGRESS NOTE. SOFIA
== END ==
LOC: M PAIN 14:00
PROVIDERS: ATTEND Family Medicine
DX: M79.18 Myalgia, other site (principal); E11.9 Type 2 diabetes mellitus without complications; J44.9 Chronic obstructive pulmonary disease, unspecified; G25.81 Restless legs syndrome; Z87.891 Personal history of nicotine dependence; Z88.5 Allergy status to narcotic agent; E66.01 Morbid (severe) obesity due to excess calories; Z68.41 Body mass index [BMI] 40.0-44.9, adult; Z79.899 Other long term (current) drug therapy

== ENCOUNTER → 2021-04-30 | Outpatient (CLI) | payer BC | LOC: M LABSMTC 13:33 | PROVIDERS: ATTEND Anesthesiology | DX: Z20.828 Contact with and (suspected) exposure to other viral communicable diseases (principal); Z11.59 Encounter for screening for other viral diseases ==

== ENCOUNTER → 2021-05-05 | Outpatient (CLI) | payer BC ==
[~2021-05-05] MED LIST changes: +BUPIVACAINE HCL 0.25% 10ML VIAL As Ordered ONE; +BUPIVACAINE HCL 0.25% 30ML VIAL As Ordered ONE; +TRIAMCINOLONE ACETONIDE SUSP 40 MG/ML VIAL (J3301) As Ordered ONE; +diazePAM 5MG TABLET As Ordered ONE; +oxyCODONE 5MG TAB As Ordered ONE
--- NOTE | 2021-05-11 23:26 | ECWPNPC ---
PATIENT NAME: MARKELL BUSTILLOS : 1955 GENDER: MALE VISIT DATE: 05/05/2021 DISCHARGE DATE: 05/05/21 162 VISIT LOCKED DATE TIME: PHYSICIAN: MY TOVAR MD PHYSICIAN PAGER NO: ACTIVE RESOURCE: MY TOVAR MD REASON FOR APPOINTMENT 1. TRIGGER POIINT INJECTIONS BILATERAL LOW BACK HISTORY OF PRESENT ILLNESS GENERAL: -. FALL RISK SCREENING: SCREENING : NO FALLS REPORTED IN THE LAST YEAR. PAIN SCREENING: PATIENT HAS A COMPLAINT OF ACUTE OR CHRONIC PAIN :YES LOCATION OF PAIN:LOW BACK INTENSITY OF PAIN (SCALE OF 1 TO 10):6 WHAT DOES YOUR PAIN FEEL LIKE:BURNING, SHARP, THROBBING, OTHER ITCHING DURATION:CONTINOUS, AWAKENS FROM SLEEP PAIN IS INCREASED BY:ACTIVITIES, PROLONGED STANDING PAIN IS DECREASED BY:USE OF PAIN MEDICATIONS PLAN/GOALS/TREATMENT/INTERVENTION/FOLLOW UP:SEE PLAN NURSING NOTE: -. PAIN CENTER INTAKE QUESTIONS: DO YOU HAVE A HISTORY OF MRSA? :NO DO YOU TAKE A BLOOD THINNERS? :NO DO YOU HAVE ANY BLEEDING DISORDERS? :NO ANY NEW NUMBNESS OR WEAKNESS IN YOUR LEGS OR ARMS? :NO ANY PACEMAKER,DEFIBRILLATOR, OR DORSAL COLUMN STIMULATOR? :NO DO YOU HAVE ANY RASHES OR OPEN SORES? :NO ARE YOU ALLERGIC TO IV DYE? :NO ARE YOU DIABETIC? :YES PRE-DIABETIC, WILL CHECK FS IN AM.FSBS 190 AT 1130 ANY NEW PROBLEMS WITH YOUR MEDICATIONS? :NO HAVE YOU RECEIVED A VACCINE IN THE PAST 30 DAYS? :NO DO YOU PLAN TO RECEIVE A VACCINE IN THE NEXT 21 DAYS? :NO DO YOU TAKE ANY IMMUNOSUPPRESSIVE MEDICATIONS? :NO ANY HISTORY OF SEIZURES? :NO ANY HISTORY OF CARDIAC ISSUES OR EVENTS? :NO DO YOU HAVE ANY KIDNEY OR LIVER DISEASE? :NO ANY RECENT HEAD INJURY? :NO DO YOU HAVE ANY NEW INFECTIONS? :NO IS THERE A CHANCE YOU COULD BE ? :NO ARE YOU BREAST FEEDING? :NO WHEN DID YOU LAST EAT? : 05/04/210 WHEN DID YOU LAST DRINK? : 05/05/21 0730 WHAT DID YOU LAST DRINK? : WATER NAME OF PERSON DRIVING YOU HOME? : ALBINO BUSTILLOS () DO YOU HAVE ANY OTHER QUESTIONS OR CONCERNS? : NO CURRENT MEDICATIONS TAKING BACLOFEN 10 MG TABLET 1 TABLET WITH FOOD OR MILK ORALLY FOUR TIMES DAILY TAKING LIDODERM 5 % PATCH 1 PATCH REMOVE AFTER 12 HOURS EXTERNALLY PRN ON 12 HOURS OFF 12 HOURS TAKING ALBUTEROL SULFATE (2.5 MG/3ML) 0.083% NEBULIZATION SOLUTION 3 ML INHALATION ONCE DAILY NEEDED TAKING DULERA 100-5 MCG/ACT AEROSOL 2 PUFFS INHALATION TWICE A DAY NEEDED TAKING ROPINIROLE HCL 2 MG TABLET ORALLY FOUR TIMES DAILY TAKING CARBAMAZEPINE 200 MG TABLET 1 TABLET ORALLY TWICE A DAY TAKING VOLTAREN 1 % GEL APPLY 4 GMS TO LEFT KNEE TOPICALLY Q8H PRN PAIN TAKING PERCOCET 5-325 MG TABLET 1 TABLET NEEDED ORALLY DAILY PRN BREAKTHROUGH PAIN 15 TABS TO LAST 30 DAYS ONCE A DAY, NOTES: 05/04/21 2330 TAKING FUROSEMIDE 40 MG TABLET TAKE 1 TABLET BY MOUTH EVERY 3 DAYS NEEDED TAKING HYDROXYZINE HCL 25 MG TABLET TAKE ONE TABLET BY MOUTH EVERY 8 HOURS TAKING MS CONTIN 15 MG TABLET EXTENDED RELEASE 1 TABLET ORALLY EVERY 12 HOURS NEEDED. 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 LOW BACK PAIN BILATERAL HIP PAIN CHRONIC PRESCRIPTION OPIATE USE ALLERGIES TRAMADOL HCL: DIARRHEA - SIDE EFFECTS SOCIAL HISTORY GENERAL: TOBACCO USE ARE YOU A:FORMER SMOKER HOW LONG HAS IT BEEN SINCE YOU LAST SMOKED?> 10 YEARS LATEX QUESTIONNAIRE LATEX ALLERGY : HAVE YOU EVER DEVELOPED ANY TYPE OF REACTION AFTER HANDLING LATEX PRODUCTS SUCH RUBBER GLOVES, CONDOMS, DIAPHRAGMS, BALLOONS, SOCKS, OR UNDERWEAR?NO LATEX ALLERGY : HAVE YOU EVER DEVELOPED ANY TYPE OF REACTION DURING OR AFTER DENTAL APPOINTMENT, VAGINAL/RECTAL EXAMINATION, SURGICAL PROCEDURE, OR ANY OTHER EXPOSURE?NO LATEX RISK : HAVE YOU EVER HAD ANY DIFFICULTY BREATHING OR HIVES AFTER EATING OR HANDLING ANY FRUITS, OR VEGETABLES; SUCH KIWI, BANANAS, STONE FRUITS, OR CHESTNUTSNO LATEX RISK : DO YOU HAVE A PREVIOUS PERSONAL HISTORY OF MORE THAN NINE SURGERIES, SPINA BIFIDA, OR REPEATED CATHERIZATIONS? YES - PLEASE INDICATE : > 9 SURGERIES LATEX RISK : ARE YOU FREQUENTLY EXPOSED TO LATEX PRODUCTS IN YOUR OCCUPATION?NO DATE ASKED : 05/01/2021 ALCOHOL USE: NO. ALCOHOL SCREENING DID YOU HAVE A DRINK CONTAINING ALCOHOL IN THE PAST YEAR?NO POINTS0 INTERPRETATIONNEGATIVE RECREATIONAL DRUG USE DRUG USE?NO CAFFEINE CAFFEINE USE?YES HOW OFTEN AND HOW MUCH? DAILY COFFEE HIV / HEP-C SCREENING HIV TEST OFFERED TO PATIENT:YES DATE OFFERED:11/17/2019 TEST ACCEPTED:NO REASON:PATIENT DECLINED BROCHURE PROVIDED TO PATIENTNO HEP-C TEST OFFERED TO PATIENT:YES DATE OFFERED:11/17/2019 TEST ACCEPTED:NO REASON:PATIENT DECLINED SYNAGOGUE [id number] NONE LANGUAGE LANGUAGES SPOKEN:[place] EDUCATION LEVEL OF EDUCATION:HIGH SCHOOL LEARNING BARRIERS / SPECIAL NEEDS CHANGE FROM LAST VISIT?NO BARRIERS TO LEARNING?NO HEARING IMPAIRED?NO VISION IMPAIRED?YES :CORRECTIVE LENSES COGNITIVELY IMPAIRED?NO READINESS TO LEARN?YES LEARNING PREFERENCES?YES :BOOKLETS, HANDOUTS LEARNING CAPABILITIES PRESENT?YES EMOTIONAL BARRIERS?NO SPECIAL DEVICES?YES :CANE OCCASSIONAL RECHARGER NEEDED?NO DOMESTIC VIOLENCE DO YOU FEEL SAFE IN YOUR ENVIRONMENT?YES OCCUPATION: RETIRED//[employer]. DIET: REGULAR. EXERCISE: WALKS. MARITAL STATUS: . OTHERS AT HOME: SPOUSE. - PFS REFERRAL NEEDED?NO CLERGY REFERRAL NEEDED?NO PUBLIC HEALTH REFERRAL NEEDED?NO WAS THE PROVIDER NOTIFIED OF ANY PERTINENT INFO?YES HAS THE PATIENT BEEN EDUCATED REGARDING HIS/HER PLAN OF CARE?YES HAS THE PATIENT BEEN EDUCATED REGARDING PAIN, THE RISK FOR PAIN, THE IMPORTANCE OF EFFECTIVE PAIN MANAGEMENT, AND THE PAIN ASSESSMENT PROCESS?YES HOUSING: OWNS HOME. ADVANCE DIRECTIVE ADVANCE DIRECTIVE DISCUSSED WITH PATIENT:YES HCP - ALBINO BUSTILLOS () [phone] VITAL SIGNS WT 279.0 LBS, WT-KG 126.55 KG, HT 68 IN, BMI 42.42 INDEX, BP 174/70 MM HG, HR 101 /MIN, RR 18 /MIN, TEMP 97.7 F, OXYGEN SAT % 94%, SAFE IN ENV? (Y/N) [place], [place] [address]/ 1520 REVIEWED. Hema SALINAS RN. EXAMINATION GENERAL EXAMINATION: THE PATIENT IS ALERT, ORIENTED TIMES THREE AND COOPERATIVE. LUNGS ARE CLEAR TO AUSCULTATION. HEART SHOWS REGULAR RHYTHM, NO MURMURS AND NO GALLOPS. ASSESSMENTS MYALGIA, OTHER SITE - M79.18 (PRIMARY) TREATMENT MYALGIA, OTHER SITE MEDICATION: PAIN OXYCODONE HCL TAB 10MG [id number] 05/05/2021 3:35:35 PM > VERIFIED DUKE DOAN 05/05/2021 3:38:45 PM > ADMINISTERED MEDICATION: PAIN VALIUM TAB 10MG ORALLY ([id number] 05/05/2021 3:35:56 PM > VERIFIED DUKE DOAN 05/05/2021 3:39:01 PM > ADMINISTERED OTHERS NOTES: 05/01/21 1700 PAT COMPLETED Tanisha ZARAGOZA, DELI SLICER. PROCEDURES PAIN NURSING RECORD PROCEDURE IN ROOM 1530, PHYSICIAN IN ROOM 1600, START 1602, FINISH 1605, PHYSICIAN OUT OF ROOM 1606, OUT OF ROOM 1618, ECG N/A, PATIENT SHIELDED N/A, SAFETY STRAP N/A, PREP ALCOHOL DR. TOVAR, DRESSING TEGADERM Aurora DOAN RN LOC: 1. ALERT, ORIENTED, DUKE DOAN 05/05/2021 4:04:38 PM > RESP: 1. REGULAR, NO DYSPNEA, DUKE DOAN 05/05/2021 4:04:42 PM > COLOR: 1. PINK, DUKE DOAN 05/05/2021 4:04:47 PM > SKIN: 1. WARM, DRY, DUKE DOAN 05/05/2021 4:04:54 PM > POSITION: 5. SITTING, DUKE DOAN 05/05/2021 4:04:59 PM > VITALS: 179/81, 95, 16, 97%, DUKE DOAN 05/05/2021 4:14:09 PM > NOTES Aurora DOAN RN, DUKE DOAN 05/05/2021 4:05:10 PM > COMPLETION OF PROCEDURE APPOINTMENT: POST PAIN 2, DRESSING SITE DRY AND INTACT, IV N/A, GAIT STEADY, TEACHING COMPLETED, PATIENT ACKNOWLEDGES UNDERSTANDING YES, PROCEDURE APPOINTMENT COMPLETED AT 1618 PN TRIGGER POINT INJECTION WITH STEROIDS PRE PROCEDURE DIAGNOSIS 1. MYALGIA 2. PAIN AT BILATERAL LOW BACK AREA POST PROCEDURE DIAGNOSIS 1. MYALGIA 2. PAIN AT BILATERAL LOW BACK AREA PROCEDURE TRIGGER POINT INJECTION AT BILATERAL LOW BACK AREA SURGEON DR. MY TOVAR CHANNEL MAN NONE ANESTHESIA LOCAL PRE PROCEDURE NOTE THE PATIENT HAS A HISTORY OF CHRONIC PAIN AT THE RIGHT AND LEFT LOW BACK AREA. I EVALUATED THE PATIENT AND REVIEWED THE CHART. THERE IS EVIDENCE OF BANDS OF TISSUE WITH RESTRICTION OF MOVEMENT AND PRESENCE OF TRIGGER POINT AT THE RIGHT AND LEFT LOW BACK AREA. I WENT OVER THE RISKS, ALTERNATIVES, AND BENEFITS ASSOCIATED WITH THIS PROCEDURE. THE PATIENT WOULD LIKE TO PROCEED AND GIVE CONSENT TO PERFORMED THE PROCEDURE. THE PATIENT DENIES UNEXPLAINABLE WEIGHT LOSS, FEVER, CHILLS, OR NEW CHANGES IN URINARY OR BOWEL CONTROL. THE PATIENT IS COVID-19 NEGATIVE DESCRIPTION OF PROCEDURE THE PATIENT WAS BROUGHT TO THE PROCEDURE ROOM AND PLACED IN THE SITTING POSITION. THE AREA WAS CLEANED WITH ALCOHOL. THE PROCEDURE WAS DONE USING ASEPTIC STERILE TECHNIQUE. A TIMEOUT WAS PERFORMED WHERE THE CONSENTED SITE WAS VERIFIED WITH EVERYONE IN THE ROOM. USING A 25-GAUGE NEEDLE, TRIGGER POINTS WERE INJECTED AT THE RIGHT AND LEFT LOW BACK AREA WITH A TOTAL OF 40 ML OF BUPIVACAINE 0.25% AND KENALOG 40 MG. THE MEDICATIONS WERE VERIFIED WITH THE NURSE. THERE WAS NO EVIDENCE OF BLOOD OR PARESTHESIA DURING THE PROCEDURE. THE PATIENT WAS SENT TO THE RECOVERY ROOM. THE PATIENT WAS MOVING THE EXTREMITIES AND DOING WELL. THERE WERE NO COMPLICATIONS DURING THE PROCEDURE. ESTIMATED BLOOD LOSS WAS LESS THAN 5 ML POST PROCEDURE NOTE THE PROCEDURE DONE WAS DISCUSSED WITH THE PATIENT. THE PATIENT WILL BE SEEN IN A FOLLOW UP IN THE NEXT FEW WEEKS. I AM LOOKING FOR LONG LASTING PAIN RELIEF FOR THE PATIENT WITH THIS INTERVENTION. INSTRUCTIONS WERE GIVEN, QUESTIONS WERE ANSWERED, AND THE PATIENT EXPRESSED UNDERSTANDING AND AGREES WITH THE PLAN. I, SAAD WOMACK, DOCUMENTED THE ABOVE INFORMATION ACTING A SCRIBE FOR DR. TOVAR. I HAVE REVIEWED THE ABOVE DOCUMENT, WRITTEN BY SAAD WOMACK, RN PALLIATIVE, AND I VERIFY THAT IT IS ACCURATE VISIT CODES PROCEDURE CODES 24118 INJECT TRIGGER POINT, 1 OR 2 DISPOSITION & COMMUNICATION FOLLOW UP FOLLOW UP WITH ANESTHESIOLOGY TEACHER (REASON: POST TRIGGER POINT INJECTIONS BILATERAL LOW BACK) ELECTRONICALLY SIGNED BY MY TOVAR MD, MD ON 05/11/2021 AT 09:19 PM EDT DISCLAIMER : THIS IS A VISIT SUMMARY EXTRACTED FROM THE [employer] CHART. IT IS NOT A COPY OF THE [employer] PROGRESS NOTE. [facility]
== END ==
LOC: M PAIN 14:00
PROVIDERS: ATTEND Anesthesiology
DX: M79.18 Myalgia, other site (principal); R73.03 Prediabetes; J44.9 Chronic obstructive pulmonary disease, unspecified; G25.81 Restless legs syndrome; Z87.891 Personal history of nicotine dependence; Z88.5 Allergy status to narcotic agent; E66.01 Morbid (severe) obesity due to excess calories; Z68.41 Body mass index [BMI] 40.0-44.9, adult; Z79.899 Other long term (current) drug therapy
CPT/HCPCS: 20552; J3301

== ENCOUNTER → 2021-06-12 | Outpatient (CLI) | payer BC ==
[~2021-06-12] MED LIST changes: -BUPIVACAINE HCL 0.25% 10ML VIAL As Ordered ONE; -BUPIVACAINE HCL 0.25% 30ML VIAL As Ordered ONE; -TRIAMCINOLONE ACETONIDE SUSP 40 MG/ML VIAL (J3301) As Ordered ONE; -diazePAM 5MG TABLET As Ordered ONE; -oxyCODONE 5MG TAB As Ordered ONE
--- NOTE | 2021-06-14 22:22 | ECHO ---
ECHOCARDIOGRAM DATE OF PROCEDURE: 06/12/2021 Age: 66 Gender: Male Height: Weight: REFERRING PROVIDER: Garo Ventura PATIENT LOCATION: Outpatient. REASON FOR THE ECHOCARDIOGRAM: Pedal edema. MEASUREMENTS: 2D Measurements: IVS 1.4 cm LV 4.3 cm LVPW 1.3 cm LA 3.2 cm Aorta 3.4 cm Doppler Measurements: Peak velocity across the aortic valve 0.9 m/sec Peak velocity across the LVOT 0.8 m/sec Mitral E 0.55 Mitral A 0.56 with a ratio of 0.98 2D COMMENTS: 1. Normal left ventricular size with mildly increased left ventricular wall thickness. Left ventricular systolic function is normal. Left ventricular systolic ejection fraction estimated at 60-65%. 2. Normal left atrium. Normal right atrium and right ventricle. 3. The atrial septum appeared to be normal without evidence of defect or shunt. 4. Normal aortic root. 5. No pericardial effusion seen. 6. The aortic valve, mitral valve and tricuspid valve appear to be normal. The pulmonic valve and proximal pulmonary artery branches were not well visualized. 7. The inferior vena cava was not visualized. DOPPLER: It detects trace mitral regurgitation. Abnormal relaxation pattern was noted across the mitral valve leaflets and the mitral valve annulus consistent with features of grade 1 left ventricular diastolic dysfunction. IMPRESSION: 1. Normal global left ventricular systolic function with mild concentric left ventricular hypertrophy. There are some features of grade 1 left ventricular diastolic dysfunction manifested by abnormal relaxation. 2. Trace mitral regurgitation. 3. This study was technically limited due to poor acoustic window secondary to lung interference.
== END ==
LOC: M CARPUL 09:18
PROVIDERS: ATTEND Nurse Practitioner Adult Health
DX: R60.0 Localized edema (principal)

== ENCOUNTER → 2021-06-20 | Outpatient (CLI) | payer BC | LOC: M PAIN 14:00 | PROVIDERS: ATTEND Anesthesiology | DX: M79.18 Myalgia, other site (principal); E11.9 Type 2 diabetes mellitus without complications; J44.9 Chronic obstructive pulmonary disease, unspecified; G25.81 Restless legs syndrome; Z87.891 Personal history of nicotine dependence; Z88.5 Allergy status to narcotic agent; E66.01 Morbid (severe) obesity due to excess calories; Z68.41 Body mass index [BMI] 40.0-44.9, adult; Z79.891 Long term (current) use of opiate analgesic; Z79.899 Other long term (current) drug therapy ==

== ENCOUNTER → 2021-06-27 | Outpatient (CLI) | payer BC ==
--- NOTE | 2021-06-27 11:20 | REP ---
INDICATION: OTHER CHRONIC PAIN COMPARISON: None. TECHNIQUE: AP, lateral, flexion/extension, bilateral oblique, and coned-down views. FINDINGS: Alignment is relatively maintained. Advanced multilevel degenerative changes include endplate sclerosis, marginal osteophytosis, hypertrophic facet changes, and disc space narrowing. Findings most pronounced at L4-5 where chronic grade 1 anterolisthesis of approximately 5 mm is appreciated. No obvious spondylolysis. No acute fracture/compression injury. IMPRESSION: Advanced degenerative spondylosis as described above. No evidence for acute fracture/compression injury. <Electronically signed by Mike Moya > 06/27/21 [id number]
== END ==
LOC: M RAD 10:32
PROVIDERS: ATTEND Anesthesiology
DX: M47.816 Spondylosis without myelopathy or radiculopathy, lumbar region (principal); G89.29 Other chronic pain

== ENCOUNTER → 2021-10-10 | Outpatient (CLI) | payer BC | LOC: M PAIN 14:45 | PROVIDERS: ATTEND Nurse Practitioner Family | DX: M79.10 Myalgia, unspecified site (principal); E11.9 Type 2 diabetes mellitus without complications; J44.9 Chronic obstructive pulmonary disease, unspecified; G25.81 Restless legs syndrome; Z87.891 Personal history of nicotine dependence; Z88.5 Allergy status to narcotic agent; E66.01 Morbid (severe) obesity due to excess calories; Z68.41 Body mass index [BMI] 40.0-44.9, adult; Z79.891 Long term (current) use of opiate analgesic; Z79.899 Other long term (current) drug therapy ==

== ENCOUNTER → 2021-10-27 | Outpatient (CLI) | payer BC ==
[2021-10-27 15:15] LABS: HEMOGLOBIN 13.2 g/dl (13.5-17.5); MEAN CORPUSCULAR HGB CONC 31.4 g/dl (32.0-36.5); MEAN CORPUSCULAR VOLUME 92.3 fl (80.0-96.0); PLATELET COUNT, AUTOMATED 262 10^3/uL (150-450); RED BLOOD COUNT 4.55 10^6/uL (4.30-6.10); WHITE BLOOD COUNT 8.1 10^3/uL (4.0-10.0)
[2021-10-27 15:50] LABS: ALBUMIN 3.2 GM/DL (3.2-5.2); ALT/SGPT 36 U/L (12-78); BILIRUBIN,TOTAL 0.5 MG/DL (0.2-1.0); BLOOD UREA NITROGEN 16 MG/DL (7-18); CALCIUM LEVEL 8.6 MG/DL (8.8-10.2); CARBON DIOXIDE LEVEL 28 MEQ/L (21-32); CHLORIDE LEVEL 106 MEQ/L (98-107); CREATININE FOR GFR 0.85 MG/DL (0.70-1.30); GLOMERULAR FILTRATION RATE > 60.0 (>49); GLUCOSE, FASTING 120 MG/DL (70-100); POTASSIUM SERUM 4.2 MEQ/L (3.5-5.1); SODIUM LEVEL 141 MEQ/L (136-145); TOTAL PROTEIN 6.2 GM/DL (6.4-8.2)
== END ==
LOC: M PLALAB 13:07
PROVIDERS: ATTEND Nurse Practitioner Adult Health
DX: R60.0 Localized edema (principal); E74.39 Other disorders of intestinal carbohydrate absorption

== ENCOUNTER → 2022-01-08 | Outpatient (CLI) | payer BC | LOC: M PAIN 14:45 | PROVIDERS: ATTEND Nurse Practitioner Family | DX: M79.10 Myalgia, unspecified site (principal); M47.817 Spondylosis without myelopathy or radiculopathy, lumbosacral region; E11.9 Type 2 diabetes mellitus without complications; J44.9 Chronic obstructive pulmonary disease, unspecified; G25.81 Restless legs syndrome; Z96.653 Presence of artificial knee joint, bilateral; Z87.891 Personal history of nicotine dependence; Z88.5 Allergy status to narcotic agent; E66.01 Morbid (severe) obesity due to excess calories; Z68.41 Body mass index [BMI] 40.0-44.9, adult; Z79.891 Long term (current) use of opiate analgesic; Z79.899 Other long term (current) drug therapy ==

== ENCOUNTER → 2022-04-01 | Outpatient (CLI) | payer BC ==
[~2022-04-01] MED LIST changes: +ALBU2.5V10 INH; -ALBU83IN INH
== END ==
LOC: M PAIN 14:00
PROVIDERS: ATTEND Nurse Practitioner Family
DX: M79.10 Myalgia, unspecified site (principal); M47.817 Spondylosis without myelopathy or radiculopathy, lumbosacral region; G89.29 Other chronic pain; E11.9 Type 2 diabetes mellitus without complications; J44.9 Chronic obstructive pulmonary disease, unspecified; G25.81 Restless legs syndrome; Z87.891 Personal history of nicotine dependence; Z88.5 Allergy status to narcotic agent; E66.01 Morbid (severe) obesity due to excess calories; Z68.41 Body mass index [BMI] 40.0-44.9, adult; Z79.891 Long term (current) use of opiate analgesic; Z79.899 Other long term (current) drug therapy

== ENCOUNTER → 2022-05-19 | Outpatient (CLI) | payer BC ==
[~2022-05-19] MED LIST changes: +ALBU6.7H6 INH; -PROV108A INH
[2022-05-19 15:03] LABS: ALBUMIN 3.3 GM/DL (3.2-5.2); ALT/SGPT 46 U/L (12-78); BILIRUBIN,TOTAL 0.4 MG/DL (0.2-1.0); BLOOD UREA NITROGEN 12 MG/DL (7-18); CALCIUM LEVEL 8.7 MG/DL (8.8-10.2); CARBON DIOXIDE LEVEL 29 MEQ/L (21-32); CHLORIDE LEVEL 107 MEQ/L (98-107); CHOLESTEROL LEVEL 179 MG/DL (<200); CHOLESTEROL RISK RATIO 3.808 (<5); GLOMERULAR FILTRATION RATE > 60.0 (>49); GLUCOSE, FASTING 142 MG/DL (70-100); HDL CHOLESTEROL 47 MG/DL (>40); LDL CHOLESTEROL 105 MG/DL (<100); NON-HDL-C 132 MG/DL; POTASSIUM SERUM 4.2 MEQ/L (3.5-5.1); SODIUM LEVEL 141 MEQ/L (136-145); TOTAL PROTEIN 6.5 GM/DL (6.4-8.2); TRIGLYCERIDES LEVEL 136 MG/DL (<150)
[2022-05-19 16:59] LABS: HEMOGLOBIN A1c 7.6 %
== END ==
LOC: M PLALAB 09:26
PROVIDERS: ATTEND Nurse Practitioner Adult Health
DX: E11.9 Type 2 diabetes mellitus without complications (principal); Z13.220 Encounter for screening for lipoid disorders

== ENCOUNTER → 2022-07-02 | Outpatient (CLI) | payer BC ==
[~2022-07-02] MED LIST changes: +BUPIVACAINE HCL 0.25% 30ML VIAL As Ordered ONE; +ISOVUE-M 300 61% 15ML VIAL As Ordered ONE; +LIDOCAINE 1% SDV 30ML VIAL As Ordered ONE; +dexameTHASONE 10MG/1ML VIAL PRES.FREE (J1100 PER 1MG) As Ordered ONE
== END ==
LOC: M PAIN 14:30
PROVIDERS: ATTEND Nurse Practitioner Family
DX: M79.10 Myalgia, unspecified site (principal); G89.29 Other chronic pain; J44.9 Chronic obstructive pulmonary disease, unspecified; G25.81 Restless legs syndrome; E11.9 Type 2 diabetes mellitus without complications; Z87.891 Personal history of nicotine dependence; Z88.5 Allergy status to narcotic agent; E66.01 Morbid (severe) obesity due to excess calories; Z68.41 Body mass index [BMI] 40.0-44.9, adult; Z79.84 Long term (current) use of oral hypoglycemic drugs; Z79.891 Long term (current) use of opiate analgesic; Z79.899 Other long term (current) drug therapy

== ENCOUNTER → 2022-07-29 | Outpatient (CLI) | payer BC ==
[~2022-07-29] MED LIST changes: -BUPIVACAINE HCL 0.25% 30ML VIAL As Ordered ONE; -ISOVUE-M 300 61% 15ML VIAL As Ordered ONE; -LIDOCAINE 1% SDV 30ML VIAL As Ordered ONE; -dexameTHASONE 10MG/1ML VIAL PRES.FREE (J1100 PER 1MG) As Ordered ONE
== END ==
LOC: M PLAIMG 13:33
PROVIDERS: ATTEND Physician Assistant
DX: M17.11 Unilateral primary osteoarthritis, right knee (principal); M46.1 Sacroiliitis, not elsewhere classified; M43.16 Spondylolisthesis, lumbar region

== ENCOUNTER → 2022-08-12 | Outpatient (CLI) | payer BC | LOC: M SOG 07:56 | PROVIDERS: ATTEND Orthopaedic Surgery Adult Reconstructive Orthopaedic Surgery | DX: M16.0 Bilateral primary osteoarthritis of hip (principal); M25.551 Pain in right hip ==

== ENCOUNTER → 2022-08-14 | Outpatient (CLI) | payer BC ==
[~2022-08-14] MED LIST changes: +ISOVUE-300 61% 50ML VIAL ONE; +LIDOCAINE 1% MDV 20ML VIAL ONE; +TRIAMCINOLONE ACETONIDE SUSP 40MG/ML 1ML VIAL ONE
== END ==
LOC: M PLAIMG 15:38
PROVIDERS: ATTEND Physician Assistant
DX: M25.551 Pain in right hip (principal)
CPT/HCPCS: 20610; 76000; J3301

== ENCOUNTER → 2022-09-22 | Outpatient (CLI) | payer BC ==
[~2022-09-22] MED LIST changes: -ISOVUE-300 61% 50ML VIAL ONE; -LIDOCAINE 1% MDV 20ML VIAL ONE; -TRIAMCINOLONE ACETONIDE SUSP 40MG/ML 1ML VIAL ONE
== END ==
LOC: M PAIN 14:30
PROVIDERS: ATTEND Nurse Practitioner Family
DX: M79.10 Myalgia, unspecified site (principal); G89.29 Other chronic pain; E11.9 Type 2 diabetes mellitus without complications; J44.9 Chronic obstructive pulmonary disease, unspecified; G25.81 Restless legs syndrome; Z87.891 Personal history of nicotine dependence; Z88.5 Allergy status to narcotic agent; E66.01 Morbid (severe) obesity due to excess calories; Z68.41 Body mass index [BMI] 40.0-44.9, adult; Z79.891 Long term (current) use of opiate analgesic; Z79.899 Other long term (current) drug therapy

== ENCOUNTER → 2022-11-20 | Outpatient (CLI) | payer BC ==
[~2022-11-20] MED LIST changes: +**SFHN** BUPIVACAINE HCL 0.5% 10ML VIAL ONE; +**SFHN** LIDOCAINE 1% MDV 20ML VIAL ONE; -DULE100A IN; +ISOVUE-300 61% 100ML VIAL ONE; +MOME13HF8 IN; +methylPREDNISolone 80MG/ML SUSP 1ML VIAL ONE
== END ==
LOC: M PLAIMG 13:55
PROVIDERS: ATTEND Orthopaedic Surgery Adult Reconstructive Orthopaedic Surgery
DX: M16.11 Unilateral primary osteoarthritis, right hip (principal)
CPT/HCPCS: 20610; 77002; J1040; Q9967; S0020

== ENCOUNTER → 2022-12-21 | Outpatient (CLI) | payer BC ==
[~2022-12-21] MED LIST changes: -**SFHN** BUPIVACAINE HCL 0.5% 10ML VIAL ONE; -**SFHN** LIDOCAINE 1% MDV 20ML VIAL ONE; -ISOVUE-300 61% 100ML VIAL ONE; -methylPREDNISolone 80MG/ML SUSP 1ML VIAL ONE
== END ==
LOC: M PAIN 14:30
PROVIDERS: ATTEND Nurse Practitioner Family
DX: M79.10 Myalgia, unspecified site (principal); G89.29 Other chronic pain; E11.9 Type 2 diabetes mellitus without complications; J44.9 Chronic obstructive pulmonary disease, unspecified; G25.81 Restless legs syndrome; Z87.891 Personal history of nicotine dependence; Z88.5 Allergy status to narcotic agent; Z88.8 Allergy status to other drugs, medicaments and biological substances; E66.01 Morbid (severe) obesity due to excess calories; Z68.41 Body mass index [BMI] 40.0-44.9, adult; Z79.84 Long term (current) use of oral hypoglycemic drugs; Z79.891 Long term (current) use of opiate analgesic; Z79.899 Other long term (current) drug therapy

== ENCOUNTER → 2022-12-21 | Outpatient (CLI) | payer BC ==
[2022-12-21 18:33] LABS: HEMOGLOBIN A1c 7.8 % (4.0-6.0)
[2022-12-21 18:34] LABS: CREATININE, URINE 117.6 MG/DL; MALB URINE SIEMENS < 3.0 MG/L; MAU/CREAT RATIO 2.5 MCG/MG (0.0-30.0)
[2022-12-21 18:36] LABS: ALBUMIN 3.6 G/DL (3.2-5.2); ALKALINE PHOSPHATASE 116 U/L (46-116); ALT/SGPT 34 U/L (7.0-40); AST/SGOT 23 U/L (<34); BILIRUBIN,TOTAL 0.4 MG/DL (0.3-1.2); BLOOD UREA NITROGEN 13 MG/DL (9-23); CARBON DIOXIDE LEVEL 28 MMOL/L (20-31); CHLORIDE LEVEL 105 MMOL/L (98-107); CHOLESTEROL LEVEL 178 MG/DL (<200); CHOLESTEROL RISK RATIO 4.05 (<5); CREATININE FOR GFR 0.96 MG/DL (0.70-1.30); GLOMERULAR FILTRATION RATE > 60.0 (>49); GLUCOSE, FASTING 125 MG/DL (74-106); HDL CHOLESTEROL 43.9 MG/DL (>40); LDL CHOLESTEROL 100.7 MG/DL (<100); NON-HDL-C 134.1 MG/DL; POTASSIUM SERUM 4.2 MMOL/L (3.5-5.1); SODIUM LEVEL 142 MMOL/L (136-145); TOTAL PROTEIN 6.2 G/DL (5.7-8.2); TRIGLYCERIDES LEVEL 167 MG/DL (<150)
== END ==
LOC: M PLALAB 15:33
PROVIDERS: ATTEND Nurse Practitioner Adult Health
DX: Z00.00 Encounter for general adult medical examination without abnormal findings (principal); E11.9 Type 2 diabetes mellitus without complications; Z12.5 Encounter for screening for malignant neoplasm of prostate
CPT/HCPCS: 36415; 80053; 80061; 82043; 83036; G0103

== ENCOUNTER → 2023-01-05 | Outpatient (CLI) | payer BC | LOC: M PAIN 13:00 | PROVIDERS: ATTEND Nurse Practitioner Family | DX: M25.551 Pain in right hip (principal); G89.29 Other chronic pain; E11.9 Type 2 diabetes mellitus without complications; J44.9 Chronic obstructive pulmonary disease, unspecified; G25.81 Restless legs syndrome; Z96.653 Presence of artificial knee joint, bilateral; Z87.891 Personal history of nicotine dependence; Z88.5 Allergy status to narcotic agent; Z88.8 Allergy status to other drugs, medicaments and biological substances; E66.01 Morbid (severe) obesity due to excess calories; Z68.41 Body mass index [BMI] 40.0-44.9, adult; Z79.84 Long term (current) use of oral hypoglycemic drugs; Z79.891 Long term (current) use of opiate analgesic; Z79.899 Other long term (current) drug therapy ==

== ENCOUNTER → 2023-01-20 | Outpatient (CLI) | payer BC | LOC: M RAD 07:18 | PROVIDERS: ATTEND Nurse Practitioner Family | DX: M16.11 Unilateral primary osteoarthritis, right hip (principal) ==

== ENCOUNTER → 2023-01-22 | Outpatient (CLI) | payer BC | LOC: M PAIN 09:15 | PROVIDERS: ATTEND Nurse Practitioner Family | DX: M25.551 Pain in right hip (principal); G89.29 Other chronic pain; E11.9 Type 2 diabetes mellitus without complications; J44.9 Chronic obstructive pulmonary disease, unspecified; G25.81 Restless legs syndrome; Z96.653 Presence of artificial knee joint, bilateral; Z87.891 Personal history of nicotine dependence; Z88.5 Allergy status to narcotic agent; Z88.8 Allergy status to other drugs, medicaments and biological substances; E66.01 Morbid (severe) obesity due to excess calories; Z68.41 Body mass index [BMI] 40.0-44.9, adult; Z79.84 Long term (current) use of oral hypoglycemic drugs; Z79.891 Long term (current) use of opiate analgesic; Z79.899 Other long term (current) drug therapy ==

== ENCOUNTER → 2023-01-25 | Outpatient (CLI) | payer BC | LOC: M PAIN 16:15 | PROVIDERS: ATTEND Nurse Practitioner Family | DX: M25.551 Pain in right hip (principal); G89.29 Other chronic pain; E11.9 Type 2 diabetes mellitus without complications; J44.9 Chronic obstructive pulmonary disease, unspecified; G25.81 Restless legs syndrome; Z96.653 Presence of artificial knee joint, bilateral; Z87.891 Personal history of nicotine dependence; Z88.5 Allergy status to narcotic agent; Z88.8 Allergy status to other drugs, medicaments and biological substances; E66.01 Morbid (severe) obesity due to excess calories; Z68.41 Body mass index [BMI] 40.0-44.9, adult; Z79.891 Long term (current) use of opiate analgesic; Z79.899 Other long term (current) drug therapy ==

== ENCOUNTER → 2023-01-28 | Outpatient (CLI) | payer BC ==
[~2023-01-28] MED LIST changes: +BUPIVACAINE HCL 0.25% 10ML VIAL As Ordered ONE; +ISOVUE-M 300 61% 15ML VIAL As Ordered ONE; +LIDOCAINE 1% SDV 30ML VIAL As Ordered ONE; +TRIAMCINOLONE ACETONIDE SUSP 40MG/ML 1ML VIAL As Ordered ONE; +diazePAM 5MG TABLET As Ordered ONE; +oxyCODONE 5MG TAB As Ordered ONE
== END ==
LOC: M PAIN 12:30
PROVIDERS: ATTEND Anesthesiology
DX: M25.551 Pain in right hip (principal); M16.11 Unilateral primary osteoarthritis, right hip; G89.29 Other chronic pain; E11.9 Type 2 diabetes mellitus without complications; J44.9 Chronic obstructive pulmonary disease, unspecified; G25.81 Restless legs syndrome; Z96.653 Presence of artificial knee joint, bilateral; Z87.891 Personal history of nicotine dependence; Z88.5 Allergy status to narcotic agent; Z88.8 Allergy status to other drugs, medicaments and biological substances; E66.01 Morbid (severe) obesity due to excess calories; Z68.41 Body mass index [BMI] 40.0-44.9, adult; Z79.84 Long term (current) use of oral hypoglycemic drugs; Z79.891 Long term (current) use of opiate analgesic; Z79.899 Other long term (current) drug therapy
CPT/HCPCS: 20610; 77002; J3301; Q9967; S0020

== ENCOUNTER → 2023-02-18 | Outpatient (CLI) | payer BC ==
[~2023-02-18] MED LIST changes: -BUPIVACAINE HCL 0.25% 10ML VIAL As Ordered ONE; -ISOVUE-M 300 61% 15ML VIAL As Ordered ONE; -LIDOCAINE 1% SDV 30ML VIAL As Ordered ONE; -TRIAMCINOLONE ACETONIDE SUSP 40MG/ML 1ML VIAL As Ordered ONE; -diazePAM 5MG TABLET As Ordered ONE; -oxyCODONE 5MG TAB As Ordered ONE
== END ==
LOC: M PAIN 11:30
PROVIDERS: ATTEND Nurse Practitioner Family
DX: M25.551 Pain in right hip (principal); M16.11 Unilateral primary osteoarthritis, right hip; J44.9 Chronic obstructive pulmonary disease, unspecified; G25.81 Restless legs syndrome; M54.50 Low back pain, unspecified; M54.2 Cervicalgia; M25.552 Pain in left hip; E11.9 Type 2 diabetes mellitus without complications; Z87.891 Personal history of nicotine dependence; Z79.891 Long term (current) use of opiate analgesic; Z79.899 Other long term (current) drug therapy; Z88.5 Allergy status to narcotic agent; Z88.8 Allergy status to other drugs, medicaments and biological substances

== ENCOUNTER → 2023-02-26 | Outpatient (CLI) | payer BC ==
[~2023-02-26] MED LIST changes: +ISOVUE-M 300 61% 15ML VIAL As Ordered ONE; +LIDOCAINE 1% MDV 20ML VIAL As Ordered ONE; +LIDOCAINE 1% SDV 30ML VIAL As Ordered ONE; +TRIAMCINOLONE ACETONIDE SUSP 40MG/ML 1ML VIAL As Ordered ONE; +diazePAM 5MG TABLET As Ordered ONE; +oxyCODONE 5MG TAB As Ordered ONE
== END ==
LOC: M PAIN 13:45
PROVIDERS: ATTEND Anesthesiology
DX: M25.551 Pain in right hip (principal); G89.29 Other chronic pain; E11.9 Type 2 diabetes mellitus without complications; J44.9 Chronic obstructive pulmonary disease, unspecified; G25.81 Restless legs syndrome; Z96.652 Presence of left artificial knee joint; Z87.891 Personal history of nicotine dependence; Z88.5 Allergy status to narcotic agent; Z88.8 Allergy status to other drugs, medicaments and biological substances; E66.01 Morbid (severe) obesity due to excess calories; Z68.41 Body mass index [BMI] 40.0-44.9, adult; Z79.84 Long term (current) use of oral hypoglycemic drugs; Z79.891 Long term (current) use of opiate analgesic; Z79.899 Other long term (current) drug therapy
CPT/HCPCS: 20610; 77002; J3301; Q9967; S0020

== ENCOUNTER → 2023-03-22 | Outpatient (CLI) | payer BC ==
[~2023-03-22] MED LIST changes: -ISOVUE-M 300 61% 15ML VIAL As Ordered ONE; -LIDOCAINE 1% MDV 20ML VIAL As Ordered ONE; -LIDOCAINE 1% SDV 30ML VIAL As Ordered ONE; -TRIAMCINOLONE ACETONIDE SUSP 40MG/ML 1ML VIAL As Ordered ONE; -diazePAM 5MG TABLET As Ordered ONE; -oxyCODONE 5MG TAB As Ordered ONE
== END ==
LOC: M PAIN 14:30
PROVIDERS: ATTEND Nurse Practitioner Family
DX: M25.551 Pain in right hip (principal); G89.29 Other chronic pain; E11.9 Type 2 diabetes mellitus without complications; J44.9 Chronic obstructive pulmonary disease, unspecified; G25.81 Restless legs syndrome; Z96.652 Presence of left artificial knee joint; Z87.891 Personal history of nicotine dependence; Z88.5 Allergy status to narcotic agent; Z88.8 Allergy status to other drugs, medicaments and biological substances; E66.01 Morbid (severe) obesity due to excess calories; Z68.41 Body mass index [BMI] 40.0-44.9, adult; Z79.84 Long term (current) use of oral hypoglycemic drugs; Z79.891 Long term (current) use of opiate analgesic; Z79.899 Other long term (current) drug therapy

== ENCOUNTER → 2023-05-03 | Outpatient (CLI) | payer BC | LOC: M SOG 07:54 | PROVIDERS: ATTEND Orthopaedic Surgery | DX: M25.551 Pain in right hip (principal) ==

== ENCOUNTER → 2023-06-04 | Outpatient (CLI) | payer BC ==
[2023-06-04 14:27] LABS: ALBUMIN 3.5 G/DL (3.2-5.2); ALKALINE PHOSPHATASE 101 U/L (46-116); ALT/SGPT 28 U/L (7.0-40); AST/SGOT 18 U/L (<34); BILIRUBIN,TOTAL 0.6 MG/DL (0.3-1.2); BLOOD UREA NITROGEN 16 MG/DL (9-23); CALCIUM LEVEL 9.3 MG/DL (8.3-10.6); CARBON DIOXIDE LEVEL 31 MMOL/L (20-31); CHLORIDE LEVEL 103 MMOL/L (98-107); CHOLESTEROL LEVEL 169 MG/DL (<200); CHOLESTEROL RISK RATIO 4.84 (<5); CREATININE FOR GFR 0.85 MG/DL (0.70-1.30); GLOMERULAR FILTRATION RATE > 60.0 (>49); GLUCOSE, FASTING 110 MG/DL (74-106); HDL CHOLESTEROL 34.9 MG/DL (>40); LDL CHOLESTEROL 107.5 MG/DL (<100); NON-HDL-C 134.1 MG/DL; SODIUM LEVEL 142 MMOL/L (136-145); TOTAL PROTEIN 6.3 G/DL (5.7-8.2); TRIGLYCERIDES LEVEL 133 MG/DL (<150)
[2023-06-04 14:58] LABS: CREATININE, URINE 114.2 MG/DL
[2023-06-04 14:59] LABS: MAU/CREAT RATIO 2.6 MCG/MG (0.0-30.0)
[2023-06-04 15:11] LABS: HEMOGLOBIN A1c 6.4 % (4.0-6.0)
== END ==
LOC: M PLALAB 08:56
PROVIDERS: ATTEND Nurse Practitioner Adult Health
DX: E11.9 Type 2 diabetes mellitus without complications (principal); R60.0 Localized edema

== ENCOUNTER → 2023-06-16 | Outpatient (CLI) | payer BC ==
[2023-06-16 18:21] LABS: BASO # 0.1 10^3/uL (0.0-0.2); BASO % 0.8 % (0.0-1.0); EOS # 0.2 10^3/uL (0.0-0.5); EOS % 2.3 % (0.0-3.0); HEMATOCRIT 49.6 % (42.0-52.0); HEMOGLOBIN 15.8 g/dl (13.5-17.5); LYMPH # 1.9 10^3/uL (1.5-5.0); LYMPH % 18.6 % (24.0-44.0); MEAN CORPUSCULAR HGB CONC 31.9 g/dl (32.0-36.5); MONO # 0.9 10^3/uL (0.0-0.8); MONO % 8.3 % (2.0-8.0); NEUTROPHILS # 7.1 10^3/uL (1.5-8.5); NEUTROPHILS % 69.7 % (36.0-66.0); PLATELET COUNT, AUTOMATED 295 10^3/uL (150-450); RED BLOOD COUNT 5.45 10^6/uL (4.30-6.10); WHITE BLOOD COUNT 10.2 10^3/uL (4.0-10.0)
[2023-06-16 18:39] LABS: HEMOGLOBIN A1c 6.6 % (4.0-6.0)
[2023-06-16 18:47] LABS: ALBUMIN 3.7 G/DL (3.2-5.2); ALKALINE PHOSPHATASE 100 U/L (46-116); ALT/SGPT 22 U/L (7.0-40); AST/SGOT 20 U/L (<34); BILIRUBIN,TOTAL 0.5 MG/DL (0.3-1.2); BLOOD UREA NITROGEN 21 MG/DL (9-23); CALCIUM LEVEL 9.3 MG/DL (8.3-10.6); CARBON DIOXIDE LEVEL 29 MMOL/L (20-31); CHLORIDE LEVEL 103 MMOL/L (98-107); CREATININE FOR GFR 0.91 MG/DL (0.70-1.30); GLOMERULAR FILTRATION RATE > 60.0 (>49); GLUCOSE, FASTING 108 MG/DL (74-106); POTASSIUM SERUM 4.7 MMOL/L (3.5-5.1); SODIUM LEVEL 141 MMOL/L (136-145); TOTAL 25(OH) VITAMIN D 15.4 NG/ML (20.0-100.0); TOTAL PROTEIN 6.5 G/DL (5.7-8.2)
== END ==
LOC: M PLALAB 15:07
PROVIDERS: ATTEND Orthopaedic Surgery
DX: M16.11 Unilateral primary osteoarthritis, right hip (principal)

== ENCOUNTER → 2023-06-24 | Outpatient (CLI) | payer BC | LOC: M SOG 15:36 | PROVIDERS: ATTEND Orthopaedic Surgery | DX: M16.11 Unilateral primary osteoarthritis, right hip (principal) ==

== ENCOUNTER → 2023-07-08 | Outpatient (CLI) | payer BC ==
[~2023-07-08] MED LIST changes: +OXYC-673 PO
[2023-07-08 14:10] LABS: BASO # 0.1 10^3/uL (0.0-0.2); BASO % 1.2 % (0.0-1.0); EOS # 0.2 10^3/uL (0.0-0.5); EOS % 2.1 % (0.0-3.0); HEMATOCRIT 49.5 % (42.0-52.0); HEMOGLOBIN 15.8 g/dl (13.5-17.5); LYMPH # 1.9 10^3/uL (1.5-5.0); LYMPH % 22.8 % (24.0-44.0); MEAN CORPUSCULAR HEMOGLOBIN 28.7 pg (27.0-33.0); MEAN CORPUSCULAR HGB CONC 31.9 g/dl (32.0-36.5); MONO # 0.7 10^3/uL (0.0-0.8); MONO % 8.8 % (2.0-8.0); NEUTROPHILS # 5.3 10^3/uL (1.5-8.5); NEUTROPHILS % 64.9 % (36.0-66.0); PLATELET COUNT, AUTOMATED 273 10^3/uL (150-450); WHITE BLOOD COUNT 8.1 10^3/uL (4.0-10.0)
[2023-07-08 14:19] LABS: INR 1.05; PARTIAL THROMBOPLASTIN TIME 29.1 SECONDS (24.8-34.2); PROTHROMBIN TIME 13.4 SECONDS (12.5-14.5)
[2023-07-08 14:29] LABS: ALBUMIN 3.5 G/DL (3.2-5.2); ALKALINE PHOSPHATASE 106 U/L (46-116); ALT/SGPT 22 U/L (7.0-40); AST/SGOT 16 U/L (<34); BILIRUBIN,TOTAL 0.6 MG/DL (0.3-1.2); BLOOD UREA NITROGEN 14 MG/DL (9-23); CALCIUM LEVEL 9.1 MG/DL (8.3-10.6); CARBON DIOXIDE LEVEL 32 MMOL/L (20-31); CHLORIDE LEVEL 102 MMOL/L (98-107); CREATININE FOR GFR 0.74 MG/DL (0.70-1.30); GLOMERULAR FILTRATION RATE > 60.0 (>49); GLUCOSE, FASTING 111 MG/DL (74-106); POTASSIUM SERUM 4.7 MMOL/L (3.5-5.1); SODIUM LEVEL 141 MMOL/L (136-145); TOTAL PROTEIN 6.5 G/DL (5.7-8.2)
[2023-07-08 14:32] LABS: FERRITIN 64.7 NG/ML (10.5-307.3)
== END ==
LOC: M PLALAB 12:34
PROVIDERS: ATTEND Family Medicine
DX: J44.9 Chronic obstructive pulmonary disease, unspecified (principal); I50.32 Chronic diastolic (congestive) heart failure

== ENCOUNTER → 2023-07-16 | Outpatient (CLI) | payer BC ==
[~2023-07-16] MED LIST changes: +ASPI81TAEC PO; +CEFU50TA PO; +OXYC1TAB23 PO; +XTAM9CAP PO
== END ==
LOC: M RAD 08:10
PROVIDERS: ATTEND Orthopaedic Surgery
DX: M16.11 Unilateral primary osteoarthritis, right hip (principal)

== ENCOUNTER 2023-07-20 06:18 | Observation (INO) | payer BC ==
[~2023-07-20] VITALS: Ht 172.7 cm; Wt 110.8 kg
[~2023-07-20 06:18] MED LIST changes: -ASPI81TAEC PO; -CEFU50TA PO; -OXYC1TAB23 PO; +ROPIVA 100MG/KETOR 15MG/EPINEPHRINE 0.3MG IN NS 50ML SYRINGE PA ONE; -XTAM9CAP PO; +ceFAZolin SOD 2 GM in IV 1 EA IV ONE
[2023-07-20] MEDS ORDERED: INSULIN LISPRO (NovoLOG) PER UNIT SC PRN ×2 (06:40→12:10)
[2023-07-20] MEDS ORDERED: VANCOMYCIN 1000MG/20ML VIAL As Ordered ONE (07:12)
[2023-07-20] MEDS ORDERED: TRANEXAMIC ACID 100 MG/ML 10ML VIAL As Ordered ONE (07:12)
[2023-07-20] MEDS ORDERED: ROCURONIUM BROMIDE 50MG/5ML VIAL As Ordered ONE ×2 (08:30→08:31)
[2023-07-20] MEDS ORDERED: SEVOFLURANE INHAL SOLN 250 ML BTL As Ordered ONE (08:30)
[2023-07-20] MEDS ORDERED: MIDAZOLAM INJ 2MG/2ML VIAL As Ordered ONE (08:30)
[2023-07-20] MEDS ORDERED: PHENYLephrine 500MCG 5ML (100MCG/ML) SYRINGE As Ordered ONE (08:30)
[2023-07-20] MEDS ORDERED: SUGAMMADEX SODIUM 500 MG/5 ML VIAL (BRIDION) As Ordered ONE (08:30)
[2023-07-20] MEDS ORDERED: METOCLOPRAMIDE INJ 10MG/2ML VIAL As Ordered ONE (08:30)
[2023-07-20] MEDS ORDERED: dexmedeTOMIDine (4MCG/ML)200MCG/50ML BTL (PRECEDEX) As Ordered ONE (08:30)
[2023-07-20] MEDS ORDERED: fentaNYL 250 MCG/5 ML INJECTION As Ordered ONE (08:30)
[2023-07-20] MEDS ORDERED: ONDANSETRON 4MG 2ML VIAL As Ordered ONE (08:30)
[2023-07-20] MEDS ORDERED: LIDOCAINE 2% 100MG/5ML SDV (FOR ANES.) As Ordered ONE (08:30)
[2023-07-20] MEDS ORDERED: ACETAMINOPHEN 1000MG 100ML IV BAG As Ordered ONE (08:30)
[2023-07-20] MEDS ORDERED: propofoL 200 MG/20 ML VIAL As Ordered ONE (08:30)
[2023-07-20] MEDS ORDERED: HYDROmorphone HCL 2MG/ML 1ML VIAL As Ordered ONE (08:45)
[2023-07-20] MEDS ORDERED: ceFAZolin 2 GM/D5W 50 ML IV BAG As Ordered ONE (11:25)
[2023-07-20] MEDS: ACETAMINOPHEN TAB 650MG DOSE (2X325MG) PO SCH ×3 (12:00→23:30)
[2023-07-20] MEDS ORDERED: MEPERIDINE 25 MG/ML 1ML VIAL IV PRN (12:10)
[2023-07-20] MEDS ORDERED: fentaNYL 100 MCG/2 ML INJECTION IV PRN (12:10)
[2023-07-20] MEDS ORDERED: diphenhydrAMINE 50MG/ML VIAL IV PRN (12:10)
[2023-07-20] MEDS ORDERED: METOCLOPRAMIDE INJ 10MG/2ML VIAL IV PRN (12:10)
[2023-07-20] MEDS ORDERED: SENNA 8.6 MG TAB (SENOKOT) PO PRN (12:10)
[2023-07-20] MEDS ORDERED: LR 1,000 ML IV SCH ×2 (12:10)
[2023-07-20] MEDS ORDERED: oxyCODONE 5MG TAB PO PRN ×2 (12:10)
[2023-07-20] MEDS ORDERED: ONDANSETRON 4MG 2ML VIAL IV PRN ×2 (12:10)
[2023-07-20] MEDS ORDERED: DEXTROSE 50% 50ML SYRINGE IV PRN (12:25)
[2023-07-20] MEDS ORDERED: GLUCOSE 4GM CHEW TABLET PO PRN (12:25)
[2023-07-20] MEDS ORDERED: GLUCAGON INJ 1MG VIAL SC PRN (12:25)
[2023-07-20] MEDS: HYDROMORPHONE HCL 0.5 MG/ 0.5 ML SYRINGE IV PRN ×2 (12:36→12:55)
[2023-07-20] MEDS ORDERED: FUROSEMIDE 40 MG TAB PO PRN (13:20)
[2023-07-20] MEDS ORDERED: ALBUTEROL SULFATE 2.5MG/0.5ML INH NEB SOLN INH PRN (13:20)
[2023-07-20 13:40] VITALS: BP 125/65; TEMP 97.7; O2SAT 92
[2023-07-20] MEDS ORDERED: MED REC IN PROGRESS XX SCH (14:05)
[2023-07-20] MEDS ORDERED: POLYVINYL ALCOHOL OPHTH SOLN 15ML (LIQUITEARS) OU PRN (14:05)
[2023-07-20 14:15] VITALS: BP 142/73; TEMP 97.8; O2SAT 93
[2023-07-20] MEDS: SYMBICORT 160/4.5MCG INHALER 6GM INH SCH ×2 (14:30→20:15)
[2023-07-20] MEDS: ceFAZolin SOD 2 GM in IV 1 EA IV SCH ×2 (15:11→23:31)
[2023-07-20 15:15] VITALS: BP 124/65; TEMP 97.3; O2SAT 94
[2023-07-20] MEDS ORDERED: XTAM9CAP PO (15:59)
[2023-07-20] MEDS ORDERED: HOME MED LIST COMPLETE! XX SCH (16:05)
[2023-07-20] MEDS ORDERED: OXYC1TAB23 PO (16:05)
[2023-07-20 16:15] VITALS: BP 123/65; TEMP 98.2; O2SAT 93
[2023-07-20] MEDS: INSULIN LISPRO (NovoLOG) PER UNIT SC SCH (16:54)
[2023-07-20] MEDS: CelecoXIB (CeleBREX) 100 MG CAP PO SCH (16:55)
[2023-07-20] MEDS: oxyCODONE 5MG TAB PO PRN ×2 (16:55→21:00)
[2023-07-20 17:15] VITALS: BP 124/66; TEMP 97.6; O2SAT 94
[2023-07-20 20:24] VITALS: BP 123/61; TEMP 97.7; O2SAT 90
[2023-07-20] MEDS: ASPIRIN 81MG ENTERIC TABLET PO SCH (20:51)
[2023-07-20] MEDS: DOCUSATE SODIUM 100MG CAPSULE PO SCH (20:51)
[2023-07-20] MEDS ORDERED: INSULIN LISPRO (NovoLOG) PER UNIT SC SCH (21:00)
[2023-07-20] MEDS ORDERED: oxyCODONE 5MG TAB PO ONE (21:50)
[2023-07-21 01:36] VITALS: BP 123/62; TEMP 98.1; O2SAT 95
[2023-07-21] MEDS: ACETAMINOPHEN TAB 650MG DOSE (2X325MG) PO SCH (04:45)
[2023-07-21] MEDS: oxyCODONE 5MG TAB PO PRN ×2 (04:46→08:56)
[2023-07-21] MEDS: CelecoXIB (CeleBREX) 100 MG CAP PO SCH (04:49)
[2023-07-21 06:19] LABS: HEMATOCRIT 35.3 % (42.0-52.0); HEMOGLOBIN 11.3 g/dl (13.5-17.5); MEAN CORPUSCULAR HEMOGLOBIN 28.4 pg (27.0-33.0); MEAN CORPUSCULAR VOLUME 88.7 fl (80.0-96.0); PLATELET COUNT, AUTOMATED 242 10^3/uL (150-450); RED BLOOD COUNT 3.98 10^6/uL (4.30-6.10)
[2023-07-21 06:41] VITALS: BP 123/63; TEMP 97.9; O2SAT 90
[2023-07-21 06:43] LABS: ALBUMIN 2.3 G/DL (3.2-5.2); ALKALINE PHOSPHATASE 79 U/L (46-116); ALT/SGPT 20 U/L (7.0-40); AST/SGOT 32 U/L (<34); BILIRUBIN,TOTAL 0.4 MG/DL (0.3-1.2); BLOOD UREA NITROGEN 15 MG/DL (9-23); CALCIUM LEVEL 8.1 MG/DL (8.3-10.6); CARBON DIOXIDE LEVEL 30 MMOL/L (20-31); CHLORIDE LEVEL 105 MMOL/L (98-107); CREATININE FOR GFR 0.79 MG/DL (0.70-1.30); GLOMERULAR FILTRATION RATE > 60.0 (>49); GLUCOSE, FASTING 151 MG/DL (74-106); POTASSIUM SERUM 4.6 MMOL/L (3.5-5.1); SODIUM LEVEL 141 MMOL/L (136-145); TOTAL PROTEIN 4.9 G/DL (5.7-8.2)
[2023-07-21] MEDS: SYMBICORT 160/4.5MCG INHALER 6GM INH SCH (07:26)
[2023-07-21] MEDS: INSULIN LISPRO (NovoLOG) PER UNIT SC SCH (08:54)
[2023-07-21] MEDS: ASPIRIN 81MG ENTERIC TABLET PO SCH (08:56)
[2023-07-21] MEDS: DOCUSATE SODIUM 100MG CAPSULE PO SCH (08:56)
[2023-07-21] MEDS ORDERED: ASCORBIC ACID 500 MG TAB PO SCH (09:00)
[2023-07-21] MEDS ORDERED: FERROUS SULFATE 325MG TAB PO SCH (09:00)
[2023-07-21] MEDS ORDERED: CEFUROXIME 500 MG TAB PO SCH ×2 (09:00)
[2023-07-21] MEDS ORDERED: ASPI81TAEC PO (09:34)
[2023-07-21] MEDS ORDERED: CEFU50TA PO (09:34)
== END 2023-07-21 10:50 | disposition home or self-care (01) ==
LOC: M SDC 06:18 → M MS5PR 06:19 → M SDC 06:19 → M MS5PR 13:35
PROVIDERS: ADMIT Orthopaedic Surgery; ATTEND Orthopaedic Surgery
DX: M16.11 Unilateral primary osteoarthritis, right hip (principal); E11.9 Type 2 diabetes mellitus without complications; J44.9 Chronic obstructive pulmonary disease, unspecified; Z79.51 Long term (current) use of inhaled steroids; Z79.899 Other long term (current) drug therapy; Z87.891 Personal history of nicotine dependence; Z79.82 Long term (current) use of aspirin
CPT/HCPCS: 27130; 36415; 71046; 72170; 80053; 85027; 88300; 94640; 94664; 96365; 96367; 96375; 97116; 97161; 97165; 97530; 97535; C1776; J0131; J0690; J1100; J1170; J1815; J2250; J2371; J2405; J2765; J3010; J3370; S2900

== ENCOUNTER → 2023-08-02 | Outpatient (CLI) | payer BC ==
[~2023-08-02] MED LIST changes: +ASPI81TAEC PO; +CEFU50TA PO; +OXYC1TAB23 PO; -ROPIVA 100MG/KETOR 15MG/EPINEPHRINE 0.3MG IN NS 50ML SYRINGE PA ONE; +XTAM9CAP PO; -ceFAZolin SOD 2 GM in IV 1 EA IV ONE
== END ==
LOC: M SOG 08:03
PROVIDERS: ATTEND Orthopaedic Surgery
DX: Z47.1 Aftercare following joint replacement surgery (principal); Z96.641 Presence of right artificial hip joint

== ENCOUNTER → 2023-08-31 | Outpatient (CLI) | payer BC | LOC: M SOG 14:40 | PROVIDERS: ATTEND Orthopaedic Surgery | DX: Z47.1 Aftercare following joint replacement surgery (principal); Z96.641 Presence of right artificial hip joint ==

== ENCOUNTER → 2023-10-07 | Outpatient (CLI) | payer BC | LOC: M PAIN 14:00 | PROVIDERS: ATTEND Nurse Practitioner Family | DX: M47.816 Spondylosis without myelopathy or radiculopathy, lumbar region (principal); Z79.891 Long term (current) use of opiate analgesic; M47.813 Spondylosis without myelopathy or radiculopathy, cervicothoracic region; M79.10 Myalgia, unspecified site; G89.29 Other chronic pain; E11.9 Type 2 diabetes mellitus without complications; J44.9 Chronic obstructive pulmonary disease, unspecified; I50.30 Unspecified diastolic (congestive) heart failure; Z87.891 Personal history of nicotine dependence; Z79.899 Other long term (current) drug therapy; Z88.5 Allergy status to narcotic agent; Z88.8 Allergy status to other drugs, medicaments and biological substances ==

== ENCOUNTER → 2023-10-21 | Outpatient (CLI) | payer BC ==
[2023-10-21 17:27] LABS: BASO # 0.1 10^3/uL (0.0-0.2); BASO % 0.7 % (0.0-1.0); EOS # 0.4 10^3/uL (0.0-0.5); EOS % 4.9 % (0.0-3.0); HEMATOCRIT 43.2 % (42.0-52.0); HEMOGLOBIN 13.7 g/dl (13.5-17.5); LYMPH # 2.1 10^3/uL (1.5-5.0); LYMPH % 23.8 % (24.0-44.0); MEAN CORPUSCULAR HEMOGLOBIN 27.6 pg (27.0-33.0); MEAN CORPUSCULAR HGB CONC 31.7 g/dl (32.0-36.5); MEAN CORPUSCULAR VOLUME 86.9 fl (80.0-96.0); MONO # 0.8 10^3/uL (0.0-0.8); MONO % 9.3 % (2.0-8.0); NEUTROPHILS # 5.4 10^3/uL (1.5-8.5); PLATELET COUNT, AUTOMATED 376 10^3/uL (150-450); RED BLOOD COUNT 4.97 10^6/uL (4.30-6.10); WHITE BLOOD COUNT 8.9 10^3/uL (4.0-10.0)
[2023-10-21 17:41] LABS: HEMOGLOBIN A1c 6.5 % (4.0-6.0)
[2023-10-21 17:50] LABS: ALBUMIN 3.1 G/DL (3.2-5.2); ALKALINE PHOSPHATASE 103 U/L (46-116); ALT/SGPT 17 U/L (7.0-40); AST/SGOT 11 U/L (<34); BILIRUBIN,TOTAL 0.3 MG/DL (0.3-1.2); BLOOD UREA NITROGEN 16 MG/DL (9-23); CALCIUM LEVEL 8.6 MG/DL (8.3-10.6); CARBON DIOXIDE LEVEL 29 MMOL/L (20-31); CHLORIDE LEVEL 103 MMOL/L (98-107); CREATININE FOR GFR 0.75 MG/DL (0.70-1.30); GLOMERULAR FILTRATION RATE > 60.0 (>49); GLUCOSE, FASTING 91 MG/DL (74-106); POTASSIUM SERUM 4.4 MMOL/L (3.5-5.1); SODIUM LEVEL 139 MMOL/L (136-145); TOTAL PROTEIN 6.5 G/DL (5.7-8.2)
[2023-10-21 17:55] LABS: ERYTHROCYTE SEDIMENTATION RATE 91 mm/hr (0-20)
[2023-10-21 23:51] LABS: RHEUMATOID FACTOR QUANT < 3.5 IU/ML (<14)
[2023-10-24 00:09] LABS: ANA (HEP2) Negative (.); CYCLIC CITRULLINATED PEPTIDE 7 units (0-19)
== END ==
LOC: M PLAIMG 16:10
PROVIDERS: ATTEND Nurse Practitioner Adult Health
DX: M19.042 Primary osteoarthritis, left hand (principal); M79.89 Other specified soft tissue disorders; E11.9 Type 2 diabetes mellitus without complications

== ENCOUNTER → 2023-11-26 | Outpatient (CLI) | payer BC | LOC: M PAIN 15:00 | PROVIDERS: ATTEND Nurse Practitioner Family | DX: M47.816 Spondylosis without myelopathy or radiculopathy, lumbar region (principal); M47.813 Spondylosis without myelopathy or radiculopathy, cervicothoracic region; M79.10 Myalgia, unspecified site; E11.9 Type 2 diabetes mellitus without complications; J44.9 Chronic obstructive pulmonary disease, unspecified; Z87.891 Personal history of nicotine dependence; Z79.1 Long term (current) use of non-steroidal anti-inflammatories (NSAID); Z79.51 Long term (current) use of inhaled steroids; Z79.891 Long term (current) use of opiate analgesic; Z79.899 Other long term (current) drug therapy; Z88.8 Allergy status to other drugs, medicaments and biological substances ==

== ENCOUNTER → 2023-11-30 | Outpatient (CLI) | payer BC | LOC: M SOG 16:26 | PROVIDERS: ATTEND Orthopaedic Surgery | DX: Z96.641 Presence of right artificial hip joint (principal); Z53.9 Procedure and treatment not carried out, unspecified reason ==

== ENCOUNTER → 2023-12-01 | Outpatient (CLI) | payer BC | LOC: M SOG 09:27 | PROVIDERS: ATTEND Orthopaedic Surgery | DX: Z47.1 Aftercare following joint replacement surgery (principal); Z96.641 Presence of right artificial hip joint ==

== ENCOUNTER 2023-12-15 10:46 | Emergency (ER) | payer BC, OTHER ==
[~2023-12-15] VITALS: Ht 172.7 cm; Wt 108.2 kg
[2023-12-15 11:45] LABS: BASO # 0.1 10^3/uL (0.0-0.2); BASO % 0.7 % (0.0-1.0); EOS # 0.2 10^3/uL (0.0-0.5); EOS % 2.1 % (0.0-3.0); HEMATOCRIT 45.6 % (42.0-52.0); HEMOGLOBIN 14.7 g/dl (13.5-17.5); LYMPH # 1.4 10^3/uL (1.5-5.0); LYMPH % 13.4 % (24.0-44.0); MEAN CORPUSCULAR HEMOGLOBIN 27.4 pg (27.0-33.0); MEAN CORPUSCULAR HGB CONC 32.2 g/dl (32.0-36.5); MEAN CORPUSCULAR VOLUME 85.1 fl (80.0-96.0); MONO # 0.8 10^3/uL (0.0-0.8); MONO % 7.5 % (2.0-8.0); NEUTROPHILS # 7.8 10^3/uL (1.5-8.5); PLATELET COUNT, AUTOMATED 326 10^3/uL (150-450); RED BLOOD COUNT 5.36 10^6/uL (4.30-6.10); WHITE BLOOD COUNT 10.2 10^3/uL (4.0-10.0)
[2023-12-15 12:10] LABS: CPK CREATINE PHOSPHOKINASE 56 U/L (46-171)
[2023-12-15 12:11] LABS: BLOOD UREA NITROGEN 15 MG/DL (9-23); CALCIUM LEVEL 8.9 MG/DL (8.3-10.6); CARBON DIOXIDE LEVEL 27 MMOL/L (20-31); CHLORIDE LEVEL 103 MMOL/L (98-107); CK-MB VALUE MASS < 1.0 NG/ML (<3.6); CREATININE FOR GFR 0.69 MG/DL (0.70-1.30); GLOMERULAR FILTRATION RATE > 60.0 (>49); GLUCOSE, FASTING 133 MG/DL (74-106); MB/CK RELATIVE INDEX 1.78 (< OR =4); POTASSIUM SERUM 4.5 MMOL/L (3.5-5.1); SODIUM LEVEL 139 MMOL/L (136-145)
[2023-12-15] MEDS: KETOROLAC 30 MG/ML 1ML VIAL IV ONE (14:52)
[2023-12-15] MEDS: NS 1,000 ML IV ONE (14:52)
[2023-12-15 15:50] LABS: CK-MB VALUE MASS < 1.0 NG/ML (<3.6)
[2023-12-15 15:51] LABS: CPK CREATINE PHOSPHOKINASE 45 U/L (46-171); MB/CK RELATIVE INDEX 2.22 (< OR =4)
[2023-12-15] MEDS: DOXYCYCLINE HYCLATE 100MG TABLET PO ONE (18:03)
[2023-12-15] MEDS ORDERED: DOXY-443 PO (18:06)
[2023-12-15 18:16] VITALS: BP 159/70; TEMP 97.3; O2SAT 94
== END 2023-12-15 18:26 | disposition home or self-care (01) ==
LOC: M ED 10:46
DX: J18.9 Pneumonia, unspecified organism (principal); R00.0 Tachycardia, unspecified; G35 Multiple sclerosis; J44.9 Chronic obstructive pulmonary disease, unspecified; Z79.52 Long term (current) use of systemic steroids; Z79.2 Long term (current) use of antibiotics; Z79.899 Other long term (current) drug therapy
CPT/HCPCS: 71046; 80048; 81001; 82550; 82553; 83880; 84484; 85025; 85652; 86140; 87486; 87581; 87633; 87798; 93005; 96361; 96374; 99284; J1885

== ENCOUNTER → 2024-04-05 | Outpatient (CLI) | payer OTHER ==
[~2024-04-05] MED LIST changes: +DOXY-323 PO
== END ==
LOC: M WHC 07:44
PROVIDERS: ATTEND Internal Medicine
DX: N63.42 Unspecified lump in left breast, subareolar (principal)
CPT/HCPCS: 77066; G0279